=== PATIENT | female | born 1975 | race Two or more races ===

== ENCOUNTER 2016-11-30 18:55 | Inpatient (IN) | payer SELFPAY ==
[~2016-11-30] VITALS: Ht 157.5 cm; Wt 58.1 kg
[~2016-11-30 18:55] MED LIST: AMOX1TAB11 PO; INSU100C4 SQ; INSU100V13 SQ; METO10SO PO; OXYC1TAB7 PO; PANT40TA5 PO
[2016-11-30] MEDS ORDERED: KETOROLAC TROMETHAMINE 30 MG/ML SYRINGE. IV ONE (19:45)
[2016-11-30] MEDS ORDERED: IV NORMAL SALINE 1000ML BAG 1,000 ML IV SCH ×2 (19:45→21:00)
[2016-11-30] MEDS ORDERED: ONDANSETRON PF 4 MG/2 ML VIAL. IV ONE (19:45)
--- NOTE | 2016-11-30 19:53 | PHYS DOC ---
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 She then became weak today and had mechanical fall while falling onto her right buttock. She now has achy back pain in her thoracic and lumbar spine. She denies numbness, tingling, weakness, saddle anesthesia, bowel or bladder distress function, head injury, neck pain, chest pain, dyspnea, cough, diarrhea, dysuria. States she has been taking medications as prescribed. She states her foot is healing since debridement and she followed up with orthopedics clinic last week. She denies foot swelling or drainage. She denies other areas of infectious concern. Review of Systems Review of Systems Constitutional: Denies fever or chills [] Eyes: Denies change in visual acuity, redness, or eye pain [] HENT: Denies nasal congestion or sore throat [] Respiratory: Denies cough or shortness of breath [] Cardiovascular: No additional information not addressed in HPI [] GI: Denies bloody stools or diarrhea [] : Denies dysuria or hematuria [] Musculoskeletal: Denies joint pain [] Integument: Denies rash or skin lesions [] Neurologic: Denies headache, focal weakness or sensory changes [] Endocrine: Denies polyuria or polydipsia [] Current Medications Current Medications Current Medications Medications (Trade) Dose Ordered Sig/[facility] Start Time Stop Time Status Last Admin Dose Admin Acetaminophen (Tylenol) 650 mg PRN Q4HRS PRN 11/30/16 21:00 12/01/16 20:59 Dextrose/Sodium Chloride 1,000 ml @ 250 mls/hr Q4H 11/30/16 22:00 Fentanyl Citrate (Fentanyl 2ml Vial) 50 mcg PRN Q2HR PRN 11/30/16 21:00 12/01/16 20:59 Insulin Human Regular 150 unit/ Sodium Chloride 151.5 ml @ 0 mls/hr CONT PRN PRN 11/30/16 21:00 Ketorolac Tromethamine 10 mg 10 mg 1X ONCE 11/30/16 19:45 11/30/16 19:46 DC 11/30/16 20:08 10 MG Ondansetron HCl (Zofran) 4 mg PRN Q8HRS PRN 11/30/16 21:00 12/01/16 20:59 Potassium Chloride (KCl Premix 10meq) 100 ml @ 100 mls/hr PRN Q1HR PRN 11/30/16 21:00 Sodium Chloride 1,000 ml @ 250 mls/hr Q4H 11/30/16 22:00 Sodium Chloride (Iv Sodium Chloride 0.9% 1000ml Bag) 1,000 ml @ 1,000 mls/hr Q1H 11/30/16 19:45 11/30/16 20:44 DC 11/30/16 19:42 1,000 MLS/HR Allergies Allergies Allergies Coded Allergies Type Severity Reaction Last Updated Verified No Known Allergies Allergy Unknown 10/21/16 Yes Physical Exam Physical Exam Constitutional: Well developed, well nourished, no acute distress, non-toxic appearance. [] HENT: Normocephalic, atraumatic, bilateral external ears normal, oropharynx moist, nose normal. [] Eyes: PERRLA, EOMI. [] Neck: Normal range of motion, supple. [] Cardiovascular: Heart rate regular rhythm [] Lungs & Thorax: Bilateral breath sounds clear to auscultation [] Abdomen: Bowel sounds normal, soft, mild epigastric tenderness, no guarding or rebound, no pulsatile masses. [] Skin: Warm, dry, no erythema, no rash. [] Back: No tenderness, no CVA tenderness. [] Extremities: ROM intact, no edema. Right lower extremity with clean/packed incision from mid foot debridement [] Neurologic: Alert and oriented X 3, normal motor function, normal sensory function, no focal deficits noted. [] Psychologic: Affect normal, judgement normal, mood normal. [] Current Patient Data Vital Signs Vital Signs Date Time Temp Pulse Resp B/P Pulse Ox O2 Delivery O2 Flow Rate FiO2 11/30/16 19:06 98.0 127 20 144/80 99 Room Air 98.0 Lab Values Laboratory Tests Test 11/30/16 20:00 11/30/16 20:05 White Blood Count 15.7x10^3/uL (4.0-11.0) H Red Blood Count 3.45x10^6/uL (3.50-5.40) L Hemoglobin 9.8g/dL (12.0-15.5) L Hematocrit 31.3% (36.0-47.0) L Mean Corpuscular Volume 91fL (79-100) Mean Corpuscular Hemoglobin 29pg (25-35) Mean Corpuscular Hemoglobin Concent 31g/dL (31-37) Red Cell Distribution Width 15.3% (11.5-14.5) H Platelet Count 493x10^3/uL (140-400) H Neutrophils (%) (Auto) 87% (31-73) H Lymphocytes (%) (Auto) 6% (24-48) L Monocytes (%) (Auto) 6% (0-9) Eosinophils (%) (Auto) 0% (0-3) Basophils (%) (Auto) 0% (0-3) Neutrophils # (Auto) 13.7x10^3uL (1.8-7.7) H Lymphocytes # (Auto) 1.0x10^3/uL (1.0-4.8) Monocytes # (Auto) 0.9x10^3/uL (0.0-1.1) Eosinophils # (Auto) 0.0x10^3/uL (0.0-0.7) Basophils # (Auto) 0.1x10^3/uL (0.0-0.2) Segmented Neutrophils % 72% (35-66) H Band Neutrophils % 8% (0-9) Lymphocytes % 12% (24-48) L Monocytes % 4% (0-10) Basophils % 2% (0-3) Metamyelocytes % 2% (0-0) H Toxic Granulation Slight Platelet Estimate Increased (ADEQUATE) Polychromasia Slight Sodium Level 124mmol/L (136-145) L Potassium Level 5.6mmol/L (3.5-5.1) H Chloride Level 84mmol/L (98-107) L Carbon Dioxide Level 17mmol/L (21-32) L Anion Gap 23 (6-14) H Blood Urea Nitrogen 15mg/dL (7-20) Creatinine 1.9mg/dL (0.6-1.0) H Estimated GFR (Cockcroft-Gault) 29.3 Glucose Level 828mg/dL (70-99) *H Calcium Level 9.0mg/dL (8.5-10.1) Urine Collection Type Void Urine Color Straw Urine Clarity Clear Urine pH 6.0 Urine Specific [place] 1.020 Urine Protein 100mg/dL (NEG-TRACE) Urine Glucose (UA) >=1000mg/dL (NEG) Urine Ketones (Stick) >=80mg/dL (NEG) Urine Blood Trace (NEG) Urine Nitrite Negative (NEG) Urine Bilirubin Negative (NEG) Urine Urobilinogen Dipstick 0.2mg/dL (0.2 mg/dL) Urine Leukocyte Esterase Negative (NEG) Urine RBC 1-2/HPF (0-2) Urine WBC Occ/HPF (0-4) Urine Squamous Epithelial Cells Many/LPF Urine Bacteria Few/HPF (0-FEW) Urine Test Negative (NEG) Laboratory Tests 11/30/16 20:00 Laboratory Tests 11/30/16 20:00 EKG EKG EKG as interpreted by me as sinus tachycardia, rate 117, nose changes, normal intervals, no ectopy Radiology/Procedures Radiology/Procedures CT thoracic and lumbar spine without contrast IMPRESSION 1. No acute traumatic injury identified in the thoracic or lumbar spine. 2. Irregular, nonspecific focus of consolidation involving the left upper lobe. Recommend correlation with respiratory symptoms. Followup CT imaging of chest could be performed in 3 months. 3. Markedly distended urinary bladder. Electronically signed by: Ramses Evans MD (Nov 30, 2016 20:43:36) Course & Med Decision Making Course & Med Decision Making Pertinent Labs and Imaging studies reviewed. (See chart for details) She has diabetic ketoacidosis with pseudohyponatremia. She is started on IV fluids. Potassium is 5.6. DKA protocol ordered including insulin drip. Will admit to Dr. Painter, who accepts admission. Dragon Disclaimer Dragon Disclaimer This electronic medical record was generated, in whole or in part, using a voice recognition dictation system. Departure Departure Impression: Primary Impression: Diabetic ketoacidosis Additional Impression: Back pain Disposition: ADMITTED INPATIENT Condition: STABLE Referrals: NO PCP (PCP) Problem Qualifiers Primary Impression: Diabetic ketoacidosis Diabetes mellitus type: type 2 Diabetes mellitus complication detail: without coma Qualified Code: E13.10 - Other specified diabetes mellitus with ketoacidosis without coma Additional Impression: Back pain Back pain location: low back pain Chronicity: acute Back pain laterality: midline Sciatica presence: without sciatica Qualified Code: M54.5 - Low back pain Jennifer ROMERO MD Nov 30, 2016 19:53
[2016-11-30 20:08] LABS: BASO # 0.1 x10^3/uL (0.0-0.2); BASO % 0 % (0-3); EOS % 0 % (0-3); HEMATOCRIT 31.3 % (36.0-47.0); HEMOGLOBIN 9.8 g/dL (12.0-15.5); LYMPH % 6 % (24-48); MEAN CORPUSCULAR HEMOGLOBIN 29 pg (25-35); MEAN CORPUSCULAR HGB CONC 31 g/dL (31-37); MEAN CORPUSCULAR VOLUME 91 fL (79-100); MONO % 6 % (0-9); NEUT % 87 % (31-73); PLATELET COUNT 493 x10^3/uL (140-400); RED BLOOD COUNT 3.45 x10^6/uL (3.50-5.40); RED CELL DISTRIBUTION WIDTH 15.3 % (11.5-14.5); WHITE BLOOD COUNT 15.7 x10^3/uL (4.0-11.0)
[2016-11-30 20:12] LABS: NEG OBC UR NEG; POS OBC UR POS
[2016-11-30 20:14] LABS: BILIRUBIN,URINE NEGATIVE (NEG); GLUCOSE,URINE >=1000 mg/dL (NEG); NITRITE,URINE NEGATIVE (NEG); PROTEIN,URINE 100 mg/dL (NEG-TRACE); UROBILINOGEN,URINE 0.2 mg/dL (0.2 mg/dL)
[2016-11-30 20:21] LABS: BACTERIA,URINE FEW /HPF (0-FEW); SQUAMOUS EPITHELIAL CELL,UR MANY /LPF; WBC,URINE OCC /HPF (0-4)
[2016-11-30 20:26] LABS: CREATININE 1.9 mg/dL (0.6-1.0); GFR 29.3; POTASSIUM 5.6 mmol/L (3.5-5.1)
[2016-11-30 20:42] LABS: % BASOS 2 % (0-3)
[2016-11-30 20:44] LABS: PLT ESTIMATE INCREASED (ADEQUATE); POLYCHROMASIA SLIGHT; TOXIC GRANULATION SLIGHT
--- NOTE | 2016-11-30 20:44 | RAD ---
PROCEDURE CT thoracic spine without intravenous contrast. CT lumbar spine without intravenous contrast. HISTORY Fall, severe back pain. TECHNIQUE Noncontrast CT of the thoracic and lumbar spine was performed. Axial, sagittal, and coronal reconstructions were obtained. Exposure: One or more of the following individualized dose reduction techniques were utilized for this examination: 1. Automated exposure control. 2. Adjustment of the mA and/or kV according to patient size. 3. Use of iterative reconstruction technique. COMPARISON None. FINDINGS There are 12 rib-bearing thoracic type vertebral bodies. No acute fracture or acute malalignment identified. No paravertebral soft tissue swelling is seen. There is an irregular focus of consolidation involving the posterior left upper lobe measuring 2.5 centimeters in maximum dimension. Five lumbar-type vertebral bodies present. No acute fracture or acute malalignment identified. No paravertebral soft tissue swelling is seen. Markedly distended urinary bladder is noted. IMPRESSION 1. No acute traumatic injury identified in the thoracic or lumbar spine. 2. Irregular, nonspecific focus of consolidation involving the left upper lobe. Recommend correlation with respiratory symptoms. Followup CT imaging of chest could be performed in 3 months. 3. Markedly distended urinary bladder. Electronically signed by: Ramses Evans MD (Nov 30, 2016 20:43:36)
[2016-11-30] MEDS ORDERED: ACETAMINOPHEN 325 MG TABLET. PO PRN (21:00)
[2016-11-30] MEDS ORDERED: INSULIN REGULAR VIAL 150 UNIT in 0.9 % SODIUM CHLORIDE 150ML 150 ML IV PRN (21:00)
[2016-11-30] MEDS ORDERED: FENTANYL PF 100 MCG/2 ML VIAL. IV PRN (21:00)
[2016-11-30] MEDS ORDERED: POTASSIUM CHLORIDE 10MEQ 100 ML IV PRN ×2 (21:00)
[2016-11-30] MEDS: IV NORMAL SALINE 1000ML BAG 1,000 ML IV SCH (21:53)
[2016-11-30] MEDS ORDERED: IV DEXTROSE 5 %-0.45 % NACL 1,000 ML IV SCH (22:00)
--- NOTE | 2016-11-30 22:03 | ACF ---
Admission Forms Criteria GENERAL ADMISSION CRITERIA (Place 'X' for any and all applicable criteria): Admission is indicated for ANY ONE of the following: [ ]I. Hemodynamic instability as indicated by ANY ONE of the following(1)(2) (3)(4)(5): [ ]a) Vital sign abnormality not readily corrected by appropriate treatment within 12 to 24 hours indicated by ANY ONE of the following: [ ]i) Hypotension [ ]ii) Symptomatic Tachycardia unresponsive to treatment (eg , analgesia, fluids, sedation as indicated) [ ]iii) Orthostatic vital sign changes unresponsive to treatment (eg, fluids) [ ]b) Vital sign abnormality that is severe indicated by ANY ONE of the following: [ ]i) Inadequate perfusion indicated by ANY ONE of the following: [ ]1) Lactic acidosis (greater than 2 mmol/L) [ ]2) New abnormal capillary refill (greater than 3 seconds) [ ]3) Other metabolic acidosis (arterial pH less than 7.35) not otherwise explained [ ]4) Reduced urine output [ ]5) Altered mental status [ ]6) Myocardial Ischemia [ ]v) Mean arterial pressure[A] less than 60 mm Hg [ ]vi) Mean arterial pressure[A] less than 70 mm Hg after 30 minutes of appropriate treatment (eg, fluid resuscitation) [ ]vii) IV inotropic or vasopressor medication required to maintain adequate blood pressure or perfusion [ ]viii) Sustained heart rate greater than 120 beats per minute in adult or child 6 years or older[B]] [ ]II. Hypertension requiring inpatient treatment as indicated by ANY ONE of the following(6)(7)(8): [ ]a) SBP greater than 220 mm Hg or DBP greater than 120 mm Hg despite treatment [ ]b) SBP greater than 140 mm Hg or DBP greater than 100 mm Hg with evidence of acute end organ damage as indicated by ANY ONE of the following: [ ]i) Encephalopathy [ ]ii) Acute renal failure as indicated by new onset of ANY ONE of the following(9)(10)(11)(12)(13): [ ]1) A 3-fold rise in serum creatinine from baseline [ ]2) Serum creatinine greater than 4 mg/dL ( 354 micromoles/L) with acute rise greater than 0.5 mg/dL (44.2 micromoles/L) [ ]3) Reduction of more than 75% in estimated glomerular filtration rate from baseline [ ]4) Estimated glomerular filtration rate less than 35 mL/min/1.73m2 (0.59 mL/sec/1.73m2) in child up to 18 years of age [ ]5) Cessation of urine output indicated by ALL of the following: [ ]A. Adequate volume status [ ]B. Inadequate urine output as indicated by ANY ONE of the following: [ ]a. Urine output less than 0.3 mL/kg/hr for 24 hours [ ]b. Anuria (urine output less than 0.1 mL/kg/hr) for 12 hours [ ]iii) Aortic dissection [ ]iv) Myocardial ischemia [ ]v) Left ventricular heart failure [ ]vi) Retinal hemorrhage [ ]vii) Other significant finding [ ]c) Hypertension in child requiring inpatient treatment as indicated by ALL of the following(14)(15)(16): [ ]i) Outpatient treatment not effective, not available, or not appropriate [ ]ii) SBP or DBP greater than 95th percentile for age [ ]iii) Evidence of acute end organ damage as indicated by ANY ONE of the following: [ ]1) Altered mental status [ ]2) Acute renal failure as indicated by new onset of ANY ONE of the following(9)(10)(11)(12)(13): [ ]A. A 3-fold rise in serum creatinine from baseline [ ]B. Serum creatinine greater than 4 mg/dL (354 micromoles/L) with acute rise greater than 0.5 mg/dL (44.2 micromoles/L) [ ]C. Reduction of more than 75% in estimated glomerular filtration rate from baseline [ ]D. Estimated glomerular filtration rate less than 35 mL/min/1.73m2 (0.59 mL/sec/1.73m2)in child up to 18 years of age [ ]E. Cessation of urine output indicated by ALL of the following: [ ]a. Adequate volume status [ ]b. Inadequate urine output as indicated by ANY ONE of the following: [ ]1) Urine output less than 0.3 mL/kg/hr for 24 hours [ ]2) Anuria (urine output less than 0.1 mL/kg/hr) for 12 hours [ ]3) Severe headache [ ]4) Visual disturbance [ ]5) Retinal hemorrhage [ ]6) Other significant finding [ ]III. Acute cardiac or peripheral ischemia as indicated by ANY ONE of the following: [ ]a) Acute coronary syndrome(17)(18) [ ]b) Acute peripheral ischemia (eg, pulseless, cool, mottled, or cyanotic extremity)(19) [ ]IV. Cardiac arrhythmias or findings of immediate concern indicated by ANY ONE of the following(20)(21): [ ]a) Heart rhythms that are inherently dangerous or unstable indicated by ANY ONE of the following(22)(23)(24): [ ]i) Resuscitated ventricular fibrillation or cardiac arrest [ ]ii) Ventricular escape rhythm [ ]iii) Sustained ventricular tachycardia (30 seconds or more of ventricular rhythm at greater than 100 beats per minute) [ ]iv) Nonsustained ventricular tachycardia and ANY ONE of the following: [ ]1) Suspected cardiac ischemia as cause or consequence of ventricular tachycardia [ ]2) In setting of acute myocarditis [ ]b) Unstable cardiac conduction defects indicated by ANY ONE of the following(24)(25)(26): [ ]i) Type II second-degree atrioventricular block [ ]ii) Third-degree atrioventricular block [ ]iii) New-onset left bundle branch block with suspected myocardial ischemia [ ]c) Any heart rhythm and ANY ONE of the following(22)(23)(27)(28)( 29): [ ] i) Continuous long-term ECG monitoring needed (eg, initiation of drug requiring monitoring for more than 24 hours) [ ] ii) Patient has automatic implanted cardioverter defibrillator that is repeatedly firing, malfunctioning, or in need of immediate adjustment of settings beyond the scope of ambulatory or observation care. [ ]d) Heart rhythms of concern due to ANY ONE of the following: [ ]i) Hypotension [ ]ii) Respiratory distress [ ]iii) Association with other significant symptoms (eg, bradycardia with syncope or ongoing dizziness, supraventricular tachycardia with chest pain) (27)(28) (30) [ ] V. Severe heart failure as indicated by ANY ONE of the following ( 31)(32): [ ]a) Respiratory distress [ ]b) Hypotension [ ]c) Anasarca (refractory to outpatient therapy) [ ]d) Cardiac arrhythmias of immediate concern [ ]e) Myocardial ischemia [ ]. Respiratory abnormalities, including ANY ONE of the following(33)(34) (35)(36): [ ]a) Respiratory rate greater than 30 breaths per minute unresponsive to treatment [A] [ ]b) New saturation of arterial oxygen less than 90% [ ]c) New partial pressure of carbon dioxide greater than 44 mm Hg ( 5.9 kPa) [ ]d) Supplemental oxygen or respiratory treatments needed that are new or not performable at other levels of care [ ]e) New-onset cyanosis [ ]f) Inability to protect airway [ ]g) Chronic lung disease with severe deterioration (not responsive to emergency and observation care treatment as appropriate) as indicated by ANY ONE of the following(34)(36 ): [ ]i) SaO2 5% below baseline in patient with chronic hypoxemia [ ]ii) New requirement for supplemental oxygen to keep SaO2 at baseline or acceptable level [ ]iii) Required supplemental oxygen performable only in acute inpatient setting [ ]iv) Severe airflow or ventilation abnormalities [ ]v) Previously mobile patient unable to walk between rooms [ ]vi Inability to eat or sleep due to dyspnea [ ]vii) Rapid rate of exacerbation onset [ ]viii) Altered mental status ]VII. Severe airflow or ventilation abnormalities (not responsive to emergency and observation care treatment as appropriate) as indicated by ANY ONE of the following(33)(34)(35)(37): [ ]a) PCO2 greater than 42 mm Hg (5.6 kPa) and pH less than 7.35 (new ) [ ]b) Documented PCO2 increased more than 5 mm Hg (0.7 kPa) from disease baseline [ ]c) Airflow measurements [B] less than 60% of previous best or predicted (eg, peak expiratory flow rate less than 300 L/minute) despite intensive emergent treatment [C] [ ]d) Required respiratory treatments that are performable only in acute inpatient setting [ ]VIII. Impending or actual respiratory arrest ( Also use Respiratory Failure GRG for severe respiratory disease and long-term mechanical ventilation patients) [ ]IX. Neurologic abnormalities, including ANY ONE of the following: [ ]a) New findings that suggest ANY ONE of the following: [ ]i) [employer] infection(38) [ ]ii) Cerebral bleeding, ischemia, or vasospasm(39)(40) [ ]iii) Increased intracranial pressure, hydrocephalus, or cerebral edema(41)(42)(43) [ ]iv) Spinal cord injury(44) [ ]b) Uncontrolled seizures(45) [ ]c) New-onset coma (eg, Namita coma scale score less than 9) or unexplained abnormal mental status (eg, Naimta coma scale score less than 14) [D](41)(46)(47) [ ]X. New-onset severe neurologic findings requiring inpatient care; examples include(42)(48)(49): [ ]a) Papilledema [ ]b) Cerebral edema [ ]c) Mass effect on CT scan [ ]XI. Suspected acute intra-abdominal process with peritoneal signs, abdominal mass, or similar findings (50)(51)(52) [X ]XII. Severe physiologic disorder remaining after emergency or observation level care (as appropriate) as indicated by ANY ONE of the following (53): [ ]a) Significant dehydration [X ]b) Diabetic ketoacidosis [ ]c) Hyperglycemic hyperosmolar state (eg, osmolality greater than 320 mOsm/kg (mmol/kg) [ ]d) Hypoglycemia [ ]e) Other (new) acid-base disorder with pH less than 7.35 or greater than 7.5(54) [ ]f) Thyroid storm (55) [ ]g) Myxedema coma (55) [ ]XIII. Abdominal abnormalities with ANY ONE of the following(56)(57): [ ]a) Absent bowel sounds with complete ileus [ ]b) Signs of intestinal obstruction or peritonitis [E] [ ]c) Nausea and vomiting that cannot be controlled with outpatient or observation care [ ]XIV. Acute renal failure as indicated by new onset of ANY ONE of the following(9)(10)(11)(12)(13): [ ]a) A 3-fold rise in serum creatinine from baseline [ ]b) Serum creatinine greater than 4 mg/dL (354 micromoles/L) with acute rise greater than 0.5 mg/dL (44.2 micromoles/L) [ ]c) Reduction of more than 75% in estimated glomerular filtration rate from baseline [ ]d) Estimated glomerular filtration rate less than 35 mL/min/ 1.73m2 (0.59 mL/sec/1.73m2) in child up to 18 years of age [ ]e) Cessation of urine output indicated by ALL of the following: [ ]i) Adequate volume status [ ]ii) Inadequate urine output as indicated by ANY ONE of the following: [ ]1) Urine output less than 0.3 mL/kg/hr for 24 hours [ ]2) Anuria (urine output less than 0.1 mL/kg/hr) for 12 hours [ ]XV. Significant uremic complications as indicated by ANY ONE of the following(58)(59)(60): [ ]a) Outpatient therapy is ineffective or not feasible for ANY ONE of the following: [ ]i) Severe heart failure [ ]ii) Severehypertension [ ]iii) Pleural effusion [ ]iv) Pericarditis or pericardial effusion [ ]b) Cardiac arrhythmias of immediate concern [ ]c) Intractable nausea or vomiting [ ]d) Recurrent seizures [ ]e) Encephalopathy [ ]f) Bleeding abnormalities (eg, platelet dysfunction) with active (eg, gastrointestinal) bleeding [ ]g) Dialysis indicated before long-term access or ambulatory arrangements can be made [ ]h) Significant metabolic or electrolyte abnormalities (eg, severe acidosis or hyperkalemia) [ ]XVI. High fever or other high-risk infection situation as indicated by ANY ONE of the following(61)(62)(63)(64): [ ]a) Outpatient and observation care antimicrobial treatment unavailable, not effective, or not appropriate [ ]b) Documented bacteremia [ ]c) Temperature greater than 40.5 degrees C (104.9 degrees F) ( oral) [ ]d) Temperature greater than 39.5 degrees C (103.1 degrees F) ( oral) or less than 36 degrees C (96.8 degrees F) (rectal) that does not respond to e treatment and observation care [ ] XVII. Temperature less than 95 degrees F (35 degrees C)(rectal)(65) [ ] XVIII. Severe nutritional abnormalities as indicated by ALL of the following (66)(67): [ ]a) Inability to tolerate or establish sufficient oral or other enteral nutrition in outpatient setting [ ]b) Parenteral nutrition regimen need that must be implemented on inpatient basis [ ] XIX. Severe electrolyte abnormalities indicated by ALL of the following(68) (69)(70): [ ]a) Electrolytes and associated findings are not as expected for patient baseline or acceptable treatment effects. [ ]b) Severe abnormalities indicated by ANY ONE of the following: [ ]i) Sodium less than 130 mEq/L (mmol/L) (new) [ ]ii)Sodium less than 135 mEq/L (mmol/L) with ANY ONE of the following: [ ]1) Uncorrectable (to near normal or chronic baseline) after trial of outpatient and emergency treatment [ ]2) Altered mental status [ ]3) Seizures [ ]4) Severe medical etiology requiring inpatient management (eg, heart failure, hypovolemia) [ ]iii) Sodium greater than 155 mEq/L (mmol/L) [ ]iv) Sodium greater than 150 mEq/L (mmol/L) with ANY ONE of the following: [ ]1) Uncorrectable (to near normal or chronic baseline) with outpatient and emergency treatment [ ]2) Altered mental status [ ]3) Seizures [ ]4) Severe medical etiology (eg, hypovolemia, diabetes insipidus) [ ]v) Potassium less than 2.5 mEq/L (mmol/L) despite outpatient and emergency treatment [ ]vi) Potassium less than 3 mEq/L (mmol/L) with ANY ONE of the following: [ ]1) Weakness [ ]2) Cardiac abnormality (eg, arrhythmia, conduction disturbance) [ ]3) Cardiac ischemia [ ]4) Ileus [ ]5) Ongoing medical cause requiring inpatient management (eg, acute renal wasting or SIADH) [ ]6) Other severe symptoms [ ]vii) Potassium greater than 6.5 mEq/L (mmol/L) [ ]viii) Potassium greater than 5 mEq/L (mmol/L) with ANY ONE of the following: [ ]1) Uncorrectable (to near normal or chronic baseline) with outpatient and emergency treatment [ ]2) Severe ECG findings [F] [ ]3) Acute worsening of renal failure (creatinine greater than 2.5 mg/dL (221 micromoles/L) or significant elevation for age and size) [ ]4) Severe weakness [ ]5) Severe medical etiology (eg, hemolysis, infection, drug overdose) [ ]ix) Calcium less than 7 mg/dL (1.75 mmol/L) despite outpatient and emergency treatment (72) [ ]x) Calcium less than 8 mg/dL (2 mmol/L) with significant symptoms or findings; examples include(72): [ ]1) Altered mental status [ ]2) Muscle spasms [ ]3) Seizures [ ]4) Breathing difficulty [ ]5) Cardiac abnormality (eg, arrhythmia or conduction disturbance) [ ]xi) Calcium greater than 14 mg/dL (3.5 mmol/L)(72) [ ]xii) Calcium greater than 12 mg/dL (3 mmol/L) with ANY ONE of the following(72): [ ]1) Uncorrectable (to near normal or chronic baseline) with outpatient and emergency treatment [ ]2) Significant dehydration or hypovolemia as indicated by ALL of the following(70)(73)(74): [ ]A. Not resolved with initial treatments [ ]B. Clinically significant dehydration as indicated by ANY ONE of the following: [ ]a. Vomiting refractory to outpatient treatment (ie, precluding oral rehydration) [ ]b. Inability to drink [ ]c. Hypernatremia or other electrolyte abnormality unable to be corrected with outpatient and emergency treatment [ ]d. Failure to remain hydrated with outpatient therapy [ ]e. Reduced urine output [ ]f. Hypotension [ ]g. Serious cause for dehydration requiring acute hospitalization (eg, bowel obstruction, increased intracranial pressure, infectious cause) [ ]h. Child with ANY ONE of the following(75): [ ]1) Severe abdominal tenderness [ ]2) Adequate care not available at home [ ]3) Severe dehydration ( greater than 9% loss of body weight) [ ]4) Significant symptoms or findings; examples include: [ ]A. Altered mental status [ ]B. Cardiac abnormality (eg, arrhythmia, conduction disturbance) [ ]C. Malignant etiology requiring inpatient treatment [ ]xiii) Phosphorus less than 1 mg/dL (0.32 mmol/L) [ ]xiv) Phosphorus less than 1.5 mg/dL (0.48 mmol/L) with ANY ONE of the following: [ ]1) Patient unresponsive to outpatient and emergency treatment [ ]2) Significant symptoms or findings; examples include: [ ]A. Weakness [ ]B. Altered mental status [ ]C. Breathing difficulty [ ]D. Seizures [ ]E. Rhabdomyolysis [ ]xv) Phosphorus greater than 10 mg/dL (3.2 mmol/L) [ ]xvi) Phosphorus greater than 4.5 mg/dL (1.45 mmol/L) (new) with ANY ONE of the following: [ ]1) Severe medical etiology (eg, crush injury, acute renal failure) [ ]2) Associated hypocalcemia with significant findings; examples include: [ ]A. Neurologic symptoms [ ]B. Altered mental status [ ]C. Muscle spasms [ ]D. Seizures [ ]E. Breathing difficulty [ ]F. Cardiac abnormality (eg, arrhythmia, conduction disturbance) [ ]xvii) Magnesium less than 1 mg/dL (0.41 mmol/L) [ ]xviii) Magnesium less than 1.5 mg/dL (0.62 mmol/L) with ANY ONE of the following: [ ]1) Patient unresponsive to outpatient and emergency treatment [ ]2) Associated hypocalcemia with significant findings; examples include: [ ]A. Altered mental status [ ]B. Muscle spasms [ ]C. Seizures [ ]D. Breathing difficulty [ ]E. Cardiac abnormality (eg, arrhythmia , conduction disturbance) [ ]3) Associated hypokalemia (potassium less than 3 mEq/L (mmol/L)) with risk of arrhythmia [ ]xix) Magnesium greater than 4 mEq/L (2 mmol/L) [ ]xx) Magnesium greater than 2.5 mEq/L (1.25 mmol/L) with significant symptoms or findings; examples include: [ ]1) Weakness [ ]2) Altered mental status [ ]3) Cardiac abnormality (eg, arrhythmia, conduction disturbance) [ ]4) Breathing difficulty [ ]5) Severe medical etiology (eg, renal failure, hypovolemia) [ ]xxi) Uric acid greater than 20 mg/dL (1190 micromoles/L)(76) [ ]xxii) Uric acid greater than 8 mg/dL (476 micromoles/L) with significant symptoms or findings of tumor lysis syndrome; examples include(76): [ ]1) Creatinine greater than 1.5 times upper limit of normal [ ]2) Cardiac abnormality (eg, arrhythmia, conduction disturbance) [ ]3) Seizure [ ]XX. Acute blood loss causing significant abnormality as indicated by ANY ONE of the following(77)(78): [ ]a) Hemoglobin less than 10 g/dL (100 g/L) (not baseline) [ ]b) Hematocrit less than 30% (0.30) (not baseline) [ ]c) Repeat hematocrit decreased more than 2% (0.02) [ ]d) Uncontrolled bleeding [ ]XXI. Severe anemia indicated by ANY ONE of the following(78)(79): [ ]a) Altered mental status [ ]b) Chest pain [ ]c) Exertional dyspnea [ ]d) Syncope [ ]e) Other findings suggesting inadequate perfusion [ ]f) Treatment with transfusion or volume replacement is ineffective at resolving ANY ONE of the following [G]: [ ]i) Tachycardia for age [ ]ii) Orthostatic vital sign changes as indicated by ANY ONE of the following(80): [ ]1) Fall in SBP of 20 mm Hg or more 1 to 3 minutes after patient sits or stands from recumbent position [ ]2) Fall in DBP of 10 mm Hg or more 1 to 3 minutes after patient sits or stands from recumbent position [ ]XXII. High-risk low platelet count as indicated by ANY ONE of the following( 81)(82): [ ]a) Severe or life-threatening bleeding (eg, intracranial, major gastrointestinal, or extensive mucosal bleeding), with any reduced platelet count [ ]b) Platelet count less than 20,000/mm3 (20 x109/L) with any active bleeding [ ]c) Platelet count less than 10,000/mm3 (10 x109/L) with minor purpura or petechiae [ ]d) Platelet count less than 5000/mm3 (5 x109/L) [ ]e) Low platelet count with hemolytic anemia [ ]XXIII. Disseminated intravascular coagulation(77)(83) [ ]XXIV. Severe adverse drug or systemic toxin reaction requiring inpatient treatment; examples include(84)(85): [ ]a) Serotonin syndrome(86) [ ]b) Neuroleptic malignant syndrome(86) [ ]c) Cholinergic syndrome with severe symptoms (eg, bronchorrhea, weakness, mental status changes, seizures) [ ]d) Sympathetic syndrome with severe symptoms (eg, seizures, mental status changes, cardiac dysrhythmias) [ ]e) Anticholinergic syndrome [ ]XXV. Severe pain requiring acute inpatient management as indicated by ALL of the following (87)(88)(89): [ ]a) Continuous or frequent (eg, every 2 to 4 hours) parenteral analgesics required [H] [ ]b) Rapid improvement expected from treatment or acute intervention (eg, surgery, anesthesia procedure) [ ]XXVI.Severe behavioral health issues judged unmanageable at a lower level of care (eg, residential) in a patient who is ANY ONE of the following(91) [ ]a) Acutely suicidal [ ]b) A danger to self (eg, self-mutilating or suicidal behavior) [ ]c) A danger to others (eg, assaultive or homicidal behavior) [ ]d) Incapacitated because of grave disability (eg, inability to provide for self at lower level of care) (92) [ ]XXVII. Inpatient monitoring needed; examples include(1)(3)(87)(93)(94)(95)(96 ): [ ]a) Vital signs, neurologic signs, or vascular checks more frequently than every 4 hours [ ]b) Cardiac or respiratory monitoring beyond the scope (eg, over 24 hours) of observation care [ ]c) Pulmonary artery catheter monitoring [ ]d) Suspected compartment syndrome(97) (98) [ ]e) Cerebral bleeding, hydrocephalus, or vasospasm monitoring [ ]f) Increased intracranial pressure or cerebral edema monitoring [ ]g) monitoring [ ]XXVIII. Treatment requiring inpatient care; examples include: [ ]a) IV fluid to replace significant ongoing losses (greater than 3 L/m2 per day)(53) [ ]b) High concentration oxygen (greater than 40%)(33)(99)(100) [ ]c) Frequent respiratory therapy (more frequently than every 4 hours) to maintain airflow rates greater than 60% of baseline(33)(99)(100) [ ]d) Epidural analgesia(87) [ ]e) IV anticoagulation, vasoactive, or antiarrhythmic medication(19 )(23) [ ]f) Acute thrombolytics (generally require 24 hours of observation )(101)(102) [ ]XXIX. Emergency procedures needed; examples include: [ ]a) Emergency inpatient surgery [ ]b) Temporary pacemaker placement(103) [ ]c) Chest tube placement with active evacuation (eg, suction, drainage)(104) [ ]d) Emergent cardioversion(105) [ ]e) Emergent cardiac or vascular procedures (eg, cardiac catheterization, angioplasty) (17)(18) [ ]f) Emergent dialysis access placement and institution(10)(106) [ ]g) Emergent pericardiocentesis(107) [ ]h) Emergent plasmapheresis or leukapheresis(83) [ ]i) Emergent tracheostomy The original [employer] content created by [employer] has been revised. The portions of the content which have been revised are identified through the use of italic text or in bold, and [email or web address] has neither reviewed nor approved the modified material. All other unmodified content is copyright [employer]. Please see references footnoted in the original [employer] edition 2016 Admission Criteria Met?: Yes MIO DUMONT Nov 30, 2016 22:03
[2016-11-30 22:45] VITALS: BP 104/68
[2016-11-30 23:00] VITALS: BP 108/75
[2016-11-30 23:15] VITALS: BP 106/70
[2016-11-30 23:30] VITALS: BP 101/66
[2016-12-01] VITALS (20 sets, daily range): BP systolic 89–144; BP diastolic 52–81
[2016-12-01 01:14] LABS: CALCIUM 8.6 mg/dL (8.5-10.1); CREATININE 1.7 mg/dL (0.6-1.0); GFR 33.3; MAGNESIUM 2.2 mg/dL (1.8-2.4); PHOSPHORUS 2.2 mg/dL (2.6-4.7)
[2016-12-01] MEDS: ONDANSETRON PF 4 MG/2 ML VIAL. IV PRN ×2 (01:18→07:54)
[2016-12-01 01:21] LABS: POTASSIUM 2.8 mmol/L (3.5-5.1)
[2016-12-01] MEDS: IV NORMAL SALINE 1000ML BAG 1,000 ML IV SCH ×3 (01:23→17:22)
[2016-12-01] MEDS: IV DEXTROSE 5% - 0.9 % NACL 1,000 ML IV SCH ×2 (01:40→05:45)
[2016-12-01] MEDS: POTASSIUM CHLORIDE 10MEQ 100 ML IV PRN ×6 (02:09→10:21)
[2016-12-01 05:39] LABS: CALCIUM 7.7 mg/dL (8.5-10.1); CREATININE 1.3 mg/dL (0.6-1.0); GFR 45.4; POTASSIUM 3.9 mmol/L (3.5-5.1)
[2016-12-01] MEDS: IV DEXTROSE 5 %-0.45 % NACL 1,000 ML IV SCH ×3 (06:22→14:15)
--- NOTE | 2016-12-01 06:39 | EKG ---
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
[2016-12-01] MEDS ORDERED: DEXTROSE 50% 25 GM / 50ML DISP.SYRIN. IV ONE ×2 (07:48→08:00)
[2016-12-01 09:39] LABS: CALCIUM 7.5 mg/dL (8.5-10.1); CREATININE 1.3 mg/dL (0.6-1.0); GFR 45.4; POTASSIUM 3.4 mmol/L (3.5-5.1)
[2016-12-01] MEDS ORDERED: DEXTROSE 50% 25 GM / 50ML DISP.SYRIN. IV PRN (11:30)
[2016-12-01] MEDS: POTASSIUM CHLORIDE 10MEQ 100 ML IV SCH ×4 (11:48→17:20)
[2016-12-01] MEDS: INSULIN ASPART 300 UNITS/3 ML INSULN.PEN SQ SCH ×2 (12:00→14:46)
[2016-12-01 12:26] LABS: CALCIUM 8.1 mg/dL (8.5-10.1); CREATININE 1.2 mg/dL (0.6-1.0); GFR 49.8; POTASSIUM 3.6 mmol/L (3.5-5.1)
[2016-12-01] MEDS ORDERED: SEVOFLURANE 61 TO 120 MINUTES. IH ONE (12:40)
[2016-12-01] MEDS ORDERED: DEXAMETHASONE SOD PHOS 20 MG/5 ML VIAL. ONE (12:41)
[2016-12-01] MEDS ORDERED: PROPOFOL 20 ML IV ONE ×2 (12:41→14:06)
[2016-12-01] MEDS ORDERED: FENTANYL PF 100 MCG/2 ML VIAL. ONE (12:41)
[2016-12-01] MEDS ORDERED: ONDANSETRON PF 4 MG/2 ML VIAL. ONE (12:41)
[2016-12-01] MEDS ORDERED: LIDOCAINE 2% 100 MG/5 ML DISP.SYRIN. ONE (12:41)
[2016-12-01] MEDS ORDERED: FENTANYL PF 100 MCG/2 ML VIAL. IV PRN ×2 (13:00)
[2016-12-01] MEDS ORDERED: IV RINGERS,LACTATED 1000ML 1,000 ML IV SCH (13:00)
[2016-12-01] MEDS ORDERED: BUTORPHANOL 2 MG VIAL. IV PRN (13:00)
[2016-12-01] MEDS ORDERED: HYDROMORPHONE 2 MG/ML VIAL. IV PRN (13:00)
[2016-12-01] MEDS ORDERED: LIDOCAINE 1% 1 ML SYRINGE. ID PRN (13:00)
[2016-12-01] MEDS ORDERED: PROMETHAZINE 25 MG in IV NORMAL SALINE 50ML 50 ML IV PRN (13:00)
[2016-12-01] MEDS ORDERED: ONDANSETRON PF 4 MG/2 ML VIAL. IV PRN (13:00)
[2016-12-01] MEDS ORDERED: SUCCINYLCHOLINE 200 MG/10 ML VIAL. ONE (13:05)
[2016-12-01] MEDS ORDERED: PHENYLEPHRINE in 0.9% NACL PF 1 MG/10 ML DISP.SYRIN. IV ONE (13:35)
[2016-12-01] MEDS ORDERED: METOCLOPRAMIDE HCL 10 MG/2 ML VIAL. ONE (13:40)
--- NOTE | 2016-12-01 13:49 | PDOC2 ---
GI CONSULT Reason For Consult: Coffee-ground emesis HPI: HPI: 41 y/o female known to GI/Dr. Hardin from admission in 10/2016. N/v at that time was suspected to be related to DM, gastroparesis and was improved w / Reglan and PPI. History from chart and RN. Came to the ER yesterday w/ n/v, abd pain, and weakness after a fall. Now admitted to ICU in DKA w/ left foot necrotizing fasciitis w/ surgery planned shortly. GI consult for coffee-ground emesis which the patient says started today; denies bloody or dark emesis at home. Has not continued Reglan or PPI. Abdomen is sore from retching. Denies hematochezia or melena. Labs: WBC 15.7, Hgb 9.8 (stayed in 8-9s in 10/2016), glucose 828 on admission ( last check 147), potassium 5.6 to 2.8 to 3.4, BUN 15 to 13, Cr 1.9 to 1.7. PMH: PMH: IDDM, left foot surgeries, right shoulder surgery, right toe amputation, left eye surgery FH: Family History: DM Social History: ALCOHOL: none Drugs: None ROS: Difficult to obtain. GEN: Denies fevers, chills, sweats CV: Denies chest pain RESP: Denies shortness of air, cough GI: Per HPI MSK: weakness SKIN: left foot wound VItals: Vitals: Vital Signs Date Time Temp Pulse Resp B/P Pulse Ox O2 Delivery O2 Flow Rate FiO2 12/01/16 12:00 98.7 106 18 111/62 98 Room Air 98.7 Labs: Labs: Laboratory Tests Test 11/30/16 20:00 11/30/16 20:05 11/30/16 22:56 12/01/16 00:02 White Blood Count 15.7x10^3/uL (4.0-11.0) Red Blood Count 3.45x10^6/uL (3.50-5.40) Hemoglobin 9.8g/dL (12.0-15.5) Hematocrit 31.3% (36.0-47.0) Mean Corpuscular Volume 91fL (79-100) Mean Corpuscular Hemoglobin 29pg (25-35) Mean Corpuscular Hemoglobin Concent 31g/dL (31-37) Red Cell Distribution Width 15.3% (11.5-14.5) Platelet Count 493x10^3/uL (140-400) Neutrophils (%) (Auto) 87% (31-73) Lymphocytes (%) (Auto) 6% (24-48) Monocytes (%) (Auto) 6% (0-9) Eosinophils (%) (Auto) 0% (0-3) Basophils (%) (Auto) 0% (0-3) Neutrophils # (Auto) 13.7x10^3uL (1.8-7.7) Lymphocytes # (Auto) 1.0x10^3/uL (1.0-4.8) Monocytes # (Auto) 0.9x10^3/uL (0.0-1.1) Eosinophils # (Auto) 0.0x10^3/uL (0.0-0.7) Basophils # (Auto) 0.1x10^3/uL (0.0-0.2) Segmented Neutrophils % 72% (35-66) Band Neutrophils % 8% (0-9) Lymphocytes % 12% (24-48) Monocytes % 4% (0-10) Basophils % 2% (0-3) Metamyelocytes % 2% (0-0) Toxic Granulation Slight Platelet Estimate Increased (ADEQUATE) Polychromasia Slight Sodium Level 124mmol/L (136-145) Potassium Level 5.6mmol/L (3.5-5.1) Chloride Level 84mmol/L (98-107) Carbon Dioxide Level 17mmol/L (21-32) Anion Gap 23 (6-14) Blood Urea Nitrogen 15mg/dL (7-20) Creatinine 1.9mg/dL (0.6-1.0) Estimated GFR (Cockcroft-Gault) 29.3 Glucose Level 828mg/dL (70-99) Calcium Level 9.0mg/dL (8.5-10.1) Urine Collection Type Void Urine Color Straw Urine Clarity Clear Urine pH 6.0 Urine Specific Christoval 1.020 Urine Protein 100mg/dL (NEG-TRACE) Urine Glucose (UA) >=1000mg/dL (NEG) Urine Ketones (Stick) >=80mg/dL (NEG) Urine Blood Trace (NEG) Urine Nitrite Negative (NEG) Urine Bilirubin Negative (NEG) Urine Urobilinogen Dipstick 0.2mg/dL (0.2 mg/dL) Urine Leukocyte Esterase Negative (NEG) Urine RBC 1-2/HPF (0-2) Urine WBC Occ/HPF (0-4) Urine Squamous Epithelial Cells Many/LPF Urine Bacteria Few/HPF (0-FEW) Urine Test Negative (NEG) Glucose (Fingerstick) 428mg/dL (70-99) 340mg/dL (70-99) Test 12/01/16 00:15 12/01/16 01:06 12/01/16 02:13 12/01/16 03:18 Sodium Level 139mmol/L (136-145) Potassium Level 2.8mmol/L (3.5-5.1) Chloride Level 103mmol/L (98-107) Carbon Dioxide Level 21mmol/L (21-32) Anion Gap 15 (6-14) Blood Urea Nitrogen 13mg/dL (7-20) Creatinine 1.7mg/dL (0.6-1.0) Estimated GFR (Cockcroft-Gault) 33.3 Glucose Level 337mg/dL (70-99) Calcium Level 8.6mg/dL (8.5-10.1) Phosphorus Level 2.2mg/dL (2.6-4.7) Magnesium Level 2.2mg/dL (1.8-2.4) Glucose (Fingerstick) 219mg/dL (70-99) 179mg/dL (70-99) 210mg/dL (70-99) Test 12/01/16 04:24 12/01/16 04:33 12/01/16 05:28 12/01/16 06:43 Glucose (Fingerstick) 208mg/dL (70-99) 171mg/dL (70-99) 135mg/dL (70-99) Sodium Level 140mmol/L (136-145) Potassium Level 3.9mmol/L (3.5-5.1) Chloride Level 107mmol/L (98-107) Carbon Dioxide Level 23mmol/L (21-32) Anion Gap 10 (6-14) Blood Urea Nitrogen 11mg/dL (7-20) Creatinine 1.3mg/dL (0.6-1.0) Estimated GFR (Cockcroft-Gault) 45.4 Glucose Level 222mg/dL (70-99) Calcium Level 7.7mg/dL (8.5-10.1) Test 12/01/16 07:46 12/01/16 08:10 12/01/16 09:05 12/01/16 09:14 Glucose (Fingerstick) 56mg/dL (70-99) 227mg/dL (70-99) 172mg/dL (70-99) Sodium Level 143mmol/L (136-145) Potassium Level 3.4mmol/L (3.5-5.1) Chloride Level 110mmol/L (98-107) Carbon Dioxide Level 23mmol/L (21-32) Anion Gap 10 (6-14) Blood Urea Nitrogen 8mg/dL (7-20) Creatinine 1.3mg/dL (0.6-1.0) Estimated GFR (Cockcroft-Gault) 45.4 Glucose Level 193mg/dL (70-99) Calcium Level 7.5mg/dL (8.5-10.1) Test 12/01/16 10:18 12/01/16 11:21 12/01/16 11:50 12/01/16 11:51 Glucose (Fingerstick) 113mg/dL (70-99) 52mg/dL (70-99) 101mg/dL (70-99) Sodium Level 141mmol/L (136-145) Potassium Level 3.6mmol/L (3.5-5.1) Chloride Level 109mmol/L (98-107) Carbon Dioxide Level 22mmol/L (21-32) Anion Gap 10 (6-14) Blood Urea Nitrogen 7mg/dL (7-20) Creatinine 1.2mg/dL (0.6-1.0) Estimated GFR (Cockcroft-Gault) 49.8 Glucose Level 115mg/dL (70-99) Calcium Level 8.1mg/dL (8.5-10.1) Test 12/01/16 13:10 Glucose (Fingerstick) 147mg/dL (70-99) Allergies: Coded Allergies: No Known Allergies (Verified Allergy, Unknown, 10/21/16) Medications: Current Medications Medications (Trade) Dose Ordered Sig/Gabriela Route PRN Reason Start Time Stop Time Status Last Admin Dose Admin Sodium Chloride (Iv Sodium Chloride 0.9% 1000ml Bag) 1,000 ml @ 1,000 mls/hr Q1H IV 11/30/16 19:45 11/30/16 20:44 DC 11/30/16 19:42 Ondansetron HCl (Zofran) 4 mg 1X ONCE IV 11/30/16 19:45 11/30/16 19:46 DC 11/30/16 20:08 Ketorolac Tromethamine 10 mg 10 mg 1X ONCE IV 11/30/16 19:45 11/30/16 19:46 DC 11/30/16 20:08 Sodium Chloride 1,000 ml @ 1,000 mls/hr Q1H IV 11/30/16 21:00 11/30/16 21:01 DC 11/30/16 21:11 Sodium Chloride 1,000 ml @ 250 mls/hr Q4H IV 11/30/16 22:00 12/01/16 07:42 DC 12/01/16 01:23 Dextrose/Sodium Chloride 1,000 ml @ 250 mls/hr Q4H IV 11/30/16 22:00 12/01/16 01:37 DC 11/30/16 21:15 Insulin Human Regular 150 unit/ Sodium Chloride 151.5 ml @ 0 mls/hr CONT PRN PRN IV PER PROTOCOL 11/30/16 21:00 11/30/16 21:36 Potassium Chloride (KCl Premix 10meq) 100 ml @ 100 mls/hr PRN Q1HR PRN IV SEE COMMENTS 11/30/16 21:00 12/01/16 10:21 Ondansetron HCl (Zofran) 4 mg PRN Q8HRS PRN IV NAUSEA/VOMITING 11/30/16 21:00 12/01/16 20:59 12/01/16 07:54 Fentanyl Citrate 50 mcg 50 mcg PRN Q2HR PRN IV SEVERE PAIN 11/30/16 21:00 12/01/16 20:59 12/01/16 00:19 Dextrose/Sodium Chloride 1,000 ml @ 250 mls/hr Q4H IV 12/01/16 01:45 12/01/16 06:18 DC 12/01/16 01:40 Dextrose/Sodium Chloride (Iv D5% - 1/2 NS) 1,000 ml @ 250 mls/hr Q4H IV 12/01/16 06:15 12/01/16 06:22 Dextrose 25 gm 25 gm 1X ONCE IV 12/01/16 08:00 12/01/16 08:01 DC 12/01/16 07:56 Potassium Chloride (KCl Premix 10meq) 100 ml @ 100 mls/hr Q1H IV 12/01/16 11:30 12/01/16 15:29 12/01/16 11:48 Ondansetron HCl (Zofran) 4 mg PRN Q6HRS PRN IV Nausea 12/01/16 13:00 12/02/16 12:59 12/01/16 13:16 Imaging: Imaging: T and L spine CT IMPRESSION 1. No acute traumatic injury identified in the thoracic or lumbar spine. 2. Irregular, nonspecific focus of consolidation involving the left upper lobe. Recommend correlation with respiratory symptoms. Followup CT imaging of chest could be performed in 3 months. 3. Markedly distended urinary bladder. PE: GEN: ill, actively retching HEENT: Atraumatic LUNGS: CTAB anteriorly HEART: tachycardic ABD: tender SKIN: left foot wound NEURO/PSYCH: A & O 3 OTHER: emesis basin w/ coffee-ground material A/P: A/P: DKA Left foot necrotizing fasciitis, leukocytosis Coffee-ground emesis, n/v, abd pain -n/v w/ abd pain for a few days at home prior to coming to ER, coffee-ground emesis began today -prior admission was improved w/ Reglan (first IV QIDACHS and then susp QIDACHS ) and PPI (first BID IV and then PO) -Hgb 9.8 (ranges from 8-9 it seems) -- Going to surgery. Start PPI now. NG okay if needed. Probably will need to restart Reglan. Other per Dr. Hardin. ANTONETTE WALKER Dec 01, 2016 13:49
[2016-12-01] MEDS ORDERED: PIP/TAZO PER PHARMACY MC PRN (15:00)
[2016-12-01] MEDS: VANCOMYCIN PER PHARMACY MC PRN (15:02)
[2016-12-01] MEDS ORDERED: NORMAL SALINE IV ONE (15:30)
[2016-12-01] MEDS ORDERED: VANCOMYCIN IV ONE (15:30)
[2016-12-01] MEDS: PANTOPRAZOLE IV PUSH 40 MG VIAL. IVP SCH (16:13)
[2016-12-01 16:46] LABS: CALCIUM 7.7 mg/dL (8.5-10.1); CREATININE 1.1 mg/dL (0.6-1.0); POTASSIUM 3.8 mmol/L (3.5-5.1)
--- NOTE | 2016-12-01 16:47 | PDOC ---
BRIEF OPERATIVE NOTE Date: Dec 01, 2016 Pre-Op Diagnosis left foot infection Post-Op Diagnosis same Procedure Performed I/D left foot with wound vac Surgeon Myron Anesthesia Type: General Blood Loss 75cc Specimens Obtained cultures intraop Findings extensive purulence dorsal foot distally Complications none DANA MANSFIELD MD Dec 01, 2016 16:47
[2016-12-01] MEDS: PIPERACILLIN/TAZOBACTAM 3.375 GM in IV NORMAL SALINE 50ML 50 ML IV SCH (17:21)
[2016-12-01] MEDS: METOCLOPRAMIDE HCL 10 MG/2 ML VIAL. IV SCH (17:24)
[2016-12-01] MEDS ORDERED: INSULIN ASPART 300 UNITS/3 ML INSULN.PEN SQ SCH (18:45)
[2016-12-01] MEDS: MORPHINE SULFATE 2 MG/ML DISP.SYRIN. IV PRN (19:44)
[2016-12-01 20:25] LABS: CALCIUM 7.7 mg/dL (8.5-10.1); CREATININE 1.3 mg/dL (0.6-1.0); GFR 45.4; POTASSIUM 3.6 mmol/L (3.5-5.1)
--- NOTE | 2016-12-01 22:53 | HP ---
ADMIT DATE: 12/01/2016 CHIEF COMPLAINT: Abdominal pain, nausea, vomiting, weakness, ____. HISTORY OF PRESENT ILLNESS: The patient is a pleasant 41-year-old female well known to our service. She seems to be noncompliant with her meds and periodically gets admitted with DKA. Once again, she presents with the above chief complaints. While in the ER, she is noted to have anion gap metabolic acidosis and glucose greater than 800. I have discussed the case with the ER physician. She has been admitted to the ICU on a DKA protocol with insulin drip and fluids. PAST MEDICAL HISTORY: Diabetes, noncompliance, , hypertension, right toe amputation, GERD, and chronic pain. ALLERGIES: None. FAMILY HISTORY: Hypertension. SOCIAL HISTORY: She does not drink, smoke or take drugs. MEDICATIONS: Reviewed, please refer to the MRAD. REVIEW OF SYSTEMS: GENERAL: No history of weight change, weakness or fevers. SKIN: No bruising, hair changes or rashes. EYES: No blurred, double or loss of vision. NOSE AND THROAT: No history of nosebleeds, hoarseness or sore throat. HEART: No history of palpitations, chest pain or shortness of breath on exertion. LUNGS: Denies cough, hemoptysis, wheezing or shortness of breath. GASTROINTESTINAL: The patient complains of abdominal pain. GENITOURINARY: No history of frequency, urgency, hesitancy or nocturia. NEUROLOGIC: Denies history of numbness, tingling, tremor or weakness. PSYCHIATRIC: No history of panic, anxiety or depression. ENDOCRINE: No history of heat or cold intolerance, polyuria or polydipsia. EXTREMITIES: Denies muscle weakness, joint pain, pain on walking or stiffness. PHYSICAL EXAMINATION: VITAL SIGNS: Temperature afebrile, pulse 110, respirations 18, blood pressure 92/56. GENERAL: She is awake, alert, very weak, appears very dry, her mouth is dry. HEART: Distant S1, S2. LUNGS: Clear. ABDOMEN: Soft, decreased bowel sounds, tender. EXTREMITIES: Trace edema. SKIN: No rashes. She has poor skin turgor. ENDOCRINE: No thyromegaly. LYMPHATICS: No cervical nodes. HEMATOPOIETIC: No bruising. LABORATORY DATA: White count 15, hemoglobin 9.8, platelets 493. Glucose was 828, we got it down into the mid 300s now. Anion gap was 23, it is trending down now to 15. ASSESSMENT AND PLAN: Anion gap metabolic acidosis secondary to diabetic ketoacidosis. The patient has been admitted on insulin drip and fluids. We will follow the anion gap closely, follow DKA protocol, ICU monitoring, try to resume her home medications. We hope to advance with diet when she can tolerate. Right now, she is nauseated. P.ralaina Yu. Empiric IV antibiotics. PROGNOSIS: Guarded. MORE EGAN DO DR: VAMSI/irais JOB#: [id number] / [id number]
[2016-12-02] VITALS: BP 104/59
[2016-12-02] MEDS: PIPERACILLIN/TAZOBACTAM 3.375 GM in IV NORMAL SALINE 50ML 50 ML IV SCH ×4 (00:52→18:01)
[2016-12-02] MEDS: METOCLOPRAMIDE HCL 10 MG/2 ML VIAL. IV SCH ×4 (00:52→18:01)
[2016-12-02] MEDS: IV NORMAL SALINE 1000ML BAG 1,000 ML IV SCH ×8 (00:52→23:39)
--- NOTE | 2016-12-02 02:08 | CONS ---
DATE OF CONSULTATION: 12/01/2016 ORTHOPEDIC CONSULTATION REQUESTING CONSULTATION: Dr. Painter. REASON FOR CONSULTATION: Left foot followup. HISTORY OF PRESENT ILLNESS: The patient is a 41-year-old female who is known to me from previous procedures on her left foot for necrotizing fascitis. She was taken to surgery emergently on her presentation at her previous hospital visit and in a subsequent followup and has been undergoing wound care at home basically with some wet-to-dry dressing changes and foot was coming along much better, but she was admitted after about a 2-day history of nausea and vomiting, abdominal pain and weakness. She had a fall ____ the day of admission and has some lumbar back pain, and was not really aware of any issues with her foot and denies any fever or chills. PAST MEDICAL HISTORY: Significant for type 2 diabetes. PAST SURGICAL HISTORY: Significant for the above noted irrigation and debridement on left foot and ongoing wound care, previous right second toe amputation, surgery on her right arm and left thigh as well as . SOCIAL HISTORY: She denies any smoking, alcohol or drug use. She is previously independently ambulatory, but has been keeping weight apparently off of the right foot. MEDICATIONS: List is reviewed. ALLERGIES: She has no known drug allergies. REVIEW OF SYSTEMS: Denies any fever, chills, visual changes, focal weakness, numbness, tingling, chest pain or shortness of breath. No head injury, visual changes, neck pain, change in bowel or bladder habits and no other skin problems. PHYSICAL EXAMINATION: GENERAL: The patient is afebrile with temperature 98, pulse 127, respirations 20, blood pressure 144/80 of 99% saturation on room air. She seems quite lethargic to me; however, but does answer questions. EXTREMITIES: Examination of the left foot reveals significant devitalized tissue noted towards the lateral aspect of the base of the toes and some purulence was able to be expressed that appears to be collected on the dorsal side of the foot ____. She also has some involvement of the third toe where there is a small area of darkening skin on the dorsal aspect of that toe. She also has an area between the second and third webspace where there was some drainage and her toes were previously strapped quite tightly together by a Coban dressing holding her dressings on. There is some foul smelling nature to the foot. She has a very small area on the proximal dorsal aspect of the foot with a small scabbed area of skin, but really the forefoot is what is involved. Overall, she has aside from the healed second toe amputation on the contralateral foot, intact skin and has some neuropathy in a stocking distribution bilaterally, but has good hip, knee, and ankle motion, stability and alignment bilaterally. LABORATORY DATA: Shows a white count of 15.7. IMPRESSION: 1. Left foot infection with significant devitalized tissue. 2. Diabetic ketoacidosis. 3. Back pain, status post fall. TREATMENT PLAN: I went over with her the fact that I think her foot is really in worsening condition and need some significant debridement. It is unclear whether the distal aspect of the foot can really be salvaged or not at this time, but we certainly have to get the infected tissue out of there. I think part of her medical issue is really stemming from the foot infection, which is more severe than she thought. I went over the fact that in addition to the debridement of the foot that she may need to undergo further procedures potentially even amputation if this area does not respond and heal up to get good coverage as they could threaten the rest of her extremity or even her life. Her questions were answered at this time. She agrees to proceed with operative evaluation and treatment, which will occur today as she has been n.p.o. due to her nausea etc., prior to admission. DANA MANSFIELD MD DR: NIMCO/irais JOB#: [id number] / [id number]
[2016-12-02 03:38] VITALS: BP 106/64
[2016-12-02] MEDS: PANTOPRAZOLE IV PUSH 40 MG VIAL. IVP SCH ×2 (07:50→16:36)
[2016-12-02] MEDS: INSULIN ASPART 300 UNITS/3 ML INSULN.PEN SQ SCH ×3 (07:53→18:12)
[2016-12-02 08:00] VITALS: BP 118/73
[2016-12-02 08:21] LABS: BASO % 0 % (0-3); EOS % 0 % (0-3); HEMOGLOBIN 7.9 g/dL (12.0-15.5); LYMPH # 1.7 x10^3/uL (1.0-4.8); LYMPH % 12 % (24-48); MEAN CORPUSCULAR HEMOGLOBIN 28 pg (25-35); MEAN CORPUSCULAR HGB CONC 32 g/dL (31-37); MEAN CORPUSCULAR VOLUME 89 fL (79-100); MONO % 5 % (0-9); NEUT % 83 % (31-73); PLATELET COUNT 364 x10^3/uL (140-400); RED BLOOD COUNT 2.81 x10^6/uL (3.50-5.40); RED CELL DISTRIBUTION WIDTH 15.8 % (11.5-14.5); WHITE BLOOD COUNT 14.3 x10^3/uL (4.0-11.0)
[2016-12-02 08:34] LABS: ALBUMIN 0.9 g/dL (3.4-5.0); ALBUMIN/GLOBULIN RATIO 0.2 (1.0-1.7); ALK PHOS 92 U/L (46-116); ANION GAP 14 (6-14); AST (SGOT) 9 U/L (15-37); BLOOD UREA NITROGEN 6 mg/dL (7-20); BUN/CREATININE RATIO 5 (6-20); CALCIUM 7.6 mg/dL (8.5-10.1); CARBON DIOXIDE 18 mmol/L (21-32); CHLORIDE 105 mmol/L (98-107); CREATININE 1.1 mg/dL (0.6-1.0); GLUCOSE 393 mg/dL (70-99); POTASSIUM 3.5 mmol/L (3.5-5.1); SODIUM 137 mmol/L (136-145); TOTAL BILIRUBIN 0.3 mg/dL (0.2-1.0); TOTAL PROTEIN 6.1 g/dL (6.4-8.2)
[2016-12-02 08:35] LABS: ALT (SGPT) < 6 U/L (14-59)
[2016-12-02] MEDS ORDERED: INSULIN ASPART 100 UNIT/ML 10ML VIAL. SQ ONE (09:00)
[2016-12-02] MEDS ORDERED: INSULIN ASPART 300 UNITS/3 ML INSULN.PEN SQ ONE ×2 (09:00)
--- NOTE | 2016-12-02 10:19 | PDOC ---
Subjective: Subjective: Denies N/V. Normal BM yesterday. Tolerating liquids Objective: Vital Signs: Vital Signs Date Time Temp Pulse Resp B/P Pulse Ox O2 Delivery O2 Flow Rate FiO2 12/02/16 09:00 Room Air 12/02/16 08:00 98.5 92 22 118/73 100 98.5 Labs: Laboratory Tests Test 12/01/16 10:18 12/01/16 11:21 12/01/16 11:50 12/01/16 11:51 Glucose (Fingerstick) 113mg/dL (70-99) 52mg/dL (70-99) 101mg/dL (70-99) Sodium Level 141mmol/L (136-145) Potassium Level 3.6mmol/L (3.5-5.1) Chloride Level 109mmol/L (98-107) Carbon Dioxide Level 22mmol/L (21-32) Anion Gap 10 (6-14) Blood Urea Nitrogen 7mg/dL (7-20) Creatinine 1.2mg/dL (0.6-1.0) Estimated GFR (Cockcroft-Gault) 49.8 Glucose Level 115mg/dL (70-99) Calcium Level 8.1mg/dL (8.5-10.1) Test 12/01/16 13:10 12/01/16 14:43 12/01/16 16:15 12/01/16 18:29 Glucose (Fingerstick) 147mg/dL (70-99) 183mg/dL (70-99) 289mg/dL (70-99) Sodium Level 139mmol/L (136-145) Potassium Level 3.8mmol/L (3.5-5.1) Chloride Level 108mmol/L (98-107) Carbon Dioxide Level 19mmol/L (21-32) Anion Gap 12 (6-14) Blood Urea Nitrogen 6mg/dL (7-20) Creatinine 1.1mg/dL (0.6-1.0) Estimated GFR (Cockcroft-Gault) 55.0 Glucose Level 295mg/dL (70-99) Calcium Level 7.7mg/dL (8.5-10.1) Test 12/01/16 20:00 12/01/16 22:31 12/02/16 07:35 12/02/16 07:47 Sodium Level 139mmol/L (136-145) 137mmol/L (136-145) Potassium Level 3.6mmol/L (3.5-5.1) 3.5mmol/L (3.5-5.1) Chloride Level 109mmol/L (98-107) 105mmol/L (98-107) Carbon Dioxide Level 19mmol/L (21-32) 18mmol/L (21-32) Anion Gap 11 (6-14) 14 (6-14) Blood Urea Nitrogen 5mg/dL (7-20) 6mg/dL (7-20) Creatinine 1.3mg/dL (0.6-1.0) 1.1mg/dL (0.6-1.0) Estimated GFR (Cockcroft-Gault) 45.4 55.0 Glucose Level 319mg/dL (70-99) 393mg/dL (70-99) Calcium Level 7.7mg/dL (8.5-10.1) 7.6mg/dL (8.5-10.1) Glucose (Fingerstick) 302mg/dL (70-99) 374mg/dL (70-99) White Blood Count 14.3x10^3/uL (4.0-11.0) Red Blood Count 2.81x10^6/uL (3.50-5.40) Hemoglobin 7.9g/dL (12.0-15.5) Hematocrit 25.0% (36.0-47.0) Mean Corpuscular Volume 89fL (79-100) Mean Corpuscular Hemoglobin 28pg (25-35) Mean Corpuscular Hemoglobin Concent 32g/dL (31-37) Red Cell Distribution Width 15.8% (11.5-14.5) Platelet Count 364x10^3/uL (140-400) Neutrophils (%) (Auto) 83% (31-73) Lymphocytes (%) (Auto) 12% (24-48) Monocytes (%) (Auto) 5% (0-9) Eosinophils (%) (Auto) 0% (0-3) Basophils (%) (Auto) 0% (0-3) Neutrophils # (Auto) 11.8x10^3uL (1.8-7.7) Lymphocytes # (Auto) 1.7x10^3/uL (1.0-4.8) Monocytes # (Auto) 0.7x10^3/uL (0.0-1.1) Eosinophils # (Auto) 0.0x10^3/uL (0.0-0.7) Basophils # (Auto) 0.0x10^3/uL (0.0-0.2) BUN/Creatinine Ratio 5 (6-20) Total Bilirubin 0.3mg/dL (0.2-1.0) Aspartate Amino Transf (AST/SGOT) 9U/L (15-37) Alanine Aminotransferase (ALT/SGPT) < 6U/L (14-59) Alkaline Phosphatase 92U/L (46-116) Total Protein 6.1g/dL (6.4-8.2) Albumin 0.9g/dL (3.4-5.0) Albumin/Globulin Ratio 0.2 (1.0-1.7) Physical Exam: Physical Exam: PE: GEN: NAD HEENT: Atraumatic LUNGS: CTAB anteriorly HEART: tachycardic ABD: tender SKIN: left foot wound NEURO/PSYCH: A & O 3 Assessment & Plan: Assessment : A/P: DKA Left foot necrotizing fasciitis, leukocytosis Coffee-ground emesis, n/v, abd pain. Resolved today -n/v w/ abd pain for a few days at home prior to coming to ER, coffee-ground emesis began today -prior admission was improved w/ Reglan (first IV QIDACHS and then susp QIDACHS ) and PPI (first BID IV and then PO) -Hgb 7.9 (ranges from 8-9 it seems) Plan: 1) Continue PPI and Reglan 2) Monitor Hgb- no signs of GI now. Transfuse per primary recs 3) Okay to advance diet slowly from GI standpoint Dr Hardin returns Sunday to resume care Problems: JESENIA ARIAS MD Dec 02, 2016 10:19
--- NOTE | 2016-12-02 10:23 | PDOC2 ---
FABIOLA EATON INDUSTRIAL ORGANIZATIONAL PSYCHOLOGIST 12/02/16 1023: CONSULT Date of Consult Date of Consult DATE: 12/02/16 TIME: 09:51 Reason for Consult Reason for Consult: Necrotizing foot wound Referring Physician Referring Physician: Dr. Sanches Source Source: Chart review, Patient History of Present Illness Reason for Visit: This is 41 year old woman with a 16 year history of diabetes, who presents with abdominal pain associated with n/v as well as generalized weakness s/p fall. Work-up revealed DKA, KATHLEEN and left foot infection. She was evaluated by Dr. Sanches who noted devitalized tissue and purulent drainage of left foot. She was taken to the OR on the and underwent I and D with wound vac placement. Intra-op cultures are pending. Blood cultures are negative so far. She is currently on vanc and Zosyn The patient had a previous history of necrotizing fasciitis of left foot back in October 2016 s/p I and D. At that time intra-op cultures grew Prevotella-pansensitive, E. coli, group B Strep and Peptostreptococcus. She was initially treated with vanc, Zosyn and clindamycin before weaning to Augmentin. The patient reports noticing some redness of left foot, but further details are unclear as she is unable to remember. She now off insulin gtt. Denies pain. Past Medical History Past Medical History Necrotizing fasciitis of left foot w/ Prevotella, E. coli, Peptostreptococcus and group B strep, October 2016. Diabetes. Peripheral neuropathy. Hypertension. Past Surgical History Past Surgical History Right toe amputation Right shoulder surgery section Family History Family History Hypertension Diabetes Family History: Diabetes Social History Social History Nonsmoker Current Problem List Problem List Problems Medical Problems: (1) Back pain Status: Acute (2) Diabetic ketoacidosis Status: Acute Current Medications Current Medications Vancomycin Zosyn Dexamethasone one dose, 12/01 Other meds are available and have been reviewed. Allergies Allergies: Coded Allergies: No Known Allergies (Verified Allergy, Unknown, 10/21/16) Physical Exam Physical Exam GENERAL: NAD HENT: Oral cavity pink and dry LUNGS: Clear to auscultation HEART: Normal S and S2 ABDOMEN: Nondistended, BS present, soft nontender. EXTREMITIES: No gross edema or cyanosis. Left foot wound vac in place. SKIN: without rash NEUROLOGICAL: Arouses easily to name. Follows commands. Vitals VITALS Vital Signs Date Time Temp Pulse Resp B/P Pulse Ox O2 Delivery O2 Flow Rate FiO2 12/02/16 09:00 Room Air 12/02/16 08:00 98.5 92 22 118/73 100 98.5 Labs Labs Reviewed. WBC 14.3 Hgb 7.9 Cr 1.1 Glucose 393 Albumin 0.9 BLOOD CULTURE Preliminary NO GROWTH AFTER 1 DAY Images Images Lumbar & thoracic spine CT: No acute traumatic findings Assessment/Plan Assessment/Plan Left diabetic foot infection -s/p I and D. 12/01. Intra-op cultures pending Leukocytosis KATHLEEN, improved Peripheral neuropathy Anemia Continue vanc and Zosyn Await intra-op cultures Monitor response Thank you ITZEL HASSAN MD 12/02/16 2338: CONSULT Allergies Allergies: Coded Allergies: No Known Allergies (Verified Allergy, Unknown, 10/21/16) Assessment/Plan Assessment/Plan Patient seen and examined. Chart reviewed. Case discussed with WEATHER[employer]ATION CREW LEADER. Agree with plan above in addition to the following Toe G. stain shows yeast/GPR/GPC Add Micafungicin FABIOLA EATON APRN Dec 02, 2016 10:23 ITZEL HASSAN MD Dec 02, 2016 23:38
[2016-12-02] MEDS: MORPHINE SULFATE 2 MG/ML DISP.SYRIN. IV PRN ×2 (10:30→19:15)
[2016-12-02] MEDS ORDERED: POTASSIUM CHLORIDE 20 MEQ TABLET.ER. PO ONE (11:15)
[2016-12-02 12:00] VITALS: BP 129/70
--- NOTE | 2016-12-02 13:09 | PDOC ---
PROGRESS NOTES Chief Complaint Chief Complaint - Necrotizing fasciitis of L foot - DKA - Back pain - DM - Gastroparesis - Coffee ground emesis - Hx right toe amputation - HTN History of Present Illness History of Present Illness Ms Galo, a 41 year old female, was seen in ICU on exam this morning. Discussed I/D by Dr Sanches yesterday and contribution of necrotizing fasciitis to her DKA, as well as recommendations from GI. She denies vomiting today, also stating that her nausea is better controlled. She does complain of back pain persisting today. Vitals Vitals Vital Signs Date Time Temp Pulse Resp B/P Pulse Ox O2 Delivery O2 Flow Rate FiO2 12/02/16 09:00 Room Air 12/02/16 08:00 98.5 92 22 118/73 100 98.5 Physical Exam General: Alert, Oriented X3, Cooperative, No acute distress Heart: Normal S1, Normal S2, Other (Mild tachycardia) Lungs: Clear Abdomen: Normal bowel sounds, Soft Extremities: No cyanosis, No edema, Other (Necrotizing fasciitis of L foot, wound vac in place; R toe amputation) Skin: Other (See extremities above) Labs LABS Laboratory Tests Test 12/01/16 13:10 12/01/16 14:43 12/01/16 16:15 12/01/16 18:29 Glucose (Fingerstick) 147mg/dL (70-99) 183mg/dL (70-99) 289mg/dL (70-99) Sodium Level 139mmol/L (136-145) Potassium Level 3.8mmol/L (3.5-5.1) Chloride Level 108mmol/L (98-107) Carbon Dioxide Level 19mmol/L (21-32) Anion Gap 12 (6-14) Blood Urea Nitrogen 6mg/dL (7-20) Creatinine 1.1mg/dL (0.6-1.0) Estimated GFR (Cockcroft-Gault) 55.0 Glucose Level 295mg/dL (70-99) Calcium Level 7.7mg/dL (8.5-10.1) Test 12/01/16 20:00 12/01/16 22:31 12/02/16 07:35 12/02/16 07:47 Sodium Level 139mmol/L (136-145) 137mmol/L (136-145) Potassium Level 3.6mmol/L (3.5-5.1) 3.5mmol/L (3.5-5.1) Chloride Level 109mmol/L (98-107) 105mmol/L (98-107) Carbon Dioxide Level 19mmol/L (21-32) 18mmol/L (21-32) Anion Gap 11 (6-14) 14 (6-14) Blood Urea Nitrogen 5mg/dL (7-20) 6mg/dL (7-20) Creatinine 1.3mg/dL (0.6-1.0) 1.1mg/dL (0.6-1.0) Estimated GFR (Cockcroft-Gault) 45.4 55.0 Glucose Level 319mg/dL (70-99) 393mg/dL (70-99) Calcium Level 7.7mg/dL (8.5-10.1) 7.6mg/dL (8.5-10.1) Glucose (Fingerstick) 302mg/dL (70-99) 374mg/dL (70-99) White Blood Count 14.3x10^3/uL (4.0-11.0) Red Blood Count 2.81x10^6/uL (3.50-5.40) Hemoglobin 7.9g/dL (12.0-15.5) Hematocrit 25.0% (36.0-47.0) Mean Corpuscular Volume 89fL (79-100) Mean Corpuscular Hemoglobin 28pg (25-35) Mean Corpuscular Hemoglobin Concent 32g/dL (31-37) Red Cell Distribution Width 15.8% (11.5-14.5) Platelet Count 364x10^3/uL (140-400) Neutrophils (%) (Auto) 83% (31-73) Lymphocytes (%) (Auto) 12% (24-48) Monocytes (%) (Auto) 5% (0-9) Eosinophils (%) (Auto) 0% (0-3) Basophils (%) (Auto) 0% (0-3) Neutrophils # (Auto) 11.8x10^3uL (1.8-7.7) Lymphocytes # (Auto) 1.7x10^3/uL (1.0-4.8) Monocytes # (Auto) 0.7x10^3/uL (0.0-1.1) Eosinophils # (Auto) 0.0x10^3/uL (0.0-0.7) Basophils # (Auto) 0.0x10^3/uL (0.0-0.2) BUN/Creatinine Ratio 5 (6-20) Total Bilirubin 0.3mg/dL (0.2-1.0) Aspartate Amino Transf (AST/SGOT) 9U/L (15-37) Alanine Aminotransferase (ALT/SGPT) < 6U/L (14-59) Alkaline Phosphatase 92U/L (46-116) Total Protein 6.1g/dL (6.4-8.2) Albumin 0.9g/dL (3.4-5.0) Albumin/Globulin Ratio 0.2 (1.0-1.7) Test 12/02/16 12:17 Glucose (Fingerstick) 222mg/dL (70-99) Review of Systems Review of Systems Back pain continues Denies nausea/vomiting Assessment and Plan Assessmemt and Plan Assessment: - Necrotizing fasciitis of L foot s/p I/D 12/01/2016 - DKA - Back pain - Hypokalemia - DM - Gastroparesis - Coffee ground emesis - Hx right toe amputation - HTN Plan: - Patient remains hyperglycemic despite basal insulin. Gap improved today. - Ordered Novolog 20 U bolus - Ordered KCl 40 mEq to replenish K+ - Appreciate Dr. Sanches's I/D. Continue wound care and wound vac - Continue Vanc and Zosyn per ID. Follow up cultures - Reglan and PPI per GI recommendations - Advance diet as tolerated - Recheck labs in a.m. - PT/OT as tolerated - Appreciate subspecialty input Problems: Comment Review of Relevant I have reviewed the following items gem (where applicable) has been applied. Labs Laboratory Tests Test 11/30/16 20:00 11/30/16 20:05 11/30/16 22:56 12/01/16 00:02 White Blood Count 15.7x10^3/uL (4.0-11.0) Red Blood Count 3.45x10^6/uL (3.50-5.40) Hemoglobin 9.8g/dL (12.0-15.5) Hematocrit 31.3% (36.0-47.0) Mean Corpuscular Volume 91fL (79-100) Mean Corpuscular Hemoglobin 29pg (25-35) Mean Corpuscular Hemoglobin Concent 31g/dL (31-37) Red Cell Distribution Width 15.3% (11.5-14.5) Platelet Count 493x10^3/uL (140-400) Neutrophils (%) (Auto) 87% (31-73) Lymphocytes (%) (Auto) 6% (24-48) Monocytes (%) (Auto) 6% (0-9) Eosinophils (%) (Auto) 0% (0-3) Basophils (%) (Auto) 0% (0-3) Neutrophils # (Auto) 13.7x10^3uL (1.8-7.7) Lymphocytes # (Auto) 1.0x10^3/uL (1.0-4.8) Monocytes # (Auto) 0.9x10^3/uL (0.0-1.1) Eosinophils # (Auto) 0.0x10^3/uL (0.0-0.7) Basophils # (Auto) 0.1x10^3/uL (0.0-0.2) Segmented Neutrophils % 72% (35-66) Band Neutrophils % 8% (0-9) Lymphocytes % 12% (24-48) Monocytes % 4% (0-10) Basophils % 2% (0-3) Metamyelocytes % 2% (0-0) Toxic Granulation Slight Platelet Estimate Increased (ADEQUATE) Polychromasia Slight Sodium Level 124mmol/L (136-145) Potassium Level 5.6mmol/L (3.5-5.1) Chloride Level 84mmol/L (98-107) Carbon Dioxide Level 17mmol/L (21-32) Anion Gap 23 (6-14) Blood Urea Nitrogen 15mg/dL (7-20) Creatinine 1.9mg/dL (0.6-1.0) Estimated GFR (Cockcroft-Gault) 29.3 Glucose Level 828mg/dL (70-99) Calcium Level 9.0mg/dL (8.5-10.1) Urine Collection Type Void Urine Color Straw Urine Clarity Clear Urine pH 6.0 Urine Specific [place] 1.020 Urine Protein 100mg/dL (NEG-TRACE) Urine Glucose (UA) >=1000mg/dL (NEG) Urine Ketones (Stick) >=80mg/dL (NEG) Urine Blood Trace (NEG) Urine Nitrite Negative (NEG) Urine Bilirubin Negative (NEG) Urine Urobilinogen Dipstick 0.2mg/dL (0.2 mg/dL) Urine Leukocyte Esterase Negative (NEG) Urine RBC 1-2/HPF (0-2) Urine WBC Occ/HPF (0-4) Urine Squamous Epithelial Cells Many/LPF Urine Bacteria Few/HPF (0-FEW) Urine Test Negative (NEG) Glucose (Fingerstick) 428mg/dL (70-99) 340mg/dL (70-99) Test 12/01/16 00:15 12/01/16 01:06 12/01/16 01:30 12/01/16 02:13 Sodium Level 139mmol/L (136-145) Potassium Level 2.8mmol/L (3.5-5.1) Chloride Level 103mmol/L (98-107) Carbon Dioxide Level 21mmol/L (21-32) Anion Gap 15 (6-14) Blood Urea Nitrogen 13mg/dL (7-20) Creatinine 1.7mg/dL (0.6-1.0) Estimated GFR (Cockcroft-Gault) 33.3 Glucose Level 337mg/dL (70-99) Calcium Level 8.6mg/dL (8.5-10.1) Phosphorus Level 2.2mg/dL (2.6-4.7) Magnesium Level 2.2mg/dL (1.8-2.4) Glucose (Fingerstick) 219mg/dL (70-99) 179mg/dL (70-99) Nasal Screen MRSA (PCR) Negative (Negative) Test 12/01/16 03:18 12/01/16 04:24 12/01/16 04:33 12/01/16 05:28 Glucose (Fingerstick) 210mg/dL (70-99) 208mg/dL (70-99) 171mg/dL (70-99) Sodium Level 140mmol/L (136-145) Potassium Level 3.9mmol/L (3.5-5.1) Chloride Level 107mmol/L (98-107) Carbon Dioxide Level 23mmol/L (21-32) Anion Gap 10 (6-14) Blood Urea Nitrogen 11mg/dL (7-20) Creatinine 1.3mg/dL (0.6-1.0) Estimated GFR (Cockcroft-Gault) 45.4 Glucose Level 222mg/dL (70-99) Calcium Level 7.7mg/dL (8.5-10.1) Test 12/01/16 06:43 12/01/16 07:46 12/01/16 08:10 12/01/16 09:05 Glucose (Fingerstick) 135mg/dL (70-99) 56mg/dL (70-99) 227mg/dL (70-99) Sodium Level 143mmol/L (136-145) Potassium Level 3.4mmol/L (3.5-5.1) Chloride Level 110mmol/L (98-107) Carbon Dioxide Level 23mmol/L (21-32) Anion Gap 10 (6-14) Blood Urea Nitrogen 8mg/dL (7-20) Creatinine 1.3mg/dL (0.6-1.0) Estimated GFR (Cockcroft-Gault) 45.4 Glucose Level 193mg/dL (70-99) Calcium Level 7.5mg/dL (8.5-10.1) Test 12/01/16 09:14 12/01/16 10:18 12/01/16 11:21 12/01/16 11:50 Glucose (Fingerstick) 172mg/dL (70-99) 113mg/dL (70-99) 52mg/dL (70-99) Sodium Level 141mmol/L (136-145) Potassium Level 3.6mmol/L (3.5-5.1) Chloride Level 109mmol/L (98-107) Carbon Dioxide Level 22mmol/L (21-32) Anion Gap 10 (6-14) Blood Urea Nitrogen 7mg/dL (7-20) Creatinine 1.2mg/dL (0.6-1.0) Estimated GFR (Cockcroft-Gault) 49.8 Glucose Level 115mg/dL (70-99) Calcium Level 8.1mg/dL (8.5-10.1) Test 12/01/16 11:51 12/01/16 13:10 12/01/16 14:43 12/01/16 16:15 Glucose (Fingerstick) 101mg/dL (70-99) 147mg/dL (70-99) 183mg/dL (70-99) Sodium Level 139mmol/L (136-145) Potassium Level 3.8mmol/L (3.5-5.1) Chloride Level 108mmol/L (98-107) Carbon Dioxide Level 19mmol/L (21-32) Anion Gap 12 (6-14) Blood Urea Nitrogen 6mg/dL (7-20) Creatinine 1.1mg/dL (0.6-1.0) Estimated GFR (Cockcroft-Gault) 55.0 Glucose Level 295mg/dL (70-99) Calcium Level 7.7mg/dL (8.5-10.1) Test 12/01/16 18:29 12/01/16 20:00 12/01/16 22:31 12/02/16 07:35 Glucose (Fingerstick) 289mg/dL (70-99) 302mg/dL (70-99) Sodium Level 139mmol/L (136-145) 137mmol/L (136-145) Potassium Level 3.6mmol/L (3.5-5.1) 3.5mmol/L (3.5-5.1) Chloride Level 109mmol/L (98-107) 105mmol/L (98-107) Carbon Dioxide Level 19mmol/L (21-32) 18mmol/L (21-32) Anion Gap 11 (6-14) 14 (6-14) Blood Urea Nitrogen 5mg/dL (7-20) 6mg/dL (7-20) Creatinine 1.3mg/dL (0.6-1.0) 1.1mg/dL (0.6-1.0) Estimated GFR (Cockcroft-Gault) 45.4 55.0 Glucose Level 319mg/dL (70-99) 393mg/dL (70-99) Calcium Level 7.7mg/dL (8.5-10.1) 7.6mg/dL (8.5-10.1) White Blood Count 14.3x10^3/uL (4.0-11.0) Red Blood Count 2.81x10^6/uL (3.50-5.40) Hemoglobin 7.9g/dL (12.0-15.5) Hematocrit 25.0% (36.0-47.0) Mean Corpuscular Volume 89fL (79-100) Mean Corpuscular Hemoglobin 28pg (25-35) Mean Corpuscular Hemoglobin Concent 32g/dL (31-37) Red Cell Distribution Width 15.8% (11.5-14.5) Platelet Count 364x10^3/uL (140-400) Neutrophils (%) (Auto) 83% (31-73) Lymphocytes (%) (Auto) 12% (24-48) Monocytes (%) (Auto) 5% (0-9) Eosinophils (%) (Auto) 0% (0-3) Basophils (%) (Auto) 0% (0-3) Neutrophils # (Auto) 11.8x10^3uL (1.8-7.7) Lymphocytes # (Auto) 1.7x10^3/uL (1.0-4.8) Monocytes # (Auto) 0.7x10^3/uL (0.0-1.1) Eosinophils # (Auto) 0.0x10^3/uL (0.0-0.7) Basophils # (Auto) 0.0x10^3/uL (0.0-0.2) BUN/Creatinine Ratio 5 (6-20) Total Bilirubin 0.3mg/dL (0.2-1.0) Aspartate Amino Transf (AST/SGOT) 9U/L (15-37) Alanine Aminotransferase (ALT/SGPT) < 6U/L (14-59) Alkaline Phosphatase 92U/L (46-116) Total Protein 6.1g/dL (6.4-8.2) Albumin 0.9g/dL (3.4-5.0) Albumin/Globulin Ratio 0.2 (1.0-1.7) Test 12/02/16 07:47 12/02/16 12:17 Glucose (Fingerstick) 374mg/dL (70-99) 222mg/dL (70-99) Laboratory Tests Test 12/01/16 13:10 12/01/16 14:43 12/01/16 16:15 12/01/16 18:29 Glucose (Fingerstick) 147mg/dL (70-99) 183mg/dL (70-99) 289mg/dL (70-99) Sodium Level 139mmol/L (136-145) Potassium Level 3.8mmol/L (3.5-5.1) Chloride Level 108mmol/L (98-107) Carbon Dioxide Level 19mmol/L (21-32) Anion Gap 12 (6-14) Blood Urea Nitrogen 6mg/dL (7-20) Creatinine 1.1mg/dL (0.6-1.0) Estimated GFR (Cockcroft-Gault) 55.0 Glucose Level 295mg/dL (70-99) Calcium Level 7.7mg/dL (8.5-10.1) Test 12/01/16 20:00 12/01/16 22:31 12/02/16 07:35 12/02/16 07:47 Sodium Level 139mmol/L (136-145) 137mmol/L (136-145) Potassium Level 3.6mmol/L (3.5-5.1) 3.5mmol/L (3.5-5.1) Chloride Level 109mmol/L (98-107) 105mmol/L (98-107) Carbon Dioxide Level 19mmol/L (21-32) 18mmol/L (21-32) Anion Gap 11 (6-14) 14 (6-14) Blood Urea Nitrogen 5mg/dL (7-20) 6mg/dL (7-20) Creatinine 1.3mg/dL (0.6-1.0) 1.1mg/dL (0.6-1.0) Estimated GFR (Cockcroft-Gault) 45.4 55.0 Glucose Level 319mg/dL (70-99) 393mg/dL (70-99) Calcium Level 7.7mg/dL (8.5-10.1) 7.6mg/dL (8.5-10.1) Glucose (Fingerstick) 302mg/dL (70-99) 374mg/dL (70-99) White Blood Count 14.3x10^3/uL (4.0-11.0) Red Blood Count 2.81x10^6/uL (3.50-5.40) Hemoglobin 7.9g/dL (12.0-15.5) Hematocrit 25.0% (36.0-47.0) Mean Corpuscular Volume 89fL (79-100) Mean Corpuscular Hemoglobin 28pg (25-35) Mean Corpuscular Hemoglobin Concent 32g/dL (31-37) Red Cell Distribution Width 15.8% (11.5-14.5) Platelet Count 364x10^3/uL (140-400) Neutrophils (%) (Auto) 83% (31-73) Lymphocytes (%) (Auto) 12% (24-48) Monocytes (%) (Auto) 5% (0-9) Eosinophils (%) (Auto) 0% (0-3) Basophils (%) (Auto) 0% (0-3) Neutrophils # (Auto) 11.8x10^3uL (1.8-7.7) Lymphocytes # (Auto) 1.7x10^3/uL (1.0-4.8) Monocytes # (Auto) 0.7x10^3/uL (0.0-1.1) Eosinophils # (Auto) 0.0x10^3/uL (0.0-0.7) Basophils # (Auto) 0.0x10^3/uL (0.0-0.2) BUN/Creatinine Ratio 5 (6-20) Total Bilirubin 0.3mg/dL (0.2-1.0) Aspartate Amino Transf (AST/SGOT) 9U/L (15-37) Alanine Aminotransferase (ALT/SGPT) < 6U/L (14-59) Alkaline Phosphatase 92U/L (46-116) Total Protein 6.1g/dL (6.4-8.2) Albumin 0.9g/dL (3.4-5.0) Albumin/Globulin Ratio 0.2 (1.0-1.7) Test 12/02/16 12:17 Glucose (Fingerstick) 222mg/dL (70-99) Microbiology 12/01/16 Blood Culture - Preliminary, Resulted NO GROWTH AFTER 1 DAY 12/01/16 Gram Stain - Final, Complete Medications Current Medications Sodium Chloride (Iv Sodium Chloride 0.9% 1000ml Bag) 1,000 ml @ 1,000 mls/hr Q1H IV Last administered on 11/30/16t 19:42; Start 1/19/17 at 19:45; Stop at 20:44; Status DC Ondansetron HCl (Zofran) 4 mg 1X ONCE IV Last administered on 11/30/16 20:08 ; Start 11/30/16 at 19:45; Stop 11/30/16 at 19:46; Status DC Ketorolac Tromethamine 10 mg 10 mg 1X ONCE IV Last administered on 11/30/16 20:08; Start 11/30/16 at 19:45; Stop 11/30/16 at 19:46; Status DC Sodium Chloride 1,000 ml @ 1,000 mls/hr Q1H IV Last administered on 11/30/16 21:11; Start 11/30/16 at 21:00; Stop 11/30/16 at 21:01; Status DC Sodium Chloride 1,000 ml @ 250 mls/hr Q4H IV Last administered on 12/01/16 01 :23; Start 11/30/16 at 22:00; Stop 12/01/16 at 07:42; Status DC Dextrose/Sodium Chloride 1,000 ml @ 250 mls/hr Q4H IV Last administered on 21:15; Start 11/30/16 at 22:00; Stop 12/01/16 at 01:37; Status DC Insulin Human Regular 150 unit/ Sodium Chloride 151.5 ml @ 0 mls/hr CONT PRN PRN IV PER PROTOCOL Last administered on 11/30/16 21:36; Start 11/30/16 at 21: 00 Potassium Chloride 100 ml @ 100 mls/hr PRN Q1HR PRN IV SEE COMMENTS; Start at 21:00 Potassium Chloride 100 ml @ 100 mls/hr PRN Q1HR PRN IV SEE COMMENTS; Start at 21:00 Potassium Chloride (KCl Premix 10meq) 100 ml @ 100 mls/hr PRN Q1HR PRN IV SEE COMMENTS Last administered on 12/01/16 10:21; Start 11/30/16 at 21:00 Ondansetron HCl (Zofran) 4 mg PRN Q8HRS PRN IV NAUSEA/VOMITING Last administered on 12/01/16 07:54; Start 11/30/16 at 21:00; Stop 12/01/16 at 20:59 ; Status DC Fentanyl Citrate (Fentanyl 2ml Vial) 50 mcg PRN Q2HR PRN IV SEVERE PAIN Last administered on 12/01/16 00:19; Start 11/30/16 at 21:00; Stop 12/01/16 at 20:59 ; Status DC Acetaminophen 650 mg 650 mg PRN Q4HRS PRN PO FEVER; Start 11/30/16 at 21:00; Stop 12/01/16 at 20:59; Status DC Dextrose/Sodium Chloride 1,000 ml @ 250 mls/hr Q4H IV Last administered on 01:40; Start 12/01/16 at 01:45; Stop 12/01/16 at 06:18; Status DC Dextrose/Sodium Chloride (Iv D5% - 1/2 NS) 1,000 ml @ 250 mls/hr Q4H IV Last administered on 12/01/16 14:15; Start 12/01/16 at 06:15; Stop 12/01/16 at 17:17 ; Status DC Dextrose 25 gm STK-MED ONCE IV ; Start 12/01/16 at 07:48; Stop 12/01/16 at 07:49 ; Status DC Dextrose 25 gm 25 gm 1X ONCE IV Last administered on 12/01/16 07:56; Start at 08:00; Stop 12/01/16 at 08:01; Status DC Potassium Chloride (KCl Premix 10meq) 100 ml @ 100 mls/hr Q1H IV Last administered on 12/01/16 17:20; Start 12/01/16 at 11:30; Stop 12/01/16 at 15:29 ; Status DC Insulin Aspart (Novolog) 0-7 UNITS TIDWMEALS SQ Last administered on 12/02/16 07:53; Start 12/01/16 at 12:00 Dextrose 12.5 gm PRN Q15MIN PRN IV SEE COMMENTS; Start 12/01/16 at 11:30 Sevoflurane (Ultane) 60 ml STK-MED ONCE IH ; Start 12/01/16 at 12:40; Stop 12/01 at 12:41; Status DC Fentanyl Citrate 100 mcg 100 mcg STK-MED ONCE .ROUTE ; Start 12/01/16 at 12:41; Stop 12/01/16 at 12:42; Status DC Propofol (Diprivan) 20 ml @ As Directed STK-MED ONCE IV ; Start 12/01/16 at 12: 41; Stop 12/01/16 at 12:42; Status DC Ondansetron HCl (Zofran) 4 mg STK-MED ONCE .ROUTE ; Start 12/01/16 at 12:41; Stop 12/01/16 at 12:42; Status DC Dexamethasone Sodium Phosphate (Decadron) 20 mg STK-MED ONCE .ROUTE ; Start at 12:41; Stop 12/01/16 at 12:42; Status DC Lidocaine HCl 100 mg STK-MED ONCE .ROUTE ; Start 12/01/16 at 12:41; Stop at 12:42; Status DC Butorphanol Tartrate 1 mg 1 mg PRN Q6HRS PRN IV PAIN; Start 12/01/16 at 13:00 Promethazine HCl/ Sodium Chloride (Phenergan/Iv Sodium Chloride 0.9% 50ml) 51 ml @ 150.75 mls/ hr PRN Q6HRS PRN IV NAUSEA/VOMITING; Start 12/01/16 at 13:00 Ondansetron HCl (Zofran) 4 mg PRN Q6HRS PRN IV Nausea Last administered on 12/01t 13:16; Start 12/01/16 at 13:00; Stop 12/02/16 at 12:59; Status DC Fentanyl Citrate (Fentanyl 2ml Vial) 25 mcg PRN Q5MIN PRN IV MILD PAIN; Start 12/01/16 at 13:00; Stop 12/02/16 at 12:59; Status DC Fentanyl Citrate (Fentanyl 2ml Vial) 50 mcg PRN Q5MIN PRN IV MODERATE PAIN; Start 12/01/16 at 13:00; Stop 12/02/16 at 12:59; Status DC Morphine Sulfate 1 mg 1 mg PRN Q10MIN PRN IV SEVERE PAIN Last administered on t 10:30; Start 12/01/16 at 13:00; Stop 12/02/16 at 12:59; Status DC Lactated Ringer's (Iv Lactated Ringers) 1,000 ml @ 30 mls/hr Q24H IV ; Start at 13:00; Stop 12/02/16 at 00:59; Status DC Lidocaine HCl 2 ml 1X PRN PRN ID IV START; Start 12/01/16 at 13:00; Stop at 12:59; Status DC Hydromorphone HCl (Dilaudid) 0.5 mg PRN Q10MIN PRN IV SEV PAIN,Second choice; Start 12/01/16 at 13:00; Stop 12/02/16 at 12:59; Status DC Succinylcholine Chloride (Anectine) 200 mg STK-MED ONCE .ROUTE ; Start 12/01/16 at 13:05; Stop 12/01/16 at 13:06; Status DC Pantoprazole Sodium (Protonix Vial) 40 mg BIDAC IVP Last administered on 07:50; Start 12/01/16 at 14:00 Phenylephrine HCl 1 mg STK-MED ONCE IV ; Start 12/01/16 at 13:35; Stop 12/01/16 at 13:36; Status DC Metoclopramide HCl 10 mg 10 mg STK-MED ONCE .ROUTE ; Start 12/01/16 at 13:40; Stop 12/01/16 at 13:41; Status DC Propofol (Diprivan) 20 ml @ As Directed STK-MED ONCE IV ; Start 12/01/16 at 14: 06; Stop 12/01/16 at 14:07; Status DC Vancomycin HCl (Vanco Per Pharmacy) 1 each PRN DAILY PRN MC SEE COMMENTS Last administered on 12/01/16 15:02; Start 12/01/16 at 15:00 Piperacillin Sod/ Tazobactam Sod 1 each 1 each PRN DAILY PRN MC SEE COMMENTS; Start 12/01/16 at 15:00 Vancomycin HCl 250 mg/Sodium Chloride 100 ml @ 100 mls/hr 1X ONCE IV Last administered on 12/01/16 16:14; Start 12/01/16 at 15:30; Stop 12/01/16 at 16:29 ; Status DC Piperacillin Sod/ Tazobactam Sod 3.375 gm/Sodium Chloride 50 ml @ 100 mls/hr Q6HRS IV Last administered on 12/02/16 12:57; Start 12/01/16 at 17:00 Vancomycin HCl/ Sodium Chloride (Iv Sodium Chloride 0.9% 250ml) 250 ml @ 250 mls/hr Q24H IV ; Start 12/02/16 at 15:00 Vancomycin HCl 1 each 1X ONCE MC ; Start 12/03/16 at 14:30; Stop 12/03/16 at 14 :31 Metoclopramide HCl 10 mg 10 mg Q6HRS IV Last administered on 12/02/16 12:57; Start 12/01/16 at 17:00 Sodium Chloride (Iv Sodium Chloride 0.9% 1000ml Bag) 1,000 ml @ 250 mls/hr Q4H IV Last administered on 12/02/16 09:09; Start 12/01/16 at 17:15 Insulin Aspart (Novolog) 3 units 1X PRN SQ ; Start 12/01/16 at 18:45 Insulin Aspart (Novolog Vial) 20 unit 1X ONCE SQ ; Start 12/02/16 at 09:00; Stop 12/02/16 at 09:00; Status Cancel Insulin Aspart (Novolog) 20 units 1X ONCE SQ Last administered on 12/02/16 09 :07; Start 12/02/16 at 09:00; Stop 12/02/16 at 09:01; Status DC Insulin Aspart (Novolog) 20 units 1X ONCE SQ ; Start 12/02/16 at 09:00; Stop at 09:01; Status UNV Potassium Chloride (Klor-Con) 40 meq 1X ONCE PO Last administered on 11:39; Start 12/02/16 at 11:15; Stop 12/02/16 at 11:16; Status DC Active Scripts Active Pantoprazole Sodium 40 Mg Tablet.dr 40 Mg PO DAILYAC Oxycodone-Acetaminophen 5-325 (Oxycodone Hcl/Acetaminophen) 1 Each Tablet 1 Tab PO PRN Q4HRS PRN Metoclopramide Hcl 10 Mg/10 Ml Solution 5 Mg PO QIDACHS Amox Tr-K Clv 875-125 Mg Tab (Amoxicillin/Potassium Clav) 1 Each Tablet 1 Tab PO BID Reported Levemir (Insulin Detemir) 100 Unit/1 Ml Vial 35 Unit SQ HS Novolog (Insulin Aspart) 100 Unit/1 Ml Cartridge 10 Unit SQ TIDAC Vitals/I & O Vital Sign - Last 24 Hours 12/01/16 12/01/16 12/01/16 12/01/16 15:00 16:00 16:00 17:00 Temp 98.6 98.6 Pulse 118 110 118 B/P 111/70 121/81 127/73 O2 Delivery Room Air Room Air Room Air Room Air 12/01/16 12/01/16 12/01/16 12/01/16 18:00 19:00 19:44 20:00 Pulse 114 112 Resp 14 14 B/P 92/56 115/69 O2 Delivery Room Air Room Air Room Air Room Air 12/01/16 12/01/16 12/01/16 12/02/16 20:00 20:14 21:00 00:00 Temp 98.3 99.6 98.3 99.6 Pulse 108 106 106 Resp 20 18 24 21 B/P 136/81 102/58 104/59 Pulse Ox 99 100 99 O2 Delivery Room Air Room Air Room Air Room Air 12/02/16 12/02/16 12/02/16 12/02/16 00:00 03:38 08:00 09:00 Temp 98.5 98.5 98.5 98.5 Pulse 92 92 Resp 16 22 B/P 106/64 118/73 Pulse Ox 100 100 O2 Delivery Room Air Room Air Room Air Room Air Intake and Output 12/01/16 12/01/16 12/02/16 15:00 23:00 07:00 Intake Total 10 ml 1646 ml 2470 ml Output Total 175 ml 1650 ml 2200 ml Balance -165 ml -4 ml 270 ml MORE EGAN III DO Dec 02, 2016 13:09
--- NOTE | 2016-12-02 15:09 | PDOC ---
PROGRESS NOTES Subjective Subjective Problems overnight:a little better, less sick, no foot complaints Objective Vital Signs Vital Signs Date Time Temp Pulse Resp B/P Pulse Ox O2 Delivery O2 Flow Rate FiO2 12/02/16 09:00 Room Air 12/02/16 08:00 98.5 92 22 118/73 100 98.5 Physical Exam wound vac leaking, no proximal redness Labs Laboratory Tests Test 11/30/16 20:00 11/30/16 20:05 11/30/16 22:56 12/01/16 00:02 White Blood Count 15.7x10^3/uL (4.0-11.0) Red Blood Count 3.45x10^6/uL (3.50-5.40) Hemoglobin 9.8g/dL (12.0-15.5) Hematocrit 31.3% (36.0-47.0) Mean Corpuscular Volume 91fL (79-100) Mean Corpuscular Hemoglobin 29pg (25-35) Mean Corpuscular Hemoglobin Concent 31g/dL (31-37) Red Cell Distribution Width 15.3% (11.5-14.5) Platelet Count 493x10^3/uL (140-400) Neutrophils (%) (Auto) 87% (31-73) Lymphocytes (%) (Auto) 6% (24-48) Monocytes (%) (Auto) 6% (0-9) Eosinophils (%) (Auto) 0% (0-3) Basophils (%) (Auto) 0% (0-3) Neutrophils # (Auto) 13.7x10^3uL (1.8-7.7) Lymphocytes # (Auto) 1.0x10^3/uL (1.0-4.8) Monocytes # (Auto) 0.9x10^3/uL (0.0-1.1) Eosinophils # (Auto) 0.0x10^3/uL (0.0-0.7) Basophils # (Auto) 0.1x10^3/uL (0.0-0.2) Segmented Neutrophils % 72% (35-66) Band Neutrophils % 8% (0-9) Lymphocytes % 12% (24-48) Monocytes % 4% (0-10) Basophils % 2% (0-3) Metamyelocytes % 2% (0-0) Toxic Granulation Slight Platelet Estimate Increased (ADEQUATE) Polychromasia Slight Sodium Level 124mmol/L (136-145) Potassium Level 5.6mmol/L (3.5-5.1) Chloride Level 84mmol/L (98-107) Carbon Dioxide Level 17mmol/L (21-32) Anion Gap 23 (6-14) Blood Urea Nitrogen 15mg/dL (7-20) Creatinine 1.9mg/dL (0.6-1.0) Estimated GFR (Cockcroft-Gault) 29.3 Glucose Level 828mg/dL (70-99) Calcium Level 9.0mg/dL (8.5-10.1) Urine Collection Type Void Urine Color Straw Urine Clarity Clear Urine pH 6.0 Urine Specific [place] 1.020 Urine Protein 100mg/dL (NEG-TRACE) Urine Glucose (UA) >=1000mg/dL (NEG) Urine Ketones (Stick) >=80mg/dL (NEG) Urine Blood Trace (NEG) Urine Nitrite Negative (NEG) Urine Bilirubin Negative (NEG) Urine Urobilinogen Dipstick 0.2mg/dL (0.2 mg/dL) Urine Leukocyte Esterase Negative (NEG) Urine RBC 1-2/HPF (0-2) Urine WBC Occ/HPF (0-4) Urine Squamous Epithelial Cells Many/LPF Urine Bacteria Few/HPF (0-FEW) Urine Test Negative (NEG) Glucose (Fingerstick) 428mg/dL (70-99) 340mg/dL (70-99) Test 12/01/16 00:15 12/01/16 01:06 12/01/16 01:30 12/01/16 02:13 Sodium Level 139mmol/L (136-145) Potassium Level 2.8mmol/L (3.5-5.1) Chloride Level 103mmol/L (98-107) Carbon Dioxide Level 21mmol/L (21-32) Anion Gap 15 (6-14) Blood Urea Nitrogen 13mg/dL (7-20) Creatinine 1.7mg/dL (0.6-1.0) Estimated GFR (Cockcroft-Gault) 33.3 Glucose Level 337mg/dL (70-99) Calcium Level 8.6mg/dL (8.5-10.1) Phosphorus Level 2.2mg/dL (2.6-4.7) Magnesium Level 2.2mg/dL (1.8-2.4) Glucose (Fingerstick) 219mg/dL (70-99) 179mg/dL (70-99) Nasal Screen MRSA (PCR) Negative (Negative) Test 12/01/16 03:18 12/01/16 04:24 12/01/16 04:33 12/01/16 05:28 Glucose (Fingerstick) 210mg/dL (70-99) 208mg/dL (70-99) 171mg/dL (70-99) Sodium Level 140mmol/L (136-145) Potassium Level 3.9mmol/L (3.5-5.1) Chloride Level 107mmol/L (98-107) Carbon Dioxide Level 23mmol/L (21-32) Anion Gap 10 (6-14) Blood Urea Nitrogen 11mg/dL (7-20) Creatinine 1.3mg/dL (0.6-1.0) Estimated GFR (Cockcroft-Gault) 45.4 Glucose Level 222mg/dL (70-99) Calcium Level 7.7mg/dL (8.5-10.1) Test 12/01/16 06:43 12/01/16 07:46 12/01/16 08:10 12/01/16 09:05 Glucose (Fingerstick) 135mg/dL (70-99) 56mg/dL (70-99) 227mg/dL (70-99) Sodium Level 143mmol/L (136-145) Potassium Level 3.4mmol/L (3.5-5.1) Chloride Level 110mmol/L (98-107) Carbon Dioxide Level 23mmol/L (21-32) Anion Gap 10 (6-14) Blood Urea Nitrogen 8mg/dL (7-20) Creatinine 1.3mg/dL (0.6-1.0) Estimated GFR (Cockcroft-Gault) 45.4 Glucose Level 193mg/dL (70-99) Calcium Level 7.5mg/dL (8.5-10.1) Test 12/01/16 09:14 12/01/16 10:18 12/01/16 11:21 12/01/16 11:50 Glucose (Fingerstick) 172mg/dL (70-99) 113mg/dL (70-99) 52mg/dL (70-99) Sodium Level 141mmol/L (136-145) Potassium Level 3.6mmol/L (3.5-5.1) Chloride Level 109mmol/L (98-107) Carbon Dioxide Level 22mmol/L (21-32) Anion Gap 10 (6-14) Blood Urea Nitrogen 7mg/dL (7-20) Creatinine 1.2mg/dL (0.6-1.0) Estimated GFR (Cockcroft-Gault) 49.8 Glucose Level 115mg/dL (70-99) Calcium Level 8.1mg/dL (8.5-10.1) Test 12/01/16 11:51 12/01/16 13:10 12/01/16 14:43 12/01/16 16:15 Glucose (Fingerstick) 101mg/dL (70-99) 147mg/dL (70-99) 183mg/dL (70-99) Sodium Level 139mmol/L (136-145) Potassium Level 3.8mmol/L (3.5-5.1) Chloride Level 108mmol/L (98-107) Carbon Dioxide Level 19mmol/L (21-32) Anion Gap 12 (6-14) Blood Urea Nitrogen 6mg/dL (7-20) Creatinine 1.1mg/dL (0.6-1.0) Estimated GFR (Cockcroft-Gault) 55.0 Glucose Level 295mg/dL (70-99) Calcium Level 7.7mg/dL (8.5-10.1) Test 12/01/16 18:29 12/01/16 20:00 12/01/16 22:31 12/02/16 07:35 Glucose (Fingerstick) 289mg/dL (70-99) 302mg/dL (70-99) Sodium Level 139mmol/L (136-145) 137mmol/L (136-145) Potassium Level 3.6mmol/L (3.5-5.1) 3.5mmol/L (3.5-5.1) Chloride Level 109mmol/L (98-107) 105mmol/L (98-107) Carbon Dioxide Level 19mmol/L (21-32) 18mmol/L (21-32) Anion Gap 11 (6-14) 14 (6-14) Blood Urea Nitrogen 5mg/dL (7-20) 6mg/dL (7-20) Creatinine 1.3mg/dL (0.6-1.0) 1.1mg/dL (0.6-1.0) Estimated GFR (Cockcroft-Gault) 45.4 55.0 Glucose Level 319mg/dL (70-99) 393mg/dL (70-99) Calcium Level 7.7mg/dL (8.5-10.1) 7.6mg/dL (8.5-10.1) White Blood Count 14.3x10^3/uL (4.0-11.0) Red Blood Count 2.81x10^6/uL (3.50-5.40) Hemoglobin 7.9g/dL (12.0-15.5) Hematocrit 25.0% (36.0-47.0) Mean Corpuscular Volume 89fL (79-100) Mean Corpuscular Hemoglobin 28pg (25-35) Mean Corpuscular Hemoglobin Concent 32g/dL (31-37) Red Cell Distribution Width 15.8% (11.5-14.5) Platelet Count 364x10^3/uL (140-400) Neutrophils (%) (Auto) 83% (31-73) Lymphocytes (%) (Auto) 12% (24-48) Monocytes (%) (Auto) 5% (0-9) Eosinophils (%) (Auto) 0% (0-3) Basophils (%) (Auto) 0% (0-3) Neutrophils # (Auto) 11.8x10^3uL (1.8-7.7) Lymphocytes # (Auto) 1.7x10^3/uL (1.0-4.8) Monocytes # (Auto) 0.7x10^3/uL (0.0-1.1) Eosinophils # (Auto) 0.0x10^3/uL (0.0-0.7) Basophils # (Auto) 0.0x10^3/uL (0.0-0.2) BUN/Creatinine Ratio 5 (6-20) Total Bilirubin 0.3mg/dL (0.2-1.0) Aspartate Amino Transf (AST/SGOT) 9U/L (15-37) Alanine Aminotransferase (ALT/SGPT) < 6U/L (14-59) Alkaline Phosphatase 92U/L (46-116) Total Protein 6.1g/dL (6.4-8.2) Albumin 0.9g/dL (3.4-5.0) Albumin/Globulin Ratio 0.2 (1.0-1.7) Test 12/02/16 07:47 12/02/16 12:17 Glucose (Fingerstick) 374mg/dL (70-99) 222mg/dL (70-99) Laboratory Tests Test 12/01/16 16:15 12/01/16 18:29 12/01/16 20:00 12/01/16 22:31 Sodium Level 139mmol/L (136-145) 139mmol/L (136-145) Potassium Level 3.8mmol/L (3.5-5.1) 3.6mmol/L (3.5-5.1) Chloride Level 108mmol/L (98-107) 109mmol/L (98-107) Carbon Dioxide Level 19mmol/L (21-32) 19mmol/L (21-32) Anion Gap 12 (6-14) 11 (6-14) Blood Urea Nitrogen 6mg/dL (7-20) 5mg/dL (7-20) Creatinine 1.1mg/dL (0.6-1.0) 1.3mg/dL (0.6-1.0) Estimated GFR (Cockcroft-Gault) 55.0 45.4 Glucose Level 295mg/dL (70-99) 319mg/dL (70-99) Calcium Level 7.7mg/dL (8.5-10.1) 7.7mg/dL (8.5-10.1) Glucose (Fingerstick) 289mg/dL (70-99) 302mg/dL (70-99) Test 12/02/16 07:35 12/02/16 07:47 12/02/16 12:17 White Blood Count 14.3x10^3/uL (4.0-11.0) Red Blood Count 2.81x10^6/uL (3.50-5.40) Hemoglobin 7.9g/dL (12.0-15.5) Hematocrit 25.0% (36.0-47.0) Mean Corpuscular Volume 89fL (79-100) Mean Corpuscular Hemoglobin 28pg (25-35) Mean Corpuscular Hemoglobin Concent 32g/dL (31-37) Red Cell Distribution Width 15.8% (11.5-14.5) Platelet Count 364x10^3/uL (140-400) Neutrophils (%) (Auto) 83% (31-73) Lymphocytes (%) (Auto) 12% (24-48) Monocytes (%) (Auto) 5% (0-9) Eosinophils (%) (Auto) 0% (0-3) Basophils (%) (Auto) 0% (0-3) Neutrophils # (Auto) 11.8x10^3uL (1.8-7.7) Lymphocytes # (Auto) 1.7x10^3/uL (1.0-4.8) Monocytes # (Auto) 0.7x10^3/uL (0.0-1.1) Eosinophils # (Auto) 0.0x10^3/uL (0.0-0.7) Basophils # (Auto) 0.0x10^3/uL (0.0-0.2) Sodium Level 137mmol/L (136-145) Potassium Level 3.5mmol/L (3.5-5.1) Chloride Level 105mmol/L (98-107) Carbon Dioxide Level 18mmol/L (21-32) Anion Gap 14 (6-14) Blood Urea Nitrogen 6mg/dL (7-20) Creatinine 1.1mg/dL (0.6-1.0) Estimated GFR (Cockcroft-Gault) 55.0 BUN/Creatinine Ratio 5 (6-20) Glucose Level 393mg/dL (70-99) Calcium Level 7.6mg/dL (8.5-10.1) Total Bilirubin 0.3mg/dL (0.2-1.0) Aspartate Amino Transf (AST/SGOT) 9U/L (15-37) Alanine Aminotransferase (ALT/SGPT) < 6U/L (14-59) Alkaline Phosphatase 92U/L (46-116) Total Protein 6.1g/dL (6.4-8.2) Albumin 0.9g/dL (3.4-5.0) Albumin/Globulin Ratio 0.2 (1.0-1.7) Glucose (Fingerstick) 374mg/dL (70-99) 222mg/dL (70-99) Assessment Assessment POD# [1], S/P [most recent i/d foot] Problems: Plan Plan of Care if vac seal not maintained, revert to local wound care and packing Expect she may need amputation at transmetatarsal level due to severe infection and distal forefoot involvement and lack of coverage, discussed with her through daughter interpreting yesterday. Likely early next week if she agrees. Will follow wound in interim DANA MANSFIELD MD Dec 02, 2016 15:09
[2016-12-02 16:00] VITALS: BP 108/66
[2016-12-02] MEDS: VANCOMYCIN 1 GM in IV NORMAL SALINE 250ML 250 ML IV SCH (16:31)
[2016-12-02 20:07] VITALS: BP 127/94
[2016-12-02] MEDS ORDERED: ONDANSETRON PF 4 MG/2 ML VIAL. IV PRN (20:15)
[2016-12-03 00:01] VITALS: BP 123/84
[2016-12-03] MEDS: MICAFUNGIN 100 MG in IV DEXTROSE 5% 100 ML IV SCH ×2 (00:37→21:20)
[2016-12-03] MEDS: METOCLOPRAMIDE HCL 10 MG/2 ML VIAL. IV SCH ×4 (01:04→17:45)
[2016-12-03] MEDS: PIPERACILLIN/TAZOBACTAM 3.375 GM in IV NORMAL SALINE 50ML 50 ML IV SCH ×4 (01:04→17:46)
[2016-12-03] MEDS: MORPHINE SULFATE 2 MG/ML DISP.SYRIN. IV PRN ×3 (01:05→21:25)
[2016-12-03 05:32] LABS: ALBUMIN 0.9 g/dL (3.4-5.0); ALBUMIN/GLOBULIN RATIO 0.2 (1.0-1.7); CALCIUM 7.9 mg/dL (8.5-10.1); GFR 61.4; TOTAL BILIRUBIN 0.2 mg/dL (0.2-1.0); TOTAL PROTEIN 6.1 g/dL (6.4-8.2)
[2016-12-03 05:36] LABS: POTASSIUM 2.9 mmol/L (3.5-5.1)
[2016-12-03] MEDS: POTASSIUM CHLORIDE 10MEQ 100 ML IV PRN ×2 (06:50→10:35)
[2016-12-03 07:00] VITALS: BP 119/80
[2016-12-03] MEDS: INSULIN ASPART 300 UNITS/3 ML INSULN.PEN SQ SCH ×3 (08:00→17:39)
[2016-12-03] MEDS: PANTOPRAZOLE IV PUSH 40 MG VIAL. IVP SCH ×2 (08:18→17:45)
[2016-12-03] MEDS ORDERED: INSULIN ASPART 300 UNITS/3 ML INSULN.PEN SQ ONE ×2 (10:30→13:15)
[2016-12-03 11:00] VITALS: BP 114/68
[2016-12-03] MEDS ORDERED: POTASSIUM CHLORIDE 20 MEQ TABLET.ER. PO ONE (11:45)
--- NOTE | 2016-12-03 14:53 | PDOC ---
PROGRESS NOTES Chief Complaint Chief Complaint - Necrotizing fasciitis of L foot - DKA - Back pain - DM - Gastroparesis - Coffee ground emesis - Hx right toe amputation - HTN History of Present Illness History of Present Illness Ms Galo, a 41 year old female, was seen on the medical floor for exam this morning. She is resting with NAD today, Vitals Vitals Vital Signs Date Time Temp Pulse Resp B/P Pulse Ox O2 Delivery O2 Flow Rate FiO2 12/03/16 11:20 Room Air 12/03/16 11:00 97.3 112 20 114/68 100 97.3 Physical Exam General: Alert, Oriented X3, Cooperative, No acute distress Heart: Normal S1, Normal S2, Other (Mild tachycardia) Lungs: Clear Abdomen: Normal bowel sounds, Soft Extremities: No cyanosis, No edema, Other (Necrotizing fasciitis of L foot, wound vac in place; R toe amputation) Skin: Other (See extremities above) Labs LABS Laboratory Tests Test 12/02/16 16:51 12/02/16 20:56 12/03/16 04:20 12/03/16 07:48 Glucose (Fingerstick) 291mg/dL (70-99) 253mg/dL (70-99) 353mg/dL (70-99) Sodium Level 140mmol/L (136-145) Potassium Level 2.9mmol/L (3.5-5.1) Chloride Level 107mmol/L (98-107) Carbon Dioxide Level 22mmol/L (21-32) Anion Gap 11 (6-14) Blood Urea Nitrogen 4mg/dL (7-20) Creatinine 1.0mg/dL (0.6-1.0) Estimated GFR (Cockcroft-Gault) 61.4 BUN/Creatinine Ratio 4 (6-20) Glucose Level 368mg/dL (70-99) Calcium Level 7.9mg/dL (8.5-10.1) Total Bilirubin 0.2mg/dL (0.2-1.0) Aspartate Amino Transf (AST/SGOT) 7U/L (15-37) Alanine Aminotransferase (ALT/SGPT) 6U/L (14-59) Alkaline Phosphatase 93U/L (46-116) Total Protein 6.1g/dL (6.4-8.2) Albumin 0.9g/dL (3.4-5.0) Albumin/Globulin Ratio 0.2 (1.0-1.7) Test 12/03/16 08:22 12/03/16 11:59 Glucose (Fingerstick) 424mg/dL (70-99) 539mg/dL (70-99) Review of Systems Review of Systems no new co Assessment and Plan Assessmemt and Plan Problems Medical Problems: (1) Back pain Status: Acute (2) Diabetic ketoacidosis Status: Acute - Necrotizing fasciitis of L foot - DKA - Back pain - DM - Gastroparesis - Coffee ground emesis - Hx right toe amputation - HTN Plan Insulin SSinsulin PTOT Wound care IV antibx DVT proph Problems: Comment Review of Relevant I have reviewed the following items gem (where applicable) has been applied. Labs Laboratory Tests Test 12/01/16 16:15 12/01/16 18:29 12/01/16 20:00 12/01/16 22:31 Sodium Level 139mmol/L (136-145) 139mmol/L (136-145) Potassium Level 3.8mmol/L (3.5-5.1) 3.6mmol/L (3.5-5.1) Chloride Level 108mmol/L (98-107) 109mmol/L (98-107) Carbon Dioxide Level 19mmol/L (21-32) 19mmol/L (21-32) Anion Gap 12 (6-14) 11 (6-14) Blood Urea Nitrogen 6mg/dL (7-20) 5mg/dL (7-20) Creatinine 1.1mg/dL (0.6-1.0) 1.3mg/dL (0.6-1.0) Estimated GFR (Cockcroft-Gault) 55.0 45.4 Glucose Level 295mg/dL (70-99) 319mg/dL (70-99) Calcium Level 7.7mg/dL (8.5-10.1) 7.7mg/dL (8.5-10.1) Glucose (Fingerstick) 289mg/dL (70-99) 302mg/dL (70-99) Test 12/02/16 07:35 12/02/16 07:47 12/02/16 12:17 12/02/16 16:51 White Blood Count 14.3x10^3/uL (4.0-11.0) Red Blood Count 2.81x10^6/uL (3.50-5.40) Hemoglobin 7.9g/dL (12.0-15.5) Hematocrit 25.0% (36.0-47.0) Mean Corpuscular Volume 89fL (79-100) Mean Corpuscular Hemoglobin 28pg (25-35) Mean Corpuscular Hemoglobin Concent 32g/dL (31-37) Red Cell Distribution Width 15.8% (11.5-14.5) Platelet Count 364x10^3/uL (140-400) Neutrophils (%) (Auto) 83% (31-73) Lymphocytes (%) (Auto) 12% (24-48) Monocytes (%) (Auto) 5% (0-9) Eosinophils (%) (Auto) 0% (0-3) Basophils (%) (Auto) 0% (0-3) Neutrophils # (Auto) 11.8x10^3uL (1.8-7.7) Lymphocytes # (Auto) 1.7x10^3/uL (1.0-4.8) Monocytes # (Auto) 0.7x10^3/uL (0.0-1.1) Eosinophils # (Auto) 0.0x10^3/uL (0.0-0.7) Basophils # (Auto) 0.0x10^3/uL (0.0-0.2) Sodium Level 137mmol/L (136-145) Potassium Level 3.5mmol/L (3.5-5.1) Chloride Level 105mmol/L (98-107) Carbon Dioxide Level 18mmol/L (21-32) Anion Gap 14 (6-14) Blood Urea Nitrogen 6mg/dL (7-20) Creatinine 1.1mg/dL (0.6-1.0) Estimated GFR (Cockcroft-Gault) 55.0 BUN/Creatinine Ratio 5 (6-20) Glucose Level 393mg/dL (70-99) Calcium Level 7.6mg/dL (8.5-10.1) Total Bilirubin 0.3mg/dL (0.2-1.0) Aspartate Amino Transf (AST/SGOT) 9U/L (15-37) Alanine Aminotransferase (ALT/SGPT) < 6U/L (14-59) Alkaline Phosphatase 92U/L (46-116) Total Protein 6.1g/dL (6.4-8.2) Albumin 0.9g/dL (3.4-5.0) Albumin/Globulin Ratio 0.2 (1.0-1.7) Glucose (Fingerstick) 374mg/dL (70-99) 222mg/dL (70-99) 291mg/dL (70-99) Test 12/02/16 20:56 12/03/16 04:20 12/03/16 07:48 12/03/16 08:22 Glucose (Fingerstick) 253mg/dL (70-99) 353mg/dL (70-99) 424mg/dL (70-99) Sodium Level 140mmol/L (136-145) Potassium Level 2.9mmol/L (3.5-5.1) Chloride Level 107mmol/L (98-107) Carbon Dioxide Level 22mmol/L (21-32) Anion Gap 11 (6-14) Blood Urea Nitrogen 4mg/dL (7-20) Creatinine 1.0mg/dL (0.6-1.0) Estimated GFR (Cockcroft-Gault) 61.4 BUN/Creatinine Ratio 4 (6-20) Glucose Level 368mg/dL (70-99) Calcium Level 7.9mg/dL (8.5-10.1) Total Bilirubin 0.2mg/dL (0.2-1.0) Aspartate Amino Transf (AST/SGOT) 7U/L (15-37) Alanine Aminotransferase (ALT/SGPT) 6U/L (14-59) Alkaline Phosphatase 93U/L (46-116) Total Protein 6.1g/dL (6.4-8.2) Albumin 0.9g/dL (3.4-5.0) Albumin/Globulin Ratio 0.2 (1.0-1.7) Test 12/03/16 11:59 Glucose (Fingerstick) 539mg/dL (70-99) Laboratory Tests Test 12/02/16 16:51 12/02/16 20:56 12/03/16 04:20 12/03/16 07:48 Glucose (Fingerstick) 291mg/dL (70-99) 253mg/dL (70-99) 353mg/dL (70-99) Sodium Level 140mmol/L (136-145) Potassium Level 2.9mmol/L (3.5-5.1) Chloride Level 107mmol/L (98-107) Carbon Dioxide Level 22mmol/L (21-32) Anion Gap 11 (6-14) Blood Urea Nitrogen 4mg/dL (7-20) Creatinine 1.0mg/dL (0.6-1.0) Estimated GFR (Cockcroft-Gault) 61.4 BUN/Creatinine Ratio 4 (6-20) Glucose Level 368mg/dL (70-99) Calcium Level 7.9mg/dL (8.5-10.1) Total Bilirubin 0.2mg/dL (0.2-1.0) Aspartate Amino Transf (AST/SGOT) 7U/L (15-37) Alanine Aminotransferase (ALT/SGPT) 6U/L (14-59) Alkaline Phosphatase 93U/L (46-116) Total Protein 6.1g/dL (6.4-8.2) Albumin 0.9g/dL (3.4-5.0) Albumin/Globulin Ratio 0.2 (1.0-1.7) Test 12/03/16 08:22 12/03/16 11:59 Glucose (Fingerstick) 424mg/dL (70-99) 539mg/dL (70-99) Microbiology 12/01/16 Blood Culture - Preliminary, Resulted NO GROWTH AFTER 2 DAYS 12/01/16 Gram Stain - Final, Complete Medications Current Medications Sodium Chloride (Iv Sodium Chloride 0.9% 1000ml Bag) 1,000 ml @ 1,000 mls/hr Q1H IV Last administered on 11/30/16 19:42; Start 11/30/16 at 19:45; Stop at 20:44; Status DC Ondansetron HCl (Zofran) 4 mg 1X ONCE IV Last administered on 11/30/16 20:08 ; Start 11/30/16 at 19:45; Stop 11/30/16 at 19:46; Status DC Ketorolac Tromethamine 10 mg 10 mg 1X ONCE IV Last administered on 11/30/16 20:08; Start 11/30/16 at 19:45; Stop 11/30/16 at 19:46; Status DC Sodium Chloride 1,000 ml @ 1,000 mls/hr Q1H IV Last administered on 11/30/16 21:11; Start 11/30/16 at 21:00; Stop 11/30/16 at 21:01; Status DC Sodium Chloride 1,000 ml @ 250 mls/hr Q4H IV Last administered on 12/01/16 01 :23; Start 11/30/16 at 22:00; Stop 12/01/16 at 07:42; Status DC Dextrose/Sodium Chloride 1,000 ml @ 250 mls/hr Q4H IV Last administered on 21:15; Start 11/30/16 at 22:00; Stop 12/01/16 at 01:37; Status DC Insulin Human Regular 150 unit/ Sodium Chloride 151.5 ml @ 0 mls/hr CONT PRN PRN IV PER PROTOCOL Last administered on 11/30/16 21:36; Start 11/30/16 at 21: 00 Potassium Chloride 100 ml @ 100 mls/hr PRN Q1HR PRN IV SEE COMMENTS; Start at 21:00 Potassium Chloride 100 ml @ 100 mls/hr PRN Q1HR PRN IV SEE COMMENTS; Start at 21:00 Potassium Chloride (KCl Premix 10meq) 100 ml @ 100 mls/hr PRN Q1HR PRN IV SEE COMMENTS Last administered on 12/03/16 10:35; Start 11/30/16 at 21:00 Ondansetron HCl (Zofran) 4 mg PRN Q8HRS PRN IV NAUSEA/VOMITING Last administered on 12/01/16 07:54; Start 11/30/16 at 21:00; Stop 12/01/16 at 20:59 ; Status DC Fentanyl Citrate (Fentanyl 2ml Vial) 50 mcg PRN Q2HR PRN IV SEVERE PAIN Last administered on 12/01/16 00:19; Start 11/30/16 at 21:00; Stop 12/01/16 at 20:59 ; Status DC Acetaminophen 650 mg 650 mg PRN Q4HRS PRN PO FEVER; Start 11/30/16 at 21:00; Stop 12/01/16 at 20:59; Status DC Dextrose/Sodium Chloride 1,000 ml @ 250 mls/hr Q4H IV Last administered on 01:40; Start 12/01/16 at 01:45; Stop 12/01/16 at 06:18; Status DC Dextrose/Sodium Chloride (Iv D5% - 1/2 NS) 1,000 ml @ 250 mls/hr Q4H IV Last administered on 12/01/16 14:15; Start 12/01/16 at 06:15; Stop 12/01/16 at 17:17 ; Status DC Dextrose 25 gm STK-MED ONCE IV ; Start 12/01/16 at 07:48; Stop 12/01/16 at 07:49 ; Status DC Dextrose 25 gm 25 gm 1X ONCE IV Last administered on 12/01/16 07:56; Start at 08:00; Stop 12/01/16 at 08:01; Status DC Potassium Chloride (KCl Premix 10meq) 100 ml @ 100 mls/hr Q1H IV Last administered on 12/01/16 17:20; Start 12/01/16 at 11:30; Stop 12/01/16 at 15:29 ; Status DC Insulin Aspart (Novolog) 0-7 UNITS TIDWMEALS SQ Last administered on 12/02/16 18:12; Start 12/01/16 at 12:00 Dextrose 12.5 gm PRN Q15MIN PRN IV SEE COMMENTS; Start 12/01/16 at 11:30 Sevoflurane (Ultane) 60 ml STK-MED ONCE IH ; Start 12/01/16 at 12:40; Stop 12/01 at 12:41; Status DC Fentanyl Citrate 100 mcg 100 mcg STK-MED ONCE .ROUTE ; Start 12/01/16 at 12:41; Stop 12/01/16 at 12:42; Status DC Propofol (Diprivan) 20 ml @ As Directed STK-MED ONCE IV ; Start 12/01/16 at 12: 41; Stop 12/01/16 at 12:42; Status DC Ondansetron HCl (Zofran) 4 mg STK-MED ONCE .ROUTE ; Start 12/01/16 at 12:41; Stop 12/01/16 at 12:42; Status DC Dexamethasone Sodium Phosphate (Decadron) 20 mg STK-MED ONCE .ROUTE ; Start at 12:41; Stop 12/01/16 at 12:42; Status DC Lidocaine HCl 100 mg STK-MED ONCE .ROUTE ; Start 12/01/16 at 12:41; Stop at 12:42; Status DC Butorphanol Tartrate 1 mg 1 mg PRN Q6HRS PRN IV PAIN; Start 12/01/16 at 13:00 Promethazine HCl/ Sodium Chloride (Phenergan/Iv Sodium Chloride 0.9% 50ml) 51 ml @ 150.75 mls/ hr PRN Q6HRS PRN IV NAUSEA/VOMITING Last administered on 12/02 20:10; Start 12/01/16 at 13:00 Ondansetron HCl (Zofran) 4 mg PRN Q6HRS PRN IV Nausea Last administered on 12/01 13:16; Start 12/01/16 at 13:00; Stop 12/02/16 at 12:59; Status DC Fentanyl Citrate (Fentanyl 2ml Vial) 25 mcg PRN Q5MIN PRN IV MILD PAIN; Start 12/01/16 at 13:00; Stop 12/02/16 at 12:59; Status DC Fentanyl Citrate (Fentanyl 2ml Vial) 50 mcg PRN Q5MIN PRN IV MODERATE PAIN; Start 12/01/16 at 13:00; Stop 12/02/16 at 12:59; Status DC Morphine Sulfate 1 mg 1 mg PRN Q10MIN PRN IV SEVERE PAIN Last administered on 10:30; Start 12/01/16 at 13:00; Stop 12/02/16 at 12:59; Status DC Lactated Ringer's (Iv Lactated Ringers) 1,000 ml @ 30 mls/hr Q24H IV ; Start at 13:00; Stop 12/02/16 at 00:59; Status DC Lidocaine HCl 2 ml 1X PRN PRN ID IV START; Start 12/01/16 at 13:00; Stop at 12:59; Status DC Hydromorphone HCl (Dilaudid) 0.5 mg PRN Q10MIN PRN IV SEV PAIN,Second choice; Start 12/01/16 at 13:00; Stop 12/02/16 at 12:59; Status DC Succinylcholine Chloride (Anectine) 200 mg STK-MED ONCE .ROUTE ; Start 12/01/16 at 13:05; Stop 12/01/16 at 13:06; Status DC Pantoprazole Sodium (Protonix Vial) 40 mg BIDAC IVP Last administered on 08:18; Start 12/01/16 at 14:00 Phenylephrine HCl 1 mg STK-MED ONCE IV ; Start 12/01/16 at 13:35; Stop 12/01/16 at 13:36; Status DC Metoclopramide HCl 10 mg 10 mg STK-MED ONCE .ROUTE ; Start 12/01/16 at 13:40; Stop 12/01/16 at 13:41; Status DC Propofol (Diprivan) 20 ml @ As Directed STK-MED ONCE IV ; Start 12/01/16 at 14: 06; Stop 12/01/16 at 14:07; Status DC Vancomycin HCl (Vanco Per Pharmacy) 1 each PRN DAILY PRN MC SEE COMMENTS Last administered on 12/01/16 15:02; Start 12/01/16 at 15:00 Piperacillin Sod/ Tazobactam Sod 1 each 1 each PRN DAILY PRN MC SEE COMMENTS; Start 12/01/16 at 15:00 Vancomycin HCl 250 mg/Sodium Chloride 100 ml @ 100 mls/hr 1X ONCE IV Last administered on 12/01/16 16:14; Start 12/01/16 at 15:30; Stop 12/01/16 at 16:29 ; Status DC Piperacillin Sod/ Tazobactam Sod 3.375 gm/Sodium Chloride 50 ml @ 100 mls/hr Q6HRS IV Last administered on 12/03/16 12:00; Start 12/01/16 at 17:00 Vancomycin HCl/ Sodium Chloride (Iv Sodium Chloride 0.9% 250ml) 250 ml @ 250 mls/hr Q24H IV Last administered on 12/02/16 16:31; Start 12/02/16 at 15:00 Vancomycin HCl 1 each 1X ONCE MC ; Start 12/03/16 at 14:30; Stop 12/03/16 at 14 :31; Status DC Metoclopramide HCl 10 mg 10 mg Q6HRS IV Last administered on 12/03/16 12:01; Start 12/01/16 at 17:00 Sodium Chloride (Iv Sodium Chloride 0.9% 1000ml Bag) 1,000 ml @ 75 mls/hr [id number] IV Last administered on 12/02/16 16:31; Start 12/01/16 at 17:15; Stop 12/03/16 at 05:03; Status DC Insulin Aspart (Novolog) 3 units 1X PRN SQ ; Start 12/01/16 at 18:45 Insulin Aspart (Novolog Vial) 20 unit 1X ONCE SQ ; Start 12/02/16 at 09:00; Stop 12/02/16 at 09:00; Status Cancel Insulin Aspart (Novolog) 20 units 1X ONCE SQ Last administered on 12/02/16 09 :07; Start 12/02/16 at 09:00; Stop 12/02/16 at 09:01; Status DC Insulin Aspart (Novolog) 20 units 1X ONCE SQ ; Start 12/02/16 at 09:00; Stop at 09:01; Status UNV Potassium Chloride (Klor-Con) 40 meq 1X ONCE PO Last administered on 11:39; Start 12/02/16 at 11:15; Stop 12/02/16 at 11:16; Status DC Morphine Sulfate 2 mg PRN Q2HR PRN IV PAIN SEVERE Last administered on 10:47; Start 12/02/16 at 19:00 Ondansetron HCl 4 mg 4 mg PRN Q8HRS PRN IV NAUSEA/VOMITING 1ST CHOICE; Start at 20:15 Micafungin Sodium/ Dextrose (Mycamine) 100 ml @ 100 mls/hr QHS IV Last administered on 12/03/16 00:37; Start 12/02/16 at 23:45 Insulin Aspart (Novolog) 30 units 1X ONCE SQ Last administered on 12/03/16 10 :37; Start 12/03/16 at 10:30; Stop 12/03/16 at 10:31; Status DC Potassium Chloride (Klor-Con) 40 meq 1X ONCE PO Last administered on 12:01; Start 12/03/16 at 11:45; Stop 12/03/16 at 11:46; Status DC Insulin Aspart (Novolog) 30 units 1X ONCE SQ Last administered on 12/03/16 13 :35; Start 12/03/16 at 13:15; Stop 12/03/16 at 13:16; Status DC Active Scripts Active Pantoprazole Sodium 40 Mg Tablet.dr 40 Mg PO DAILYAC Oxycodone-Acetaminophen 5-325 (Oxycodone Hcl/Acetaminophen) 1 Each Tablet 1 Tab PO PRN Q4HRS PRN Metoclopramide Hcl 10 Mg/10 Ml Solution 5 Mg PO QIDACHS Amox Tr-K Clv 875-125 Mg Tab (Amoxicillin/Potassium Clav) 1 Each Tablet 1 Tab PO BID Reported Levemir (Insulin Detemir) 100 Unit/1 Ml Vial 35 Unit SQ HS Novolog (Insulin Aspart) 100 Unit/1 Ml Cartridge 10 Unit SQ TIDAC Vitals/I & O Vital Sign - Last 24 Hours 12/02/16 12/02/16 12/02/16 12/02/16 16:00 19:15 19:45 20:07 Temp 98.8 97.9 98.8 97.9 Pulse 91 119 Resp 18 20 20 18 B/P 108/66 127/94 Pulse Ox 99 99 99 O2 Delivery Room Air Room Air Room Air 12/03/16 12/03/16 12/03/16 12/03/16 00:01 04:00 07:00 10:47 Temp 97.9 98.1 97.9 98.1 Pulse 110 95 Resp 18 16 B/P 123/84 119/80 Pulse Ox 99 98 O2 Delivery Room Air Room Air Room Air 12/03/16 12/03/16 11:00 11:20 Temp 97.3 97.3 Pulse 112 Resp 20 B/P 114/68 Pulse Ox 100 O2 Delivery Room Air Room Air Intake and Output 12/02/16 12/02/16 12/03/16 15:00 23:00 07:00 Intake Total 300 ml Output Total 1100 ml 250 ml Balance -1100 ml 300 ml -250 ml MORE EGAN III DO Dec 03, 2016 14:53
[2016-12-03 15:00] VITALS: BP 92/53
[2016-12-03] MEDS: VANCOMYCIN 1 GM in IV NORMAL SALINE 250ML 250 ML IV SCH ×2 (15:00→17:34)
[2016-12-03] MEDS: VANCOMYCIN PER PHARMACY MC PRN (16:51)
[2016-12-03 19:00] VITALS: BP 108/58
[2016-12-03 23:40] VITALS: BP 99/56
[2016-12-04 03:01] VITALS: BP 99/59
[2016-12-04] MEDS: VANCOMYCIN 1 GM in IV NORMAL SALINE 250ML 250 ML IV SCH ×2 (04:43→18:18)
[2016-12-04] MEDS: PIPERACILLIN/TAZOBACTAM 3.375 GM in IV NORMAL SALINE 50ML 50 ML IV SCH ×5 (05:34→18:18)
[2016-12-04] MEDS: MORPHINE SULFATE 2 MG/ML DISP.SYRIN. IV PRN ×2 (05:35→11:15)
[2016-12-04] MEDS: METOCLOPRAMIDE HCL 10 MG/2 ML VIAL. IV SCH ×3 (05:40→12:00)
[2016-12-04 07:00] VITALS: BP 108/68
[2016-12-04] MEDS: PANTOPRAZOLE IV PUSH 40 MG VIAL. IVP SCH (08:16)
[2016-12-04] MEDS: INSULIN ASPART 300 UNITS/3 ML INSULN.PEN SQ SCH ×5 (08:22→21:13)
--- NOTE | 2016-12-04 09:20 | PDOC ---
Infectious Disease Note Subjective Subjective Doing ok. No pain ROS ROS GEN: Denies fevers, chills, sweats HEENT: Denies blurred vision, sore throat CV: Denies chest pain RESP: Denies shortness of air, cough GI: Denies n/v/d NEURO: Denies confusion, dizziness MSK: Denies weakness, joint pain/swelling Vital Sign Vital Signs Vital Signs Date Time Temp Pulse Resp B/P Pulse Ox O2 Delivery O2 Flow Rate FiO2 12/04/16 07:00 97.4 85 14 108/68 98 Room Air 97.4 Physical Exam PHYSICAL EXAM GENERAL: NAD, Alert HEENT: PERRL, OC/OP -clear NECK: Supple, no JVD, no LN LUNGS: Clear HEART: S1S2, no gallop, no murmur ABD: Soft, NT, no organomegaly, no rebound EXT: No edema, no cyanosis. Foot dressed with serosangious drainage ASSEMBLER TUBING: Alert, oriented x 3, no focal neurologic deficit SKIN: No rash IV: ok Labs Lab Laboratory Tests Test 12/03/16 11:59 12/03/16 14:45 12/03/16 17:02 12/03/16 20:35 Glucose (Fingerstick) 539mg/dL (70-99) 177mg/dL (70-99) 287mg/dL (70-99) Vancomycin Level Trough 8.3mcg/mL (10.0-20.0) Vancomycin Last Dose Date 12/02/16 Vancomycin Last Dose Time 1500 Test 12/04/16 07:36 Glucose (Fingerstick) 351mg/dL (70-99) Micro AEROBIC RES 1 Preliminary Staphylococcus aureus Heavy growth AEROBIC RES 2 Preliminary Comment Beta hemolytic Streptococcus, group B Objective Assessment Left diabetic foot infection. Group B strep/Staph -s/p I and D. 12/01. Intra-op cultures pending DM- still elevated sugars Leukocytosis KATHLEEN, improved Peripheral neuropathy Anemia Plan Plan of Care Cont Vanc/Zosyn/Micafungin F/u labs and cults (gram stain with yeast and GPR) F/u surgery - d/w Dr. Sanches. Likely needs TMA RODOLFO BAHENA MD Dec 04, 2016 09:20
[2016-12-04] MEDS ORDERED: DEXTROSE 50% 25 GM / 50ML DISP.SYRIN. IV PRN (09:45)
[2016-12-04] MEDS: METOCLOPRAMIDE HCL 10 MG/10 ML SOLUTION. PO SCH ×3 (11:30→20:51)
[2016-12-04 12:57] VITALS: BP 108/68
--- NOTE | 2016-12-04 13:21 | PDOC ---
PROGRESS NOTES Chief Complaint Chief Complaint dka. s/p Dm2 uncontrolled Left diabetic foot infection. Group B strep/Staph -s/p I and D. 12/01. Intra-op cultures pending KATHLEEN, improved Peripheral neuropathy Anemia - Gastroparesis - Coffee ground emesis - HTN History of Present Illness History of Present Illness BS are HIGH Pt does not know last [id number] On IV broad spectrum and IV antifungal for the foot infection NOt eating much yet CLains home regimen is 10 TID and 35 qhs PLAN: Inc to novolog 15 TID Resume levemir qhs Add SSI high dose Dw RN Check hgba1c Vitals Vitals Vital Signs Date Time Temp Pulse Resp B/P Pulse Ox O2 Delivery O2 Flow Rate FiO2 12/04/16 12:57 97.4 85 108/68 98 Room Air 97.4 12/04/16 07:00 14 Physical Exam General: Alert, Oriented X3, Cooperative, No acute distress Heart: Normal S1, Normal S2, Other (Mild tachycardia) Lungs: Clear Abdomen: Normal bowel sounds, Soft Extremities: No cyanosis, No edema, Other (Necrotizing fasciitis of L foot, wound vac in place; R toe amputation) Skin: Other (See extremities above) Labs LABS Laboratory Tests Test 12/03/16 14:45 12/03/16 17:02 12/03/16 20:35 12/04/16 07:36 Vancomycin Level Trough 8.3mcg/mL (10.0-20.0) Vancomycin Last Dose Date 12/02/16 Vancomycin Last Dose Time 1500 Glucose (Fingerstick) 177mg/dL (70-99) 287mg/dL (70-99) 351mg/dL (70-99) Test 12/04/16 10:24 Glucose (Fingerstick) 382mg/dL (70-99) Review of Systems Review of Systems denies cp, soa, headache, lightheadedness, abd pain All else 14 pt reviewed, neg Assessment and Plan Assessmemt and Plan Problems Medical Problems: (1) Back pain Status: Acute (2) Diabetic ketoacidosis Status: Acute Problems: Comment Review of Relevant I have reviewed the following items gem (where applicable) has been applied. Labs Laboratory Tests Test 12/02/16 16:51 12/02/16 20:56 12/03/16 04:20 12/03/16 07:48 Glucose (Fingerstick) 291mg/dL (70-99) 253mg/dL (70-99) 353mg/dL (70-99) Sodium Level 140mmol/L (136-145) Potassium Level 2.9mmol/L (3.5-5.1) Chloride Level 107mmol/L (98-107) Carbon Dioxide Level 22mmol/L (21-32) Anion Gap 11 (6-14) Blood Urea Nitrogen 4mg/dL (7-20) Creatinine 1.0mg/dL (0.6-1.0) Estimated GFR (Cockcroft-Gault) 61.4 BUN/Creatinine Ratio 4 (6-20) Glucose Level 368mg/dL (70-99) Calcium Level 7.9mg/dL (8.5-10.1) Total Bilirubin 0.2mg/dL (0.2-1.0) Aspartate Amino Transf (AST/SGOT) 7U/L (15-37) Alanine Aminotransferase (ALT/SGPT) 6U/L (14-59) Alkaline Phosphatase 93U/L (46-116) Total Protein 6.1g/dL (6.4-8.2) Albumin 0.9g/dL (3.4-5.0) Albumin/Globulin Ratio 0.2 (1.0-1.7) Test 12/03/16 08:22 12/03/16 11:59 12/03/16 14:45 12/03/16 17:02 Glucose (Fingerstick) 424mg/dL (70-99) 539mg/dL (70-99) 177mg/dL (70-99) Vancomycin Level Trough 8.3mcg/mL (10.0-20.0) Vancomycin Last Dose Date 12/02/16 Vancomycin Last Dose Time 1500 Test 12/03/16 20:35 12/04/16 07:36 12/04/16 10:24 Glucose (Fingerstick) 287mg/dL (70-99) 351mg/dL (70-99) 382mg/dL (70-99) Laboratory Tests Test 12/03/16 14:45 12/03/16 17:02 12/03/16 20:35 12/04/16 07:36 Vancomycin Level Trough 8.3mcg/mL (10.0-20.0) Vancomycin Last Dose Date 12/02/16 Vancomycin Last Dose Time 1500 Glucose (Fingerstick) 177mg/dL (70-99) 287mg/dL (70-99) 351mg/dL (70-99) Test 12/04/16 10:24 Glucose (Fingerstick) 382mg/dL (70-99) Microbiology 12/01/16 Blood Culture - Preliminary, Resulted NO GROWTH AFTER 3 DAYS 12/01/16 Gram Stain - Final, Complete Medications Current Medications Sodium Chloride (Iv Sodium Chloride 0.9% 1000ml Bag) 1,000 ml @ 1,000 mls/hr Q1H IV Last administered on 11/30/16 19:42; Start 11/30/16 at 19:45; Stop at 20:44; Status DC Ondansetron HCl (Zofran) 4 mg 1X ONCE IV Last administered on 11/30/16 20:08 ; Start 11/30/16 at 19:45; Stop 11/30/16 at 19:46; Status DC Ketorolac Tromethamine 10 mg 10 mg 1X ONCE IV Last administered on 11/30/16 20:08; Start 11/30/16 at 19:45; Stop 11/30/16 at 19:46; Status DC Sodium Chloride 1,000 ml @ 1,000 mls/hr Q1H IV Last administered on 11/30/16 21:11; Start 11/30/16 at 21:00; Stop 11/30/16 at 21:01; Status DC Sodium Chloride 1,000 ml @ 250 mls/hr Q4H IV Last administered on 12/01/16 01 :23; Start 11/30/16 at 22:00; Stop 12/01/16 at 07:42; Status DC Dextrose/Sodium Chloride 1,000 ml @ 250 mls/hr Q4H IV Last administered on 21:15; Start 11/30/16 at 22:00; Stop 12/01/16 at 01:37; Status DC Insulin Human Regular 150 unit/ Sodium Chloride 151.5 ml @ 0 mls/hr CONT PRN PRN IV PER PROTOCOL Last administered on 11/30/16 21:36; Start 11/30/16 at 21: 00; Stop 12/04/16 at 09:45; Status DC Potassium Chloride 100 ml @ 100 mls/hr PRN Q1HR PRN IV SEE COMMENTS; Start at 21:00; Stop 12/04/16 at 09:45; Status DC Potassium Chloride 100 ml @ 100 mls/hr PRN Q1HR PRN IV SEE COMMENTS; Start at 21:00; Stop 12/04/16 at 09:45; Status DC Potassium Chloride (KCl Premix 10meq) 100 ml @ 100 mls/hr PRN Q1HR PRN IV SEE COMMENTS Last administered on 12/03/16 10:35; Start 11/30/16 at 21:00; Stop at 09:45; Status DC Ondansetron HCl (Zofran) 4 mg PRN Q8HRS PRN IV NAUSEA/VOMITING Last administered on 12/01/16 07:54; Start 11/30/16 at 21:00; Stop 12/01/16 at 20:59 ; Status DC Fentanyl Citrate (Fentanyl 2ml Vial) 50 mcg PRN Q2HR PRN IV SEVERE PAIN Last administered on 12/01/16 00:19; Start 11/30/16 at 21:00; Stop 12/01/16 at 20:59 ; Status DC Acetaminophen 650 mg 650 mg PRN Q4HRS PRN PO FEVER; Start 11/30/16 at 21:00; Stop 12/01/16 at 20:59; Status DC Dextrose/Sodium Chloride 1,000 ml @ 250 mls/hr Q4H IV Last administered on 01:40; Start 12/01/16 at 01:45; Stop 12/01/16 at 06:18; Status DC Dextrose/Sodium Chloride (Iv D5% - 1/2 NS) 1,000 ml @ 250 mls/hr Q4H IV Last administered on 12/01/16 14:15; Start 12/01/16 at 06:15; Stop 12/01/16 at 17:17 ; Status DC Dextrose 25 gm STK-MED ONCE IV ; Start 12/01/16 at 07:48; Stop 12/01/16 at 07:49 ; Status DC Dextrose 25 gm 25 gm 1X ONCE IV Last administered on 12/01/16 07:56; Start at 08:00; Stop 12/01/16 at 08:01; Status DC Potassium Chloride (KCl Premix 10meq) 100 ml @ 100 mls/hr Q1H IV Last administered on 12/01/16 17:20; Start 12/01/16 at 11:30; Stop 12/01/16 at 15:29 ; Status DC Insulin Aspart (Novolog) 0-7 UNITS TIDWMEALS SQ Last administered on 12/04/16 08:22; Start 12/01/16 at 12:00; Stop 12/04/16 at 09:45; Status DC Dextrose 12.5 gm PRN Q15MIN PRN IV SEE COMMENTS; Start 12/01/16 at 11:30; Stop 12/04/16 at 09:56; Status DC Sevoflurane (Ultane) 60 ml STK-MED ONCE IH ; Start 12/01/16 at 12:40; Stop 12/01 at 12:41; Status DC Fentanyl Citrate 100 mcg 100 mcg STK-MED ONCE .ROUTE ; Start 12/01/16 at 12:41; Stop 12/01/16 at 12:42; Status DC Propofol (Diprivan) 20 ml @ As Directed STK-MED ONCE IV ; Start 12/01/16 at 12: 41; Stop 12/01/16 at 12:42; Status DC Ondansetron HCl (Zofran) 4 mg STK-MED ONCE .ROUTE ; Start 12/01/16 at 12:41; Stop 12/01/16 at 12:42; Status DC Dexamethasone Sodium Phosphate (Decadron) 20 mg STK-MED ONCE .ROUTE ; Start at 12:41; Stop 12/01/16 at 12:42; Status DC Lidocaine HCl 100 mg STK-MED ONCE .ROUTE ; Start 12/01/16 at 12:41; Stop at 12:42; Status DC Butorphanol Tartrate 1 mg 1 mg PRN Q6HRS PRN IV PAIN; Start 12/01/16 at 13:00 Promethazine HCl/ Sodium Chloride (Phenergan/Iv Sodium Chloride 0.9% 50ml) 51 ml @ 150.75 mls/ hr PRN Q6HRS PRN IV NAUSEA/VOMITING Last administered on 12/02 20:10; Start 12/01/16 at 13:00 Ondansetron HCl (Zofran) 4 mg PRN Q6HRS PRN IV Nausea Last administered on 12/01 13:16; Start 12/01/16 at 13:00; Stop 12/02/16 at 12:59; Status DC Fentanyl Citrate (Fentanyl 2ml Vial) 25 mcg PRN Q5MIN PRN IV MILD PAIN; Start 12/01/16 at 13:00; Stop 12/02/16 at 12:59; Status DC Fentanyl Citrate (Fentanyl 2ml Vial) 50 mcg PRN Q5MIN PRN IV MODERATE PAIN; Start 12/01/16 at 13:00; Stop 12/02/16 at 12:59; Status DC Morphine Sulfate 1 mg 1 mg PRN Q10MIN PRN IV SEVERE PAIN Last administered on 10:30; Start 12/01/16 at 13:00; Stop 12/02/16 at 12:59; Status DC Lactated Ringer's (Iv Lactated Ringers) 1,000 ml @ 30 mls/hr Q24H IV ; Start at 13:00; Stop 12/02/16 at 00:59; Status DC Lidocaine HCl 2 ml 1X PRN PRN ID IV START; Start 12/01/16 at 13:00; Stop at 12:59; Status DC Hydromorphone HCl (Dilaudid) 0.5 mg PRN Q10MIN PRN IV SEV PAIN,Second choice; Start 12/01/16 at 13:00; Stop 12/02/16 at 12:59; Status DC Succinylcholine Chloride (Anectine) 200 mg STK-MED ONCE .ROUTE ; Start 12/01/16 at 13:05; Stop 12/01/16 at 13:06; Status DC Pantoprazole Sodium (Protonix Vial) 40 mg BIDAC IVP Last administered on 08:16; Start 12/01/16 at 14:00; Stop 12/04/16 at 09:45; Status DC Phenylephrine HCl 1 mg STK-MED ONCE IV ; Start 12/01/16 at 13:35; Stop 12/01/16 at 13:36; Status DC Metoclopramide HCl 10 mg 10 mg STK-MED ONCE .ROUTE ; Start 12/01/16 at 13:40; Stop 12/01/16 at 13:41; Status DC Propofol (Diprivan) 20 ml @ As Directed STK-MED ONCE IV ; Start 12/01/16 at 14: 06; Stop 12/01/16 at 14:07; Status DC Vancomycin HCl (Vanco Per Pharmacy) 1 each PRN DAILY PRN MC SEE COMMENTS Last administered on 12/03/16 16:51; Start 12/01/16 at 15:00 Piperacillin Sod/ Tazobactam Sod 1 each 1 each PRN DAILY PRN MC SEE COMMENTS; Start 12/01/16 at 15:00 Vancomycin HCl 250 mg/Sodium Chloride 100 ml @ 100 mls/hr 1X ONCE IV Last administered on 12/01/16 16:14; Start 12/01/16 at 15:30; Stop 12/01/16 at 16:29 ; Status DC Piperacillin Sod/ Tazobactam Sod 3.375 gm/Sodium Chloride 50 ml @ 100 mls/hr Q6HRS IV Last administered on 12/04/16 11:15; Start 12/01/16 at 17:00 Vancomycin HCl/ Sodium Chloride (Iv Sodium Chloride 0.9% 250ml) 250 ml @ 250 mls/hr Q24H IV Last administered on 12/02/16 16:31; Start 12/02/16 at 15:00; Stop 12/03/16 at 16:39; Status DC Vancomycin HCl 1 each 1X ONCE MC ; Start 12/03/16 at 14:30; Stop 12/03/16 at 14 :31; Status DC Metoclopramide HCl 10 mg 10 mg Q6HRS IV Last administered on 12/04/16 05:40; Start 12/01/16 at 17:00 Sodium Chloride (Iv Sodium Chloride 0.9% 1000ml Bag) 1,000 ml @ 75 mls/hr [id number] IV Last administered on 12/02/16 16:31; Start 12/01/16 at 17:15; Stop 12/03/16 at 05:03; Status DC Insulin Aspart (Novolog) 3 units 1X PRN SQ ; Start 12/01/16 at 18:45; Status Cancel Insulin Aspart (Novolog Vial) 20 unit 1X ONCE SQ ; Start 12/02/16 at 09:00; Stop 12/02/16 at 09:00; Status Cancel Insulin Aspart (Novolog) 20 units 1X ONCE SQ Last administered on 12/02/16 09 :07; Start 12/02/16 at 09:00; Stop 12/02/16 at 09:01; Status DC Insulin Aspart (Novolog) 20 units 1X ONCE SQ ; Start 12/02/16 at 09:00; Stop at 09:01; Status UNV Potassium Chloride (Klor-Con) 40 meq 1X ONCE PO Last administered on 11:39; Start 12/02/16 at 11:15; Stop 12/02/16 at 11:16; Status DC Morphine Sulfate 2 mg PRN Q2HR PRN IV PAIN SEVERE Last administered on 11:15; Start 12/02/16 at 19:00 Ondansetron HCl 4 mg 4 mg PRN Q8HRS PRN IV NAUSEA/VOMITING 1ST CHOICE; Start at 20:15; Stop 12/04/16 at 09:45; Status DC Micafungin Sodium/ Dextrose (Mycamine) 100 ml @ 100 mls/hr QHS IV Last administered on 12/03/16 21:20; Start 12/02/16 at 23:45 Insulin Aspart (Novolog) 30 units 1X ONCE SQ Last administered on 12/03/16 10 :37; Start 12/03/16 at 10:30; Stop 12/03/16 at 10:31; Status DC Potassium Chloride (Klor-Con) 40 meq 1X ONCE PO Last administered on 12:01; Start 12/03/16 at 11:45; Stop 12/03/16 at 11:46; Status DC Insulin Aspart 30 units 30 units 1X ONCE SQ Last administered on 12/03/16 13: 35; Start 12/03/16 at 13:15; Stop 12/03/16 at 13:16; Status DC Vancomycin HCl/ Sodium Chloride (Iv Sodium Chloride 0.9% 250ml) 250 ml @ 250 mls/hr Q12H IV Last administered on 12/04/16 04:43; Start 12/03/16 at 17:00 Metoclopramide HCl (Reglan) 5 mg QIDACHS PO ; Start 12/04/16 at 11:30 Oxycodone/ Acetaminophen (Percocet 5/325) 1 tab PRN Q4HRS PRN PO MODERATE PAIN ; Start 12/04/16 at 09:45 Pantoprazole Sodium (Protonix) 40 mg DAILYAC PO ; Start 12/05/16 at 07:30 Insulin Aspart (Novolog) 10 units TIDACHC SQ Last administered on 12/04/16 11: 34; Start 12/04/16 at 16:30; Stop 12/04/16 at 16:30; Status DC Insulin Detemir (Levemir) 35 units QHS SQ ; Start 12/04/16 at 21:00 Insulin Aspart (Novolog) 0-9 UNITS TIDWMEALS SQ Last administered on 12/04/16 11:34; Start 12/04/16 at 12:00 Dextrose 12.5 gm PRN Q15MIN PRN IV SEE COMMENTS; Start 12/04/16 at 09:45 Ondansetron HCl (Zofran) 4 mg PRN Q6HRS PRN IV NAUSEA/VOMITING 1ST CHOICE; Start 12/04/16 at 20:15 Pantoprazole Sodium (Protonix) 40 mg DAILYAC PO ; Start 12/05/16 at 07:30 Insulin Aspart (Novolog) 15 units TIDACHC SQ ; Start 12/04/16 at 16:30 Active Scripts Active Pantoprazole Sodium 40 Mg Tablet.dr 40 Mg PO DAILYAC Oxycodone-Acetaminophen 5-325 (Oxycodone Hcl/Acetaminophen) 1 Each Tablet 1 Tab PO PRN Q4HRS PRN Metoclopramide Hcl 10 Mg/10 Ml Solution 5 Mg PO QIDACHS Amox Tr-K Clv 875-125 Mg Tab (Amoxicillin/Potassium Clav) 1 Each Tablet 1 Tab PO BID Reported Levemir (Insulin Detemir) 100 Unit/1 Ml Vial 35 Unit SQ HS Novolog (Insulin Aspart) 100 Unit/1 Ml Cartridge 10 Unit SQ TIDAC Vitals/I & O Vital Sign - Last 24 Hours 12/03/16 12/03/16 12/03/16 12/04/16 15:00 19:00 23:40 03:01 Temp 98.1 98.4 98.1 97.9 98.1 98.4 98.1 97.9 Pulse 93 108 97 86 Resp 20 18 20 20 B/P 92/53 108/58 99/56 99/59 Pulse Ox 97 98 98 98 O2 Delivery Room Air Room Air Room Air Room Air 1/23/17 1/23/17 1/23/17 1/23/17 07:00 08:00 09:50 11:15 Temp 97.4 97.4 Pulse 85 Resp 14 B/P 108/68 Pulse Ox 98 98 O2 Delivery Room Air Room Air Room Air Room Air 12/04/16 12/04/16 11:50 12:57 Temp 97.4 97.4 Pulse 85 B/P 108/68 Pulse Ox 98 98 O2 Delivery Room Air Room Air Intake and Output 12/03/16 12/03/16 12/04/16 15:00 23:00 07:00 Output Total 3 ml 1 ml Balance -3 ml -1 ml AZEB ANDERSON MD Dec 04, 2016 13:21
--- NOTE | 2016-12-04 14:12 | PDOC ---
G I PROGRESS NOTE Subjective Asleep, not awakened. Objective No reports of any major nausea and vomiting. Physical Exam No PE. Review of Relevant I have reviewed the following items gem (where applicable) has been applied. Labs Laboratory Tests Test 12/02/16 16:51 12/02/16 20:56 12/03/16 04:20 12/03/16 07:48 Glucose (Fingerstick) 291mg/dL (70-99) 253mg/dL (70-99) 353mg/dL (70-99) Sodium Level 140mmol/L (136-145) Potassium Level 2.9mmol/L (3.5-5.1) Chloride Level 107mmol/L (98-107) Carbon Dioxide Level 22mmol/L (21-32) Anion Gap 11 (6-14) Blood Urea Nitrogen 4mg/dL (7-20) Creatinine 1.0mg/dL (0.6-1.0) Estimated GFR (Cockcroft-Gault) 61.4 BUN/Creatinine Ratio 4 (6-20) Glucose Level 368mg/dL (70-99) Calcium Level 7.9mg/dL (8.5-10.1) Total Bilirubin 0.2mg/dL (0.2-1.0) Aspartate Amino Transf (AST/SGOT) 7U/L (15-37) Alanine Aminotransferase (ALT/SGPT) 6U/L (14-59) Alkaline Phosphatase 93U/L (46-116) Total Protein 6.1g/dL (6.4-8.2) Albumin 0.9g/dL (3.4-5.0) Albumin/Globulin Ratio 0.2 (1.0-1.7) Test 12/03/16 08:22 12/03/16 11:59 12/03/16 14:45 12/03/16 17:02 Glucose (Fingerstick) 424mg/dL (70-99) 539mg/dL (70-99) 177mg/dL (70-99) Vancomycin Level Trough 8.3mcg/mL (10.0-20.0) Vancomycin Last Dose Date 12/02/16 Vancomycin Last Dose Time 1500 Test 12/03/16 20:35 12/04/16 07:36 12/04/16 10:24 Glucose (Fingerstick) 287mg/dL (70-99) 351mg/dL (70-99) 382mg/dL (70-99) Laboratory Tests Test 12/03/16 14:45 12/03/16 17:02 12/03/16 20:35 12/04/16 07:36 Vancomycin Level Trough 8.3mcg/mL (10.0-20.0) Vancomycin Last Dose Date 12/02/16 Vancomycin Last Dose Time 1500 Glucose (Fingerstick) 177mg/dL (70-99) 287mg/dL (70-99) 351mg/dL (70-99) Test 12/04/16 10:24 Glucose (Fingerstick) 382mg/dL (70-99) Microbiology 12/01/16 Blood Culture - Preliminary, Resulted NO GROWTH AFTER 3 DAYS 12/01/16 Gram Stain - Final, Complete Hemoglobin low, but stable. Medications Current Medications Sodium Chloride (Iv Sodium Chloride 0.9% 1000ml Bag) 1,000 ml @ 1,000 mls/hr Q1H IV Last administered on 11/30/16 19:42; Start 11/30/16 at 19:45; Stop at 20:44; Status DC Ondansetron HCl (Zofran) 4 mg 1X ONCE IV Last administered on 11/30/16 20:08 ; Start 11/30/16 at 19:45; Stop 11/30/16 at 19:46; Status DC Ketorolac Tromethamine 10 mg 10 mg 1X ONCE IV Last administered on 11/30/16 20:08; Start 11/30/16 at 19:45; Stop 11/30/16 at 19:46; Status DC Sodium Chloride 1,000 ml @ 1,000 mls/hr Q1H IV Last administered on 11/30/16 21:11; Start 11/30/16 at 21:00; Stop 11/30/16 at 21:01; Status DC Sodium Chloride 1,000 ml @ 250 mls/hr Q4H IV Last administered on 12/01/16 01 :23; Start 11/30/16 at 22:00; Stop 12/01/16 at 07:42; Status DC Dextrose/Sodium Chloride 1,000 ml @ 250 mls/hr Q4H IV Last administered on 21:15; Start 11/30/16 at 22:00; Stop 12/01/16 at 01:37; Status DC Insulin Human Regular 150 unit/ Sodium Chloride 151.5 ml @ 0 mls/hr CONT PRN PRN IV PER PROTOCOL Last administered on 11/30/16 21:36; Start 11/30/16 at 21: 00; Stop 12/04/16 at 09:45; Status DC Potassium Chloride 100 ml @ 100 mls/hr PRN Q1HR PRN IV SEE COMMENTS; Start at 21:00; Stop 12/04/16 at 09:45; Status DC Potassium Chloride 100 ml @ 100 mls/hr PRN Q1HR PRN IV SEE COMMENTS; Start at 21:00; Stop 12/04/16 at 09:45; Status DC Potassium Chloride (KCl Premix 10meq) 100 ml @ 100 mls/hr PRN Q1HR PRN IV SEE COMMENTS Last administered on 12/03/16 10:35; Start 11/30/16 at 21:00; Stop at 09:45; Status DC Ondansetron HCl (Zofran) 4 mg PRN Q8HRS PRN IV NAUSEA/VOMITING Last administered on 12/01/16 07:54; Start 11/30/16 at 21:00; Stop 12/01/16 at 20:59 ; Status DC Fentanyl Citrate (Fentanyl 2ml Vial) 50 mcg PRN Q2HR PRN IV SEVERE PAIN Last administered on 12/01/16 00:19; Start 11/30/16 at 21:00; Stop 12/01/16 at 20:59 ; Status DC Acetaminophen 650 mg 650 mg PRN Q4HRS PRN PO FEVER; Start 11/30/16 at 21:00; Stop 12/01/16 at 20:59; Status DC Dextrose/Sodium Chloride 1,000 ml @ 250 mls/hr Q4H IV Last administered on 01:40; Start 12/01/16 at 01:45; Stop 12/01/16 at 06:18; Status DC Dextrose/Sodium Chloride (Iv D5% - 1/2 NS) 1,000 ml @ 250 mls/hr Q4H IV Last administered on 12/01/16 14:15; Start 12/01/16 at 06:15; Stop 12/01/16 at 17:17 ; Status DC Dextrose 25 gm STK-MED ONCE IV ; Start 12/01/16 at 07:48; Stop 12/01/16 at 07:49 ; Status DC Dextrose 25 gm 25 gm 1X ONCE IV Last administered on 12/01/16 07:56; Start at 08:00; Stop 12/01/16 at 08:01; Status DC Potassium Chloride (KCl Premix 10meq) 100 ml @ 100 mls/hr Q1H IV Last administered on 12/01/16 17:20; Start 12/01/16 at 11:30; Stop 12/01/16 at 15:29 ; Status DC Insulin Aspart (Novolog) 0-7 UNITS TIDWMEALS SQ Last administered on 12/04/16 08:22; Start 12/01/16 at 12:00; Stop 12/04/16 at 09:45; Status DC Dextrose 12.5 gm PRN Q15MIN PRN IV SEE COMMENTS; Start 12/01/16 at 11:30; Stop 12/04/16 at 09:56; Status DC Sevoflurane (Ultane) 60 ml STK-MED ONCE IH ; Start 12/01/16 at 12:40; Stop 12/01 at 12:41; Status DC Fentanyl Citrate 100 mcg 100 mcg STK-MED ONCE .ROUTE ; Start 12/01/16 at 12:41; Stop 12/01/16 at 12:42; Status DC Propofol (Diprivan) 20 ml @ As Directed STK-MED ONCE IV ; Start 12/01/16 at 12: 41; Stop 12/01/16 at 12:42; Status DC Ondansetron HCl (Zofran) 4 mg STK-MED ONCE .ROUTE ; Start 12/01/16 at 12:41; Stop 12/01/16 at 12:42; Status DC Dexamethasone Sodium Phosphate (Decadron) 20 mg STK-MED ONCE .ROUTE ; Start at 12:41; Stop 12/01/16 at 12:42; Status DC Lidocaine HCl 100 mg STK-MED ONCE .ROUTE ; Start 12/01/16 at 12:41; Stop at 12:42; Status DC Butorphanol Tartrate 1 mg 1 mg PRN Q6HRS PRN IV PAIN; Start 12/01/16 at 13:00 Promethazine HCl/ Sodium Chloride (Phenergan/Iv Sodium Chloride 0.9% 50ml) 51 ml @ 150.75 mls/ hr PRN Q6HRS PRN IV NAUSEA/VOMITING Last administered on 12/02 20:10; Start 12/01/16 at 13:00 Ondansetron HCl (Zofran) 4 mg PRN Q6HRS PRN IV Nausea Last administered on 12/01 13:16; Start 12/01/16 at 13:00; Stop 12/02/16 at 12:59; Status DC Fentanyl Citrate (Fentanyl 2ml Vial) 25 mcg PRN Q5MIN PRN IV MILD PAIN; Start 12/01/16 at 13:00; Stop 12/02/16 at 12:59; Status DC Fentanyl Citrate (Fentanyl 2ml Vial) 50 mcg PRN Q5MIN PRN IV MODERATE PAIN; Start 12/01/16 at 13:00; Stop 12/02/16 at 12:59; Status DC Morphine Sulfate 1 mg 1 mg PRN Q10MIN PRN IV SEVERE PAIN Last administered on 10:30; Start 12/01/16 at 13:00; Stop 12/02/16 at 12:59; Status DC Lactated Ringer's (Iv Lactated Ringers) 1,000 ml @ 30 mls/hr Q24H IV ; Start at 13:00; Stop 12/02/16 at 00:59; Status DC Lidocaine HCl 2 ml 1X PRN PRN ID IV START; Start 12/01/16 at 13:00; Stop at 12:59; Status DC Hydromorphone HCl (Dilaudid) 0.5 mg PRN Q10MIN PRN IV SEV PAIN,Second choice; Start 12/01/16 at 13:00; Stop 12/02/16 at 12:59; Status DC Succinylcholine Chloride (Anectine) 200 mg STK-MED ONCE .ROUTE ; Start 12/01/16 at 13:05; Stop 12/01/16 at 13:06; Status DC Pantoprazole Sodium (Protonix Vial) 40 mg BIDAC IVP Last administered on 08:16; Start 12/01/16 at 14:00; Stop 12/04/16 at 09:45; Status DC Phenylephrine HCl 1 mg STK-MED ONCE IV ; Start 12/01/16 at 13:35; Stop 12/01/16 at 13:36; Status DC Metoclopramide HCl 10 mg 10 mg STK-MED ONCE .ROUTE ; Start 12/01/16 at 13:40; Stop 12/01/16 at 13:41; Status DC Propofol (Diprivan) 20 ml @ As Directed STK-MED ONCE IV ; Start 12/01/16 at 14: 06; Stop 12/01/16 at 14:07; Status DC Vancomycin HCl (Vanco Per Pharmacy) 1 each PRN DAILY PRN MC SEE COMMENTS Last administered on 12/03/16 16:51; Start 12/01/16 at 15:00 Piperacillin Sod/ Tazobactam Sod 1 each 1 each PRN DAILY PRN MC SEE COMMENTS; Start 12/01/16 at 15:00 Vancomycin HCl 250 mg/Sodium Chloride 100 ml @ 100 mls/hr 1X ONCE IV Last administered on 12/01/16 16:14; Start 12/01/16 at 15:30; Stop 12/01/16 at 16:29 ; Status DC Piperacillin Sod/ Tazobactam Sod 3.375 gm/Sodium Chloride 50 ml @ 100 mls/hr Q6HRS IV Last administered on 12/04/16 11:15; Start 12/01/16 at 17:00 Vancomycin HCl/ Sodium Chloride (Iv Sodium Chloride 0.9% 250ml) 250 ml @ 250 mls/hr Q24H IV Last administered on 12/02/16 16:31; Start 12/02/16 at 15:00; Stop 12/03/16 at 16:39; Status DC Vancomycin HCl 1 each 1X ONCE MC ; Start 12/03/16 at 14:30; Stop 12/03/16 at 14 :31; Status DC Metoclopramide HCl 10 mg 10 mg Q6HRS IV Last administered on 12/04/16 05:40; Start 12/01/16 at 17:00 Sodium Chloride (Iv Sodium Chloride 0.9% 1000ml Bag) 1,000 ml @ 75 mls/hr [id number] IV Last administered on 12/02/16 16:31; Start 12/01/16 at 17:15; Stop 12/03/16 at 05:03; Status DC Insulin Aspart (Novolog) 3 units 1X PRN SQ ; Start 12/01/16 at 18:45; Status Cancel Insulin Aspart (Novolog Vial) 20 unit 1X ONCE SQ ; Start 12/02/16 at 09:00; Stop 12/02/16 at 09:00; Status Cancel Insulin Aspart (Novolog) 20 units 1X ONCE SQ Last administered on 12/02/16 09 :07; Start 12/02/16 at 09:00; Stop 12/02/16 at 09:01; Status DC Insulin Aspart (Novolog) 20 units 1X ONCE SQ ; Start 12/02/16 at 09:00; Stop at 09:01; Status UNV Potassium Chloride (Klor-Con) 40 meq 1X ONCE PO Last administered on 11:39; Start 12/02/16 at 11:15; Stop 12/02/16 at 11:16; Status DC Morphine Sulfate 2 mg PRN Q2HR PRN IV PAIN SEVERE Last administered on 11:15; Start 12/02/16 at 19:00 Ondansetron HCl 4 mg 4 mg PRN Q8HRS PRN IV NAUSEA/VOMITING 1ST CHOICE; Start at 20:15; Stop 12/04/16 at 09:45; Status DC Micafungin Sodium/ Dextrose (Mycamine) 100 ml @ 100 mls/hr QHS IV Last administered on 12/03/16 21:20; Start 12/02/16 at 23:45 Insulin Aspart (Novolog) 30 units 1X ONCE SQ Last administered on 12/03/16 10 :37; Start 12/03/16 at 10:30; Stop 12/03/16 at 10:31; Status DC Potassium Chloride (Klor-Con) 40 meq 1X ONCE PO Last administered on 12:01; Start 12/03/16 at 11:45; Stop 12/03/16 at 11:46; Status DC Insulin Aspart 30 units 30 units 1X ONCE SQ Last administered on 12/03/16 13: 35; Start 12/03/16 at 13:15; Stop 12/03/16 at 13:16; Status DC Vancomycin HCl/ Sodium Chloride (Iv Sodium Chloride 0.9% 250ml) 250 ml @ 250 mls/hr Q12H IV Last administered on 12/04/16 04:43; Start 12/03/16 at 17:00 Metoclopramide HCl (Reglan) 5 mg QIDACHS PO ; Start 12/04/16 at 11:30 Oxycodone/ Acetaminophen (Percocet 5/325) 1 tab PRN Q4HRS PRN PO MODERATE PAIN ; Start 12/04/16 at 09:45 Pantoprazole Sodium (Protonix) 40 mg DAILYAC PO ; Start 12/05/16 at 07:30 Insulin Aspart (Novolog) 10 units TIDACHC SQ Last administered on 12/04/16 11: 34; Start 12/04/16 at 16:30; Stop 12/04/16 at 16:30; Status DC Insulin Detemir (Levemir) 35 units QHS SQ ; Start 12/04/16 at 21:00 Insulin Aspart (Novolog) 0-9 UNITS TIDWMEALS SQ Last administered on 12/04/16 11:34; Start 12/04/16 at 12:00 Dextrose 12.5 gm PRN Q15MIN PRN IV SEE COMMENTS; Start 12/04/16 at 09:45 Ondansetron HCl (Zofran) 4 mg PRN Q6HRS PRN IV NAUSEA/VOMITING 1ST CHOICE; Start 12/04/16 at 20:15 Pantoprazole Sodium (Protonix) 40 mg DAILYAC PO ; Start 12/05/16 at 07:30 Insulin Aspart (Novolog) 15 units TIDACHC SQ ; Start 12/04/16 at 16:30 Active Scripts Active Pantoprazole Sodium 40 Mg Tablet.dr 40 Mg PO DAILYAC Oxycodone-Acetaminophen 5-325 (Oxycodone Hcl/Acetaminophen) 1 Each Tablet 1 Tab PO PRN Q4HRS PRN Metoclopramide Hcl 10 Mg/10 Ml Solution 5 Mg PO QIDACHS Amox Tr-K Clv 875-125 Mg Tab (Amoxicillin/Potassium Clav) 1 Each Tablet 1 Tab PO BID Reported Levemir (Insulin Detemir) 100 Unit/1 Ml Vial 35 Unit SQ HS Novolog (Insulin Aspart) 100 Unit/1 Ml Cartridge 10 Unit SQ TIDAC Vitals/I & O Vital Sign - Last 24 Hours 1/22/17 12/03/16 12/03/16 12/04/16 15:00 19:00 23:40 03:01 Temp 98.1 98.4 98.1 97.9 98.1 98.4 98.1 97.9 Pulse 93 108 97 86 Resp 20 18 20 20 B/P 92/53 108/58 99/56 99/59 Pulse Ox 97 98 98 98 O2 Delivery Room Air Room Air Room Air Room Air 12/04/16 12/04/16 12/04/16 12/04/16 07:00 08:00 09:50 11:15 Temp 97.4 97.4 Pulse 85 Resp 14 B/P 108/68 Pulse Ox 98 98 O2 Delivery Room Air Room Air Room Air Room Air 12/04/16 12/04/16 11:50 12:57 Temp 97.4 97.4 Pulse 85 B/P 108/68 Pulse Ox 98 98 O2 Delivery Room Air Room Air Intake and Output 12/03/16 12/03/16 12/04/16 15:00 23:00 07:00 Output Total 3 ml 1 ml Balance -3 ml -1 ml Problem List Problems Medical Problems: (1) Back pain Status: Acute (2) Diabetic ketoacidosis Status: Acute Assessment DKA, resolved with still some glucose control issues. Clinically minor hematemesis, resolved. Probably has gastroparesis, at least transiently. Plan of Care: Continue current Tx, Mgmt ORIANA DOS SANTOS MD Dec 04, 2016 14:12
[2016-12-04 16:00] VITALS: BP 130/81
[2016-12-04] MEDS: VANCOMYCIN PER PHARMACY MC PRN (16:10)
[2016-12-04] MEDS ORDERED: INSULIN ASPART 300 UNITS/3 ML INSULN.PEN SQ SCH (16:30)
[2016-12-04 20:00] VITALS: BP 109/70
[2016-12-04] MEDS: MICAFUNGIN 100 MG in IV DEXTROSE 5% 100 ML IV SCH (20:51)
[2016-12-04] MEDS ORDERED: INSULIN ASPART 300 UNITS/3 ML INSULN.PEN SQ ONE ×2 (21:00→23:00)
[2016-12-04] MEDS: INSULIN DETEMIR 300 UNITS/3 ML INSULN.PEN. SQ SCH (21:12)
[2016-12-04 22:05] VITALS: BP 110/62
[2016-12-05] MEDS: PIPERACILLIN/TAZOBACTAM 3.375 GM in IV NORMAL SALINE 50ML 50 ML IV SCH ×5 (00:20→23:39)
[2016-12-05] MEDS: OXYCODONE/APAP 5/325 TABLET. PO PRN ×5 (00:41→23:41)
[2016-12-05 02:52] VITALS: BP 102/56
[2016-12-05] MEDS: VANCOMYCIN 1 GM in IV NORMAL SALINE 250ML 250 ML IV SCH (05:36)
[2016-12-05 07:00] VITALS: BP 107/59
[2016-12-05] MEDS ORDERED: PANTOPRAZOLE 40 MG TABLET. PO SCH (07:30)
[2016-12-05] MEDS: PANTOPRAZOLE 40 MG TABLET. PO SCH (08:27)
[2016-12-05] MEDS: METOCLOPRAMIDE HCL 10 MG/10 ML SOLUTION. PO SCH ×4 (08:28→21:21)
[2016-12-05] MEDS: INSULIN ASPART 300 UNITS/3 ML INSULN.PEN SQ SCH ×8 (08:36→21:31)
[2016-12-05] MEDS: MORPHINE SULFATE 2 MG/ML DISP.SYRIN. IV PRN (09:47)
--- NOTE | 2016-12-05 10:22 | PDOC ---
Infectious Disease Note Subjective Subjective Doing ok. No pain ROS ROS GEN: Denies fevers, chills, sweats HEENT: Denies blurred vision, sore throat CV: Denies chest pain RESP: Denies shortness of air, cough GI: Denies n/v/d NEURO: Denies confusion, dizziness MSK: Denies weakness, joint pain/swelling Vital Sign Vital Signs Vital Signs Date Time Temp Pulse Resp B/P Pulse Ox O2 Delivery O2 Flow Rate FiO2 12/05/16 09:47 99 Room Air 12/05/16 07:00 97.5 112 14 107/59 97.5 Physical Exam PHYSICAL EXAM GENERAL: NAD, Alert HEENT: PERRL, OC/OP -clear NECK: Supple, no JVD, no LN LUNGS: Clear HEART: S1S2, no gallop, no murmur ABD: Soft, NT, no organomegaly, no rebound EXT: No edema, no cyanosis. Foot dressed with no gross drainage currently [employer]OR: Alert, oriented x 3, no focal neurologic deficit SKIN: No rash IV: ok Labs Lab Laboratory Tests Test 12/04/16 10:24 12/04/16 16:21 12/04/16 20:32 12/04/16 22:05 Glucose (Fingerstick) 382mg/dL (70-99) 433mg/dL (70-99) 442mg/dL (70-99) 403mg/dL (70-99) Test 12/05/16 00:23 12/05/16 02:56 12/05/16 08:30 Glucose (Fingerstick) 206mg/dL (70-99) 115mg/dL (70-99) 177mg/dL (70-99) Micro AEROBIC RES 1 Preliminary Staphylococcus aureus Heavy growth AEROBIC RES 2 Preliminary Comment Beta hemolytic Streptococcus, group B Objective Assessment Left diabetic foot infection. Group B strep/Staph MSSA -s/p I and D. 12/01. Intra-op cultures pending DM- still elevated sugars Leukocytosis KATHLEEN, improved Peripheral neuropathy Anemia Plan Plan of Care Discont Vanc Cont Zosyn/Micafungin F/u labs and cults (gram stain with yeast and GPR) F/u more surgery - d/w Dr. Sanches. Likely needs TMA RODOLFO BAHENA MD Dec 05, 2016 10:22
[2016-12-05 10:44] LABS: BASO # 0.1 x10^3/uL (0.0-0.2); BASO % 1 % (0-3); EOS % 1 % (0-3); HEMOGLOBIN 8.6 g/dL (12.0-15.5); LYMPH # 1.8 x10^3/uL (1.0-4.8); LYMPH % 14 % (24-48); MEAN CORPUSCULAR HEMOGLOBIN 28 pg (25-35); MEAN CORPUSCULAR HGB CONC 33 g/dL (31-37); MEAN CORPUSCULAR VOLUME 85 fL (79-100); MONO % 6 % (0-9); NEUT % 80 % (31-73); PLATELET COUNT 457 x10^3/uL (140-400); RED BLOOD COUNT 3.08 x10^6/uL (3.50-5.40); RED CELL DISTRIBUTION WIDTH 15.3 % (11.5-14.5); WHITE BLOOD COUNT 13.4 x10^3/uL (4.0-11.0)
[2016-12-05 11:00] VITALS: BP 124/70
[2016-12-05 11:02] LABS: PROTHROMBIN TIME PATIENT 12.6 SEC (11.7-14.0)
--- NOTE | 2016-12-05 11:07 | PDOC ---
PROGRESS NOTES Chief Complaint Chief Complaint dka. s/p Dm2 uncontrolled Left diabetic foot infection. Group B strep/Staph -s/p I and D. 12/01. Intra-op cultures pending KATHLEEN, improved Peripheral neuropathy Anemia - Gastroparesis - Coffee ground emesis, resolved - HTN ANEMIA of blood loss on top of chronic, stable History of Present Illness History of Present Illness BS better since getting her home levemir last night [place] ground emesis has resolved Hgb 8 plus DID DISCUSS WITH PT PLANS OF ORTHO OF AMPUTATING THE LEFT TOES, SHE IS AGREEABLE SHE GOT TEARY EYED BUT IS AGREEABLE TO PROCEED DISCUSSED WITH GI RE COFFEE GROUND, NO FURTHER PLANS, IT HAS RESOLVED AND HGB STABLE - (ordered labs today) Vitals Vitals Vital Signs Date Time Temp Pulse Resp B/P Pulse Ox O2 Delivery O2 Flow Rate FiO2 12/05/16 10:20 99 Room Air 12/05/16 07:00 97.5 112 14 107/59 97.5 Physical Exam General: Alert, Oriented X3, Cooperative, No acute distress Heart: Normal S1, Normal S2, Other (Mild tachycardia) Lungs: Clear Abdomen: Normal bowel sounds, Soft Extremities: No cyanosis, No edema, Other (Necrotizing fasciitis of L foot, wound vac in place; R toe amputation) Skin: Other (See extremities above) Labs LABS Laboratory Tests Test 12/04/16 16:21 12/04/16 20:32 12/04/16 22:05 12/05/16 00:23 Glucose (Fingerstick) 433mg/dL (70-99) 442mg/dL (70-99) 403mg/dL (70-99) 206mg/dL (70-99) Test 12/05/16 02:56 12/05/16 08:30 12/05/16 10:15 Glucose (Fingerstick) 115mg/dL (70-99) 177mg/dL (70-99) White Blood Count 13.4x10^3/uL (4.0-11.0) Red Blood Count 3.08x10^6/uL (3.50-5.40) Hemoglobin 8.6g/dL (12.0-15.5) Hematocrit 26.0% (36.0-47.0) Mean Corpuscular Volume 85fL (79-100) Mean Corpuscular Hemoglobin 28pg (25-35) Mean Corpuscular Hemoglobin Concent 33g/dL (31-37) Red Cell Distribution Width 15.3% (11.5-14.5) Platelet Count 457x10^3/uL (140-400) Neutrophils (%) (Auto) 80% (31-73) Lymphocytes (%) (Auto) 14% (24-48) Monocytes (%) (Auto) 6% (0-9) Eosinophils (%) (Auto) 1% (0-3) Basophils (%) (Auto) 1% (0-3) Neutrophils # (Auto) 10.6x10^3uL (1.8-7.7) Lymphocytes # (Auto) 1.8x10^3/uL (1.0-4.8) Monocytes # (Auto) 0.7x10^3/uL (0.0-1.1) Eosinophils # (Auto) 0.1x10^3/uL (0.0-0.7) Basophils # (Auto) 0.1x10^3/uL (0.0-0.2) Review of Systems Review of Systems Foot pain, no increase Rest of all 14 pt system negative Assessment and Plan Assessmemt and Plan cpm plans on amputation this admission dw GI, ortho and pt Problems Medical Problems: (1) Back pain Status: Acute (2) Diabetic ketoacidosis Status: Acute Problems: Comment Review of Relevant I have reviewed the following items gem (where applicable) has been applied. Labs Laboratory Tests Test 12/03/16 11:59 12/03/16 14:45 12/03/16 17:02 12/03/16 20:35 Glucose (Fingerstick) 539mg/dL (70-99) 177mg/dL (70-99) 287mg/dL (70-99) Vancomycin Level Trough 8.3mcg/mL (10.0-20.0) Vancomycin Last Dose Date 12/02/16 Vancomycin Last Dose Time 1500 Test 12/04/16 07:36 12/04/16 10:24 12/04/16 16:21 12/04/16 20:32 Glucose (Fingerstick) 351mg/dL (70-99) 382mg/dL (70-99) 433mg/dL (70-99) 442mg/dL (70-99) Test 12/04/16 22:05 1/24/17 00:23 12/05/16 02:56 12/05/16 08:30 Glucose (Fingerstick) 403mg/dL (70-99) 206mg/dL (70-99) 115mg/dL (70-99) 177mg/dL (70-99) Test 12/05/16 10:15 White Blood Count 13.4x10^3/uL (4.0-11.0) Red Blood Count 3.08x10^6/uL (3.50-5.40) Hemoglobin 8.6g/dL (12.0-15.5) Hematocrit 26.0% (36.0-47.0) Mean Corpuscular Volume 85fL (79-100) Mean Corpuscular Hemoglobin 28pg (25-35) Mean Corpuscular Hemoglobin Concent 33g/dL (31-37) Red Cell Distribution Width 15.3% (11.5-14.5) Platelet Count 457x10^3/uL (140-400) Neutrophils (%) (Auto) 80% (31-73) Lymphocytes (%) (Auto) 14% (24-48) Monocytes (%) (Auto) 6% (0-9) Eosinophils (%) (Auto) 1% (0-3) Basophils (%) (Auto) 1% (0-3) Neutrophils # (Auto) 10.6x10^3uL (1.8-7.7) Lymphocytes # (Auto) 1.8x10^3/uL (1.0-4.8) Monocytes # (Auto) 0.7x10^3/uL (0.0-1.1) Eosinophils # (Auto) 0.1x10^3/uL (0.0-0.7) Basophils # (Auto) 0.1x10^3/uL (0.0-0.2) Laboratory Tests Test 12/04/16 16:21 12/04/16 20:32 12/04/16 22:05 12/05/16 00:23 Glucose (Fingerstick) 433mg/dL (70-99) 442mg/dL (70-99) 403mg/dL (70-99) 206mg/dL (70-99) Test 12/05/16 02:56 12/05/16 08:30 12/05/16 10:15 Glucose (Fingerstick) 115mg/dL (70-99) 177mg/dL (70-99) White Blood Count 13.4x10^3/uL (4.0-11.0) Red Blood Count 3.08x10^6/uL (3.50-5.40) Hemoglobin 8.6g/dL (12.0-15.5) Hematocrit 26.0% (36.0-47.0) Mean Corpuscular Volume 85fL (79-100) Mean Corpuscular Hemoglobin 28pg (25-35) Mean Corpuscular Hemoglobin Concent 33g/dL (31-37) Red Cell Distribution Width 15.3% (11.5-14.5) Platelet Count 457x10^3/uL (140-400) Neutrophils (%) (Auto) 80% (31-73) Lymphocytes (%) (Auto) 14% (24-48) Monocytes (%) (Auto) 6% (0-9) Eosinophils (%) (Auto) 1% (0-3) Basophils (%) (Auto) 1% (0-3) Neutrophils # (Auto) 10.6x10^3uL (1.8-7.7) Lymphocytes # (Auto) 1.8x10^3/uL (1.0-4.8) Monocytes # (Auto) 0.7x10^3/uL (0.0-1.1) Eosinophils # (Auto) 0.1x10^3/uL (0.0-0.7) Basophils # (Auto) 0.1x10^3/uL (0.0-0.2) Microbiology 12/01/16 Blood Culture - Preliminary, Resulted NO GROWTH AFTER 4 DAYS 12/01/16 Gram Stain - Final, Complete Medications Current Medications Sodium Chloride (Iv Sodium Chloride 0.9% 1000ml Bag) 1,000 ml @ 1,000 mls/hr Q1H IV Last administered on 11/30/16 19:42; Start 11/30/16 at 19:45; Stop at 20:44; Status DC Ondansetron HCl (Zofran) 4 mg 1X ONCE IV Last administered on 11/30/16 20:08 ; Start 11/30/16 at 19:45; Stop 11/30/16 at 19:46; Status DC Ketorolac Tromethamine 10 mg 10 mg 1X ONCE IV Last administered on 11/30/16 20:08; Start 11/30/16 at 19:45; Stop 11/30/16 at 19:46; Status DC Sodium Chloride 1,000 ml @ 1,000 mls/hr Q1H IV Last administered on 11/30/16 21:11; Start 11/30/16 at 21:00; Stop 11/30/16 at 21:01; Status DC Sodium Chloride 1,000 ml @ 250 mls/hr Q4H IV Last administered on 12/01/16 01 :23; Start 11/30/16 at 22:00; Stop 12/01/16 at 07:42; Status DC Dextrose/Sodium Chloride 1,000 ml @ 250 mls/hr Q4H IV Last administered on 21:15; Start 11/30/16 at 22:00; Stop 12/01/16 at 01:37; Status DC Insulin Human Regular 150 unit/ Sodium Chloride 151.5 ml @ 0 mls/hr CONT PRN PRN IV PER PROTOCOL Last administered on 11/30/16 21:36; Start 11/30/16 at 21: 00; Stop 12/04/16 at 09:45; Status DC Potassium Chloride 100 ml @ 100 mls/hr PRN Q1HR PRN IV SEE COMMENTS; Start at 21:00; Stop 12/04/16 at 09:45; Status DC Potassium Chloride 100 ml @ 100 mls/hr PRN Q1HR PRN IV SEE COMMENTS; Start at 21:00; Stop 12/04/16 at 09:45; Status DC Potassium Chloride (KCl Premix 10meq) 100 ml @ 100 mls/hr PRN Q1HR PRN IV SEE COMMENTS Last administered on 12/03/16 10:35; Start 11/30/16 at 21:00; Stop at 09:45; Status DC Ondansetron HCl (Zofran) 4 mg PRN Q8HRS PRN IV NAUSEA/VOMITING Last administered on 12/01/16 07:54; Start 11/30/16 at 21:00; Stop 12/01/16 at 20:59 ; Status DC Fentanyl Citrate (Fentanyl 2ml Vial) 50 mcg PRN Q2HR PRN IV SEVERE PAIN Last administered on 12/01/16 00:19; Start 11/30/16 at 21:00; Stop 12/01/16 at 20:59 ; Status DC Acetaminophen 650 mg 650 mg PRN Q4HRS PRN PO FEVER; Start 11/30/16 at 21:00; Stop 12/01/16 at 20:59; Status DC Dextrose/Sodium Chloride 1,000 ml @ 250 mls/hr Q4H IV Last administered on 01:40; Start 12/01/16 at 01:45; Stop 12/01/16 at 06:18; Status DC Dextrose/Sodium Chloride (Iv D5% - 1/2 NS) 1,000 ml @ 250 mls/hr Q4H IV Last administered on 12/01/16 14:15; Start 12/01/16 at 06:15; Stop 12/01/16 at 17:17 ; Status DC Dextrose 25 gm STK-MED ONCE IV ; Start 12/01/16 at 07:48; Stop 12/01/16 at 07:49 ; Status DC Dextrose 25 gm 25 gm 1X ONCE IV Last administered on 12/01/16 07:56; Start at 08:00; Stop 12/01/16 at 08:01; Status DC Potassium Chloride (KCl Premix 10meq) 100 ml @ 100 mls/hr Q1H IV Last administered on 12/01/16 17:20; Start 12/01/16 at 11:30; Stop 12/01/16 at 15:29 ; Status DC Insulin Aspart (Novolog) 0-7 UNITS TIDWMEALS SQ Last administered on 12/04/16 08:22; Start 12/01/16 at 12:00; Stop 12/04/16 at 09:45; Status DC Dextrose 12.5 gm PRN Q15MIN PRN IV SEE COMMENTS; Start 12/01/16 at 11:30; Stop 12/04/16 at 09:56; Status DC Sevoflurane (Ultane) 60 ml STK-MED ONCE IH ; Start 12/01/16 at 12:40; Stop 12/01 at 12:41; Status DC Fentanyl Citrate 100 mcg 100 mcg STK-MED ONCE .ROUTE ; Start 12/01/16 at 12:41; Stop 12/01/16 at 12:42; Status DC Propofol (Diprivan) 20 ml @ As Directed STK-MED ONCE IV ; Start 12/01/16 at 12: 41; Stop 12/01/16 at 12:42; Status DC Ondansetron HCl (Zofran) 4 mg STK-MED ONCE .ROUTE ; Start 12/01/16 at 12:41; Stop 12/01/16 at 12:42; Status DC Dexamethasone Sodium Phosphate (Decadron) 20 mg STK-MED ONCE .ROUTE ; Start at 12:41; Stop 12/01/16 at 12:42; Status DC Lidocaine HCl 100 mg STK-MED ONCE .ROUTE ; Start 12/01/16 at 12:41; Stop at 12:42; Status DC Butorphanol Tartrate 1 mg 1 mg PRN Q6HRS PRN IV PAIN; Start 12/01/16 at 13:00 Promethazine HCl/ Sodium Chloride (Phenergan/Iv Sodium Chloride 0.9% 50ml) 51 ml @ 150.75 mls/ hr PRN Q6HRS PRN IV NAUSEA/VOMITING Last administered on 12/02 20:10; Start 12/01/16 at 13:00 Ondansetron HCl (Zofran) 4 mg PRN Q6HRS PRN IV Nausea Last administered on 12/01 13:16; Start 12/01/16 at 13:00; Stop 12/02/16 at 12:59; Status DC Fentanyl Citrate (Fentanyl 2ml Vial) 25 mcg PRN Q5MIN PRN IV MILD PAIN; Start 12/01/16 at 13:00; Stop 12/02/16 at 12:59; Status DC Fentanyl Citrate (Fentanyl 2ml Vial) 50 mcg PRN Q5MIN PRN IV MODERATE PAIN; Start 12/01/16 at 13:00; Stop 12/02/16 at 12:59; Status DC Morphine Sulfate 1 mg 1 mg PRN Q10MIN PRN IV SEVERE PAIN Last administered on t 10:30; Start 12/01/16 at 13:00; Stop 12/02/16 at 12:59; Status DC Lactated Ringer's (Iv Lactated Ringers) 1,000 ml @ 30 mls/hr Q24H IV ; Start at 13:00; Stop 12/02/16 at 00:59; Status DC Lidocaine HCl 2 ml 1X PRN PRN ID IV START; Start 12/01/16 at 13:00; Stop at 12:59; Status DC Hydromorphone HCl (Dilaudid) 0.5 mg PRN Q10MIN PRN IV SEV PAIN,Second choice; Start 12/01/16 at 13:00; Stop 12/02/16 at 12:59; Status DC Succinylcholine Chloride (Anectine) 200 mg STK-MED ONCE .ROUTE ; Start 12/01/16 at 13:05; Stop 12/01/16 at 13:06; Status DC Pantoprazole Sodium (Protonix Vial) 40 mg BIDAC IVP Last administered on 08:16; Start 12/01/16 at 14:00; Stop 12/04/16 at 09:45; Status DC Phenylephrine HCl 1 mg STK-MED ONCE IV ; Start 12/01/16 at 13:35; Stop 12/01/16 at 13:36; Status DC Metoclopramide HCl 10 mg 10 mg STK-MED ONCE .ROUTE ; Start 12/01/16 at 13:40; Stop 12/01/16 at 13:41; Status DC Propofol (Diprivan) 20 ml @ As Directed STK-MED ONCE IV ; Start 12/01/16 at 14: 06; Stop 12/01/16 at 14:07; Status DC Vancomycin HCl (Vanco Per Pharmacy) 1 each PRN DAILY PRN MC SEE COMMENTS Last administered on 12/04/16 16:10; Start 12/01/16 at 15:00; Stop 12/05/16 at 10:22 ; Status DC Piperacillin Sod/ Tazobactam Sod 1 each 1 each PRN DAILY PRN MC SEE COMMENTS; Start 12/01/16 at 15:00 Vancomycin HCl 250 mg/Sodium Chloride 100 ml @ 100 mls/hr 1X ONCE IV Last administered on 12/01/16 16:14; Start 12/01/16 at 15:30; Stop 12/01/16 at 16:29 ; Status DC Piperacillin Sod/ Tazobactam Sod 3.375 gm/Sodium Chloride 50 ml @ 100 mls/hr Q6HRS IV Last administered on 12/05/16 06:27; Start 12/01/16 at 17:00 Vancomycin HCl/ Sodium Chloride (Iv Sodium Chloride 0.9% 250ml) 250 ml @ 250 mls/hr Q24H IV Last administered on 12/02/16 16:31; Start 12/02/16 at 15:00; Stop 12/03/16 at 16:39; Status DC Vancomycin HCl 1 each 1X ONCE MC ; Start 12/03/16 at 14:30; Stop 12/03/16 at 14 :31; Status DC Metoclopramide HCl 10 mg 10 mg Q6HRS IV Last administered on 12/04/16 05:40; Start 12/01/16 at 17:00; Stop 12/04/16 at 16:04; Status DC Sodium Chloride (Iv Sodium Chloride 0.9% 1000ml Bag) 1,000 ml @ 75 mls/hr [id number] IV Last administered on 12/02/16 16:31; Start 12/01/16 at 17:15; Stop 12/03/16 at 05:03; Status DC Insulin Aspart (Novolog) 3 units 1X PRN SQ ; Start 12/01/16 at 18:45; Status Cancel Insulin Aspart (Novolog Vial) 20 unit 1X ONCE SQ ; Start 12/02/16 at 09:00; Stop 12/02/16 at 09:00; Status Cancel Insulin Aspart (Novolog) 20 units 1X ONCE SQ Last administered on 12/02/16 09 :07; Start 12/02/16 at 09:00; Stop 12/02/16 at 09:01; Status DC Insulin Aspart (Novolog) 20 units 1X ONCE SQ ; Start 12/02/16 at 09:00; Stop at 09:01; Status UNV Potassium Chloride (Klor-Con) 40 meq 1X ONCE PO Last administered on 11:39; Start 12/02/16 at 11:15; Stop 12/02/16 at 11:16; Status DC Morphine Sulfate 2 mg PRN Q2HR PRN IV PAIN SEVERE Last administered on 09:47; Start 12/02/16 at 19:00 Ondansetron HCl 4 mg 4 mg PRN Q8HRS PRN IV NAUSEA/VOMITING 1ST CHOICE; Start at 20:15; Stop 12/04/16 at 09:45; Status DC Micafungin Sodium/ Dextrose (Mycamine) 100 ml @ 100 mls/hr QHS IV Last administered on 12/04/16 20:51; Start 12/02/16 at 23:45 Insulin Aspart (Novolog) 30 units 1X ONCE SQ Last administered on 12/03/16 10 :37; Start 12/03/16 at 10:30; Stop 12/03/16 at 10:31; Status DC Potassium Chloride (Klor-Con) 40 meq 1X ONCE PO Last administered on 12:01; Start 12/03/16 at 11:45; Stop 12/03/16 at 11:46; Status DC Insulin Aspart 30 units 30 units 1X ONCE SQ Last administered on 12/03/16 13: 35; Start 12/03/16 at 13:15; Stop 12/03/16 at 13:16; Status DC Vancomycin HCl/ Sodium Chloride (Iv Sodium Chloride 0.9% 250ml) 250 ml @ 250 mls/hr Q12H IV Last administered on 12/05/16 05:36; Start 12/03/16 at 17:00; Stop 12/05/16 at 10:22; Status DC Metoclopramide HCl (Reglan) 5 mg QIDACHS PO Last administered on 12/05/16 08: 28; Start 12/04/16 at 11:30 Oxycodone/ Acetaminophen (Percocet 5/325) 1 tab PRN Q4HRS PRN PO MODERATE PAIN ; Start 12/04/16 at 09:45 Pantoprazole Sodium (Protonix) 40 mg DAILYAC PO Last administered on 12/05/16 08:27; Start 12/05/16 at 07:30 Insulin Aspart (Novolog) 10 units TIDACHC SQ Last administered on 12/04/16 11: 34; Start 12/04/16 at 16:30; Stop 12/04/16 at 16:30; Status DC Insulin Detemir (Levemir) 35 units QHS SQ Last administered on 12/04/16 21:12 ; Start 12/04/16 at 21:00 Insulin Aspart (Novolog) 0-9 UNITS TIDWMEALS SQ Last administered on 12/05/16 08:37; Start 12/04/16 at 12:00 Dextrose 12.5 gm PRN Q15MIN PRN IV SEE COMMENTS; Start 12/04/16 at 09:45 Ondansetron HCl (Zofran) 4 mg PRN Q6HRS PRN IV NAUSEA/VOMITING 1ST CHOICE; Start 12/04/16 at 20:15 Pantoprazole Sodium (Protonix) 40 mg DAILYAC PO ; Start 12/05/16 at 07:30; Status Cancel Insulin Aspart (Novolog) 15 units TIDACHC SQ Last administered on 12/05/16 08: 36; Start 12/04/16 at 16:30 Insulin Aspart (Novolog) 15 units 1X ONCE SQ Last administered on 12/04/16 21 :14; Start 12/04/16 at 21:00; Stop 12/04/16 at 21:01; Status DC Insulin Aspart (Novolog) 25 units 1X ONCE SQ Last administered on 12/04/16 22 :46; Start 12/04/16 at 23:00; Stop 12/04/16 at 23:01; Status DC Active Scripts Active Pantoprazole Sodium 40 Mg Tablet.dr 40 Mg PO DAILYAC Oxycodone-Acetaminophen 5-325 (Oxycodone Hcl/Acetaminophen) 1 Each Tablet 1 Tab PO PRN Q4HRS PRN Metoclopramide Hcl 10 Mg/10 Ml Solution 5 Mg PO QIDACHS Amox Tr-K Clv 875-125 Mg Tab (Amoxicillin/Potassium Clav) 1 Each Tablet 1 Tab PO BID Reported Levemir (Insulin Detemir) 100 Unit/1 Ml Vial 35 Unit SQ HS Novolog (Insulin Aspart) 100 Unit/1 Ml Cartridge 10 Unit SQ TIDAC Vitals/I & O Vital Sign - Last 24 Hours 12/04/16 12/04/16 12/04/16 12/04/16 11:15 12:57 16:00 20:00 Temp 97.4 98.3 98.1 97.4 98.3 98.1 Pulse 85 94 97 Resp 20 18 B/P 108/68 130/81 109/70 Pulse Ox 98 98 98 100 O2 Delivery Room Air Room Air Room Air Room Air 12/04/16 12/04/16 12/05/16 12/05/16 20:00 22:05 02:52 07:00 Temp 98.2 97.5 97.5 98.2 97.5 97.5 Pulse 100 92 112 Resp 20 20 14 B/P 110/62 102/56 107/59 Pulse Ox 98 98 99 O2 Delivery Room Air Room Air Room Air Room Air 12/05/16 12/05/16 09:47 10:20 Pulse Ox 99 99 O2 Delivery Room Air Room Air Intake and Output 12/04/16 12/04/16 12/05/16 15:00 23:00 07:00 Intake Total 360 ml 1182 ml 272 ml Output Total 1 ml 200 ml Balance 359 ml 982 ml 272 ml AZEB ANDERSON MD Dec 05, 2016 11:07
--- NOTE | 2016-12-05 12:12 | PDOC ---
Subjective: Subjective: Some nausea after taking a pill. Objective: Vital Signs: Vital Signs Date Time Temp Pulse Resp B/P Pulse Ox O2 Delivery O2 Flow Rate FiO2 12/05/16 10:20 99 Room Air 12/05/16 07:00 97.5 112 14 107/59 97.5 Labs: Laboratory Tests Test 12/04/16 16:21 12/04/16 20:32 12/04/16 22:05 12/05/16 00:23 Glucose (Fingerstick) 433mg/dL 442mg/dL 403mg/dL 206mg/dL Test 12/05/16 02:56 12/05/16 08:30 12/05/16 10:15 Glucose (Fingerstick) 115mg/dL 177mg/dL White Blood Count 13.4x10^3/uL Red Blood Count 3.08x10^6/uL Hemoglobin 8.6g/dL Hematocrit 26.0% Mean Corpuscular Volume 85fL Mean Corpuscular Hemoglobin 28pg Mean Corpuscular Hemoglobin Concent 33g/dL Red Cell Distribution Width 15.3% Platelet Count 457x10^3/uL Neutrophils (%) (Auto) 80% Lymphocytes (%) (Auto) 14% Monocytes (%) (Auto) 6% Eosinophils (%) (Auto) 1% Basophils (%) (Auto) 1% Neutrophils # (Auto) 10.6x10^3uL Lymphocytes # (Auto) 1.8x10^3/uL Monocytes # (Auto) 0.7x10^3/uL Eosinophils # (Auto) 0.1x10^3/uL Basophils # (Auto) 0.1x10^3/uL Prothrombin Time 12.6SEC Prothromb Time International Ratio 1.0 PE: GEN: NAD LUNGS: CTAB HEART: RRR ABD: S/ND/NT NEURO/PSYCH: A & O 3 A/P: DKA N/v, abd pain - better -continue Reglan (?susp), PPI Left foot infection -followed by ID, amputation considered Anemia - improving -- Okay for surgery per GI. Continue PPI and Reglan. ANTONETTE WALKER Dec 05, 2016 12:12
[2016-12-05 18:33] VITALS: BP 123/63
[2016-12-05 19:00] VITALS: BP 109/70
[2016-12-05] MEDS: INSULIN DETEMIR 300 UNITS/3 ML INSULN.PEN. SQ SCH (21:00)
[2016-12-05] MEDS: MICAFUNGIN 100 MG in IV DEXTROSE 5% 100 ML IV SCH (21:21)
[2016-12-05 23:00] VITALS: BP 94/58
[2016-12-06] VITALS (7 sets, daily range): BP systolic 81–109; BP diastolic 47–73
[2016-12-06] MEDS: OXYCODONE/APAP 5/325 TABLET. PO PRN ×4 (03:20→22:10)
[2016-12-06] MEDS: PIPERACILLIN/TAZOBACTAM 3.375 GM in IV NORMAL SALINE 50ML 50 ML IV SCH ×3 (06:00→17:32)
[2016-12-06] MEDS: METOCLOPRAMIDE HCL 10 MG/10 ML SOLUTION. PO SCH ×4 (07:30→22:10)
[2016-12-06] MEDS: INSULIN ASPART 300 UNITS/3 ML INSULN.PEN SQ SCH ×7 (07:30→22:22)
[2016-12-06] MEDS: PANTOPRAZOLE 40 MG TABLET. PO SCH (08:09)
[2016-12-06] MEDS: ONDANSETRON PF 4 MG/2 ML VIAL. IV PRN (08:09)
--- NOTE | 2016-12-06 10:06 | PDOC ---
PROGRESS NOTES Chief Complaint Chief Complaint dka. s/p Dm2 uncontrolled Left diabetic foot infection. Group B strep/Staph -s/p I and D. 12/01. Intra-op cultures pending KATHLEEN, improved Peripheral neuropathy Anemia - Gastroparesis - Coffee ground emesis, resolved - HTN ANEMIA of blood loss on top of chronic, stable History of Present Illness History of Present Illness Hungry Wants to eat BS 50s this AM Was 500 plus last night - got her regimen of 35 qhs - hence NOW HYPOGLYCEMIC Agreeable to sx by ortho PLAN: Dextrose amp now Informed ortho pt is agreeable for sx If pt does not go for sx today and needs to be nPO tonight, NEED TO HOLD or DEC her 35 qhs tonight Dw RN NO MORE coffee ground - hgb stable Dw GI Vitals Vitals Vital Signs Date Time Temp Pulse Resp B/P Pulse Ox O2 Delivery O2 Flow Rate FiO2 12/06/16 07:30 Room Air 12/06/16 07:00 97.5 79 20 107/69 99 97.5 Physical Exam General: Alert, Oriented X3, Cooperative, No acute distress Heart: Normal S1, Normal S2, Other (Mild tachycardia) Lungs: Clear Abdomen: Normal bowel sounds, Soft Extremities: No cyanosis, No edema, Other (Necrotizing fasciitis of L foot, wound vac in place; R toe amputation) Skin: Other (See extremities above) Labs LABS Laboratory Tests Test 12/05/16 10:15 12/05/16 11:52 12/05/16 12:59 12/05/16 16:55 White Blood Count 13.4x10^3/uL (4.0-11.0) Red Blood Count 3.08x10^6/uL (3.50-5.40) Hemoglobin 8.6g/dL (12.0-15.5) Hematocrit 26.0% (36.0-47.0) Mean Corpuscular Volume 85fL (79-100) Mean Corpuscular Hemoglobin 28pg (25-35) Mean Corpuscular Hemoglobin Concent 33g/dL (31-37) Red Cell Distribution Width 15.3% (11.5-14.5) Platelet Count 457x10^3/uL (140-400) Neutrophils (%) (Auto) 80% (31-73) Lymphocytes (%) (Auto) 14% (24-48) Monocytes (%) (Auto) 6% (0-9) Eosinophils (%) (Auto) 1% (0-3) Basophils (%) (Auto) 1% (0-3) Neutrophils # (Auto) 10.6x10^3uL (1.8-7.7) Lymphocytes # (Auto) 1.8x10^3/uL (1.0-4.8) Monocytes # (Auto) 0.7x10^3/uL (0.0-1.1) Eosinophils # (Auto) 0.1x10^3/uL (0.0-0.7) Basophils # (Auto) 0.1x10^3/uL (0.0-0.2) Prothrombin Time 12.6SEC (11.7-14.0) Prothromb Time International Ratio 1.0 (0.8-1.1) Glucose (Fingerstick) 42mg/dL (70-99) 225mg/dL (70-99) 332mg/dL (70-99) Test 12/05/16 21:00 12/06/16 02:46 12/06/16 07:52 12/06/16 09:29 Glucose (Fingerstick) 529mg/dL (70-99) 250mg/dL (70-99) 113mg/dL (70-99) 58mg/dL (70-99) Test 12/06/16 10:00 Glucose (Fingerstick) 135mg/dL (70-99) Review of Systems Review of Systems reviewed, all 14 pt, pertinent positives in HPI, all else is neg Assessment and Plan Assessmemt and Plan Problems Medical Problems: (1) Back pain Status: Acute (2) Diabetic ketoacidosis Status: Acute Problems: Comment Review of Relevant I have reviewed the following items gem (where applicable) has been applied. Labs Laboratory Tests Test 12/04/16 10:24 12/04/16 16:21 12/04/16 20:32 12/04/16 22:05 Glucose (Fingerstick) 382mg/dL (70-99) 433mg/dL (70-99) 442mg/dL (70-99) 403mg/dL (70-99) Test 12/05/16 00:23 12/05/16 02:56 12/05/16 08:30 12/05/16 10:15 Glucose (Fingerstick) 206mg/dL (70-99) 115mg/dL (70-99) 177mg/dL (70-99) White Blood Count 13.4x10^3/uL (4.0-11.0) Red Blood Count 3.08x10^6/uL (3.50-5.40) Hemoglobin 8.6g/dL (12.0-15.5) Hematocrit 26.0% (36.0-47.0) Mean Corpuscular Volume 85fL (79-100) Mean Corpuscular Hemoglobin 28pg (25-35) Mean Corpuscular Hemoglobin Concent 33g/dL (31-37) Red Cell Distribution Width 15.3% (11.5-14.5) Platelet Count 457x10^3/uL (140-400) Neutrophils (%) (Auto) 80% (31-73) Lymphocytes (%) (Auto) 14% (24-48) Monocytes (%) (Auto) 6% (0-9) Eosinophils (%) (Auto) 1% (0-3) Basophils (%) (Auto) 1% (0-3) Neutrophils # (Auto) 10.6x10^3uL (1.8-7.7) Lymphocytes # (Auto) 1.8x10^3/uL (1.0-4.8) Monocytes # (Auto) 0.7x10^3/uL (0.0-1.1) Eosinophils # (Auto) 0.1x10^3/uL (0.0-0.7) Basophils # (Auto) 0.1x10^3/uL (0.0-0.2) Prothrombin Time 12.6SEC (11.7-14.0) Prothromb Time International Ratio 1.0 (0.8-1.1) Test 12/05/16 11:52 12/05/16 12:59 12/05/16 16:55 12/05/16 21:00 Glucose (Fingerstick) 42mg/dL (70-99) 225mg/dL (70-99) 332mg/dL (70-99) 529mg/dL (70-99) Test 12/06/16 02:46 12/06/16 07:52 12/06/16 09:29 12/06/16 10:00 Glucose (Fingerstick) 250mg/dL (70-99) 113mg/dL (70-99) 58mg/dL (70-99) 135mg/dL (70-99) Laboratory Tests Test 12/05/16 10:15 12/05/16 11:52 12/05/16 12:59 12/05/16 16:55 White Blood Count 13.4x10^3/uL (4.0-11.0) Red Blood Count 3.08x10^6/uL (3.50-5.40) Hemoglobin 8.6g/dL (12.0-15.5) Hematocrit 26.0% (36.0-47.0) Mean Corpuscular Volume 85fL (79-100) Mean Corpuscular Hemoglobin 28pg (25-35) Mean Corpuscular Hemoglobin Concent 33g/dL (31-37) Red Cell Distribution Width 15.3% (11.5-14.5) Platelet Count 457x10^3/uL (140-400) Neutrophils (%) (Auto) 80% (31-73) Lymphocytes (%) (Auto) 14% (24-48) Monocytes (%) (Auto) 6% (0-9) Eosinophils (%) (Auto) 1% (0-3) Basophils (%) (Auto) 1% (0-3) Neutrophils # (Auto) 10.6x10^3uL (1.8-7.7) Lymphocytes # (Auto) 1.8x10^3/uL (1.0-4.8) Monocytes # (Auto) 0.7x10^3/uL (0.0-1.1) Eosinophils # (Auto) 0.1x10^3/uL (0.0-0.7) Basophils # (Auto) 0.1x10^3/uL (0.0-0.2) Prothrombin Time 12.6SEC (11.7-14.0) Prothromb Time International Ratio 1.0 (0.8-1.1) Glucose (Fingerstick) 42mg/dL (70-99) 225mg/dL (70-99) 332mg/dL (70-99) Test 12/05/16 21:00 12/06/16 02:46 12/06/16 07:52 12/06/16 09:29 Glucose (Fingerstick) 529mg/dL (70-99) 250mg/dL (70-99) 113mg/dL (70-99) 58mg/dL (70-99) Test 12/06/16 10:00 Glucose (Fingerstick) 135mg/dL (70-99) Microbiology 12/01/16 Blood Culture - Final, Complete NO GROWTH AFTER 5 DAYS 12/01/16 Gram Stain - Final, Complete Medications Current Medications Sodium Chloride (Iv Sodium Chloride 0.9% 1000ml Bag) 1,000 ml @ 1,000 mls/hr Q1H IV Last administered on 11/30/16 19:42; Start 11/30/16 at 19:45; Stop at 20:44; Status DC Ondansetron HCl (Zofran) 4 mg 1X ONCE IV Last administered on 11/30/16 20:08 ; Start 11/30/16 at 19:45; Stop 11/30/16 at 19:46; Status DC Ketorolac Tromethamine 10 mg 10 mg 1X ONCE IV Last administered on 11/30/16 20:08; Start 11/30/16 at 19:45; Stop 11/30/16 at 19:46; Status DC Sodium Chloride 1,000 ml @ 1,000 mls/hr Q1H IV Last administered on 11/30/16 21:11; Start 11/30/16 at 21:00; Stop 11/30/16 at 21:01; Status DC Sodium Chloride 1,000 ml @ 250 mls/hr Q4H IV Last administered on 12/01/16 01 :23; Start 11/30/16 at 22:00; Stop 12/01/16 at 07:42; Status DC Dextrose/Sodium Chloride 1,000 ml @ 250 mls/hr Q4H IV Last administered on 21:15; Start 11/30/16 at 22:00; Stop 12/01/16 at 01:37; Status DC Insulin Human Regular 150 unit/ Sodium Chloride 151.5 ml @ 0 mls/hr CONT PRN PRN IV PER PROTOCOL Last administered on 11/30/16 21:36; Start 11/30/16 at 21: 00; Stop 12/04/16 at 09:45; Status DC Potassium Chloride 100 ml @ 100 mls/hr PRN Q1HR PRN IV SEE COMMENTS; Start at 21:00; Stop 12/04/16 at 09:45; Status DC Potassium Chloride 100 ml @ 100 mls/hr PRN Q1HR PRN IV SEE COMMENTS; Start at 21:00; Stop 12/04/16 at 09:45; Status DC Potassium Chloride (KCl Premix 10meq) 100 ml @ 100 mls/hr PRN Q1HR PRN IV SEE COMMENTS Last administered on 12/03/16 10:35; Start 11/30/16 at 21:00; Stop at 09:45; Status DC Ondansetron HCl (Zofran) 4 mg PRN Q8HRS PRN IV NAUSEA/VOMITING Last administered on 12/01/16 07:54; Start 11/30/16 at 21:00; Stop 12/01/16 at 20:59 ; Status DC Fentanyl Citrate (Fentanyl 2ml Vial) 50 mcg PRN Q2HR PRN IV SEVERE PAIN Last administered on 12/01/16 00:19; Start 11/30/16 at 21:00; Stop 12/01/16 at 20:59 ; Status DC Acetaminophen 650 mg 650 mg PRN Q4HRS PRN PO FEVER; Start 11/30/16 at 21:00; Stop 12/01/16 at 20:59; Status DC Dextrose/Sodium Chloride 1,000 ml @ 250 mls/hr Q4H IV Last administered on 01:40; Start 12/01/16 at 01:45; Stop 12/01/16 at 06:18; Status DC Dextrose/Sodium Chloride (Iv D5% - 1/2 NS) 1,000 ml @ 250 mls/hr Q4H IV Last administered on 12/01/16 14:15; Start 12/01/16 at 06:15; Stop 12/01/16 at 17:17 ; Status DC Dextrose 25 gm STK-MED ONCE IV ; Start 12/01/16 at 07:48; Stop 12/01/16 at 07:49 ; Status DC Dextrose 25 gm 25 gm 1X ONCE IV Last administered on 12/01/16 07:56; Start at 08:00; Stop 12/01/16 at 08:01; Status DC Potassium Chloride (KCl Premix 10meq) 100 ml @ 100 mls/hr Q1H IV Last administered on 12/01/16 17:20; Start 12/01/16 at 11:30; Stop 12/01/16 at 15:29 ; Status DC Insulin Aspart (Novolog) 0-7 UNITS TIDWMEALS SQ Last administered on 12/04/16 08:22; Start 12/01/16 at 12:00; Stop 12/04/16 at 09:45; Status DC Dextrose 12.5 gm PRN Q15MIN PRN IV SEE COMMENTS; Start 12/01/16 at 11:30; Stop 12/04/16 at 09:56; Status DC Sevoflurane (Ultane) 60 ml STK-MED ONCE IH ; Start 12/01/16 at 12:40; Stop 12/01 at 12:41; Status DC Fentanyl Citrate 100 mcg 100 mcg STK-MED ONCE .ROUTE ; Start 12/01/16 at 12:41; Stop 12/01/16 at 12:42; Status DC Propofol (Diprivan) 20 ml @ As Directed STK-MED ONCE IV ; Start 12/01/16 at 12: 41; Stop 12/01/16 at 12:42; Status DC Ondansetron HCl (Zofran) 4 mg STK-MED ONCE .ROUTE ; Start 12/01/16 at 12:41; Stop 12/01/16 at 12:42; Status DC Dexamethasone Sodium Phosphate (Decadron) 20 mg STK-MED ONCE .ROUTE ; Start at 12:41; Stop 12/01/16 at 12:42; Status DC Lidocaine HCl 100 mg STK-MED ONCE .ROUTE ; Start 12/01/16 at 12:41; Stop at 12:42; Status DC Butorphanol Tartrate 1 mg 1 mg PRN Q6HRS PRN IV PAIN; Start 12/01/16 at 13:00 Promethazine HCl/ Sodium Chloride (Phenergan/Iv Sodium Chloride 0.9% 50ml) 51 ml @ 150.75 mls/ hr PRN Q6HRS PRN IV NAUSEA/VOMITING Last administered on 12/02 20:10; Start 12/01/16 at 13:00 Ondansetron HCl (Zofran) 4 mg PRN Q6HRS PRN IV Nausea Last administered on 12/01 13:16; Start 12/01/16 at 13:00; Stop 12/02/16 at 12:59; Status DC Fentanyl Citrate (Fentanyl 2ml Vial) 25 mcg PRN Q5MIN PRN IV MILD PAIN; Start 12/01/16 at 13:00; Stop 12/02/16 at 12:59; Status DC Fentanyl Citrate (Fentanyl 2ml Vial) 50 mcg PRN Q5MIN PRN IV MODERATE PAIN; Start 12/01/16 at 13:00; Stop 12/02/16 at 12:59; Status DC Morphine Sulfate 1 mg 1 mg PRN Q10MIN PRN IV SEVERE PAIN Last administered on 10:30; Start 12/01/16 at 13:00; Stop 12/02/16 at 12:59; Status DC Lactated Ringer's (Iv Lactated Ringers) 1,000 ml @ 30 mls/hr Q24H IV ; Start at 13:00; Stop 12/02/16 at 00:59; Status DC Lidocaine HCl 2 ml 1X PRN PRN ID IV START; Start 12/01/16 at 13:00; Stop at 12:59; Status DC Hydromorphone HCl (Dilaudid) 0.5 mg PRN Q10MIN PRN IV SEV PAIN,Second choice; Start 12/01/16 at 13:00; Stop 12/02/16 at 12:59; Status DC Succinylcholine Chloride (Anectine) 200 mg STK-MED ONCE .ROUTE ; Start 12/01/16 at 13:05; Stop 12/01/16 at 13:06; Status DC Pantoprazole Sodium (Protonix Vial) 40 mg BIDAC IVP Last administered on 08:16; Start 12/01/16 at 14:00; Stop 12/04/16 at 09:45; Status DC Phenylephrine HCl 1 mg STK-MED ONCE IV ; Start 12/01/16 at 13:35; Stop 12/01/16 at 13:36; Status DC Metoclopramide HCl 10 mg 10 mg STK-MED ONCE .ROUTE ; Start 12/01/16 at 13:40; Stop 12/01/16 at 13:41; Status DC Propofol (Diprivan) 20 ml @ As Directed STK-MED ONCE IV ; Start 12/01/16 at 14: 06; Stop 12/01/16 at 14:07; Status DC Vancomycin HCl (Vanco Per Pharmacy) 1 each PRN DAILY PRN MC SEE COMMENTS Last administered on 12/04/16 16:10; Start 12/01/16 at 15:00; Stop 12/05/16 at 10:22 ; Status DC Piperacillin Sod/ Tazobactam Sod 1 each 1 each PRN DAILY PRN MC SEE COMMENTS; Start 12/01/16 at 15:00 Vancomycin HCl 250 mg/Sodium Chloride 100 ml @ 100 mls/hr 1X ONCE IV Last administered on 12/01/16 16:14; Start 12/01/16 at 15:30; Stop 12/01/16 at 16:29 ; Status DC Piperacillin Sod/ Tazobactam Sod 3.375 gm/Sodium Chloride 50 ml @ 100 mls/hr Q6HRS IV Last administered on 12/06/16 06:00; Start 12/01/16 at 17:00 Vancomycin HCl/ Sodium Chloride (Iv Sodium Chloride 0.9% 250ml) 250 ml @ 250 mls/hr Q24H IV Last administered on 12/02/16 16:31; Start 12/02/16 at 15:00; Stop 12/03/16 at 16:39; Status DC Vancomycin HCl 1 each 1X ONCE MC ; Start 12/03/16 at 14:30; Stop 12/03/16 at 14 :31; Status DC Metoclopramide HCl 10 mg 10 mg Q6HRS IV Last administered on 12/04/16 05:40; Start 12/01/16 at 17:00; Stop 12/04/16 at 16:04; Status DC Sodium Chloride (Iv Sodium Chloride 0.9% 1000ml Bag) 1,000 ml @ 75 mls/hr [id number] IV Last administered on 12/02/16 16:31; Start 12/01/16 at 17:15; Stop 12/03/16 at 05:03; Status DC Insulin Aspart (Novolog) 3 units 1X PRN SQ ; Start 12/01/16 at 18:45; Status Cancel Insulin Aspart (Novolog Vial) 20 unit 1X ONCE SQ ; Start 12/02/16 at 09:00; Stop 12/02/16 at 09:00; Status Cancel Insulin Aspart (Novolog) 20 units 1X ONCE SQ Last administered on 12/02/16 09 :07; Start 12/02/16 at 09:00; Stop 12/02/16 at 09:01; Status DC Insulin Aspart (Novolog) 20 units 1X ONCE SQ ; Start 12/02/16 at 09:00; Stop at 09:01; Status UNV Potassium Chloride (Klor-Con) 40 meq 1X ONCE PO Last administered on 11:39; Start 12/02/16 at 11:15; Stop 12/02/16 at 11:16; Status DC Morphine Sulfate 2 mg PRN Q2HR PRN IV PAIN SEVERE Last administered on 09:47; Start 12/02/16 at 19:00 Ondansetron HCl 4 mg 4 mg PRN Q8HRS PRN IV NAUSEA/VOMITING 1ST CHOICE; Start at 20:15; Stop 12/04/16 at 09:45; Status DC Micafungin Sodium/ Dextrose (Mycamine) 100 ml @ 100 mls/hr QHS IV Last administered on 12/05/16 21:21; Start 12/02/16 at 23:45 Insulin Aspart (Novolog) 30 units 1X ONCE SQ Last administered on 12/03/16 10 :37; Start 12/03/16 at 10:30; Stop 12/03/16 at 10:31; Status DC Potassium Chloride (Klor-Con) 40 meq 1X ONCE PO Last administered on 12:01; Start 12/03/16 at 11:45; Stop 12/03/16 at 11:46; Status DC Insulin Aspart 30 units 30 units 1X ONCE SQ Last administered on 12/03/16 13: 35; Start 12/03/16 at 13:15; Stop 12/03/16 at 13:16; Status DC Vancomycin HCl/ Sodium Chloride (Iv Sodium Chloride 0.9% 250ml) 250 ml @ 250 mls/hr Q12H IV Last administered on 12/05/16 05:36; Start 12/03/16 at 17:00; Stop 12/05/16 at 10:22; Status DC Metoclopramide HCl (Reglan) 5 mg QIDACHS PO Last administered on 12/05/16 21: 21; Start 12/04/16 at 11:30 Oxycodone/ Acetaminophen (Percocet 5/325) 1 tab PRN Q4HRS PRN PO MODERATE PAIN Last administered on 12/06/16 03:33; Start 12/04/16 at 09:45 Pantoprazole Sodium (Protonix) 40 mg DAILYAC PO Last administered on 12/06/16 08:09; Start 12/05/16 at 07:30 Insulin Aspart (Novolog) 10 units TIDACHC SQ Last administered on 12/04/16 11: 34; Start 12/04/16 at 16:30; Stop 12/04/16 at 16:30; Status DC Insulin Detemir (Levemir) 35 units QHS SQ Last administered on 12/05/16 21:00 ; Start 12/04/16 at 21:00 Insulin Aspart (Novolog) 0-9 UNITS TIDWMEALS SQ Last administered on 12/05/16 17:43; Start 12/04/16 at 12:00 Dextrose 12.5 gm PRN Q15MIN PRN IV SEE COMMENTS Last administered on 12/06/16 09:34; Start 12/04/16 at 09:45 Ondansetron HCl (Zofran) 4 mg PRN Q6HRS PRN IV NAUSEA/VOMITING 1ST CHOICE Last administered on 12/06/16 08:09; Start 12/04/16 at 20:15 Pantoprazole Sodium (Protonix) 40 mg DAILYAC PO ; Start 12/05/16 at 07:30; Status Cancel Insulin Aspart (Novolog) 15 units TIDACHC SQ Last administered on 12/05/16 21: 31; Start 12/04/16 at 16:30 Insulin Aspart (Novolog) 15 units 1X ONCE SQ Last administered on 12/04/16 21 :14; Start 12/04/16 at 21:00; Stop 12/04/16 at 21:01; Status DC Insulin Aspart (Novolog) 25 units 1X ONCE SQ Last administered on 12/04/16 22 :46; Start 12/04/16 at 23:00; Stop 12/04/16 at 23:01; Status DC Active Scripts Active Pantoprazole Sodium 40 Mg Tablet.dr 40 Mg PO DAILYAC Oxycodone-Acetaminophen 5-325 (Oxycodone Hcl/Acetaminophen) 1 Each Tablet 1 Tab PO PRN Q4HRS PRN Metoclopramide Hcl 10 Mg/10 Ml Solution 5 Mg PO QIDACHS Amox Tr-K Clv 875-125 Mg Tab (Amoxicillin/Potassium Clav) 1 Each Tablet 1 Tab PO BID Reported Levemir (Insulin Detemir) 100 Unit/1 Ml Vial 35 Unit SQ HS Novolog (Insulin Aspart) 100 Unit/1 Ml Cartridge 10 Unit SQ TIDAC Vitals/I & O Vital Sign - Last 24 Hours 12/05/16 12/05/16 12/05/16 12/05/16 10:20 11:00 12:27 18:33 Temp 97.8 97.6 97.8 97.6 Pulse 97 77 Resp 14 14 B/P 124/70 123/63 Pulse Ox 99 98 99 O2 Delivery Room Air Room Air Room Air Room Air 12/05/16 12/05/16 12/05/16 12/05/16 19:00 19:46 20:00 23:00 Temp 98.0 97.8 98.0 97.8 Pulse 88 91 Resp 18 16 18 B/P 109/70 94/58 Pulse Ox 96 99 97 O2 Delivery Room Air Room Air Room Air Room Air 12/05/16 12/06/16 12/06/16 12/06/16 23:41 03:00 03:33 04:33 Temp 97.5 97.5 Pulse 77 Resp 16 18 16 16 B/P 103/70 Pulse Ox 97 99 97 97 O2 Delivery Room Air Room Air Room Air Room Air 12/06/16 12/06/16 07:00 07:30 Temp 97.5 97.5 Pulse 79 Resp 20 B/P 107/69 Pulse Ox 99 O2 Delivery Room Air Room Air Intake and Output 12/05/16 12/05/16 12/06/16 15:00 23:00 07:00 Intake Total 1420 ml Balance 1420 ml AZEB ANDERSON MD Dec 06, 2016 10:06
--- NOTE | 2016-12-06 10:20 | PDOC ---
Subjective: Subjective: Says having surgery today. Denies n/v, says BM last night, no abd pain. Objective: Objective: D/w RN - unsure if surgery today but has been NPO w/ n/v earlier this morning. Refused Reglan because she wanted to be NPO for possible surgery. Vital Signs: Vital Signs Date Time Temp Pulse Resp B/P Pulse Ox O2 Delivery O2 Flow Rate FiO2 12/06/16 07:30 Room Air 12/06/16 07:00 97.5 79 20 107/69 99 97.5 Labs: Laboratory Tests Test 12/05/16 11:52 12/05/16 12:59 12/05/16 16:55 12/05/16 21:00 Glucose (Fingerstick) 42mg/dL 225mg/dL 332mg/dL 529mg/dL Test 12/06/16 02:46 12/06/16 07:52 12/06/16 09:29 12/06/16 10:00 Glucose (Fingerstick) 250mg/dL 113mg/dL 58mg/dL 135mg/dL PE: GEN: NAD, laying in bed LUNGS: CTAB anteriorly HEART: RRR ABD: NABS, S/ND/NT NEURO/PSYCH: A & O 3 A/P: DKA w/ n/v -on Reglan susp and PPI (Refused Reglan this morning) -had n/v this morning Left foot infection -followed by ID, ?surgery today -- Continue Reglan susp and PPI. D/w JOSE. ANTONETTE WALKER Dec 06, 2016 10:20
--- NOTE | 2016-12-06 11:26 | PDOC ---
Infectious Disease Note Subjective Subjective Doing ok. No pain ROS ROS GEN: Denies fevers, chills, sweats HEENT: Denies blurred vision, sore throat CV: Denies chest pain RESP: Denies shortness of air, cough GI: Denies n/v/d NEURO: Denies confusion, dizziness MSK: Denies weakness, joint pain/swelling Vital Sign Vital Signs Vital Signs Date Time Temp Pulse Resp B/P Pulse Ox O2 Delivery O2 Flow Rate FiO2 12/06/16 07:30 Room Air 12/06/16 07:00 97.5 79 20 107/69 99 97.5 Physical Exam PHYSICAL EXAM GENERAL: NAD, Alert HEENT: PERRL, OC/OP- clear NECK: Supple, no JVD, no LN LUNGS: Clear HEART: S1S2, no gallop, no murmur ABD: Soft, NT, no organomegaly, no rebound EXT: No edema, no cyanosis. Foot dressed. bandage with old drainage H[employer]ER: Alert, oriented x 3, no focal neurologic deficit SKIN: No rash IV: ok Labs Lab Laboratory Tests Test 12/05/16 11:52 12/05/16 12:59 12/05/16 16:55 12/05/16 21:00 Glucose (Fingerstick) 42mg/dL (70-99) 225mg/dL (70-99) 332mg/dL (70-99) 529mg/dL (70-99) Test 12/06/16 02:46 12/06/16 07:52 12/06/16 09:29 12/06/16 10:00 Glucose (Fingerstick) 250mg/dL (70-99) 113mg/dL (70-99) 58mg/dL (70-99) 135mg/dL (70-99) Micro AEROBIC RES 1 Preliminary Staphylococcus aureus Heavy growth AEROBIC RES 2 Preliminary Comment Beta hemolytic Streptococcus, group B Objective Assessment Left diabetic foot infection. Group B strep/Staph MSSA -s/p I and D. 12/01. Intra-op cultures pending DM- still elevated sugars Leukocytosis KATHLEEN, improved Peripheral neuropathy Anemia Plan Plan of Care Cont Zosyn/Micafungin BMP in am F/u cults (gram stain with yeast and GPR) ? Surgery today RODOLFO BAHENA MD Dec 06, 2016 11:26
[2016-12-06] MEDS: MORPHINE SULFATE 2 MG/ML DISP.SYRIN. IV PRN (11:48)
--- NOTE | 2016-12-06 12:16 | PDOC ---
TCOM NOTE This is transcutaneous oximetry assessment performed on 12/06/16 at the request of Dr. Sanches This is a 41-year-old patient with left foot necrotizing fasciitis requiring multiple surgical intervention and ongoing antibiotic therapy in the setting of a labile diabetic patient recently admitted for DKA. At this time the patient demonstrates no respiratory distress, lower extremity edema or unstable vital signs. Recent cultures have demonstrated group B strep and staph at the wound site. She is currently receiving ongoing antibiotic therapy of Zosyn. Past medical history pertinent for diabetes and significant diabetic ulcerations requiring previous amputation Social history negative for alcohol, tobacco or drug use. Medications and allergies as noted and reviewed in the chart. Transcutaneous oximetry electrodes are placed across the mid foot at a TMA location and are numbered, medial to lateral, 1 through 3. Lead [address] at a supra-malleolar ankle location. Lead 5 and 6 are medial and lateral at a BKA location. Room air readings obtained at 1 jessie in leads 1 through 6 are as follows: 69 mmHg , 56 mmHg, 55 mmHg, 60 mmHg, 83 mmHg and 61 mmHg. In general readings in excess of 20 mm or mercury imply successful healing of grafts and flaps. In our patient, at the TMA level all readings are in excess of 50 mm or mercury. This is very encouraging for healing a transmetatarsal amputation. DEION BECK DO Dec 06, 2016 12:16
[2016-12-06] MEDS ORDERED: INSULIN ASPART 300 UNITS/3 ML INSULN.PEN SQ ONE (21:45)
[2016-12-06] MEDS: MICAFUNGIN 100 MG in IV DEXTROSE 5% 100 ML IV SCH (22:11)
[2016-12-06] MEDS: INSULIN DETEMIR 300 UNITS/3 ML INSULN.PEN. SQ SCH (22:24)
[2016-12-07] VITALS (7 sets, daily range): BP systolic 91–119; BP diastolic 55–83
[2016-12-07 06:06] LABS: CREATININE 1.5 mg/dL (0.6-1.0); GFR 38.5
[2016-12-07] MEDS: PANTOPRAZOLE 40 MG TABLET. PO SCH (06:06)
[2016-12-07] MEDS: PIPERACILLIN/TAZOBACTAM 3.375 GM in IV NORMAL SALINE 50ML 50 ML IV SCH ×6 (06:07→23:55)
[2016-12-07 06:12] LABS: POTASSIUM 2.3 mmol/L (3.5-5.1)
[2016-12-07] MEDS ORDERED: POTASSIUM CHLORIDE 20 MEQ/15 ML ORAL LIQUID. PO ONE (06:30)
[2016-12-07] MEDS: INSULIN ASPART 300 UNITS/3 ML INSULN.PEN SQ SCH ×7 (07:30→21:00)
[2016-12-07] MEDS: METOCLOPRAMIDE HCL 10 MG/10 ML SOLUTION. PO SCH ×4 (07:42→20:56)
--- NOTE | 2016-12-07 10:08 | PDOC ---
Subjective: Subjective: No n/v, abd pain. Eating well she says. Objective: Objective: Per RN - gagging w/ large pills yesterday, no issues w/ n/v today. Not sure about surgery. Vital Signs: Vital Signs Date Time Temp Pulse Resp B/P Pulse Ox O2 Delivery O2 Flow Rate FiO2 12/07/16 07:40 Room Air 12/07/16 07:00 97.7 95 18 107/65 98 97.7 Labs: Laboratory Tests Test 12/06/16 12:05 12/06/16 16:38 12/06/16 21:30 12/07/16 01:10 Glucose (Fingerstick) 90mg/dL (70-99) 185mg/dL (70-99) 351mg/dL (70-99) 170mg/dL (70-99) Test 12/07/16 07:28 12/07/16 09:05 Glucose (Fingerstick) 54mg/dL (70-99) 117mg/dL (70-99) PE: GEN: NAD, walking around room LUNGS: CTAB HEART: RRR ABD: NABS, S/ND/NT NEURO/PSYCH: A & O 3 A/P: DKA w/ n/v - improved -on Reglan susp and PPI Left foot infection -followed by ID -- Continue same per GI. ANTONETTE WALKER Dec 07, 2016 10:08
--- NOTE | 2016-12-07 10:38 | PDOC ---
Infectious Disease Note Subjective Subjective Doing ok. No pain ROS ROS GEN: Denies fevers, chills, sweats HEENT: Denies blurred vision, sore throat CV: Denies chest pain RESP: Denies shortness of air, cough GI: Denies n/v/d NEURO: Denies confusion, dizziness MSK: Denies weakness, joint pain/swelling Vital Sign Vital Signs Vital Signs Date Time Temp Pulse Resp B/P Pulse Ox O2 Delivery O2 Flow Rate FiO2 12/07/16 07:40 Room Air 12/07/16 07:00 97.7 95 18 107/65 98 97.7 Physical Exam PHYSICAL EXAM GENERAL: NAD, Alert HEENT: PERRL, OC/OP NECK: Supple, no JVD, no LN LUNGS: Clear HEART: S1S2, no gallop, no murmur ABD: Soft, NT, no organomegaly, no rebound EXT: No edema, no cyanosis REGISTERED RESPIRATORY TECHNICIAN: Alert, oriented x 3, no focal neurologic deficit. Foot dressed SKIN: No rash IV: ok Labs Lab Laboratory Tests Test 12/06/16 12:05 12/06/16 16:38 12/06/16 21:30 12/07/16 01:10 Glucose (Fingerstick) 90mg/dL (70-99) 185mg/dL (70-99) 351mg/dL (70-99) 170mg/dL (70-99) Test 12/07/16 04:45 12/07/16 07:28 12/07/16 09:05 Sodium Level 141mmol/L (136-145) Potassium Level 2.3mmol/L (3.5-5.1) Chloride Level 105mmol/L (98-107) Carbon Dioxide Level 27mmol/L (21-32) Anion Gap 9 (6-14) Blood Urea Nitrogen 6mg/dL (7-20) Creatinine 1.5mg/dL (0.6-1.0) Estimated GFR (Cockcroft-Gault) 38.5 Glucose Level 67mg/dL (70-99) Calcium Level 8.0mg/dL (8.5-10.1) Glucose (Fingerstick) 54mg/dL (70-99) 117mg/dL (70-99) Micro AEROBIC RES 1 Preliminary Staphylococcus aureus Heavy growth AEROBIC RES 2 Preliminary Comment Beta hemolytic Streptococcus, group B Objective Assessment KATHLEEN Left diabetic foot infection. Group B strep/Staph MSSA -s/p I and D. 12/01. Intra-op cultures pending DM- still elevated sugars Leukocytosis KATHLEEN, improved Peripheral neuropathy Anemia Plan Plan of Care Cont Zosyn D/c Micafungin BMP in am IVF today F/u cults (gram stain with yeast and GPR) Await Surgery Reviewed wound care notes RODOLFO BAHENA MD Dec 07, 2016 10:38
[2016-12-07] MEDS ORDERED: IV NORMAL SALINE 1000ML BAG 1,000 ML IV ONE (10:45)
--- NOTE | 2016-12-07 13:56 | PDOC ---
PROGRESS NOTES Chief Complaint Chief Complaint dka. s/p Dm2 uncontrolled Left diabetic foot infection. Group B strep/Staph -s/p I and D. 12/01. Intra-op cultures pending KATHLEEN, improved Peripheral neuropathy Anemia - Gastroparesis - Coffee ground emesis, resolved - HTN History of Present Illness History of Present Illness feeels better, eating OK wants to try to avoid surg if possible surg mentioned in other notes, Ortho discussed yesterday cont SSI Vitals Vitals Vital Signs Date Time Temp Pulse Resp B/P Pulse Ox O2 Delivery O2 Flow Rate FiO2 12/07/16 11:00 98.1 88 18 94/57 99 Room Air 98.1 Physical Exam General: Alert, Oriented X3, Cooperative, No acute distress Heart: Normal S1, Normal S2, Other (Mild tachycardia) Lungs: Clear Abdomen: Normal bowel sounds, Soft Extremities: No cyanosis, No edema, Other (Necrotizing fasciitis of L foot, wound vac in place; R toe amputation) Skin: Other (See extremities above) Labs LABS Laboratory Tests Test 12/06/16 16:38 12/06/16 21:30 12/07/16 01:10 12/07/16 04:45 Glucose (Fingerstick) 185mg/dL (70-99) 351mg/dL (70-99) 170mg/dL (70-99) Sodium Level 141mmol/L (136-145) Potassium Level 2.3mmol/L (3.5-5.1) Chloride Level 105mmol/L (98-107) Carbon Dioxide Level 27mmol/L (21-32) Anion Gap 9 (6-14) Blood Urea Nitrogen 6mg/dL (7-20) Creatinine 1.5mg/dL (0.6-1.0) Estimated GFR (Cockcroft-Gault) 38.5 Glucose Level 67mg/dL (70-99) Calcium Level 8.0mg/dL (8.5-10.1) Test 12/07/16 07:28 12/07/16 09:05 12/07/16 11:00 12/07/16 11:33 Glucose (Fingerstick) 54mg/dL (70-99) 117mg/dL (70-99) 115mg/dL (70-99) Potassium Level 3.2mmol/L (3.5-5.1) Assessment and Plan Assessmemt and Plan Problems Medical Problems: (1) Back pain Status: Acute (2) Diabetic ketoacidosis Status: Acute Problems: Comment Review of Relevant I have reviewed the following items gem (where applicable) has been applied. Labs Laboratory Tests Test 12/05/16 16:55 12/05/16 21:00 12/06/16 02:46 12/06/16 07:52 Glucose (Fingerstick) 332mg/dL (70-99) 529mg/dL (70-99) 250mg/dL (70-99) 113mg/dL (70-99) Test 12/06/16 09:29 12/06/16 10:00 12/06/16 12:05 12/06/16 16:38 Glucose (Fingerstick) 58mg/dL (70-99) 135mg/dL (70-99) 90mg/dL (70-99) 185mg/dL (70-99) Test 12/06/16 21:30 12/07/16 01:10 12/07/16 04:45 12/07/16 07:28 Glucose (Fingerstick) 351mg/dL (70-99) 170mg/dL (70-99) 54mg/dL (70-99) Sodium Level 141mmol/L (136-145) Potassium Level 2.3mmol/L (3.5-5.1) Chloride Level 105mmol/L (98-107) Carbon Dioxide Level 27mmol/L (21-32) Anion Gap 9 (6-14) Blood Urea Nitrogen 6mg/dL (7-20) Creatinine 1.5mg/dL (0.6-1.0) Estimated GFR (Cockcroft-Gault) 38.5 Glucose Level 67mg/dL (70-99) Calcium Level 8.0mg/dL (8.5-10.1) Test 12/07/16 09:05 12/07/16 11:00 12/07/16 11:33 Glucose (Fingerstick) 117mg/dL (70-99) 115mg/dL (70-99) Potassium Level 3.2mmol/L (3.5-5.1) Laboratory Tests Test 12/06/16 16:38 12/06/16 21:30 12/07/16 01:10 12/07/16 04:45 Glucose (Fingerstick) 185mg/dL (70-99) 351mg/dL (70-99) 170mg/dL (70-99) Sodium Level 141mmol/L (136-145) Potassium Level 2.3mmol/L (3.5-5.1) Chloride Level 105mmol/L (98-107) Carbon Dioxide Level 27mmol/L (21-32) Anion Gap 9 (6-14) Blood Urea Nitrogen 6mg/dL (7-20) Creatinine 1.5mg/dL (0.6-1.0) Estimated GFR (Cockcroft-Gault) 38.5 Glucose Level 67mg/dL (70-99) Calcium Level 8.0mg/dL (8.5-10.1) Test 12/07/16 07:28 12/07/16 09:05 12/07/16 11:00 12/07/16 11:33 Glucose (Fingerstick) 54mg/dL (70-99) 117mg/dL (70-99) 115mg/dL (70-99) Potassium Level 3.2mmol/L (3.5-5.1) Microbiology 12/01/16 Blood Culture - Final, Complete NO GROWTH AFTER 5 DAYS 12/01/16 Gram Stain - Final, Complete Medications Current Medications Sodium Chloride (Iv Sodium Chloride 0.9% 1000ml Bag) 1,000 ml @ 1,000 mls/hr Q1H IV Last administered on 11/30/16 19:42; Start 11/30/16 at 19:45; Stop at 20:44; Status DC Ondansetron HCl (Zofran) 4 mg 1X ONCE IV Last administered on 11/30/16 20:08 ; Start 11/30/16 at 19:45; Stop 11/30/16 at 19:46; Status DC Ketorolac Tromethamine 10 mg 10 mg 1X ONCE IV Last administered on 11/30/16 20:08; Start 11/30/16 at 19:45; Stop 11/30/16 at 19:46; Status DC Sodium Chloride 1,000 ml @ 1,000 mls/hr Q1H IV Last administered on 11/30/16 21:11; Start 11/30/16 at 21:00; Stop 11/30/16 at 21:01; Status DC Sodium Chloride 1,000 ml @ 250 mls/hr Q4H IV Last administered on 12/01/16 01 :23; Start 11/30/16 at 22:00; Stop 12/01/16 at 07:42; Status DC Dextrose/Sodium Chloride 1,000 ml @ 250 mls/hr Q4H IV Last administered on 21:15; Start 11/30/16 at 22:00; Stop 12/01/16 at 01:37; Status DC Insulin Human Regular 150 unit/ Sodium Chloride 151.5 ml @ 0 mls/hr CONT PRN PRN IV PER PROTOCOL Last administered on 11/30/16 21:36; Start 11/30/16 at 21: 00; Stop 12/04/16 at 09:45; Status DC Potassium Chloride 100 ml @ 100 mls/hr PRN Q1HR PRN IV SEE COMMENTS; Start at 21:00; Stop 12/04/16 at 09:45; Status DC Potassium Chloride 100 ml @ 100 mls/hr PRN Q1HR PRN IV SEE COMMENTS; Start at 21:00; Stop 12/04/16 at 09:45; Status DC Potassium Chloride (KCl Premix 10meq) 100 ml @ 100 mls/hr PRN Q1HR PRN IV SEE COMMENTS Last administered on 12/03/16 10:35; Start 11/30/16 at 21:00; Stop at 09:45; Status DC Ondansetron HCl (Zofran) 4 mg PRN Q8HRS PRN IV NAUSEA/VOMITING Last administered on 12/01/16 07:54; Start 11/30/16 at 21:00; Stop 12/01/16 at 20:59 ; Status DC Fentanyl Citrate (Fentanyl 2ml Vial) 50 mcg PRN Q2HR PRN IV SEVERE PAIN Last administered on 12/01/16 00:19; Start 11/30/16 at 21:00; Stop 12/01/16 at 20:59 ; Status DC Acetaminophen 650 mg 650 mg PRN Q4HRS PRN PO FEVER; Start 11/30/16 at 21:00; Stop 12/01/16 at 20:59; Status DC Dextrose/Sodium Chloride 1,000 ml @ 250 mls/hr Q4H IV Last administered on 01:40; Start 12/01/16 at 01:45; Stop 12/01/16 at 06:18; Status DC Dextrose/Sodium Chloride (Iv D5% - 1/2 NS) 1,000 ml @ 250 mls/hr Q4H IV Last administered on 12/01/16 14:15; Start 12/01/16 at 06:15; Stop 12/01/16 at 17:17 ; Status DC Dextrose 25 gm STK-MED ONCE IV ; Start 12/01/16 at 07:48; Stop 12/01/16 at 07:49 ; Status DC Dextrose 25 gm 25 gm 1X ONCE IV Last administered on 12/01/16 07:56; Start at 08:00; Stop 12/01/16 at 08:01; Status DC Potassium Chloride (KCl Premix 10meq) 100 ml @ 100 mls/hr Q1H IV Last administered on 12/01/16 17:20; Start 12/01/16 at 11:30; Stop 12/01/16 at 15:29 ; Status DC Insulin Aspart (Novolog) 0-7 UNITS TIDWMEALS SQ Last administered on 12/04/16 08:22; Start 12/01/16 at 12:00; Stop 12/04/16 at 09:45; Status DC Dextrose 12.5 gm PRN Q15MIN PRN IV SEE COMMENTS; Start 12/01/16 at 11:30; Stop 12/04/16 at 09:56; Status DC Sevoflurane (Ultane) 60 ml STK-MED ONCE IH ; Start 12/01/16 at 12:40; Stop 12/01 at 12:41; Status DC Fentanyl Citrate 100 mcg 100 mcg STK-MED ONCE .ROUTE ; Start 12/01/16 at 12:41; Stop 12/01/16 at 12:42; Status DC Propofol (Diprivan) 20 ml @ As Directed STK-MED ONCE IV ; Start 12/01/16 at 12: 41; Stop 12/01/16 at 12:42; Status DC Ondansetron HCl (Zofran) 4 mg STK-MED ONCE .ROUTE ; Start 12/01/16 at 12:41; Stop 12/01/16 at 12:42; Status DC Dexamethasone Sodium Phosphate (Decadron) 20 mg STK-MED ONCE .ROUTE ; Start at 12:41; Stop 12/01/16 at 12:42; Status DC Lidocaine HCl 100 mg STK-MED ONCE .ROUTE ; Start 12/01/16 at 12:41; Stop at 12:42; Status DC Butorphanol Tartrate 1 mg 1 mg PRN Q6HRS PRN IV PAIN; Start 12/01/16 at 13:00 Promethazine HCl/ Sodium Chloride (Phenergan/Iv Sodium Chloride 0.9% 50ml) 51 ml @ 150.75 mls/ hr PRN Q6HRS PRN IV NAUSEA/VOMITING Last administered on 12/02 20:10; Start 12/01/16 at 13:00 Ondansetron HCl (Zofran) 4 mg PRN Q6HRS PRN IV Nausea Last administered on 12/01 13:16; Start 12/01/16 at 13:00; Stop 12/02/16 at 12:59; Status DC Fentanyl Citrate (Fentanyl 2ml Vial) 25 mcg PRN Q5MIN PRN IV MILD PAIN; Start 12/01/16 at 13:00; Stop 12/02/16 at 12:59; Status DC Fentanyl Citrate (Fentanyl 2ml Vial) 50 mcg PRN Q5MIN PRN IV MODERATE PAIN; Start 12/01/16 at 13:00; Stop 12/02/16 at 12:59; Status DC Morphine Sulfate 1 mg 1 mg PRN Q10MIN PRN IV SEVERE PAIN Last administered on 10:30; Start 12/01/16 at 13:00; Stop 12/02/16 at 12:59; Status DC Lactated Ringer's (Iv Lactated Ringers) 1,000 ml @ 30 mls/hr Q24H IV ; Start at 13:00; Stop 12/02/16 at 00:59; Status DC Lidocaine HCl 2 ml 1X PRN PRN ID IV START; Start 12/01/16 at 13:00; Stop at 12:59; Status DC Hydromorphone HCl (Dilaudid) 0.5 mg PRN Q10MIN PRN IV SEV PAIN,Second choice; Start 12/01/16 at 13:00; Stop 12/02/16 at 12:59; Status DC Succinylcholine Chloride (Anectine) 200 mg STK-MED ONCE .ROUTE ; Start 12/01/16 at 13:05; Stop 12/01/16 at 13:06; Status DC Pantoprazole Sodium (Protonix Vial) 40 mg BIDAC IVP Last administered on 08:16; Start 12/01/16 at 14:00; Stop 12/04/16 at 09:45; Status DC Phenylephrine HCl 1 mg STK-MED ONCE IV ; Start 12/01/16 at 13:35; Stop 12/01/16 at 13:36; Status DC Metoclopramide HCl 10 mg 10 mg STK-MED ONCE .ROUTE ; Start 12/01/16 at 13:40; Stop 12/01/16 at 13:41; Status DC Propofol (Diprivan) 20 ml @ As Directed STK-MED ONCE IV ; Start 12/01/16 at 14: 06; Stop 12/01/16 at 14:07; Status DC Vancomycin HCl (Vanco Per Pharmacy) 1 each PRN DAILY PRN MC SEE COMMENTS Last administered on 12/04/16 16:10; Start 12/01/16 at 15:00; Stop 12/05/16 at 10:22 ; Status DC Piperacillin Sod/ Tazobactam Sod 1 each 1 each PRN DAILY PRN MC SEE COMMENTS; Start 12/01/16 at 15:00; Stop 12/06/16 at 14:25; Status DC Vancomycin HCl 250 mg/Sodium Chloride 100 ml @ 100 mls/hr 1X ONCE IV Last administered on 12/01/16 16:14; Start 12/01/16 at 15:30; Stop 12/01/16 at 16:29 ; Status DC Piperacillin Sod/ Tazobactam Sod 3.375 gm/Sodium Chloride 50 ml @ 100 mls/hr Q6HRS IV Last administered on 12/07/16 12:11; Start 12/01/16 at 17:00 Vancomycin HCl/ Sodium Chloride (Iv Sodium Chloride 0.9% 250ml) 250 ml @ 250 mls/hr Q24H IV Last administered on 12/02/16 16:31; Start 12/02/16 at 15:00; Stop 12/03/16 at 16:39; Status DC Vancomycin HCl 1 each 1X ONCE MC ; Start 12/03/16 at 14:30; Stop 12/03/16 at 14 :31; Status DC Metoclopramide HCl 10 mg 10 mg Q6HRS IV Last administered on 12/04/16 05:40; Start 12/01/16 at 17:00; Stop 12/04/16 at 16:04; Status DC Sodium Chloride (Iv Sodium Chloride 0.9% 1000ml Bag) 1,000 ml @ 75 mls/hr [id number] IV Last administered on 12/02/16 16:31; Start 12/01/16 at 17:15; Stop 12/03/16 at 05:03; Status DC Insulin Aspart (Novolog) 3 units 1X PRN SQ ; Start 12/01/16 at 18:45; Status Cancel Insulin Aspart (Novolog Vial) 20 unit 1X ONCE SQ ; Start 12/02/16 at 09:00; Stop 12/02/16 at 09:00; Status Cancel Insulin Aspart (Novolog) 20 units 1X ONCE SQ Last administered on 12/02/16 09 :07; Start 12/02/16 at 09:00; Stop 12/02/16 at 09:01; Status DC Insulin Aspart (Novolog) 20 units 1X ONCE SQ ; Start 12/02/16 at 09:00; Stop at 09:01; Status UNV Potassium Chloride (Klor-Con) 40 meq 1X ONCE PO Last administered on 11:39; Start 12/02/16 at 11:15; Stop 12/02/16 at 11:16; Status DC Morphine Sulfate 2 mg PRN Q2HR PRN IV PAIN SEVERE Last administered on 11:48; Start 12/02/16 at 19:00 Ondansetron HCl 4 mg 4 mg PRN Q8HRS PRN IV NAUSEA/VOMITING 1ST CHOICE; Start at 20:15; Stop 12/04/16 at 09:45; Status DC Micafungin Sodium/ Dextrose (Mycamine) 100 ml @ 100 mls/hr QHS IV Last administered on 12/06/16 22:11; Start 12/02/16 at 23:45; Stop 12/07/16 at 10:37 ; Status DC Insulin Aspart (Novolog) 30 units 1X ONCE SQ Last administered on 12/03/16 10 :37; Start 12/03/16 at 10:30; Stop 12/03/16 at 10:31; Status DC Potassium Chloride (Klor-Con) 40 meq 1X ONCE PO Last administered on 12:01; Start 12/03/16 at 11:45; Stop 12/03/16 at 11:46; Status DC Insulin Aspart 30 units 30 units 1X ONCE SQ Last administered on 12/03/16 13: 35; Start 12/03/16 at 13:15; Stop 12/03/16 at 13:16; Status DC Vancomycin HCl/ Sodium Chloride (Iv Sodium Chloride 0.9% 250ml) 250 ml @ 250 mls/hr Q12H IV Last administered on 12/05/16 05:36; Start 12/03/16 at 17:00; Stop 12/05/16 at 10:22; Status DC Metoclopramide HCl (Reglan) 5 mg QIDACHS PO Last administered on 12/07/16 11: 13; Start 12/04/16 at 11:30 Oxycodone/ Acetaminophen (Percocet 5/325) 1 tab PRN Q4HRS PRN PO MODERATE PAIN Last administered on 12/06/16 22:10; Start 12/04/16 at 09:45 Pantoprazole Sodium (Protonix) 40 mg DAILYAC PO Last administered on 12/07/16 06:06; Start 12/05/16 at 07:30 Insulin Aspart (Novolog) 10 units TIDACHC SQ Last administered on 12/04/16 11: 34; Start 12/04/16 at 16:30; Stop 12/04/16 at 16:30; Status DC Insulin Detemir (Levemir) 35 units QHS SQ Last administered on 12/06/16 22:24 ; Start 12/04/16 at 21:00 Insulin Aspart (Novolog) 0-9 UNITS TIDWMEALS SQ Last administered on 12/06/16 17:39; Start 12/04/16 at 12:00 Dextrose 12.5 gm PRN Q15MIN PRN IV SEE COMMENTS Last administered on 12/06/16 09:34; Start 12/04/16 at 09:45 Ondansetron HCl (Zofran) 4 mg PRN Q6HRS PRN IV NAUSEA/VOMITING 1ST CHOICE Last administered on 12/06/16 08:09; Start 12/04/16 at 20:15 Pantoprazole Sodium (Protonix) 40 mg DAILYAC PO ; Start 12/05/16 at 07:30; Status Cancel Insulin Aspart (Novolog) 15 units TIDACHC SQ Last administered on 12/06/16 22: 22; Start 12/04/16 at 16:30 Insulin Aspart (Novolog) 15 units 1X ONCE SQ Last administered on 12/04/16 21 :14; Start 12/04/16 at 21:00; Stop 12/04/16 at 21:01; Status DC Insulin Aspart (Novolog) 25 units 1X ONCE SQ Last administered on 12/04/16 22 :46; Start 12/04/16 at 23:00; Stop 12/04/16 at 23:01; Status DC Insulin Aspart (Novolog) 18 units 1X ONCE SQ Last administered on 12/06/16 22 :23; Start 12/06/16 at 21:45; Stop 12/06/16 at 21:46; Status DC Potassium Chloride 80 meq 80 meq 1X ONCE PO Last administered on 12/07/16 06: 27; Start 12/07/16 at 06:30; Stop 12/07/16 at 06:31; Status DC Sodium Chloride (Iv Sodium Chloride 0.9% 1000ml Bag) 1,000 ml @ 125 mls/hr 1X ONCE IV Last administered on 12/07/16 11:10; Start 12/07/16 at 10:45; Stop at 18:44 Active Scripts Active Pantoprazole Sodium 40 Mg Tablet.dr 40 Mg PO DAILYAC Oxycodone-Acetaminophen 5-325 (Oxycodone Hcl/Acetaminophen) 1 Each Tablet 1 Tab PO PRN Q4HRS PRN Metoclopramide Hcl 10 Mg/10 Ml Solution 5 Mg PO QIDACHS Amox Tr-K Clv 875-125 Mg Tab (Amoxicillin/Potassium Clav) 1 Each Tablet 1 Tab PO BID Reported Levemir (Insulin Detemir) 100 Unit/1 Ml Vial 35 Unit SQ HS Novolog (Insulin Aspart) 100 Unit/1 Ml Cartridge 10 Unit SQ TIDAC Vitals/I & O Vital Sign - Last 24 Hours 12/06/16 12/06/16 12/06/16 12/06/16 15:15 19:00 20:00 22:10 Temp 97.8 99.7 97.8 99.7 Pulse 107 97 Resp B/P 81/50 109/73 Pulse Ox 99 93 O2 Delivery Room Air Room Air Room Air Room Air 12/06/16 12/06/16 12/06/16 12/07/16 23:05 23:10 23:40 03:05 Temp 98.8 97.7 98.8 97.7 Pulse 96 83 Resp 18 B/P 82/47 100/52 91/56 Pulse Ox 99 99 98 O2 Delivery Room Air Room Air Room Air Room Air 12/07/16 12/07/16 12/07/16 12/07/16 04:00 07:00 07:40 11:00 Temp 97.7 98.1 97.7 98.1 Pulse 82 95 88 Resp B/P 95/55 107/65 94/57 Pulse Ox 98 99 O2 Delivery Room Air Room Air Room Air Intake and Output 12/06/16 12/06/16 12/07/16 15:00 23:00 07:00 Intake Total 360 ml 771 ml Balance 360 ml 771 ml MARILU CONTEH MD Dec 07, 2016 13:55
[2016-12-07] MEDS: OXYCODONE/APAP 5/325 TABLET. PO PRN (20:56)
[2016-12-07] MEDS: INSULIN DETEMIR 300 UNITS/3 ML INSULN.PEN. SQ SCH ×2 (21:00→22:20)
[2016-12-07] MEDS: MORPHINE SULFATE 2 MG/ML DISP.SYRIN. IV PRN (23:57)
[2016-12-07] MEDS: ONDANSETRON PF 4 MG/2 ML VIAL. IV PRN (23:57)
[2016-12-08] VITALS (13 sets, daily range): BP systolic 91–148; BP diastolic 58–89
[2016-12-08] MEDS: INSULIN ASPART 300 UNITS/3 ML INSULN.PEN SQ SCH ×8 (00:01→21:17)
[2016-12-08] MEDS: PIPERACILLIN/TAZOBACTAM 3.375 GM in IV NORMAL SALINE 50ML 50 ML IV SCH ×4 (05:46→23:05)
[2016-12-08 05:55] LABS: CREATININE 1.4 mg/dL (0.6-1.0); GFR 41.6
[2016-12-08 06:00] LABS: POTASSIUM 2.6 mmol/L (3.5-5.1)
[2016-12-08] MEDS: POTASSIUM CHLORIDE 10MEQ 100 ML IV SCH ×8 (06:37→20:16)
[2016-12-08] MEDS: MORPHINE SULFATE 2 MG/ML DISP.SYRIN. IV PRN ×2 (06:38→23:05)
[2016-12-08] MEDS ORDERED: MORPHINE SULFATE 2 MG/ML DISP.SYRIN. IV PRN (07:00)
[2016-12-08] MEDS ORDERED: LIDOCAINE 1% 1 ML SYRINGE. ID PRN (07:00)
[2016-12-08] MEDS ORDERED: ONDANSETRON PF 4 MG/2 ML VIAL. IV PRN (07:00)
[2016-12-08] MEDS ORDERED: PROCHLORPERAZINE 10 MG/2 ML VIAL. IV PRN (07:00)
[2016-12-08] MEDS ORDERED: FENTANYL PF 100 MCG/2 ML VIAL. IV PRN ×2 (07:00)
[2016-12-08] MEDS ORDERED: HYDROMORPHONE 2 MG/ML VIAL. IV PRN (07:00)
[2016-12-08] MEDS ORDERED: IV RINGERS,LACTATED 1000ML 1,000 ML IV SCH (07:00)
[2016-12-08] MEDS: PANTOPRAZOLE 40 MG TABLET. PO SCH (07:30)
[2016-12-08] MEDS: METOCLOPRAMIDE HCL 10 MG/10 ML SOLUTION. PO SCH ×4 (07:30→20:21)
--- NOTE | 2016-12-08 08:12 | PDOC ---
Infectious Disease Note Subjective Subjective Doing ok. No pain Had mild nausea last pm and vomited once after water One loose stool ROS ROS GEN: Denies fevers, chills, sweats HEENT: Denies blurred vision, sore throat CV: Denies chest pain RESP: Denies shortness of air, cough GI: Denies n/v/d NEURO: Denies confusion, dizziness MSK: Denies weakness, joint pain/swelling Vital Sign Vital Signs Vital Signs Date Time Temp Pulse Resp B/P Pulse Ox O2 Delivery O2 Flow Rate FiO2 12/08/16 07:10 Room Air 12/08/16 06:38 18 12/08/16 03:21 97.5 89 91/58 99 97.5 Physical Exam PHYSICAL EXAM GENERAL: NAD, Alert HEENT: PERRL, OC/OP - clear NECK: Supple, no JVD, no LN LUNGS: Clear HEART: S1S2, no gallop, no murmur ABD: Soft, NT, no organomegaly, no rebound EXT: No edema, no cyanosis. Foot dressed to be changed today if no surgery MED AIDE: Alert, oriented x 3, no focal neurologic deficit SKIN: No rash IV: ok Labs Lab Laboratory Tests Test 12/07/16 09:05 12/07/16 11:00 12/07/16 11:33 12/07/16 16:34 Glucose (Fingerstick) 117mg/dL (70-99) 115mg/dL (70-99) 329mg/dL (70-99) Potassium Level 3.2mmol/L (3.5-5.1) Test 12/07/16 21:30 12/07/16 23:53 12/08/16 01:14 12/08/16 04:00 Glucose (Fingerstick) 99mg/dL (70-99) 321mg/dL (70-99) 284mg/dL (70-99) Sodium Level 141mmol/L (136-145) Potassium Level 2.6mmol/L (3.5-5.1) Chloride Level 106mmol/L (98-107) Carbon Dioxide Level 27mmol/L (21-32) Anion Gap 8 (6-14) Blood Urea Nitrogen 6mg/dL (7-20) Creatinine 1.4mg/dL (0.6-1.0) Estimated GFR (Cockcroft-Gault) 41.6 Glucose Level 145mg/dL (70-99) Calcium Level 8.0mg/dL (8.5-10.1) Micro AEROBIC RES 1 Preliminary Staphylococcus aureus Heavy growth AEROBIC RES 2 Preliminary Comment Beta hemolytic Streptococcus, group B Objective Assessment KATHLEEN - better Left diabetic foot infection. Group B strep/Staph MSSA -s/p I and D. 12/01. Intra-op cultures pending DM- still elevated sugars Leukocytosis Peripheral neuropathy Anemia Plan Plan of Care Cont Zosyn Add Probiotics Surgery hopefully today F/u cults (gram stain with yeast and GPR) Reviewed wound care notes RODOLFO BAHENA MD Dec 08, 2016 08:12
[2016-12-08] MEDS: LACTOBACILLUS ACIDOPH & BULGAR 1 TABLET. PO SCH ×3 (09:00→16:36)
--- NOTE | 2016-12-08 09:05 | PDOC ---
PROGRESS NOTES Chief Complaint Chief Complaint dka. s/p Dm2 uncontrolled hgba1c 16 DM gastroparesis highly likely Left diabetic foot infection. Group B strep/Staph -s/p I and D. 12/01. Intra-op cultures pending KATHLEEN, improved Peripheral neuropathy Anemia - Gastroparesis - Coffee ground emesis, resolved - HTN History of Present Illness History of Present Illness K critically low today BS tends to run low in the early AM NO pain Asks about sx PLAN: Getting kCl 80 IV now Recheck CBC, bmp and mag baron AM K has been running low past 3 days, - pt on high odes insulin STart 40 PO BID supplements SOme vomtiing too last night - likely gastroparesis - hgba1c was 16 - can work this up, perhaps GET after the toe issues Vitals Vitals Vital Signs Date Time Temp Pulse Resp B/P Pulse Ox O2 Delivery O2 Flow Rate FiO2 12/08/16 07:10 Room Air 12/08/16 07:00 97.5 88 20 134/82 99 97.5 Physical Exam General: Alert, Oriented X3, Cooperative, No acute distress Heart: Normal S1, Normal S2, Other (Mild tachycardia) Lungs: Clear Abdomen: Normal bowel sounds, Soft Extremities: No cyanosis, No edema, Other (Necrotizing fasciitis of L foot, wound vac in place; R toe amputation) Skin: Other (See extremities above) Labs LABS Laboratory Tests Test 12/07/16 09:05 12/07/16 11:00 12/07/16 11:33 12/07/16 16:34 Glucose (Fingerstick) 117mg/dL (70-99) 115mg/dL (70-99) 329mg/dL (70-99) Potassium Level 3.2mmol/L (3.5-5.1) Test 12/07/16 21:30 12/07/16 23:53 12/08/16 01:14 12/08/16 04:00 Glucose (Fingerstick) 99mg/dL (70-99) 321mg/dL (70-99) 284mg/dL (70-99) Sodium Level 141mmol/L (136-145) Potassium Level 2.6mmol/L (3.5-5.1) Chloride Level 106mmol/L (98-107) Carbon Dioxide Level 27mmol/L (21-32) Anion Gap 8 (6-14) Blood Urea Nitrogen 6mg/dL (7-20) Creatinine 1.4mg/dL (0.6-1.0) Estimated GFR (Cockcroft-Gault) 41.6 Glucose Level 145mg/dL (70-99) Calcium Level 8.0mg/dL (8.5-10.1) Test 12/08/16 07:53 Glucose (Fingerstick) 110mg/dL (70-99) Assessment and Plan Assessmemt and Plan Problems Medical Problems: (1) Back pain Status: Acute (2) Diabetic ketoacidosis Status: Acute Problems: Comment Review of Relevant I have reviewed the following items gem (where applicable) has been applied. Labs Laboratory Tests Test 12/06/16 09:29 12/06/16 10:00 12/06/16 12:05 12/06/16 16:38 Glucose (Fingerstick) 58mg/dL (70-99) 135mg/dL (70-99) 90mg/dL (70-99) 185mg/dL (70-99) Test 12/06/16 21:30 12/07/16 01:10 12/07/16 04:45 12/07/16 07:28 Glucose (Fingerstick) 351mg/dL (70-99) 170mg/dL (70-99) 54mg/dL (70-99) Sodium Level 141mmol/L (136-145) Potassium Level 2.3mmol/L (3.5-5.1) Chloride Level 105mmol/L (98-107) Carbon Dioxide Level 27mmol/L (21-32) Anion Gap 9 (6-14) Blood Urea Nitrogen 6mg/dL (7-20) Creatinine 1.5mg/dL (0.6-1.0) Estimated GFR (Cockcroft-Gault) 38.5 Glucose Level 67mg/dL (70-99) Calcium Level 8.0mg/dL (8.5-10.1) Test 12/07/16 09:05 12/07/16 11:00 12/07/16 11:33 12/07/16 16:34 Glucose (Fingerstick) 117mg/dL (70-99) 115mg/dL (70-99) 329mg/dL (70-99) Potassium Level 3.2mmol/L (3.5-5.1) Test 12/07/16 21:30 12/07/16 23:53 12/08/16 01:14 12/08/16 04:00 Glucose (Fingerstick) 99mg/dL (70-99) 321mg/dL (70-99) 284mg/dL (70-99) Sodium Level 141mmol/L (136-145) Potassium Level 2.6mmol/L (3.5-5.1) Chloride Level 106mmol/L (98-107) Carbon Dioxide Level 27mmol/L (21-32) Anion Gap 8 (6-14) Blood Urea Nitrogen 6mg/dL (7-20) Creatinine 1.4mg/dL (0.6-1.0) Estimated GFR (Cockcroft-Gault) 41.6 Glucose Level 145mg/dL (70-99) Calcium Level 8.0mg/dL (8.5-10.1) Test 12/08/16 07:53 Glucose (Fingerstick) 110mg/dL (70-99) Laboratory Tests Test 12/07/16 09:05 12/07/16 11:00 12/07/16 11:33 12/07/16 16:34 Glucose (Fingerstick) 117mg/dL (70-99) 115mg/dL (70-99) 329mg/dL (70-99) Potassium Level 3.2mmol/L (3.5-5.1) Test 12/07/16 21:30 12/07/16 23:53 12/08/16 01:14 12/08/16 04:00 Glucose (Fingerstick) 99mg/dL (70-99) 321mg/dL (70-99) 284mg/dL (70-99) Sodium Level 141mmol/L (136-145) Potassium Level 2.6mmol/L (3.5-5.1) Chloride Level 106mmol/L (98-107) Carbon Dioxide Level 27mmol/L (21-32) Anion Gap 8 (6-14) Blood Urea Nitrogen 6mg/dL (7-20) Creatinine 1.4mg/dL (0.6-1.0) Estimated GFR (Cockcroft-Gault) 41.6 Glucose Level 145mg/dL (70-99) Calcium Level 8.0mg/dL (8.5-10.1) Test 12/08/16 07:53 Glucose (Fingerstick) 110mg/dL (70-99) Microbiology 12/01/16 Blood Culture - Final, Complete NO GROWTH AFTER 5 DAYS 12/01/16 Gram Stain - Final, Complete Medications Current Medications Sodium Chloride (Iv Sodium Chloride 0.9% 1000ml Bag) 1,000 ml @ 1,000 mls/hr Q1H IV Last administered on 11/30/16 19:42; Start 11/30/16 at 19:45; Stop at 20:44; Status DC Ondansetron HCl (Zofran) 4 mg 1X ONCE IV Last administered on 11/30/16 20:08 ; Start 11/30/16 at 19:45; Stop 11/30/16 at 19:46; Status DC Ketorolac Tromethamine 10 mg 10 mg 1X ONCE IV Last administered on 11/30/16 20:08; Start 11/30/16 at 19:45; Stop 11/30/16 at 19:46; Status DC Sodium Chloride 1,000 ml @ 1,000 mls/hr Q1H IV Last administered on 11/30/16 21:11; Start 11/30/16 at 21:00; Stop 11/30/16 at 21:01; Status DC Sodium Chloride 1,000 ml @ 250 mls/hr Q4H IV Last administered on 12/01/16 01 :23; Start 11/30/16 at 22:00; Stop 12/01/16 at 07:42; Status DC Dextrose/Sodium Chloride 1,000 ml @ 250 mls/hr Q4H IV Last administered on 21:15; Start 11/30/16 at 22:00; Stop 12/01/16 at 01:37; Status DC Insulin Human Regular 150 unit/ Sodium Chloride 151.5 ml @ 0 mls/hr CONT PRN PRN IV PER PROTOCOL Last administered on 11/30/16 21:36; Start 11/30/16 at 21: 00; Stop 12/04/16 at 09:45; Status DC Potassium Chloride 100 ml @ 100 mls/hr PRN Q1HR PRN IV SEE COMMENTS; Start at 21:00; Stop 12/04/16 at 09:45; Status DC Potassium Chloride 100 ml @ 100 mls/hr PRN Q1HR PRN IV SEE COMMENTS; Start at 21:00; Stop 12/04/16 at 09:45; Status DC Potassium Chloride (KCl Premix 10meq) 100 ml @ 100 mls/hr PRN Q1HR PRN IV SEE COMMENTS Last administered on 12/03/16 10:35; Start 11/30/16 at 21:00; Stop at 09:45; Status DC Ondansetron HCl (Zofran) 4 mg PRN Q8HRS PRN IV NAUSEA/VOMITING Last administered on 12/01/16 07:54; Start 11/30/16 at 21:00; Stop 12/01/16 at 20:59 ; Status DC Fentanyl Citrate (Fentanyl 2ml Vial) 50 mcg PRN Q2HR PRN IV SEVERE PAIN Last administered on 12/01/16 00:19; Start 11/30/16 at 21:00; Stop 12/01/16 at 20:59 ; Status DC Acetaminophen 650 mg 650 mg PRN Q4HRS PRN PO FEVER; Start 11/30/16 at 21:00; Stop 12/01/16 at 20:59; Status DC Dextrose/Sodium Chloride 1,000 ml @ 250 mls/hr Q4H IV Last administered on 01:40; Start 12/01/16 at 01:45; Stop 12/01/16 at 06:18; Status DC Dextrose/Sodium Chloride (Iv D5% - 1/2 NS) 1,000 ml @ 250 mls/hr Q4H IV Last administered on 12/01/16 14:15; Start 12/01/16 at 06:15; Stop 12/01/16 at 17:17 ; Status DC Dextrose 25 gm STK-MED ONCE IV ; Start 12/01/16 at 07:48; Stop 12/01/16 at 07:49 ; Status DC Dextrose 25 gm 25 gm 1X ONCE IV Last administered on 12/01/16 07:56; Start at 08:00; Stop 12/01/16 at 08:01; Status DC Potassium Chloride (KCl Premix 10meq) 100 ml @ 100 mls/hr Q1H IV Last administered on 12/01/16 17:20; Start 12/01/16 at 11:30; Stop 12/01/16 at 15:29 ; Status DC Insulin Aspart (Novolog) 0-7 UNITS TIDWMEALS SQ Last administered on 12/04/16 08:22; Start 12/01/16 at 12:00; Stop 12/04/16 at 09:45; Status DC Dextrose 12.5 gm PRN Q15MIN PRN IV SEE COMMENTS; Start 12/01/16 at 11:30; Stop 12/04/16 at 09:56; Status DC Sevoflurane (Ultane) 60 ml STK-MED ONCE IH ; Start 12/01/16 at 12:40; Stop 12/01 at 12:41; Status DC Fentanyl Citrate 100 mcg 100 mcg STK-MED ONCE .ROUTE ; Start 12/01/16 at 12:41; Stop 12/01/16 at 12:42; Status DC Propofol (Diprivan) 20 ml @ As Directed STK-MED ONCE IV ; Start 12/01/16 at 12: 41; Stop 12/01/16 at 12:42; Status DC Ondansetron HCl (Zofran) 4 mg STK-MED ONCE .ROUTE ; Start 12/01/16 at 12:41; Stop 12/01/16 at 12:42; Status DC Dexamethasone Sodium Phosphate (Decadron) 20 mg STK-MED ONCE .ROUTE ; Start at 12:41; Stop 12/01/16 at 12:42; Status DC Lidocaine HCl 100 mg STK-MED ONCE .ROUTE ; Start 12/01/16 at 12:41; Stop at 12:42; Status DC Butorphanol Tartrate 1 mg 1 mg PRN Q6HRS PRN IV PAIN; Start 12/01/16 at 13:00 Promethazine HCl/ Sodium Chloride (Phenergan/Iv Sodium Chloride 0.9% 50ml) 51 ml @ 150.75 mls/ hr PRN Q6HRS PRN IV NAUSEA/VOMITING Last administered on 12/02 20:10; Start 12/01/16 at 13:00 Ondansetron HCl (Zofran) 4 mg PRN Q6HRS PRN IV Nausea Last administered on 12/01 13:16; Start 12/01/16 at 13:00; Stop 12/02/16 at 12:59; Status DC Fentanyl Citrate (Fentanyl 2ml Vial) 25 mcg PRN Q5MIN PRN IV MILD PAIN; Start 12/01/16 at 13:00; Stop 12/02/16 at 12:59; Status DC Fentanyl Citrate (Fentanyl 2ml Vial) 50 mcg PRN Q5MIN PRN IV MODERATE PAIN; Start 12/01/16 at 13:00; Stop 12/02/16 at 12:59; Status DC Morphine Sulfate 1 mg 1 mg PRN Q10MIN PRN IV SEVERE PAIN Last administered on t 10:30; Start 12/01/16 at 13:00; Stop 12/02/16 at 12:59; Status DC Lactated Ringer's (Iv Lactated Ringers) 1,000 ml @ 30 mls/hr Q24H IV ; Start at 13:00; Stop 12/02/16 at 00:59; Status DC Lidocaine HCl 2 ml 1X PRN PRN ID IV START; Start 12/01/16 at 13:00; Stop at 12:59; Status DC Hydromorphone HCl (Dilaudid) 0.5 mg PRN Q10MIN PRN IV SEV PAIN,Second choice; Start 12/01/16 at 13:00; Stop 12/02/16 at 12:59; Status DC Succinylcholine Chloride (Anectine) 200 mg STK-MED ONCE .ROUTE ; Start 12/01/16 at 13:05; Stop 12/01/16 at 13:06; Status DC Pantoprazole Sodium (Protonix Vial) 40 mg BIDAC IVP Last administered on t 08:16; Start 12/01/16 at 14:00; Stop 12/04/16 at 09:45; Status DC Phenylephrine HCl 1 mg STK-MED ONCE IV ; Start 12/01/16 at 13:35; Stop 12/01/16 at 13:36; Status DC Metoclopramide HCl 10 mg 10 mg STK-MED ONCE .ROUTE ; Start 12/01/16 at 13:40; Stop 12/01/16 at 13:41; Status DC Propofol (Diprivan) 20 ml @ As Directed STK-MED ONCE IV ; Start 12/01/16 at 14: 06; Stop 12/01/16 at 14:07; Status DC Vancomycin HCl (Vanco Per Pharmacy) 1 each PRN DAILY PRN MC SEE COMMENTS Last administered on 12/04/16 16:10; Start 12/01/16 at 15:00; Stop 12/05/16 at 10:22 ; Status DC Piperacillin Sod/ Tazobactam Sod 1 each 1 each PRN DAILY PRN MC SEE COMMENTS; Start 12/01/16 at 15:00; Stop 12/06/16 at 14:25; Status DC Vancomycin HCl 250 mg/Sodium Chloride 100 ml @ 100 mls/hr 1X ONCE IV Last administered on 12/01/16 16:14; Start 12/01/16 at 15:30; Stop 12/01/16 at 16:29 ; Status DC Piperacillin Sod/ Tazobactam Sod 3.375 gm/Sodium Chloride 50 ml @ 100 mls/hr Q6HRS IV Last administered on 12/08/16 05:46; Start 12/01/16 at 17:00 Vancomycin HCl/ Sodium Chloride (Iv Sodium Chloride 0.9% 250ml) 250 ml @ 250 mls/hr Q24H IV Last administered on 12/02/16 16:31; Start 12/02/16 at 15:00; Stop 12/03/16 at 16:39; Status DC Vancomycin HCl 1 each 1X ONCE MC ; Start 12/03/16 at 14:30; Stop 12/03/16 at 14 :31; Status DC Metoclopramide HCl 10 mg 10 mg Q6HRS IV Last administered on 12/04/16 05:40; Start 12/01/16 at 17:00; Stop 12/04/16 at 16:04; Status DC Sodium Chloride (Iv Sodium Chloride 0.9% 1000ml Bag) 1,000 ml @ 75 mls/hr [id number] IV Last administered on 12/02/16 16:31; Start 12/01/16 at 17:15; Stop 12/03/16 at 05:03; Status DC Insulin Aspart (Novolog) 3 units 1X PRN SQ ; Start 12/01/16 at 18:45; Status Cancel Insulin Aspart (Novolog Vial) 20 unit 1X ONCE SQ ; Start 12/02/16 at 09:00; Stop 12/02/16 at 09:00; Status Cancel Insulin Aspart (Novolog) 20 units 1X ONCE SQ Last administered on 12/02/16 09 :07; Start 12/02/16 at 09:00; Stop 12/02/16 at 09:01; Status DC Insulin Aspart (Novolog) 20 units 1X ONCE SQ ; Start 12/02/16 at 09:00; Stop at 09:01; Status UNV Potassium Chloride (Klor-Con) 40 meq 1X ONCE PO Last administered on 11:39; Start 12/02/16 at 11:15; Stop 12/02/16 at 11:16; Status DC Morphine Sulfate 2 mg PRN Q2HR PRN IV PAIN SEVERE Last administered on 06:38; Start 12/02/16 at 19:00 Ondansetron HCl 4 mg 4 mg PRN Q8HRS PRN IV NAUSEA/VOMITING 1ST CHOICE; Start at 20:15; Stop 12/04/16 at 09:45; Status DC Micafungin Sodium/ Dextrose (Mycamine) 100 ml @ 100 mls/hr QHS IV Last administered on 12/06/16 22:11; Start 12/02/16 at 23:45; Stop 12/07/16 at 10:37 ; Status DC Insulin Aspart (Novolog) 30 units 1X ONCE SQ Last administered on 12/03/16 10 :37; Start 12/03/16 at 10:30; Stop 12/03/16 at 10:31; Status DC Potassium Chloride (Klor-Con) 40 meq 1X ONCE PO Last administered on 12:01; Start 12/03/16 at 11:45; Stop 12/03/16 at 11:46; Status DC Insulin Aspart 30 units 30 units 1X ONCE SQ Last administered on 12/03/16 13: 35; Start 12/03/16 at 13:15; Stop 12/03/16 at 13:16; Status DC Vancomycin HCl/ Sodium Chloride (Iv Sodium Chloride 0.9% 250ml) 250 ml @ 250 mls/hr Q12H IV Last administered on 12/05/16 05:36; Start 12/03/16 at 17:00; Stop 12/05/16 at 10:22; Status DC Metoclopramide HCl (Reglan) 5 mg QIDACHS PO Last administered on 12/07/16 20: 56; Start 12/04/16 at 11:30 Oxycodone/ Acetaminophen (Percocet 5/325) 1 tab PRN Q4HRS PRN PO MODERATE PAIN Last administered on 12/07/16 20:56; Start 12/04/16 at 09:45 Pantoprazole Sodium (Protonix) 40 mg DAILYAC PO Last administered on 12/07/16 06:06; Start 12/05/16 at 07:30 Insulin Aspart (Novolog) 10 units TIDACHC SQ Last administered on 12/04/16 11: 34; Start 12/04/16 at 16:30; Stop 12/04/16 at 16:30; Status DC Insulin Detemir (Levemir) 35 units QHS SQ Last administered on 12/06/16 22:24 ; Start 12/04/16 at 21:00; Stop 12/07/16 at 22:08; Status DC Insulin Aspart (Novolog) 0-9 UNITS TIDWMEALS SQ Last administered on 12/07/16 17:29; Start 12/04/16 at 12:00 Dextrose 12.5 gm PRN Q15MIN PRN IV SEE COMMENTS Last administered on 12/06/16 09:34; Start 12/04/16 at 09:45 Ondansetron HCl (Zofran) 4 mg PRN Q6HRS PRN IV NAUSEA/VOMITING 1ST CHOICE Last administered on 12/07/16 23:57; Start 12/04/16 at 20:15 Pantoprazole Sodium (Protonix) 40 mg DAILYAC PO ; Start 12/05/16 at 07:30; Status Cancel Insulin Aspart (Novolog) 15 units TIDACHC SQ Last administered on 12/08/16 00: 01; Start 12/04/16 at 16:30 Insulin Aspart (Novolog) 15 units 1X ONCE SQ Last administered on 12/04/16 21 :14; Start 12/04/16 at 21:00; Stop 12/04/16 at 21:01; Status DC Insulin Aspart (Novolog) 25 units 1X ONCE SQ Last administered on 12/04/16 22 :46; Start 12/04/16 at 23:00; Stop 12/04/16 at 23:01; Status DC Insulin Aspart (Novolog) 18 units 1X ONCE SQ Last administered on 12/06/16 22 :23; Start 12/06/16 at 21:45; Stop 12/06/16 at 21:46; Status DC Potassium Chloride 80 meq 80 meq 1X ONCE PO Last administered on 12/07/16 06: 27; Start 12/07/16 at 06:30; Stop 12/07/16 at 06:31; Status DC Sodium Chloride (Iv Sodium Chloride 0.9% 1000ml Bag) 1,000 ml @ 125 mls/hr 1X ONCE IV Last administered on 12/07/16 11:10; Start 12/07/16 at 10:45; Stop at 18:44; Status DC Ondansetron HCl (Zofran) 4 mg PRN Q6HRS PRN IV Nausea; Start 12/08/16 at 07:00 ; Stop 12/09/16 at 06:59 Fentanyl Citrate (Fentanyl 2ml Vial) 25 mcg PRN Q5MIN PRN IV MILD PAIN; Start 12/08/16 at 07:00; Stop 12/09/16 at 06:59 Fentanyl Citrate (Fentanyl 2ml Vial) 50 mcg PRN Q5MIN PRN IV MODERATE PAIN; Start 12/08/16 at 07:00; Stop 12/09/16 at 06:59 Morphine Sulfate 1 mg 1 mg PRN Q10MIN PRN IV SEVERE PAIN; Start 12/08/16 at 07: 00; Stop 12/09/16 at 06:59 Lactated Ringer's (Iv Lactated Ringers) 1,000 ml @ 30 mls/hr Q24H IV ; Start at 07:00; Stop 12/08/16 at 18:59 Lidocaine HCl 2 ml 1X PRN PRN ID IV START; Start 12/08/16 at 07:00; Stop at 06:59 Hydromorphone HCl (Dilaudid) 0.5 mg PRN Q10MIN PRN IV SEVERE PAIN, Second choice; Start 12/08/16 at 07:00; Stop 12/09/16 at 06:59 Prochlorperazine Edisylate (Compazine) 5 mg PACU PRN PRN IV NAUSEA; Start 12/08 at 07:00; Stop 12/09/16 at 06:59 Insulin Detemir (Levemir) 15 units QHS SQ ; Start 12/08/16 at 21:00; Stop at 21:00; Status DC Insulin Detemir 15 units 15 units QHS SQ Last administered on 12/07/16 22:20; Start 12/07/16 at 22:15 Potassium Chloride (KCl Premix 10meq) 100 ml @ 100 mls/hr Q1H IV Last administered on 12/08/16 07:53; Start 12/08/16 at 06:30; Stop 12/08/16 at 14:29 Lactobacillus Acidophilus (Bacid, Vicky-Bid) 1 tab TIDWMEALS PO ; Start 12/08/16 at 09:00 Active Scripts Active Pantoprazole Sodium 40 Mg Tablet.dr 40 Mg PO DAILYAC Oxycodone-Acetaminophen 5-325 (Oxycodone Hcl/Acetaminophen) 1 Each Tablet 1 Tab PO PRN Q4HRS PRN Metoclopramide Hcl 10 Mg/10 Ml Solution 5 Mg PO QIDACHS Amox Tr-K Clv 875-125 Mg Tab (Amoxicillin/Potassium Clav) 1 Each Tablet 1 Tab PO BID Reported Levemir (Insulin Detemir) 100 Unit/1 Ml Vial 35 Unit SQ HS Novolog (Insulin Aspart) 100 Unit/1 Ml Cartridge 10 Unit SQ TIDAC Vitals/I & O Vital Sign - Last 24 Hours 12/07/16 12/07/16 12/07/16 12/07/16 11:00 15:00 19:00 20:27 Temp 98.1 97.7 98.4 98.1 97.7 98.4 Pulse 88 96 102 Resp 18 18 20 B/P 94/57 119/83 102/65 Pulse Ox 99 97 99 O2 Delivery Room Air Room Air Room Air Room Air 12/07/16 12/07/16 12/07/16 12/08/16 20:56 23:18 23:21 00:51 Temp 98.1 98.1 Pulse 94 Resp 20 18 18 B/P 112/72 Pulse Ox 94 O2 Delivery Room Air Room Air Room Air 12/08/16 12/08/16 12/08/16 12/08/16 03:21 06:38 07:00 07:10 Temp 97.5 97.5 97.5 97.5 Pulse 89 88 Resp 18 18 20 B/P 91/58 134/82 Pulse Ox 99 99 O2 Delivery Room Air Room Air Room Air Intake and Output 12/07/16 12/07/16 12/08/16 15:00 23:00 07:00 Intake Total 0 ml Balance 0 ml AZEB ANDERSON MD Dec 08, 2016 09:05
[2016-12-08] MEDS: POTASSIUM CHLORIDE 20 MEQ TABLET.ER. PO SCH ×2 (09:20→17:00)
[2016-12-08] MEDS ORDERED: PROPOFOL 20 ML IV ONE (11:40)
[2016-12-08] MEDS ORDERED: LIDOCAINE 2% 100 MG/5 ML DISP.SYRIN. ONE (11:40)
[2016-12-08] MEDS ORDERED: FENTANYL PF 100 MCG/2 ML VIAL. ONE (11:40)
[2016-12-08] MEDS ORDERED: SEVOFLURANE 61 TO 120 MINUTES. IH ONE (12:20)
[2016-12-08] MEDS ORDERED: DEXAMETHASONE SOD PHOS 20 MG/5 ML VIAL. ONE (12:20)
[2016-12-08] MEDS ORDERED: PHENYLEPHRINE in 0.9% NACL PF 1 MG/10 ML DISP.SYRIN. IV ONE ×2 (12:21→13:33)
--- NOTE | 2016-12-08 12:33 | PDOC ---
Subjective: Subjective: Out for surgery. Objective: Vital Signs: Vital Signs Date Time Temp Pulse Resp B/P Pulse Ox O2 Delivery O2 Flow Rate FiO2 12/08/16 11:00 97.6 85 20 103/66 98 Room Air 97.6 Labs: Laboratory Tests Test 12/07/16 16:34 12/07/16 21:30 12/07/16 23:53 12/08/16 01:14 Glucose (Fingerstick) 329mg/dL (70-99) 99mg/dL (70-99) 321mg/dL (70-99) 284mg/dL (70-99) Test 12/08/16 07:53 12/08/16 10:03 Glucose (Fingerstick) 110mg/dL (70-99) 115mg/dL (70-99) PE: no exam A/P: DKA w/ n/v - improved -on Reglan susp and PPI Left foot infection -- Will follow after surgery. ANTONETTE WALKER Dec 08, 2016 12:33
[2016-12-08] MEDS ORDERED: ONDANSETRON PF 4 MG/2 ML VIAL. ONE (12:44)
--- NOTE | 2016-12-08 13:49 | PDOC ---
BRIEF OPERATIVE NOTE Date: Dec 08, 2016 Pre-Op Diagnosis left foot infection Post-Op Diagnosis same with necrotic tissue Procedure Performed left transmetatarsal amputation Surgeon Myron Anesthesia Type: General Blood Loss 75cc Specimens Obtained toes to pathology Findings above Complications none Additional Remarks wound vac postop DANA MANSFIELD MD Dec 08, 2016 13:49
[2016-12-08] MEDS ORDERED: INSULIN DETEMIR 300 UNITS/3 ML INSULN.PEN. SQ SCH (21:00)
--- NOTE | 2016-12-08 21:15 | OP ---
DATE OF SURGERY: 12/08/2016 PREOPERATIVE DIAGNOSIS: Infection of left foot with history of necrotizing fasciitis status post multiple irrigation and debridements. POSTOPERATIVE DIAGNOSIS: Infection of left foot with history of necrotizing fasciitis status post multiple irrigation and debridements. PROCEDURE: Left transmetatarsal amputation. SURGEON: Neri Sanches M.D. ANESTHESIA: General. ESTIMATED BLOOD LOSS: About 75 mL. COMPLICATIONS: None. OPERATIVE INDICATIONS: The patient is a relatively young fairly ___individual who has severe diabetes who presented initially with necrotizing fasciitis infection of her foot, underwent multiple irrigation, debridement procedures and was undergoing outpatient wound care at home and thought to be initially progressing; however, she came back in very sick with severe infection in her foot despite attempts at dressing changes and was in diabetic ketoacidosis, had multiple medical issues, sepsis type picture. She had undergone a subsequent irrigation, debridement and placement of a wound VAC, but had significant dorsal involvement in contrast to her previous mainly plantar incision and developed ongoing necrosis of her third toe and multiple skin areas of necrosis as well due to spread of the infection in her forefoot. As a result, I had talked with her through an salesperson pian[employer] organs about the risks, benefits, postoperative course of proceeding with a transmetatarsal amputation and removing the necrotic tissue and forefoot and voiced specifically my concern that despite attempts at wound care that she came in very, very sick and this infection potentially could progress to cause much more severe medical problems and even loss of more of her foot or her leg or even life if it were to progress significantly more. I talked to her about maintaining as much tissue as possible to allow her balance consistent with soft tissue coverage, which is going to be somewhat of a challenge given the extent of her infection. All her questions were answered through her brother acting as an salesperson pian[employer] and organs and she wishes to proceed with surgical evaluation and treatment of the transmetatarsal amputation. OPERATIVE TECHNIQUE: The patient was identified, procedure verified, patient placed in the supine position on the operating table. After adequate amounts of general endotracheal anesthesia were administered, left lower extremity was prepped and draped in standard sterile fashion. Tourniquet was placed, initially was not inflated, but after timeout was performed, the patient and procedure identified and verified. The procedure was started and incision was made at the base of her toes initially and she did have good bleeding tissue noted. The tourniquet was then inflated to 250 mmHg on her left thigh and initially a fishmouth incision was made over the lateral aspect of the foot encompassing the necrotic tissue distally. There was significant necrotic tissue over the lateral aspect of the fifth metatarsal bone, third toe again was necrotic. There was significant purulent discharge from the forefoot and that tissue was removed entirely with the phalanges of the toes. There was some proximally tracking necrotic tissue as well, particularly in the area of the flexor hallucis longus and related tendon sheaths that area was now cleaned up and any necrosed tissue with tendons were removed. No proximal tracking of purulence was noted; however coverage would not allow preservation of the metatarsal heads, therefore, dissection was carried back raising large skin and subcutaneous flaps dorsally and plantarly and the saw was used to divide the metatarsals approximately at their mid point and this location chosen to eliminate the necrotic tissue in between the metatarsals and plantarly. The bony edges ____. Bleeding points were controlled by electrocautery and given the potential tracking up the flexor hallucis longus and related tendon sheaths and evaluating the tissue where there was a significant plantar opening previously decided to provisionally close the area over a wound VAC with foam up into the flexor hallucis longus sheath area. Thorough irrigation was first carried out. However, to flush out any contaminants in the area, the tourniquet was let down to ensure bleeding points were controlled by electrocautery and tissue flaps were trimmed to allow again provisional closure, although there was some excess tissue along the medial aspect of the foot, I allowed to preserve that as although the transcutaneous oxygen measurement appeared to be adequate to heal the transmetatarsal amputation site, some of the skin was mildly at risk due to the previous infection and therefore want to preserve as much skin as possible in case the distal aspect of flaps did not survive to avoid more significant tissue coverage challenges. Therefore, the area was slightly closed with a [id number] trauma suture with nylon starting from the lateral aspect of the foot and again the area of granulation tissue medial plantar was quite next to the area where I put the foam up the flexor hallucis longus sheath and attached a wound VAC in this area as well as also the loosely closed distal wound. Excellent suction was obtained. The specimen was sent for pathological evaluation. Cultures were not obtained at this point as she was on antibiotics for an extended period of time previously. She was extubated and sent to recovery room in stable condition having tolerated the procedure well. NERI SANCHES MD DR: NIMCO/irais JOB#: [id number] / [id number]
[2016-12-08] MEDS: INSULIN DETEMIR 300 UNITS/3 ML INSULN.PEN. SQ SCH (21:16)
[2016-12-08] MEDS: OXYCODONE/APAP 5/325 TABLET. PO PRN (23:03)
[2016-12-09] VITALS (8 sets, daily range): BP systolic 79–110; BP diastolic 45–71
[2016-12-09 05:36] LABS: BASO # 0.1 x10^3/uL (0.0-0.2); BASO % 0 % (0-3); EOS % 1 % (0-3); HEMOGLOBIN 7.5 g/dL (12.0-15.5); LYMPH # 3.1 x10^3/uL (1.0-4.8); LYMPH % 21 % (24-48); MEAN CORPUSCULAR HEMOGLOBIN 29 pg (25-35); MEAN CORPUSCULAR HGB CONC 33 g/dL (31-37); MEAN CORPUSCULAR VOLUME 88 fL (79-100); MONO % 7 % (0-9); NEUT % 71 % (31-73); PLATELET COUNT 436 x10^3/uL (140-400); RED BLOOD COUNT 2.63 x10^6/uL (3.50-5.40); RED CELL DISTRIBUTION WIDTH 15.5 % (11.5-14.5); WHITE BLOOD COUNT 14.9 x10^3/uL (4.0-11.0)
[2016-12-09] MEDS: PIPERACILLIN/TAZOBACTAM 3.375 GM in IV NORMAL SALINE 50ML 50 ML IV SCH ×4 (05:41→23:07)
[2016-12-09] MEDS: MORPHINE SULFATE 2 MG/ML DISP.SYRIN. IV PRN ×3 (05:41→16:25)
[2016-12-09 05:57] LABS: CALCIUM 7.8 mg/dL (8.5-10.1); CREATININE 1.3 mg/dL (0.6-1.0); GFR 45.4; POTASSIUM 3.5 mmol/L (3.5-5.1)
[2016-12-09 07:38] LABS: % BASOS 1 % (0-3)
[2016-12-09 07:39] LABS: PLT ESTIMATE ADEQUATE (ADEQUATE)
[2016-12-09] MEDS: METOCLOPRAMIDE HCL 10 MG/10 ML SOLUTION. PO SCH ×4 (07:52→21:47)
[2016-12-09] MEDS: LACTOBACILLUS ACIDOPH & BULGAR 1 TABLET. PO SCH ×3 (07:53→16:20)
[2016-12-09] MEDS: PANTOPRAZOLE 40 MG TABLET. PO SCH (07:53)
[2016-12-09] MEDS ORDERED: POTASSIUM CHLORIDE 20 MEQ/15 ML ORAL LIQUID. PEG SCH (08:00)
[2016-12-09] MEDS: INSULIN ASPART 300 UNITS/3 ML INSULN.PEN SQ SCH ×7 (08:00→21:54)
--- NOTE | 2016-12-09 15:04 | PDOC ---
PROGRESS NOTES Chief Complaint Chief Complaint dka. improved Hgba1c 16.7 DM gastroparesis symptoms Left diabetic foot infection. Group B strep/Staph -s/p I and D. 12/01. 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 Peripheral neuropathy Anemia - Gastroparesis - Coffee ground emesis, remote now - HTN History of Present Illness History of Present Illness K critically low today BS tends to run low in the early AM NO pain Asks about sx PLAN: Getting kCl 80 IV now Recheck CBC, bmp and mag baron AM K has been running low past 3 days, - pt on high odes insulin STart 40 PO BID supplements SOme vomtiing too last night - likely gastroparesis - hgba1c was 16 - can work this up, perhaps GET after the toe issues Vitals Vitals Vital Signs Date Time Temp Pulse Resp B/P Pulse Ox O2 Delivery O2 Flow Rate FiO2 12/09/16 12:18 Room Air 12/09/16 11:00 97.8 90 20 93/57 99 97.8 12/09/16 05:41 10.0 Physical Exam General: Alert, Oriented X3, Cooperative, No acute distress Heart: Normal S1, Normal S2, Other (Mild tachycardia) Lungs: Clear Abdomen: Normal bowel sounds, Soft Extremities: No cyanosis, No edema, Other (Necrotizing fasciitis of L foot, wound vac in place; R toe amputation) Skin: Other (See extremities above) Labs LABS Laboratory Tests Test 12/08/16 16:53 12/08/16 20:44 12/09/16 04:39 12/09/16 07:50 Glucose (Fingerstick) 286mg/dL (70-99) 280mg/dL (70-99) 262mg/dL (70-99) White Blood Count 14.9x10^3/uL (4.0-11.0) Red Blood Count 2.63x10^6/uL (3.50-5.40) Hemoglobin 7.5g/dL (12.0-15.5) Hematocrit 23.0% (36.0-47.0) Mean Corpuscular Volume 88fL (79-100) Mean Corpuscular Hemoglobin 29pg (25-35) Mean Corpuscular Hemoglobin Concent 33g/dL (31-37) Red Cell Distribution Width 15.5% (11.5-14.5) Platelet Count 436x10^3/uL (140-400) Neutrophils (%) (Auto) 71% (31-73) Lymphocytes (%) (Auto) 21% (24-48) Monocytes (%) (Auto) 7% (0-9) Eosinophils (%) (Auto) 1% (0-3) Basophils (%) (Auto) 0% (0-3) Neutrophils # (Auto) 10.6x10^3uL (1.8-7.7) Lymphocytes # (Auto) 3.1x10^3/uL (1.0-4.8) Monocytes # (Auto) 1.1x10^3/uL (0.0-1.1) Eosinophils # (Auto) 0.1x10^3/uL (0.0-0.7) Basophils # (Auto) 0.1x10^3/uL (0.0-0.2) Segmented Neutrophils % 59% (35-66) Band Neutrophils % 1% (0-9) Lymphocytes % 33% (24-48) Atypical Lymphocytes % (Manual) 3% (0-0) Monocytes % 3% (0-10) Basophils % 1% (0-3) Platelet Estimate Adequate (ADEQUATE) Sodium Level 140mmol/L (136-145) Potassium Level 3.5mmol/L (3.5-5.1) Chloride Level 105mmol/L (98-107) Carbon Dioxide Level 26mmol/L (21-32) Anion Gap 9 (6-14) Blood Urea Nitrogen 7mg/dL (7-20) Creatinine 1.3mg/dL (0.6-1.0) Estimated GFR (Cockcroft-Gault) 45.4 Glucose Level 247mg/dL (70-99) Calcium Level 7.8mg/dL (8.5-10.1) Magnesium Level 1.8mg/dL (1.8-2.4) Test 12/09/16 11:45 Glucose (Fingerstick) 68mg/dL (70-99) Assessment and Plan Assessmemt and Plan decrease Lantus to 12, FSBS 68 this AM, cont other, Problems Medical Problems: (1) Back pain Status: Acute (2) Diabetic ketoacidosis Status: Acute Problems: Comment Review of Relevant I have reviewed the following items gem (where applicable) has been applied. Labs Laboratory Tests Test 1/26/17 16:34 12/07/16 21:30 12/07/16 23:53 12/08/16 01:14 Glucose (Fingerstick) 329mg/dL (70-99) 99mg/dL (70-99) 321mg/dL (70-99) 284mg/dL (70-99) Test 12/08/16 04:00 12/08/16 07:53 12/08/16 10:03 12/08/16 13:58 Sodium Level 141mmol/L (136-145) Potassium Level 2.6mmol/L (3.5-5.1) Chloride Level 106mmol/L (98-107) Carbon Dioxide Level 27mmol/L (21-32) Anion Gap 8 (6-14) Blood Urea Nitrogen 6mg/dL (7-20) Creatinine 1.4mg/dL (0.6-1.0) Estimated GFR (Cockcroft-Gault) 41.6 Glucose Level 145mg/dL (70-99) Calcium Level 8.0mg/dL (8.5-10.1) Glucose (Fingerstick) 110mg/dL (70-99) 115mg/dL (70-99) 117mg/dL (70-99) Test 12/08/16 16:53 12/08/16 20:44 12/09/16 04:39 12/09/16 07:50 Glucose (Fingerstick) 286mg/dL (70-99) 280mg/dL (70-99) 262mg/dL (70-99) White Blood Count 14.9x10^3/uL (4.0-11.0) Red Blood Count 2.63x10^6/uL (3.50-5.40) Hemoglobin 7.5g/dL (12.0-15.5) Hematocrit 23.0% (36.0-47.0) Mean Corpuscular Volume 88fL (79-100) Mean Corpuscular Hemoglobin 29pg (25-35) Mean Corpuscular Hemoglobin Concent 33g/dL (31-37) Red Cell Distribution Width 15.5% (11.5-14.5) Platelet Count 436x10^3/uL (140-400) Neutrophils (%) (Auto) 71% (31-73) Lymphocytes (%) (Auto) 21% (24-48) Monocytes (%) (Auto) 7% (0-9) Eosinophils (%) (Auto) 1% (0-3) Basophils (%) (Auto) 0% (0-3) Neutrophils # (Auto) 10.6x10^3uL (1.8-7.7) Lymphocytes # (Auto) 3.1x10^3/uL (1.0-4.8) Monocytes # (Auto) 1.1x10^3/uL (0.0-1.1) Eosinophils # (Auto) 0.1x10^3/uL (0.0-0.7) Basophils # (Auto) 0.1x10^3/uL (0.0-0.2) Segmented Neutrophils % 59% (35-66) Band Neutrophils % 1% (0-9) Lymphocytes % 33% (24-48) Atypical Lymphocytes % (Manual) 3% (0-0) Monocytes % 3% (0-10) Basophils % 1% (0-3) Platelet Estimate Adequate (ADEQUATE) Sodium Level 140mmol/L (136-145) Potassium Level 3.5mmol/L (3.5-5.1) Chloride Level 105mmol/L (98-107) Carbon Dioxide Level 26mmol/L (21-32) Anion Gap 9 (6-14) Blood Urea Nitrogen 7mg/dL (7-20) Creatinine 1.3mg/dL (0.6-1.0) Estimated GFR (Cockcroft-Gault) 45.4 Glucose Level 247mg/dL (70-99) Calcium Level 7.8mg/dL (8.5-10.1) Magnesium Level 1.8mg/dL (1.8-2.4) Test 12/09/16 11:45 Glucose (Fingerstick) 68mg/dL (70-99) Laboratory Tests Test 12/08/16 16:53 12/08/16 20:44 12/09/16 04:39 12/09/16 07:50 Glucose (Fingerstick) 286mg/dL (70-99) 280mg/dL (70-99) 262mg/dL (70-99) White Blood Count 14.9x10^3/uL (4.0-11.0) Red Blood Count 2.63x10^6/uL (3.50-5.40) Hemoglobin 7.5g/dL (12.0-15.5) Hematocrit 23.0% (36.0-47.0) Mean Corpuscular Volume 88fL (79-100) Mean Corpuscular Hemoglobin 29pg (25-35) Mean Corpuscular Hemoglobin Concent 33g/dL (31-37) Red Cell Distribution Width 15.5% (11.5-14.5) Platelet Count 436x10^3/uL (140-400) Neutrophils (%) (Auto) 71% (31-73) Lymphocytes (%) (Auto) 21% (24-48) Monocytes (%) (Auto) 7% (0-9) Eosinophils (%) (Auto) 1% (0-3) Basophils (%) (Auto) 0% (0-3) Neutrophils # (Auto) 10.6x10^3uL (1.8-7.7) Lymphocytes # (Auto) 3.1x10^3/uL (1.0-4.8) Monocytes # (Auto) 1.1x10^3/uL (0.0-1.1) Eosinophils # (Auto) 0.1x10^3/uL (0.0-0.7) Basophils # (Auto) 0.1x10^3/uL (0.0-0.2) Segmented Neutrophils % 59% (35-66) Band Neutrophils % 1% (0-9) Lymphocytes % 33% (24-48) Atypical Lymphocytes % (Manual) 3% (0-0) Monocytes % 3% (0-10) Basophils % 1% (0-3) Platelet Estimate Adequate (ADEQUATE) Sodium Level 140mmol/L (136-145) Potassium Level 3.5mmol/L (3.5-5.1) Chloride Level 105mmol/L (98-107) Carbon Dioxide Level 26mmol/L (21-32) Anion Gap 9 (6-14) Blood Urea Nitrogen 7mg/dL (7-20) Creatinine 1.3mg/dL (0.6-1.0) Estimated GFR (Cockcroft-Gault) 45.4 Glucose Level 247mg/dL (70-99) Calcium Level 7.8mg/dL (8.5-10.1) Magnesium Level 1.8mg/dL (1.8-2.4) Test 12/09/16 11:45 Glucose (Fingerstick) 68mg/dL (70-99) Microbiology 12/01/16 Blood Culture - Final, Complete NO GROWTH AFTER 5 DAYS 12/01/16 Gram Stain - Final, Complete Medications Current Medications Sodium Chloride (Iv Sodium Chloride 0.9% 1000ml Bag) 1,000 ml @ 1,000 mls/hr Q1H IV Last administered on 11/30/16 19:42; Start 11/30/16 at 19:45; Stop at 20:44; Status DC Ondansetron HCl (Zofran) 4 mg 1X ONCE IV Last administered on 11/30/16 20:08 ; Start 11/30/16 at 19:45; Stop 11/30/16 at 19:46; Status DC Ketorolac Tromethamine 10 mg 10 mg 1X ONCE IV Last administered on 11/30/16 20:08; Start 11/30/16 at 19:45; Stop 11/30/16 at 19:46; Status DC Sodium Chloride 1,000 ml @ 1,000 mls/hr Q1H IV Last administered on 11/30/16 21:11; Start 11/30/16 at 21:00; Stop 11/30/16 at 21:01; Status DC Sodium Chloride 1,000 ml @ 250 mls/hr Q4H IV Last administered on 12/01/16 01 :23; Start 11/30/16 at 22:00; Stop 12/01/16 at 07:42; Status DC Dextrose/Sodium Chloride 1,000 ml @ 250 mls/hr Q4H IV Last administered on 21:15; Start 11/30/16 at 22:00; Stop 12/01/16 at 01:37; Status DC Insulin Human Regular 150 unit/ Sodium Chloride 151.5 ml @ 0 mls/hr CONT PRN PRN IV PER PROTOCOL Last administered on 11/30/16 21:36; Start 11/30/16 at 21: 00; Stop 12/04/16 at 09:45; Status DC Potassium Chloride 100 ml @ 100 mls/hr PRN Q1HR PRN IV SEE COMMENTS; Start at 21:00; Stop 12/04/16 at 09:45; Status DC Potassium Chloride 100 ml @ 100 mls/hr PRN Q1HR PRN IV SEE COMMENTS; Start at 21:00; Stop 12/04/16 at 09:45; Status DC Potassium Chloride (KCl Premix 10meq) 100 ml @ 100 mls/hr PRN Q1HR PRN IV SEE COMMENTS Last administered on 12/03/16 10:35; Start 11/30/16 at 21:00; Stop at 09:45; Status DC Ondansetron HCl (Zofran) 4 mg PRN Q8HRS PRN IV NAUSEA/VOMITING Last administered on 12/01/16 07:54; Start 11/30/16 at 21:00; Stop 12/01/16 at 20:59 ; Status DC Fentanyl Citrate (Fentanyl 2ml Vial) 50 mcg PRN Q2HR PRN IV SEVERE PAIN Last administered on 12/01/16 00:19; Start 11/30/16 at 21:00; Stop 12/01/16 at 20:59 ; Status DC Acetaminophen 650 mg 650 mg PRN Q4HRS PRN PO FEVER; Start 11/30/16 at 21:00; Stop 12/01/16 at 20:59; Status DC Dextrose/Sodium Chloride 1,000 ml @ 250 mls/hr Q4H IV Last administered on 01:40; Start 12/01/16 at 01:45; Stop 12/01/16 at 06:18; Status DC Dextrose/Sodium Chloride (Iv D5% - 1/2 NS) 1,000 ml @ 250 mls/hr Q4H IV Last administered on 12/01/16 14:15; Start 12/01/16 at 06:15; Stop 12/01/16 at 17:17 ; Status DC Dextrose 25 gm STK-MED ONCE IV ; Start 12/01/16 at 07:48; Stop 12/01/16 at 07:49 ; Status DC Dextrose 25 gm 25 gm 1X ONCE IV Last administered on 12/01/16 07:56; Start at 08:00; Stop 12/01/16 at 08:01; Status DC Potassium Chloride (KCl Premix 10meq) 100 ml @ 100 mls/hr Q1H IV Last administered on 12/01/16 17:20; Start 12/01/16 at 11:30; Stop 12/01/16 at 15:29 ; Status DC Insulin Aspart (Novolog) 0-7 UNITS TIDWMEALS SQ Last administered on 12/04/16 08:22; Start 12/01/16 at 12:00; Stop 12/04/16 at 09:45; Status DC Dextrose 12.5 gm PRN Q15MIN PRN IV SEE COMMENTS; Start 12/01/16 at 11:30; Stop 12/04/16 at 09:56; Status DC Sevoflurane (Ultane) 60 ml STK-MED ONCE IH ; Start 12/01/16 at 12:40; Stop 12/01 at 12:41; Status DC Fentanyl Citrate 100 mcg 100 mcg STK-MED ONCE .ROUTE ; Start 12/01/16 at 12:41; Stop 12/01/16 at 12:42; Status DC Propofol (Diprivan) 20 ml @ As Directed STK-MED ONCE IV ; Start 12/01/16 at 12: 41; Stop 12/01/16 at 12:42; Status DC Ondansetron HCl (Zofran) 4 mg STK-MED ONCE .ROUTE ; Start 12/01/16 at 12:41; Stop 12/01/16 at 12:42; Status DC Dexamethasone Sodium Phosphate (Decadron) 20 mg STK-MED ONCE .ROUTE ; Start at 12:41; Stop 12/01/16 at 12:42; Status DC Lidocaine HCl 100 mg STK-MED ONCE .ROUTE ; Start 12/01/16 at 12:41; Stop at 12:42; Status DC Butorphanol Tartrate 1 mg 1 mg PRN Q6HRS PRN IV PAIN; Start 12/01/16 at 13:00 Promethazine HCl/ Sodium Chloride (Phenergan/Iv Sodium Chloride 0.9% 50ml) 51 ml @ 150.75 mls/ hr PRN Q6HRS PRN IV NAUSEA/VOMITING Last administered on 12/02 20:10; Start 12/01/16 at 13:00 Ondansetron HCl (Zofran) 4 mg PRN Q6HRS PRN IV Nausea Last administered on 12/01 13:16; Start 12/01/16 at 13:00; Stop 12/02/16 at 12:59; Status DC Fentanyl Citrate (Fentanyl 2ml Vial) 25 mcg PRN Q5MIN PRN IV MILD PAIN; Start 12/01/16 at 13:00; Stop 12/02/16 at 12:59; Status DC Fentanyl Citrate (Fentanyl 2ml Vial) 50 mcg PRN Q5MIN PRN IV MODERATE PAIN; Start 12/01/16 at 13:00; Stop 12/02/16 at 12:59; Status DC Morphine Sulfate 1 mg 1 mg PRN Q10MIN PRN IV SEVERE PAIN Last administered on t 10:30; Start 12/01/16 at 13:00; Stop 12/02/16 at 12:59; Status DC Lactated Ringer's (Iv Lactated Ringers) 1,000 ml @ 30 mls/hr Q24H IV ; Start at 13:00; Stop 12/02/16 at 00:59; Status DC Lidocaine HCl 2 ml 1X PRN PRN ID IV START; Start 12/01/16 at 13:00; Stop at 12:59; Status DC Hydromorphone HCl (Dilaudid) 0.5 mg PRN Q10MIN PRN IV SEV PAIN,Second choice; Start 12/01/16 at 13:00; Stop 12/02/16 at 12:59; Status DC Succinylcholine Chloride (Anectine) 200 mg STK-MED ONCE .ROUTE ; Start 12/01/16 at 13:05; Stop 12/01/16 at 13:06; Status DC Pantoprazole Sodium (Protonix Vial) 40 mg BIDAC IVP Last administered on t 08:16; Start 12/01/16 at 14:00; Stop 12/04/16 at 09:45; Status DC Phenylephrine HCl 1 mg STK-MED ONCE IV ; Start 12/01/16 at 13:35; Stop 12/01/16 at 13:36; Status DC Metoclopramide HCl 10 mg 10 mg STK-MED ONCE .ROUTE ; Start 12/01/16 at 13:40; Stop 12/01/16 at 13:41; Status DC Propofol (Diprivan) 20 ml @ As Directed STK-MED ONCE IV ; Start 12/01/16 at 14: 06; Stop 12/01/16 at 14:07; Status DC Vancomycin HCl (Vanco Per Pharmacy) 1 each PRN DAILY PRN MC SEE COMMENTS Last administered on 12/04/16 16:10; Start 12/01/16 at 15:00; Stop 12/05/16 at 10:22 ; Status DC Piperacillin Sod/ Tazobactam Sod 1 each 1 each PRN DAILY PRN MC SEE COMMENTS; Start 12/01/16 at 15:00; Stop 12/06/16 at 14:25; Status DC Vancomycin HCl 250 mg/Sodium Chloride 100 ml @ 100 mls/hr 1X ONCE IV Last administered on 12/01/16 16:14; Start 12/01/16 at 15:30; Stop 12/01/16 at 16:29 ; Status DC Piperacillin Sod/ Tazobactam Sod 3.375 gm/Sodium Chloride 50 ml @ 100 mls/hr Q6HRS IV Last administered on 12/09/16 12:18; Start 12/01/16 at 17:00 Vancomycin HCl/ Sodium Chloride (Iv Sodium Chloride 0.9% 250ml) 250 ml @ 250 mls/hr Q24H IV Last administered on 12/02/16 16:31; Start 12/02/16 at 15:00; Stop 12/03/16 at 16:39; Status DC Vancomycin HCl 1 each 1X ONCE MC ; Start 12/03/16 at 14:30; Stop 12/03/16 at 14 :31; Status DC Metoclopramide HCl 10 mg 10 mg Q6HRS IV Last administered on 12/04/16 05:40; Start 12/01/16 at 17:00; Stop 12/04/16 at 16:04; Status DC Sodium Chloride (Iv Sodium Chloride 0.9% 1000ml Bag) 1,000 ml @ 75 mls/hr [id number] IV Last administered on 12/02/16 16:31; Start 12/01/16 at 17:15; Stop 12/03/16 at 05:03; Status DC Insulin Aspart (Novolog) 3 units 1X PRN SQ ; Start 12/01/16 at 18:45; Status Cancel Insulin Aspart (Novolog Vial) 20 unit 1X ONCE SQ ; Start 12/02/16 at 09:00; Stop 12/02/16 at 09:00; Status Cancel Insulin Aspart (Novolog) 20 units 1X ONCE SQ Last administered on 12/02/16 09 :07; Start 12/02/16 at 09:00; Stop 12/02/16 at 09:01; Status DC Insulin Aspart (Novolog) 20 units 1X ONCE SQ ; Start 12/02/16 at 09:00; Stop at 09:01; Status UNV Potassium Chloride (Klor-Con) 40 meq 1X ONCE PO Last administered on 11:39; Start 12/02/16 at 11:15; Stop 12/02/16 at 11:16; Status DC Morphine Sulfate 2 mg PRN Q2HR PRN IV PAIN SEVERE Last administered on 11:34; Start 12/02/16 at 19:00 Ondansetron HCl 4 mg 4 mg PRN Q8HRS PRN IV NAUSEA/VOMITING 1ST CHOICE; Start at 20:15; Stop 12/04/16 at 09:45; Status DC Micafungin Sodium/ Dextrose (Mycamine) 100 ml @ 100 mls/hr QHS IV Last administered on 12/06/16 22:11; Start 12/02/16 at 23:45; Stop 12/07/16 at 10:37 ; Status DC Insulin Aspart (Novolog) 30 units 1X ONCE SQ Last administered on 12/03/16 10 :37; Start 12/03/16 at 10:30; Stop 12/03/16 at 10:31; Status DC Potassium Chloride (Klor-Con) 40 meq 1X ONCE PO Last administered on 12:01; Start 12/03/16 at 11:45; Stop 12/03/16 at 11:46; Status DC Insulin Aspart 30 units 30 units 1X ONCE SQ Last administered on 12/03/16 13: 35; Start 12/03/16 at 13:15; Stop 12/03/16 at 13:16; Status DC Vancomycin HCl/ Sodium Chloride (Iv Sodium Chloride 0.9% 250ml) 250 ml @ 250 mls/hr Q12H IV Last administered on 12/05/16 05:36; Start 12/03/16 at 17:00; Stop 12/05/16 at 10:22; Status DC Metoclopramide HCl (Reglan) 5 mg QIDACHS PO Last administered on 12/09/16 11: 31; Start 12/04/16 at 11:30 Oxycodone/ Acetaminophen (Percocet 5/325) 1 tab PRN Q4HRS PRN PO MODERATE PAIN Last administered on 12/08/16 23:03; Start 12/04/16 at 09:45 Pantoprazole Sodium (Protonix) 40 mg DAILYAC PO Last administered on 12/09/16 07:53; Start 12/05/16 at 07:30 Insulin Aspart (Novolog) 10 units TIDACHC SQ Last administered on 12/04/16 11: 34; Start 12/04/16 at 16:30; Stop 12/04/16 at 16:30; Status DC Insulin Detemir (Levemir) 35 units QHS SQ Last administered on 12/06/16 22:24 ; Start 12/04/16 at 21:00; Stop 12/07/16 at 22:08; Status DC Insulin Aspart (Novolog) 0-9 UNITS TIDWMEALS SQ Last administered on 12/09/16 08:01; Start 12/04/16 at 12:00 Dextrose 12.5 gm PRN Q15MIN PRN IV SEE COMMENTS Last administered on 12/06/16 09:34; Start 12/04/16 at 09:45 Ondansetron HCl (Zofran) 4 mg PRN Q6HRS PRN IV NAUSEA/VOMITING 1ST CHOICE Last administered on 12/07/16 23:57; Start 12/04/16 at 20:15 Pantoprazole Sodium (Protonix) 40 mg DAILYAC PO ; Start 12/05/16 at 07:30; Status Cancel Insulin Aspart (Novolog) 15 units TIDACHC SQ Last administered on 12/09/16 08: 00; Start 12/04/16 at 16:30 Insulin Aspart (Novolog) 15 units 1X ONCE SQ Last administered on 12/04/16 21 :14; Start 12/04/16 at 21:00; Stop 12/04/16 at 21:01; Status DC Insulin Aspart (Novolog) 25 units 1X ONCE SQ Last administered on 12/04/16 22 :46; Start 12/04/16 at 23:00; Stop 12/04/16 at 23:01; Status DC Insulin Aspart (Novolog) 18 units 1X ONCE SQ Last administered on 12/06/16 22 :23; Start 12/06/16 at 21:45; Stop 12/06/16 at 21:46; Status DC Potassium Chloride 80 meq 80 meq 1X ONCE PO Last administered on 12/07/16 06: 27; Start 12/07/16 at 06:30; Stop 12/07/16 at 06:31; Status DC Sodium Chloride (Iv Sodium Chloride 0.9% 1000ml Bag) 1,000 ml @ 125 mls/hr 1X ONCE IV Last administered on 12/07/16 11:10; Start 12/07/16 at 10:45; Stop at 18:44; Status DC Ondansetron HCl (Zofran) 4 mg PRN Q6HRS PRN IV Nausea; Start 12/08/16 at 07:00 ; Stop 12/09/16 at 06:59; Status DC Fentanyl Citrate (Fentanyl 2ml Vial) 25 mcg PRN Q5MIN PRN IV MILD PAIN; Start 12/08/16 at 07:00; Stop 12/09/16 at 06:59; Status DC Fentanyl Citrate (Fentanyl 2ml Vial) 50 mcg PRN Q5MIN PRN IV MODERATE PAIN; Start 12/08/16 at 07:00; Stop 12/09/16 at 06:59; Status DC Morphine Sulfate 1 mg 1 mg PRN Q10MIN PRN IV SEVERE PAIN; Start 12/08/16 at 07: 00; Stop 12/09/16 at 06:59; Status DC Lactated Ringer's (Iv Lactated Ringers) 1,000 ml @ 30 mls/hr Q24H IV Last administered on 12/08/16 14:00; Start 12/08/16 at 07:00; Stop 12/08/16 at 18:59 ; Status DC Lidocaine HCl 2 ml 1X PRN PRN ID IV START; Start 12/08/16 at 07:00; Stop at 06:59; Status DC Hydromorphone HCl (Dilaudid) 0.5 mg PRN Q10MIN PRN IV SEVERE PAIN, Second choice; Start 12/08/16 at 07:00; Stop 12/09/16 at 06:59; Status DC Prochlorperazine Edisylate (Compazine) 5 mg PACU PRN PRN IV NAUSEA; Start 12/08 at 07:00; Stop 12/09/16 at 06:59; Status DC Insulin Detemir (Levemir) 15 units QHS SQ ; Start 12/08/16 at 21:00; Stop at 21:00; Status DC Insulin Detemir 15 units 15 units QHS SQ Last administered on 12/08/16 21:16; Start 12/07/16 at 22:15 Potassium Chloride (KCl Premix 10meq) 100 ml @ 100 mls/hr Q1H IV Last administered on 12/08/16 20:16; Start 12/08/16 at 06:30; Stop 12/08/16 at 14:29 ; Status DC Lactobacillus Acidophilus (Bacid, Vicky-Bid) 1 tab TIDWMEALS PO Last administered on 12/09/16 12:18; Start 12/08/16 at 09:00 Potassium Chloride 40 meq 40 meq BIDWMEALS PO ; Start 12/08/16 at 10:00; Stop at 19:12; Status DC Propofol (Diprivan) 20 ml @ As Directed STK-MED ONCE IV ; Start 12/08/16 at 11: 40; Stop 12/08/16 at 11:41; Status DC Lidocaine HCl 100 mg STK-MED ONCE .ROUTE ; Start 12/08/16 at 11:40; Stop at 11:41; Status DC Fentanyl Citrate (Fentanyl 2ml Vial) 100 mcg STK-MED ONCE .ROUTE ; Start at 11:40; Stop 12/08/16 at 11:41; Status DC Dexamethasone Sodium Phosphate (Decadron) 20 mg STK-MED ONCE .ROUTE ; Start at 12:20; Stop 12/08/16 at 12:21; Status DC Sevoflurane (Ultane) 60 ml STK-MED ONCE IH ; Start 12/08/16 at 12:20; Stop 12/08 at 12:21; Status DC Phenylephrine HCl 1 mg STK-MED ONCE IV ; Start 12/08/16 at 12:21; Stop 12/08/16 at 12:22; Status DC Ondansetron HCl (Zofran) 4 mg STK-MED ONCE .ROUTE ; Start 12/08/16 at 12:44; Stop 12/08/16 at 12:45; Status DC Phenylephrine HCl 1 mg STK-MED ONCE IV ; Start 12/08/16 at 13:33; Stop 12/08/16 at 13:34; Status DC Potassium Chloride (KCl Oral Soln) 40 meq BIDWMEALS PEG Last administered on t 07:52; Start 12/09/16 at 08:00 Active Scripts Active Pantoprazole Sodium 40 Mg Tablet.dr 40 Mg PO DAILYAC Oxycodone-Acetaminophen 5-325 (Oxycodone Hcl/Acetaminophen) 1 Each Tablet 1 Tab PO PRN Q4HRS PRN Metoclopramide Hcl 10 Mg/10 Ml Solution 5 Mg PO QIDACHS Amox Tr-K Clv 875-125 Mg Tab (Amoxicillin/Potassium Clav) 1 Each Tablet 1 Tab PO BID Reported Levemir (Insulin Detemir) 100 Unit/1 Ml Vial 35 Unit SQ HS Novolog (Insulin Aspart) 100 Unit/1 Ml Cartridge 10 Unit SQ TIDAC Vitals/I & O Vital Sign - Last 24 Hours 12/08/16 12/08/16 12/08/16 12/08/16 15:10 15:20 15:30 15:40 Temp 97.9 97.9 98.1 98.1 97.9 97.9 98.1 98.1 Pulse 94 94 99 102 Resp 20 20 20 20 B/P 113/70 106/70 131/89 121/80 Pulse Ox 99 99 98 97 O2 Delivery Room Air Room Air Room Air Room Air 12/08/16 12/08/16 12/08/16 12/08/16 16:00 16:30 19:00 20:00 Temp 98.1 97.9 97.9 98.1 97.9 97.9 Pulse 94 94 107 Resp 20 20 18 B/P 125/77 119/78 119/80 Pulse Ox 99 99 95 O2 Delivery Room Air Room Air Room Air Mask O2 Flow Rate 10.0 12/08/16 12/08/16 12/08/16 12/09/16 23:03 23:05 23:53 03:00 Temp 97.9 97.9 97.9 97.9 Pulse 96 86 Resp 18 18 B/P 109/68 106/66 Pulse Ox 98 100 O2 Delivery Room Air Room Air Room Air Room Air 12/09/16 12/09/16 12/09/16 12/09/16 05:41 07:00 07:40 11:00 Temp 97.8 97.8 97.8 97.8 Pulse 88 90 Resp 16 20 B/P 110/71 93/57 Pulse Ox 100 95 99 O2 Delivery Room Air Room Air Room Air O2 Flow Rate 10.0 12/09/16 12/09/16 11:34 12:18 O2 Delivery Room Air Room Air Intake and Output 12/08/16 12/08/16 12/09/16 15:00 23:00 07:00 Intake Total 1400 ml 600 ml Output Total 0 ml Balance 1400 ml 0 ml 600 ml MARILU CONTEH MD Dec 09, 2016 15:04
[2016-12-09] MEDS ORDERED: MAGNESIUM SULFATE 2GM 50 ML IV ONE (15:30)
--- NOTE | 2016-12-09 15:45 | PDOC ---
Infectious Disease Note Subjective Subjective Doing ok. No pain ROS ROS GEN: Denies fevers, chills, sweats CV: Denies chest pain RESP: Denies shortness of air, cough GI: Denies n/v/d Vital Sign Vital Signs Vital Signs Date Time Temp Pulse Resp B/P Pulse Ox O2 Delivery O2 Flow Rate FiO2 12/09/16 12:18 Room Air 12/09/16 11:00 97.8 90 20 93/57 99 97.8 12/09/16 05:41 10.0 Physical Exam PHYSICAL EXAM GENERAL: Lying down, NAD HEENT: Oral cavity clear LUNGS: Clear HEART: S1S2, no gallop, no murmur ABD: Soft, NT EXT: No edema, no cyanosis. Left foot wound vac in place [employer]: Alert, oriented x 3, no focal neurologic deficit SKIN: No rash IV: ok Labs Lab Laboratory Tests Test 12/08/16 16:53 12/08/16 20:44 12/09/16 04:39 12/09/16 07:50 Glucose (Fingerstick) 286mg/dL (70-99) 280mg/dL (70-99) 262mg/dL (70-99) White Blood Count 14.9x10^3/uL (4.0-11.0) Red Blood Count 2.63x10^6/uL (3.50-5.40) Hemoglobin 7.5g/dL (12.0-15.5) Hematocrit 23.0% (36.0-47.0) Mean Corpuscular Volume 88fL (79-100) Mean Corpuscular Hemoglobin 29pg (25-35) Mean Corpuscular Hemoglobin Concent 33g/dL (31-37) Red Cell Distribution Width 15.5% (11.5-14.5) Platelet Count 436x10^3/uL (140-400) Neutrophils (%) (Auto) 71% (31-73) Lymphocytes (%) (Auto) 21% (24-48) Monocytes (%) (Auto) 7% (0-9) Eosinophils (%) (Auto) 1% (0-3) Basophils (%) (Auto) 0% (0-3) Neutrophils # (Auto) 10.6x10^3uL (1.8-7.7) Lymphocytes # (Auto) 3.1x10^3/uL (1.0-4.8) Monocytes # (Auto) 1.1x10^3/uL (0.0-1.1) Eosinophils # (Auto) 0.1x10^3/uL (0.0-0.7) Basophils # (Auto) 0.1x10^3/uL (0.0-0.2) Segmented Neutrophils % 59% (35-66) Band Neutrophils % 1% (0-9) Lymphocytes % 33% (24-48) Atypical Lymphocytes % (Manual) 3% (0-0) Monocytes % 3% (0-10) Basophils % 1% (0-3) Platelet Estimate Adequate (ADEQUATE) Sodium Level 140mmol/L (136-145) Potassium Level 3.5mmol/L (3.5-5.1) Chloride Level 105mmol/L (98-107) Carbon Dioxide Level 26mmol/L (21-32) Anion Gap 9 (6-14) Blood Urea Nitrogen 7mg/dL (7-20) Creatinine 1.3mg/dL (0.6-1.0) Estimated GFR (Cockcroft-Gault) 45.4 Glucose Level 247mg/dL (70-99) Calcium Level 7.8mg/dL (8.5-10.1) Magnesium Level 1.8mg/dL (1.8-2.4) Test 12/09/16 11:45 Glucose (Fingerstick) 68mg/dL (70-99) Objective Assessment KATHLEEN - better Left diabetic foot infection. Group B strep/Staph MSSA -s/p I and D. 12/01. Intra-op MSSA & group B strep. + yeast on GS. s/p TM amp, 12/08. + wound vac DM Leukocytosis. stable Peripheral neuropathy Anemia Plan Plan of Care Cont Zosyn Probiotics Attending Co-Sign The patient was seen and interviewed as well as examined at the bedside. The chart was reviewed. The case was discussed. Agree with the plan of care. seen on 12/09 FABIOLA EATON APRN Dec 09, 2016 15:45 ANNE MARIE SPRINGER MD Dec 10, 2016 12:05
[2016-12-09] MEDS ORDERED: INSULIN DETEMIR 300 UNITS/3 ML INSULN.PEN. SQ SCH (21:00)
[2016-12-09] MEDS: OXYCODONE/APAP 5/325 TABLET. PO PRN (23:07)
[2016-12-10] VITALS (7 sets, daily range): BP systolic 89–100; BP diastolic 56–72
[2016-12-10] MEDS: PIPERACILLIN/TAZOBACTAM 3.375 GM in IV NORMAL SALINE 50ML 50 ML IV SCH ×4 (06:17→23:14)
[2016-12-10] MEDS: MORPHINE SULFATE 2 MG/ML DISP.SYRIN. IV PRN ×4 (07:30→21:42)
[2016-12-10] MEDS: INSULIN ASPART 300 UNITS/3 ML INSULN.PEN SQ SCH ×7 (07:30→21:47)
[2016-12-10] MEDS: PANTOPRAZOLE 40 MG TABLET. PO SCH (07:50)
[2016-12-10] MEDS: METOCLOPRAMIDE HCL 10 MG/10 ML SOLUTION. PO SCH ×4 (07:50→21:41)
[2016-12-10] MEDS: LACTOBACILLUS ACIDOPH & BULGAR 1 TABLET. PO SCH ×3 (07:54→16:21)
[2016-12-10] MEDS: POTASSIUM CHLORIDE 20 MEQ/15 ML ORAL LIQUID. PEG SCH (07:55)
--- NOTE | 2016-12-10 09:49 | PDOC ---
Infectious Disease Note Subjective Subjective Doing ok. No pain ROS ROS GEN: Denies fevers, chills, sweats CV: Denies chest pain RESP: Denies shortness of air, cough GI: Denies n/v/d Vital Sign Vital Signs Vital Signs Date Time Temp Pulse Resp B/P Pulse Ox O2 Delivery O2 Flow Rate FiO2 12/10/16 09:31 Room Air 12/10/16 09:12 90 94/58 99 12/10/16 07:21 97.0 18 97.0 Physical Exam PHYSICAL EXAM GENERAL: Lying down, NAD HEENT: Oral cavity clear LUNGS: Clear HEART: S1S2, no gallop, no murmur ABD: Soft, NT EXT: No edema, no cyanosis. Left foot bandaged, wound vac off. 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 Group B strep/Staph MSSA -s/p I and D. 12/01. Intra-op MSSA & group B strep. + yeast on GS. s/p TM amp, 12/08. + wound vac DM Leukocytosis. stable Peripheral neuropathy Anemia Plan Plan of Care Cont Zosyn Probiotics Attending Co-Sign The patient was seen and interviewed as well as examined at the bedside. The chart was reviewed. The case was discussed. Agree with the plan of care. FABIOLA EATON APRN Dec 10, 2016 09:49 ANNE MARIE SPRINGER MD Dec 10, 2016 12:06
--- NOTE | 2016-12-10 12:52 | PDOC ---
PROGRESS NOTES Chief Complaint Chief Complaint dka. improved Hgba1c 16.7 DM gastroparesis symptoms Left diabetic foot infection. Group B strep/Staph -s/p I and D. 12/01. 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 Peripheral neuropathy Anemia - Gastroparesis - Coffee ground emesis, remote now - HTN History of Present Illness History of Present Illness Accidentally wound vac off now happened last night TEnds to run hypoglycemic in AM THE rest of the day BS are on the normal to high side NO fevers, no whte ct HAs medicaid pending ON iV Antibiotics SO far no emesis nausea reports today PLAN MIght need to sec levemir qhs or give midnight snack Reapply wound vac SW for dc planning - wound vac, IV antibiotic no insurance PT/OT Dw family too at bedside Vitals Vitals Vital Signs Date Time Temp Pulse Resp B/P Pulse Ox O2 Delivery O2 Flow Rate FiO2 12/10/16 11:00 97.8 60 18 96/60 98 Room Air 97.8 Physical Exam General: Alert, Oriented X3, Cooperative, No acute distress Heart: Normal S1, Normal S2, Other (Mild tachycardia) Lungs: Clear Abdomen: Normal bowel sounds, Soft Extremities: No cyanosis, No edema, Other (Necrotizing fasciitis of L foot, wound vac in place; R toe amputation) Skin: Other (See extremities above) Labs LABS Laboratory Tests Test 12/09/16 16:20 12/09/16 21:29 12/10/16 07:25 12/10/16 10:59 Glucose (Fingerstick) 346mg/dL (70-99) 211mg/dL (70-99) 90mg/dL (70-99) 199mg/dL (70-99) Assessment and Plan Assessmemt and Plan Problems Medical Problems: (1) Back pain Status: Acute (2) Diabetic ketoacidosis Status: Acute Problems: Comment Review of Relevant I have reviewed the following items gem (where applicable) has been applied. Labs Laboratory Tests Test 12/08/16 13:58 12/08/16 16:53 12/08/16 20:44 12/09/16 04:39 Glucose (Fingerstick) 117mg/dL (70-99) 286mg/dL (70-99) 280mg/dL (70-99) White Blood Count 14.9x10^3/uL (4.0-11.0) Red Blood Count 2.63x10^6/uL (3.50-5.40) Hemoglobin 7.5g/dL (12.0-15.5) Hematocrit 23.0% (36.0-47.0) Mean Corpuscular Volume 88fL (79-100) Mean Corpuscular Hemoglobin 29pg (25-35) Mean Corpuscular Hemoglobin Concent 33g/dL (31-37) Red Cell Distribution Width 15.5% (11.5-14.5) Platelet Count 436x10^3/uL (140-400) Neutrophils (%) (Auto) 71% (31-73) Lymphocytes (%) (Auto) 21% (24-48) Monocytes (%) (Auto) 7% (0-9) Eosinophils (%) (Auto) 1% (0-3) Basophils (%) (Auto) 0% (0-3) Neutrophils # (Auto) 10.6x10^3uL (1.8-7.7) Lymphocytes # (Auto) 3.1x10^3/uL (1.0-4.8) Monocytes # (Auto) 1.1x10^3/uL (0.0-1.1) Eosinophils # (Auto) 0.1x10^3/uL (0.0-0.7) Basophils # (Auto) 0.1x10^3/uL (0.0-0.2) Segmented Neutrophils % 59% (35-66) Band Neutrophils % 1% (0-9) Lymphocytes % 33% (24-48) Atypical Lymphocytes % (Manual) 3% (0-0) Monocytes % 3% (0-10) Basophils % 1% (0-3) Platelet Estimate Adequate (ADEQUATE) Sodium Level 140mmol/L (136-145) Potassium Level 3.5mmol/L (3.5-5.1) Chloride Level 105mmol/L (98-107) Carbon Dioxide Level 26mmol/L (21-32) Anion Gap 9 (6-14) Blood Urea Nitrogen 7mg/dL (7-20) Creatinine 1.3mg/dL (0.6-1.0) Estimated GFR (Cockcroft-Gault) 45.4 Glucose Level 247mg/dL (70-99) Calcium Level 7.8mg/dL (8.5-10.1) Magnesium Level 1.8mg/dL (1.8-2.4) Test 12/09/16 07:50 12/09/16 11:45 12/09/16 16:20 12/09/16 21:29 Glucose (Fingerstick) 262mg/dL (70-99) 68mg/dL (70-99) 346mg/dL (70-99) 211mg/dL (70-99) Test 12/10/16 07:25 12/10/16 10:59 Glucose (Fingerstick) 90mg/dL (70-99) 199mg/dL (70-99) Laboratory Tests Test 12/09/16 16:20 12/09/16 21:29 12/10/16 07:25 12/10/16 10:59 Glucose (Fingerstick) 346mg/dL (70-99) 211mg/dL (70-99) 90mg/dL (70-99) 199mg/dL (70-99) Microbiology 12/01/16 Blood Culture - Final, Complete NO GROWTH AFTER 5 DAYS 12/01/16 Gram Stain - Final, Complete Medications Current Medications Sodium Chloride (Iv Sodium Chloride 0.9% 1000ml Bag) 1,000 ml @ 1,000 mls/hr Q1H IV Last administered on 11/30/16 19:42; Start 11/30/16 at 19:45; Stop at 20:44; Status DC Ondansetron HCl (Zofran) 4 mg 1X ONCE IV Last administered on 11/30/16 20:08 ; Start 11/30/16 at 19:45; Stop 11/30/16 at 19:46; Status DC Ketorolac Tromethamine 10 mg 10 mg 1X ONCE IV Last administered on 11/30/16 20:08; Start 11/30/16 at 19:45; Stop 11/30/16 at 19:46; Status DC Sodium Chloride 1,000 ml @ 1,000 mls/hr Q1H IV Last administered on 11/30/16 21:11; Start 11/30/16 at 21:00; Stop 11/30/16 at 21:01; Status DC Sodium Chloride 1,000 ml @ 250 mls/hr Q4H IV Last administered on 12/01/16 01 :23; Start 11/30/16 at 22:00; Stop 12/01/16 at 07:42; Status DC Dextrose/Sodium Chloride 1,000 ml @ 250 mls/hr Q4H IV Last administered on 21:15; Start 11/30/16 at 22:00; Stop 12/01/16 at 01:37; Status DC Insulin Human Regular 150 unit/ Sodium Chloride 151.5 ml @ 0 mls/hr CONT PRN PRN IV PER PROTOCOL Last administered on 11/30/16 21:36; Start 11/30/16 at 21: 00; Stop 12/04/16 at 09:45; Status DC Potassium Chloride 100 ml @ 100 mls/hr PRN Q1HR PRN IV SEE COMMENTS; Start at 21:00; Stop 12/04/16 at 09:45; Status DC Potassium Chloride 100 ml @ 100 mls/hr PRN Q1HR PRN IV SEE COMMENTS; Start at 21:00; Stop 12/04/16 at 09:45; Status DC Potassium Chloride (KCl Premix 10meq) 100 ml @ 100 mls/hr PRN Q1HR PRN IV SEE COMMENTS Last administered on 12/03/16 10:35; Start 11/30/16 at 21:00; Stop at 09:45; Status DC Ondansetron HCl (Zofran) 4 mg PRN Q8HRS PRN IV NAUSEA/VOMITING Last administered on 12/01/16 07:54; Start 11/30/16 at 21:00; Stop 12/01/16 at 20:59 ; Status DC Fentanyl Citrate (Fentanyl 2ml Vial) 50 mcg PRN Q2HR PRN IV SEVERE PAIN Last administered on 12/01/16 00:19; Start 11/30/16 at 21:00; Stop 12/01/16 at 20:59 ; Status DC Acetaminophen 650 mg 650 mg PRN Q4HRS PRN PO FEVER; Start 11/30/16 at 21:00; Stop 12/01/16 at 20:59; Status DC Dextrose/Sodium Chloride 1,000 ml @ 250 mls/hr Q4H IV Last administered on 01:40; Start 12/01/16 at 01:45; Stop 12/01/16 at 06:18; Status DC Dextrose/Sodium Chloride (Iv D5% - 1/2 NS) 1,000 ml @ 250 mls/hr Q4H IV Last administered on 12/01/16 14:15; Start 12/01/16 at 06:15; Stop 12/01/16 at 17:17 ; Status DC Dextrose 25 gm STK-MED ONCE IV ; Start 12/01/16 at 07:48; Stop 12/01/16 at 07:49 ; Status DC Dextrose 25 gm 25 gm 1X ONCE IV Last administered on 12/01/16 07:56; Start at 08:00; Stop 12/01/16 at 08:01; Status DC Potassium Chloride (KCl Premix 10meq) 100 ml @ 100 mls/hr Q1H IV Last administered on 12/01/16 17:20; Start 12/01/16 at 11:30; Stop 12/01/16 at 15:29 ; Status DC Insulin Aspart (Novolog) 0-7 UNITS TIDWMEALS SQ Last administered on 12/04/16 08:22; Start 12/01/16 at 12:00; Stop 12/04/16 at 09:45; Status DC Dextrose 12.5 gm PRN Q15MIN PRN IV SEE COMMENTS; Start 12/01/16 at 11:30; Stop 12/04/16 at 09:56; Status DC Sevoflurane (Ultane) 60 ml STK-MED ONCE IH ; Start 12/01/16 at 12:40; Stop 12/01 at 12:41; Status DC Fentanyl Citrate 100 mcg 100 mcg STK-MED ONCE .ROUTE ; Start 12/01/16 at 12:41; Stop 12/01/16 at 12:42; Status DC Propofol (Diprivan) 20 ml @ As Directed STK-MED ONCE IV ; Start 12/01/16 at 12: 41; Stop 12/01/16 at 12:42; Status DC Ondansetron HCl (Zofran) 4 mg STK-MED ONCE .ROUTE ; Start 12/01/16 at 12:41; Stop 12/01/16 at 12:42; Status DC Dexamethasone Sodium Phosphate (Decadron) 20 mg STK-MED ONCE .ROUTE ; Start at 12:41; Stop 12/01/16 at 12:42; Status DC Lidocaine HCl 100 mg STK-MED ONCE .ROUTE ; Start 12/01/16 at 12:41; Stop at 12:42; Status DC Butorphanol Tartrate 1 mg 1 mg PRN Q6HRS PRN IV MILD - MODERATE PAIN; Start at 13:00 Promethazine HCl/ Sodium Chloride (Phenergan/Iv Sodium Chloride 0.9% 50ml) 51 ml @ 150.75 mls/ hr PRN Q6HRS PRN IV NAUSEA/VOMITING Last administered on 12/02 20:10; Start 12/01/16 at 13:00 Ondansetron HCl (Zofran) 4 mg PRN Q6HRS PRN IV Nausea Last administered on 12/01 13:16; Start 12/01/16 at 13:00; Stop 12/02/16 at 12:59; Status DC Fentanyl Citrate (Fentanyl 2ml Vial) 25 mcg PRN Q5MIN PRN IV MILD PAIN; Start 12/01/16 at 13:00; Stop 12/02/16 at 12:59; Status DC Fentanyl Citrate (Fentanyl 2ml Vial) 50 mcg PRN Q5MIN PRN IV MODERATE PAIN; Start 12/01/16 at 13:00; Stop 12/02/16 at 12:59; Status DC Morphine Sulfate 1 mg 1 mg PRN Q10MIN PRN IV SEVERE PAIN Last administered on 10:30; Start 12/01/16 at 13:00; Stop 12/02/16 at 12:59; Status DC Lactated Ringer's (Iv Lactated Ringers) 1,000 ml @ 30 mls/hr Q24H IV ; Start at 13:00; Stop 12/02/16 at 00:59; Status DC Lidocaine HCl 2 ml 1X PRN PRN ID IV START; Start 12/01/16 at 13:00; Stop at 12:59; Status DC Hydromorphone HCl (Dilaudid) 0.5 mg PRN Q10MIN PRN IV SEV PAIN,Second choice; Start 12/01/16 at 13:00; Stop 12/02/16 at 12:59; Status DC Succinylcholine Chloride (Anectine) 200 mg STK-MED ONCE .ROUTE ; Start 12/01/16 at 13:05; Stop 12/01/16 at 13:06; Status DC Pantoprazole Sodium (Protonix Vial) 40 mg BIDAC IVP Last administered on 08:16; Start 12/01/16 at 14:00; Stop 12/04/16 at 09:45; Status DC Phenylephrine HCl 1 mg STK-MED ONCE IV ; Start 12/01/16 at 13:35; Stop 12/01/16 at 13:36; Status DC Metoclopramide HCl 10 mg 10 mg STK-MED ONCE .ROUTE ; Start 12/01/16 at 13:40; Stop 12/01/16 at 13:41; Status DC Propofol (Diprivan) 20 ml @ As Directed STK-MED ONCE IV ; Start 12/01/16 at 14: 06; Stop 12/01/16 at 14:07; Status DC Vancomycin HCl (Vanco Per Pharmacy) 1 each PRN DAILY PRN MC SEE COMMENTS Last administered on 12/04/16 16:10; Start 12/01/16 at 15:00; Stop 12/05/16 at 10:22 ; Status DC Piperacillin Sod/ Tazobactam Sod 1 each 1 each PRN DAILY PRN MC SEE COMMENTS; Start 12/01/16 at 15:00; Stop 12/06/16 at 14:25; Status DC Vancomycin HCl 250 mg/Sodium Chloride 100 ml @ 100 mls/hr 1X ONCE IV Last administered on 12/01/16 16:14; Start 12/01/16 at 15:30; Stop 12/01/16 at 16:29 ; Status DC Piperacillin Sod/ Tazobactam Sod 3.375 gm/Sodium Chloride 50 ml @ 100 mls/hr Q6HRS IV Last administered on 12/10/16 11:55; Start 12/01/16 at 17:00 Vancomycin HCl/ Sodium Chloride (Iv Sodium Chloride 0.9% 250ml) 250 ml @ 250 mls/hr Q24H IV Last administered on 12/02/16 16:31; Start 12/02/16 at 15:00; Stop 12/03/16 at 16:39; Status DC Vancomycin HCl 1 each 1X ONCE MC ; Start 12/03/16 at 14:30; Stop 12/03/16 at 14 :31; Status DC Metoclopramide HCl 10 mg 10 mg Q6HRS IV Last administered on 12/04/16 05:40; Start 12/01/16 at 17:00; Stop 12/04/16 at 16:04; Status DC Sodium Chloride (Iv Sodium Chloride 0.9% 1000ml Bag) 1,000 ml @ 75 mls/hr [id number] IV Last administered on 12/02/16 16:31; Start 12/01/16 at 17:15; Stop 12/03/16 at 05:03; Status DC Insulin Aspart (Novolog) 3 units 1X PRN SQ ; Start 12/01/16 at 18:45; Status Cancel Insulin Aspart (Novolog Vial) 20 unit 1X ONCE SQ ; Start 12/02/16 at 09:00; Stop 12/02/16 at 09:00; Status Cancel Insulin Aspart (Novolog) 20 units 1X ONCE SQ Last administered on 12/02/16 09 :07; Start 12/02/16 at 09:00; Stop 12/02/16 at 09:01; Status DC Insulin Aspart (Novolog) 20 units 1X ONCE SQ ; Start 12/02/16 at 09:00; Stop at 09:01; Status UNV Potassium Chloride (Klor-Con) 40 meq 1X ONCE PO Last administered on 11:39; Start 12/02/16 at 11:15; Stop 12/02/16 at 11:16; Status DC Morphine Sulfate 2 mg PRN Q2HR PRN IV PAIN SEVERE Last administered on 09:31; Start 12/02/16 at 19:00 Ondansetron HCl 4 mg 4 mg PRN Q8HRS PRN IV NAUSEA/VOMITING 1ST CHOICE; Start at 20:15; Stop 12/04/16 at 09:45; Status DC Micafungin Sodium/ Dextrose (Mycamine) 100 ml @ 100 mls/hr QHS IV Last administered on 12/06/16 22:11; Start 12/02/16 at 23:45; Stop 12/07/16 at 10:37 ; Status DC Insulin Aspart (Novolog) 30 units 1X ONCE SQ Last administered on 12/03/16 10 :37; Start 12/03/16 at 10:30; Stop 12/03/16 at 10:31; Status DC Potassium Chloride (Klor-Con) 40 meq 1X ONCE PO Last administered on 12:01; Start 12/03/16 at 11:45; Stop 12/03/16 at 11:46; Status DC Insulin Aspart 30 units 30 units 1X ONCE SQ Last administered on 12/03/16 13: 35; Start 12/03/16 at 13:15; Stop 12/03/16 at 13:16; Status DC Vancomycin HCl/ Sodium Chloride (Iv Sodium Chloride 0.9% 250ml) 250 ml @ 250 mls/hr Q12H IV Last administered on 12/05/16 05:36; Start 12/03/16 at 17:00; Stop 12/05/16 at 10:22; Status DC Metoclopramide HCl (Reglan) 5 mg QIDACHS PO Last administered on 12/10/16 11: 55; Start 12/04/16 at 11:30 Oxycodone/ Acetaminophen (Percocet 5/325) 1 tab PRN Q4HRS PRN PO MODERATE PAIN Last administered on 12/09/16 23:07; Start 12/04/16 at 09:45 Pantoprazole Sodium (Protonix) 40 mg DAILYAC PO Last administered on 12/10/16 07:50; Start 12/05/16 at 07:30 Insulin Aspart (Novolog) 10 units TIDACHC SQ Last administered on 12/04/16 11: 34; Start 12/04/16 at 16:30; Stop 12/04/16 at 16:30; Status DC Insulin Detemir (Levemir) 35 units QHS SQ Last administered on 12/06/16 22:24 ; Start 12/04/16 at 21:00; Stop 12/07/16 at 22:08; Status DC Insulin Aspart (Novolog) 0-9 UNITS TIDWMEALS SQ Last administered on 12/10/16 12:02; Start 12/04/16 at 12:00 Dextrose 12.5 gm PRN Q15MIN PRN IV SEE COMMENTS Last administered on 12/06/16 09:34; Start 12/04/16 at 09:45 Ondansetron HCl (Zofran) 4 mg PRN Q6HRS PRN IV NAUSEA/VOMITING 1ST CHOICE Last administered on 12/07/16 23:57; Start 12/04/16 at 20:15 Pantoprazole Sodium (Protonix) 40 mg DAILYAC PO ; Start 12/05/16 at 07:30; Status Cancel Insulin Aspart (Novolog) 15 units TIDACHC SQ Last administered on 12/10/16 12: 02; Start 12/04/16 at 16:30 Insulin Aspart (Novolog) 15 units 1X ONCE SQ Last administered on 12/04/16 21 :14; Start 12/04/16 at 21:00; Stop 12/04/16 at 21:01; Status DC Insulin Aspart (Novolog) 25 units 1X ONCE SQ Last administered on 12/04/16 22 :46; Start 12/04/16 at 23:00; Stop 12/04/16 at 23:01; Status DC Insulin Aspart (Novolog) 18 units 1X ONCE SQ Last administered on 12/06/16 22 :23; Start 12/06/16 at 21:45; Stop 12/06/16 at 21:46; Status DC Potassium Chloride 80 meq 80 meq 1X ONCE PO Last administered on 12/07/16 06: 27; Start 12/07/16 at 06:30; Stop 12/07/16 at 06:31; Status DC Sodium Chloride (Iv Sodium Chloride 0.9% 1000ml Bag) 1,000 ml @ 125 mls/hr 1X ONCE IV Last administered on 12/07/16 11:10; Start 12/07/16 at 10:45; Stop at 18:44; Status DC Ondansetron HCl (Zofran) 4 mg PRN Q6HRS PRN IV Nausea; Start 12/08/16 at 07:00 ; Stop 12/09/16 at 06:59; Status DC Fentanyl Citrate (Fentanyl 2ml Vial) 25 mcg PRN Q5MIN PRN IV MILD PAIN; Start 12/08/16 at 07:00; Stop 12/09/16 at 06:59; Status DC Fentanyl Citrate (Fentanyl 2ml Vial) 50 mcg PRN Q5MIN PRN IV MODERATE PAIN; Start 12/08/16 at 07:00; Stop 12/09/16 at 06:59; Status DC Morphine Sulfate 1 mg 1 mg PRN Q10MIN PRN IV SEVERE PAIN; Start 12/08/16 at 07: 00; Stop 12/09/16 at 06:59; Status DC Lactated Ringer's (Iv Lactated Ringers) 1,000 ml @ 30 mls/hr Q24H IV Last administered on 12/08/16 14:00; Start 12/08/16 at 07:00; Stop 12/08/16 at 18:59 ; Status DC Lidocaine HCl 2 ml 1X PRN PRN ID IV START; Start 12/08/16 at 07:00; Stop at 06:59; Status DC Hydromorphone HCl (Dilaudid) 0.5 mg PRN Q10MIN PRN IV SEVERE PAIN, Second choice; Start 12/08/16 at 07:00; Stop 12/09/16 at 06:59; Status DC Prochlorperazine Edisylate (Compazine) 5 mg PACU PRN PRN IV NAUSEA; Start 12/08 at 07:00; Stop 12/09/16 at 06:59; Status DC Insulin Detemir (Levemir) 15 units QHS SQ ; Start 12/08/16 at 21:00; Stop at 21:00; Status DC Insulin Detemir 15 units 15 units QHS SQ Last administered on 12/08/16 21:16; Start 12/07/16 at 22:15; Stop 12/09/16 at 14:57; Status DC Potassium Chloride (KCl Premix 10meq) 100 ml @ 100 mls/hr Q1H IV Last administered on 12/08/16 20:16; Start 12/08/16 at 06:30; Stop 12/08/16 at 14:29 ; Status DC Lactobacillus Acidophilus (Bacid, Vicky-Bid) 1 tab TIDWMEALS PO Last administered on 12/10/16 12:02; Start 12/08/16 at 09:00 Potassium Chloride 40 meq 40 meq BIDWMEALS PO ; Start 12/08/16 at 10:00; Stop at 19:12; Status DC Propofol (Diprivan) 20 ml @ As Directed STK-MED ONCE IV ; Start 12/08/16 at 11: 40; Stop 12/08/16 at 11:41; Status DC Lidocaine HCl 100 mg STK-MED ONCE .ROUTE ; Start 12/08/16 at 11:40; Stop at 11:41; Status DC Fentanyl Citrate (Fentanyl 2ml Vial) 100 mcg STK-MED ONCE .ROUTE ; Start at 11:40; Stop 12/08/16 at 11:41; Status DC Dexamethasone Sodium Phosphate (Decadron) 20 mg STK-MED ONCE .ROUTE ; Start at 12:20; Stop 12/08/16 at 12:21; Status DC Sevoflurane (Ultane) 60 ml STK-MED ONCE IH ; Start 12/08/16 at 12:20; Stop 12/08 at 12:21; Status DC Phenylephrine HCl 1 mg STK-MED ONCE IV ; Start 12/08/16 at 12:21; Stop 12/08/16 at 12:22; Status DC Ondansetron HCl (Zofran) 4 mg STK-MED ONCE .ROUTE ; Start 12/08/16 at 12:44; Stop 12/08/16 at 12:45; Status DC Phenylephrine HCl 1 mg STK-MED ONCE IV ; Start 12/08/16 at 13:33; Stop 12/08/16 at 13:34; Status DC Potassium Chloride (KCl Oral Soln) 40 meq BIDWMEALS PEG Last administered on 07:52; Start 12/09/16 at 08:00; Stop 12/09/16 at 14:58; Status DC Insulin Detemir (Levemir) 12 units QHS SQ Last administered on 12/09/16 21:54 ; Start 12/09/16 at 21:00 Potassium Chloride 40 meq 40 meq DAILY PEG Last administered on 12/10/16 07:55 ; Start 12/10/16 at 09:00 Magnesium Sulfate/ Dextrose (Magnesium Sulfate PREMIX 2GM) 50 ml @ 25 mls/hr 1X ONCE IV Last administered on 12/09/16 15:36; Start 12/09/16 at 15:30; Stop 12/09/16 at 17:29; Status DC Active Scripts Active Pantoprazole Sodium 40 Mg Tablet.dr 40 Mg PO DAILYAC Oxycodone-Acetaminophen 5-325 (Oxycodone Hcl/Acetaminophen) 1 Each Tablet 1 Tab PO PRN Q4HRS PRN Metoclopramide Hcl 10 Mg/10 Ml Solution 5 Mg PO QIDACHS Amox Tr-K Clv 875-125 Mg Tab (Amoxicillin/Potassium Clav) 1 Each Tablet 1 Tab PO BID Reported Levemir (Insulin Detemir) 100 Unit/1 Ml Vial 35 Unit SQ HS Novolog (Insulin Aspart) 100 Unit/1 Ml Cartridge 10 Unit SQ TIDAC Vitals/I & O Vital Sign - Last 24 Hours 12/09/16 12/09/16 12/09/16 12/09/16 15:00 16:25 19:00 19:55 Temp 97.8 97.5 97.8 97.5 Pulse 94 95 Resp 16 18 B/P 99/57 79/45 82/50 Pulse Ox 96 98 O2 Delivery Room Air Room Air Room Air 12/09/16 12/09/16 12/09/16 12/10/16 20:00 21:00 22:55 03:30 Temp 98.8 98.1 98.8 98.1 Pulse 87 94 81 Resp 20 18 B/P 87/54 91/56 96/60 Pulse Ox 99 99 O2 Delivery Room Air Room Air Room Air 12/10/16 12/10/16 12/10/16 12/10/16 07:21 07:40 09:12 09:31 Temp 97.0 97.0 Pulse 79 90 Resp 18 B/P 89/56 94/58 Pulse Ox 99 99 O2 Delivery Room Air Room Air Room Air Room Air 12/10/16 12/10/16 10:05 11:00 Temp 97.8 97.8 Pulse 60 Resp 18 B/P 96/60 Pulse Ox 98 O2 Delivery Room Air Room Air Intake and Output 12/09/16 12/09/16 12/10/16 15:00 23:00 07:00 Intake Total 250 ml Output Total 460 ml Balance -460 ml 250 ml AZEB ANDERSON MD Dec 10, 2016 12:52
[2016-12-10] MEDS: INSULIN DETEMIR 300 UNITS/3 ML INSULN.PEN. SQ SCH (21:48)
[2016-12-11] VITALS (10 sets, daily range): BP systolic 100–123; BP diastolic 63–79
[2016-12-11 05:26] LABS: HEMATOCRIT 20.3 % (36.0-47.0); HEMOGLOBIN 6.5 g/dL (12.0-15.5)
[2016-12-11 05:57] LABS: CALCIUM 8.2 mg/dL (8.5-10.1); CREATININE 1.7 mg/dL (0.6-1.0); GFR 33.3; POTASSIUM 3.8 mmol/L (3.5-5.1)
[2016-12-11] MEDS: MORPHINE SULFATE 2 MG/ML DISP.SYRIN. IV PRN ×3 (06:14→16:55)
[2016-12-11] MEDS: PIPERACILLIN/TAZOBACTAM 3.375 GM in IV NORMAL SALINE 50ML 50 ML IV SCH ×3 (06:14→17:22)
[2016-12-11] MEDS: LACTOBACILLUS ACIDOPH & BULGAR 1 TABLET. PO SCH ×3 (08:15→17:21)
[2016-12-11] MEDS: METOCLOPRAMIDE HCL 10 MG/10 ML SOLUTION. PO SCH ×4 (08:15→21:00)
[2016-12-11] MEDS: POTASSIUM CHLORIDE 20 MEQ/15 ML ORAL LIQUID. PEG SCH (08:16)
[2016-12-11] MEDS: PANTOPRAZOLE 40 MG TABLET. PO SCH (08:17)
[2016-12-11] MEDS: INSULIN ASPART 300 UNITS/3 ML INSULN.PEN SQ SCH ×7 (08:22→21:00)
--- NOTE | 2016-12-11 08:55 | PDOC ---
Infectious Disease Note Subjective Subjective Doing ok. No pain ROS ROS GEN: Denies fevers, chills, sweats HEENT: Denies blurred vision, sore throat CV: Denies chest pain RESP: Denies shortness of air, cough GI: Denies n/v/d NEURO: Denies confusion, dizziness MSK: Denies weakness, joint pain/swelling Vital Sign Vital Signs Vital Signs Date Time Temp Pulse Resp B/P Pulse Ox O2 Delivery O2 Flow Rate FiO2 12/11/16 08:13 Room Air 12/11/16 03:22 98.8 96 18 104/63 96 98.8 Physical Exam PHYSICAL EXAM GENERAL: NAD, Alert HEENT: PERRL, OC/OP NECK: Supple, no JVD, no LN LUNGS: Clear HEART: S1S2, no gallop, no murmur ABD: Soft, NT, no organomegaly, no rebound EXT: No edema, no cyanosis [employer]OR [employer]: Alert, oriented x 3, no focal neurologic deficit SKIN: No rash,, foot incision looks good, small plantar wound with foam in place IV: ok Labs Lab Laboratory Tests Test 12/10/16 10:59 12/10/16 16:15 12/10/16 21:21 12/11/16 03:25 Glucose (Fingerstick) 199mg/dL (70-99) 186mg/dL (70-99) 265mg/dL (70-99) Hemoglobin 6.5g/dL (12.0-15.5) Hematocrit 20.3% (36.0-47.0) Mean Corpuscular Hemoglobin Concent 32g/dL (31-37) Sodium Level 139mmol/L (136-145) Potassium Level 3.8mmol/L (3.5-5.1) Chloride Level 105mmol/L (98-107) Carbon Dioxide Level 25mmol/L (21-32) Anion Gap 9 (6-14) Blood Urea Nitrogen 9mg/dL (7-20) Creatinine 1.7mg/dL (0.6-1.0) Estimated GFR (Cockcroft-Gault) 33.3 Glucose Level 133mg/dL (70-99) Calcium Level 8.2mg/dL (8.5-10.1) Objective Assessment KATHLEEN - better Left diabetic foot infection. Group B strep/Staph MSSA -s/p I and D. 12/01. Intra-op MSSA & group B strep. + yeast on GS. s/p TM amp, 12/08. + wound vac DM Leukocytosis. stable Peripheral neuropathy Anemia Plan Plan of Care Cont Zosyn Probiotics will d/w dr [place] how deep this wound is ANNE MARIE SPRINGER MD Dec 11, 2016 08:55
--- NOTE | 2016-12-11 09:50 | PDOC ---
Subjective: Subjective: Per pt - no GI complaints, no bleeding. Objective: Objective: Per RN - transfusion planned, no signs of bleeding, no n/v, eating okay, BM yesterday. Vital Signs: Vital Signs Date Time Temp Pulse Resp B/P Pulse Ox O2 Delivery O2 Flow Rate FiO2 12/11/16 08:13 Room Air 12/11/16 07:00 97.9 99 16 116/79 97 97.9 Labs: Laboratory Tests Test 12/10/16 10:59 12/10/16 16:15 12/10/16 21:21 12/11/16 03:25 Glucose (Fingerstick) 199mg/dL 186mg/dL 265mg/dL Hemoglobin 6.5g/dL Hematocrit 20.3% Mean Corpuscular Hemoglobin Concent 32g/dL Sodium Level 139mmol/L Potassium Level 3.8mmol/L Chloride Level 105mmol/L Carbon Dioxide Level 25mmol/L Anion Gap 9 Blood Urea Nitrogen 9mg/dL Creatinine 1.7mg/dL Estimated GFR (Cockcroft-Gault) 33.3 Glucose Level 133mg/dL Calcium Level 8.2mg/dL Test 12/11/16 08:08 Glucose (Fingerstick) 198mg/dL PE: GEN: NAD LUNGS: CTAB HEART: RRR ABD: NABS, S/ND/NT EXTREMITY: left TMA NEURO/PSYCH: A & O 3 A/P: N/v - resolved -admitted in DKA -on Reglan susp and PPI Left foot infection s/p TMA Anemia -- Agree w/ transfusion. Continue Reglan, PPI. Will review w/ Dr. Hardin. ANTONETTE WALKER Dec 11, 2016 09:50
--- NOTE | 2016-12-11 12:57 | PDOC ---
PROGRESS NOTES Chief Complaint Chief Complaint dka. resolved Hgba1c 16.7 DM gastroparesis symptoms Left diabetic foot infection. wound cx is +Group B strep/Staph, -s/p I and D. 12/01. 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 fu with gi, ortho , ID 2. still on zosyn 3. slightly decrease insulin, now on levemir 10u qhs, 10u tid, SSI 4. ptot 5., may need wound vac back waiting for medicaid. 1u PRBC on 12/11 dvt ppx SW involved, hope to dc iv abx soon History of Present Illness History of Present Illness Accidentally wound vac off for 2 ds TEnds to run hypoglycemic in AM THE rest of the day BS are on the normal to high side NO fevers, no whte ct HAs medicaid pending ON iV Antibiotics SO far no emesis nausea reports today hb6.5 today Vitals Vitals Vital Signs Date Time Temp Pulse Resp B/P Pulse Ox O2 Delivery O2 Flow Rate FiO2 12/11/16 12:35 98.1 106 16 108/76 98.1 12/11/16 12:04 Room Air 12/11/16 11:00 98 Physical Exam General: Alert, Oriented X3, Cooperative, No acute distress Heart: Normal S1, Normal S2, Other (Mild tachycardia) Lungs: Clear Abdomen: Normal bowel sounds, Soft Extremities: No cyanosis, No edema, Other (Necrotizing fasciitis of L foot, wound vac in place; R toe amputation) Skin: Other (See extremities above) Labs LABS Laboratory Tests Test 12/10/16 16:15 12/10/16 21:21 12/11/16 03:25 12/11/16 08:08 Glucose (Fingerstick) 186mg/dL (70-99) 265mg/dL (70-99) 198mg/dL (70-99) Hemoglobin 6.5g/dL (12.0-15.5) Hematocrit 20.3% (36.0-47.0) Mean Corpuscular Hemoglobin Concent 32g/dL (31-37) Sodium Level 139mmol/L (136-145) Potassium Level 3.8mmol/L (3.5-5.1) Chloride Level 105mmol/L (98-107) Carbon Dioxide Level 25mmol/L (21-32) Anion Gap 9 (6-14) Blood Urea Nitrogen 9mg/dL (7-20) Creatinine 1.7mg/dL (0.6-1.0) Estimated GFR (Cockcroft-Gault) 33.3 Glucose Level 133mg/dL (70-99) Calcium Level 8.2mg/dL (8.5-10.1) Test 12/11/16 12:05 Glucose (Fingerstick) 80mg/dL (70-99) Review of Systems Review of Systems no fever, chills, sob or chest pain Assessment and Plan Assessmemt and Plan Problems Medical Problems: (1) Back pain Status: Acute (2) Diabetic ketoacidosis Status: Acute Problems: Comment Review of Relevant I have reviewed the following items gem (where applicable) has been applied. Labs Laboratory Tests Test 12/09/16 16:20 12/09/16 21:29 12/10/16 07:25 12/10/16 10:59 Glucose (Fingerstick) 346mg/dL (70-99) 211mg/dL (70-99) 90mg/dL (70-99) 199mg/dL (70-99) Test 12/10/16 16:15 12/10/16 21:21 12/11/16 03:25 12/11/16 08:08 Glucose (Fingerstick) 186mg/dL (70-99) 265mg/dL (70-99) 198mg/dL (70-99) Hemoglobin 6.5g/dL (12.0-15.5) Hematocrit 20.3% (36.0-47.0) Mean Corpuscular Hemoglobin Concent 32g/dL (31-37) Sodium Level 139mmol/L (136-145) Potassium Level 3.8mmol/L (3.5-5.1) Chloride Level 105mmol/L (98-107) Carbon Dioxide Level 25mmol/L (21-32) Anion Gap 9 (6-14) Blood Urea Nitrogen 9mg/dL (7-20) Creatinine 1.7mg/dL (0.6-1.0) Estimated GFR (Cockcroft-Gault) 33.3 Glucose Level 133mg/dL (70-99) Calcium Level 8.2mg/dL (8.5-10.1) Test 12/11/16 12:05 Glucose (Fingerstick) 80mg/dL (70-99) Laboratory Tests Test 12/10/16 16:15 12/10/16 21:21 12/11/16 03:25 12/11/16 08:08 Glucose (Fingerstick) 186mg/dL (70-99) 265mg/dL (70-99) 198mg/dL (70-99) Hemoglobin 6.5g/dL (12.0-15.5) Hematocrit 20.3% (36.0-47.0) Mean Corpuscular Hemoglobin Concent 32g/dL (31-37) Sodium Level 139mmol/L (136-145) Potassium Level 3.8mmol/L (3.5-5.1) Chloride Level 105mmol/L (98-107) Carbon Dioxide Level 25mmol/L (21-32) Anion Gap 9 (6-14) Blood Urea Nitrogen 9mg/dL (7-20) Creatinine 1.7mg/dL (0.6-1.0) Estimated GFR (Cockcroft-Gault) 33.3 Glucose Level 133mg/dL (70-99) Calcium Level 8.2mg/dL (8.5-10.1) Test 12/11/16 12:05 Glucose (Fingerstick) 80mg/dL (70-99) Microbiology 12/01/16 Blood Culture - Final, Complete NO GROWTH AFTER 5 DAYS 12/01/16 Gram Stain - Final, Complete Medications Current Medications Sodium Chloride (Iv Sodium Chloride 0.9% 1000ml Bag) 1,000 ml @ 1,000 mls/hr Q1H IV Last administered on 11/30/16 19:42; Start 11/30/16 at 19:45; Stop at 20:44; Status DC Ondansetron HCl (Zofran) 4 mg 1X ONCE IV Last administered on 11/30/16 20:08 ; Start 11/30/16 at 19:45; Stop 11/30/16 at 19:46; Status DC Ketorolac Tromethamine 10 mg 10 mg 1X ONCE IV Last administered on 11/30/16 20:08; Start 11/30/16 at 19:45; Stop 11/30/16 at 19:46; Status DC Sodium Chloride 1,000 ml @ 1,000 mls/hr Q1H IV Last administered on 11/30/16 21:11; Start 11/30/16 at 21:00; Stop 11/30/16 at 21:01; Status DC Sodium Chloride 1,000 ml @ 250 mls/hr Q4H IV Last administered on 12/01/16 01 :23; Start 11/30/16 at 22:00; Stop 12/01/16 at 07:42; Status DC Dextrose/Sodium Chloride 1,000 ml @ 250 mls/hr Q4H IV Last administered on 21:15; Start 11/30/16 at 22:00; Stop 12/01/16 at 01:37; Status DC Insulin Human Regular 150 unit/ Sodium Chloride 151.5 ml @ 0 mls/hr CONT PRN PRN IV PER PROTOCOL Last administered on 11/30/16 21:36; Start 11/30/16 at 21: 00; Stop 12/04/16 at 09:45; Status DC Potassium Chloride 100 ml @ 100 mls/hr PRN Q1HR PRN IV SEE COMMENTS; Start at 21:00; Stop 12/04/16 at 09:45; Status DC Potassium Chloride 100 ml @ 100 mls/hr PRN Q1HR PRN IV SEE COMMENTS; Start at 21:00; Stop 12/04/16 at 09:45; Status DC Potassium Chloride (KCl Premix 10meq) 100 ml @ 100 mls/hr PRN Q1HR PRN IV SEE COMMENTS Last administered on 12/03/16 10:35; Start 11/30/16 at 21:00; Stop at 09:45; Status DC Ondansetron HCl (Zofran) 4 mg PRN Q8HRS PRN IV NAUSEA/VOMITING Last administered on 12/01/16 07:54; Start 11/30/16 at 21:00; Stop 12/01/16 at 20:59 ; Status DC Fentanyl Citrate (Fentanyl 2ml Vial) 50 mcg PRN Q2HR PRN IV SEVERE PAIN Last administered on 12/01/16 00:19; Start 11/30/16 at 21:00; Stop 12/01/16 at 20:59 ; Status DC Acetaminophen 650 mg 650 mg PRN Q4HRS PRN PO FEVER; Start 11/30/16 at 21:00; Stop 12/01/16 at 20:59; Status DC Dextrose/Sodium Chloride 1,000 ml @ 250 mls/hr Q4H IV Last administered on 01:40; Start 12/01/16 at 01:45; Stop 12/01/16 at 06:18; Status DC Dextrose/Sodium Chloride (Iv D5% - 1/2 NS) 1,000 ml @ 250 mls/hr Q4H IV Last administered on 12/01/16 14:15; Start 12/01/16 at 06:15; Stop 12/01/16 at 17:17 ; Status DC Dextrose 25 gm STK-MED ONCE IV ; Start 12/01/16 at 07:48; Stop 12/01/16 at 07:49 ; Status DC Dextrose 25 gm 25 gm 1X ONCE IV Last administered on 12/01/16 07:56; Start at 08:00; Stop 12/01/16 at 08:01; Status DC Potassium Chloride (KCl Premix 10meq) 100 ml @ 100 mls/hr Q1H IV Last administered on 12/01/16 17:20; Start 12/01/16 at 11:30; Stop 12/01/16 at 15:29 ; Status DC Insulin Aspart (Novolog) 0-7 UNITS TIDWMEALS SQ Last administered on 12/04/16 08:22; Start 12/01/16 at 12:00; Stop 12/04/16 at 09:45; Status DC Dextrose 12.5 gm PRN Q15MIN PRN IV SEE COMMENTS; Start 12/01/16 at 11:30; Stop 12/04/16 at 09:56; Status DC Sevoflurane (Ultane) 60 ml STK-MED ONCE IH ; Start 12/01/16 at 12:40; Stop 12/01 at 12:41; Status DC Fentanyl Citrate 100 mcg 100 mcg STK-MED ONCE .ROUTE ; Start 12/01/16 at 12:41; Stop 12/01/16 at 12:42; Status DC Propofol (Diprivan) 20 ml @ As Directed STK-MED ONCE IV ; Start 12/01/16 at 12: 41; Stop 12/01/16 at 12:42; Status DC Ondansetron HCl (Zofran) 4 mg STK-MED ONCE .ROUTE ; Start 12/01/16 at 12:41; Stop 12/01/16 at 12:42; Status DC Dexamethasone Sodium Phosphate (Decadron) 20 mg STK-MED ONCE .ROUTE ; Start at 12:41; Stop 12/01/16 at 12:42; Status DC Lidocaine HCl 100 mg STK-MED ONCE .ROUTE ; Start 12/01/16 at 12:41; Stop at 12:42; Status DC Butorphanol Tartrate 1 mg 1 mg PRN Q6HRS PRN IV MILD - MODERATE PAIN; Start at 13:00 Promethazine HCl/ Sodium Chloride (Phenergan/Iv Sodium Chloride 0.9% 50ml) 51 ml @ 150.75 mls/ hr PRN Q6HRS PRN IV NAUSEA/VOMITING Last administered on 12/02t 20:10; Start 12/01/16 at 13:00 Ondansetron HCl (Zofran) 4 mg PRN Q6HRS PRN IV Nausea Last administered on 12/01 13:16; Start 12/01/16 at 13:00; Stop 12/02/16 at 12:59; Status DC Fentanyl Citrate (Fentanyl 2ml Vial) 25 mcg PRN Q5MIN PRN IV MILD PAIN; Start 12/01/16 at 13:00; Stop 12/02/16 at 12:59; Status DC Fentanyl Citrate (Fentanyl 2ml Vial) 50 mcg PRN Q5MIN PRN IV MODERATE PAIN; Start 12/01/16 at 13:00; Stop 12/02/16 at 12:59; Status DC Morphine Sulfate 1 mg 1 mg PRN Q10MIN PRN IV SEVERE PAIN Last administered on t 10:30; Start 12/01/16 at 13:00; Stop 12/02/16 at 12:59; Status DC Lactated Ringer's (Iv Lactated Ringers) 1,000 ml @ 30 mls/hr Q24H IV ; Start at 13:00; Stop 12/02/16 at 00:59; Status DC Lidocaine HCl 2 ml 1X PRN PRN ID IV START; Start 12/01/16 at 13:00; Stop at 12:59; Status DC Hydromorphone HCl (Dilaudid) 0.5 mg PRN Q10MIN PRN IV SEV PAIN,Second choice; Start 12/01/16 at 13:00; Stop 12/02/16 at 12:59; Status DC Succinylcholine Chloride (Anectine) 200 mg STK-MED ONCE .ROUTE ; Start 12/01/16 at 13:05; Stop 12/01/16 at 13:06; Status DC Pantoprazole Sodium (Protonix Vial) 40 mg BIDAC IVP Last administered on 08:16; Start 12/01/16 at 14:00; Stop 12/04/16 at 09:45; Status DC Phenylephrine HCl 1 mg STK-MED ONCE IV ; Start 12/01/16 at 13:35; Stop 12/01/16 at 13:36; Status DC Metoclopramide HCl 10 mg 10 mg STK-MED ONCE .ROUTE ; Start 12/01/16 at 13:40; Stop 12/01/16 at 13:41; Status DC Propofol (Diprivan) 20 ml @ As Directed STK-MED ONCE IV ; Start 12/01/16 at 14: 06; Stop 12/01/16 at 14:07; Status DC Vancomycin HCl (Vanco Per Pharmacy) 1 each PRN DAILY PRN MC SEE COMMENTS Last administered on 12/04/16 16:10; Start 12/01/16 at 15:00; Stop 12/05/16 at 10:22 ; Status DC Piperacillin Sod/ Tazobactam Sod 1 each 1 each PRN DAILY PRN MC SEE COMMENTS; Start 12/01/16 at 15:00; Stop 12/06/16 at 14:25; Status DC Vancomycin HCl 250 mg/Sodium Chloride 100 ml @ 100 mls/hr 1X ONCE IV Last administered on 12/01/16 16:14; Start 12/01/16 at 15:30; Stop 12/01/16 at 16:29 ; Status DC Piperacillin Sod/ Tazobactam Sod 3.375 gm/Sodium Chloride 50 ml @ 100 mls/hr Q6HRS IV Last administered on 12/11/16 12:11; Start 12/01/16 at 17:00 Vancomycin HCl/ Sodium Chloride (Iv Sodium Chloride 0.9% 250ml) 250 ml @ 250 mls/hr Q24H IV Last administered on 12/02/16 16:31; Start 12/02/16 at 15:00; Stop 12/03/16 at 16:39; Status DC Vancomycin HCl 1 each 1X ONCE MC ; Start 12/03/16 at 14:30; Stop 12/03/16 at 14 :31; Status DC Metoclopramide HCl 10 mg 10 mg Q6HRS IV Last administered on 12/04/16 05:40; Start 12/01/16 at 17:00; Stop 12/04/16 at 16:04; Status DC Sodium Chloride (Iv Sodium Chloride 0.9% 1000ml Bag) 1,000 ml @ 75 mls/hr [id number] IV Last administered on 12/02/16 16:31; Start 12/01/16 at 17:15; Stop 12/03/16 at 05:03; Status DC Insulin Aspart (Novolog) 3 units 1X PRN SQ ; Start 12/01/16 at 18:45; Status Cancel Insulin Aspart (Novolog Vial) 20 unit 1X ONCE SQ ; Start 12/02/16 at 09:00; Stop 12/02/16 at 09:00; Status Cancel Insulin Aspart (Novolog) 20 units 1X ONCE SQ Last administered on 12/02/16 09 :07; Start 12/02/16 at 09:00; Stop 12/02/16 at 09:01; Status DC Insulin Aspart (Novolog) 20 units 1X ONCE SQ ; Start 12/02/16 at 09:00; Stop at 09:01; Status UNV Potassium Chloride (Klor-Con) 40 meq 1X ONCE PO Last administered on 11:39; Start 12/02/16 at 11:15; Stop 12/02/16 at 11:16; Status DC Morphine Sulfate 2 mg PRN Q2HR PRN IV PAIN SEVERE Last administered on 11:11; Start 12/02/16 at 19:00 Ondansetron HCl 4 mg 4 mg PRN Q8HRS PRN IV NAUSEA/VOMITING 1ST CHOICE; Start at 20:15; Stop 12/04/16 at 09:45; Status DC Micafungin Sodium/ Dextrose (Mycamine) 100 ml @ 100 mls/hr QHS IV Last administered on 12/06/16 22:11; Start 12/02/16 at 23:45; Stop 12/07/16 at 10:37 ; Status DC Insulin Aspart (Novolog) 30 units 1X ONCE SQ Last administered on 12/03/16 10 :37; Start 12/03/16 at 10:30; Stop 12/03/16 at 10:31; Status DC Potassium Chloride (Klor-Con) 40 meq 1X ONCE PO Last administered on 12:01; Start 12/03/16 at 11:45; Stop 12/03/16 at 11:46; Status DC Insulin Aspart 30 units 30 units 1X ONCE SQ Last administered on 12/03/16 13: 35; Start 12/03/16 at 13:15; Stop 12/03/16 at 13:16; Status DC Vancomycin HCl/ Sodium Chloride (Iv Sodium Chloride 0.9% 250ml) 250 ml @ 250 mls/hr Q12H IV Last administered on 12/05/16 05:36; Start 12/03/16 at 17:00; Stop 12/05/16 at 10:22; Status DC Metoclopramide HCl (Reglan) 5 mg QIDACHS PO Last administered on 12/11/16 12: 10; Start 12/04/16 at 11:30 Oxycodone/ Acetaminophen (Percocet 5/325) 1 tab PRN Q4HRS PRN PO MODERATE PAIN Last administered on 12/09/16 23:07; Start 12/04/16 at 09:45 Pantoprazole Sodium (Protonix) 40 mg DAILYAC PO Last administered on 12/11/16 08:17; Start 12/05/16 at 07:30 Insulin Aspart (Novolog) 10 units TIDACHC SQ Last administered on 12/04/16 11: 34; Start 12/04/16 at 16:30; Stop 12/04/16 at 16:30; Status DC Insulin Detemir (Levemir) 35 units QHS SQ Last administered on 12/06/16 22:24 ; Start 12/04/16 at 21:00; Stop 12/07/16 at 22:08; Status DC Insulin Aspart (Novolog) 0-9 UNITS TIDWMEALS SQ Last administered on 12/11/16 08:22; Start 12/04/16 at 12:00 Dextrose 12.5 gm PRN Q15MIN PRN IV SEE COMMENTS Last administered on 12/06/16 09:34; Start 12/04/16 at 09:45 Ondansetron HCl (Zofran) 4 mg PRN Q6HRS PRN IV NAUSEA/VOMITING 1ST CHOICE Last administered on 12/07/16 23:57; Start 12/04/16 at 20:15 Pantoprazole Sodium (Protonix) 40 mg DAILYAC PO ; Start 12/05/16 at 07:30; Status Cancel Insulin Aspart (Novolog) 15 units TIDACHC SQ Last administered on 12/11/16 08: 23; Start 12/04/16 at 16:30 Insulin Aspart (Novolog) 15 units 1X ONCE SQ Last administered on 12/04/16 21 :14; Start 12/04/16 at 21:00; Stop 12/04/16 at 21:01; Status DC Insulin Aspart (Novolog) 25 units 1X ONCE SQ Last administered on 12/04/16 22 :46; Start 12/04/16 at 23:00; Stop 12/04/16 at 23:01; Status DC Insulin Aspart (Novolog) 18 units 1X ONCE SQ Last administered on 12/06/16 22 :23; Start 12/06/16 at 21:45; Stop 12/06/16 at 21:46; Status DC Potassium Chloride 80 meq 80 meq 1X ONCE PO Last administered on 12/07/16 06: 27; Start 12/07/16 at 06:30; Stop 12/07/16 at 06:31; Status DC Sodium Chloride (Iv Sodium Chloride 0.9% 1000ml Bag) 1,000 ml @ 125 mls/hr 1X ONCE IV Last administered on 12/07/16 11:10; Start 12/07/16 at 10:45; Stop at 18:44; Status DC Ondansetron HCl (Zofran) 4 mg PRN Q6HRS PRN IV Nausea; Start 12/08/16 at 07:00 ; Stop 12/09/16 at 06:59; Status DC Fentanyl Citrate (Fentanyl 2ml Vial) 25 mcg PRN Q5MIN PRN IV MILD PAIN; Start 12/08/16 at 07:00; Stop 12/09/16 at 06:59; Status DC Fentanyl Citrate (Fentanyl 2ml Vial) 50 mcg PRN Q5MIN PRN IV MODERATE PAIN; Start 12/08/16 at 07:00; Stop 12/09/16 at 06:59; Status DC Morphine Sulfate 1 mg 1 mg PRN Q10MIN PRN IV SEVERE PAIN; Start 12/08/16 at 07: 00; Stop 12/09/16 at 06:59; Status DC Lactated Ringer's (Iv Lactated Ringers) 1,000 ml @ 30 mls/hr Q24H IV Last administered on 12/08/16 14:00; Start 12/08/16 at 07:00; Stop 12/08/16 at 18:59 ; Status DC Lidocaine HCl 2 ml 1X PRN PRN ID IV START; Start 12/08/16 at 07:00; Stop at 06:59; Status DC Hydromorphone HCl (Dilaudid) 0.5 mg PRN Q10MIN PRN IV SEVERE PAIN, Second choice; Start 12/08/16 at 07:00; Stop 12/09/16 at 06:59; Status DC Prochlorperazine Edisylate (Compazine) 5 mg PACU PRN PRN IV NAUSEA; Start 12/08 at 07:00; Stop 12/09/16 at 06:59; Status DC Insulin Detemir (Levemir) 15 units QHS SQ ; Start 12/08/16 at 21:00; Stop at 21:00; Status DC Insulin Detemir 15 units 15 units QHS SQ Last administered on 12/08/16 21:16; Start 12/07/16 at 22:15; Stop 12/09/16 at 14:57; Status DC Potassium Chloride (KCl Premix 10meq) 100 ml @ 100 mls/hr Q1H IV Last administered on 12/08/16 20:16; Start 12/08/16 at 06:30; Stop 12/08/16 at 14:29 ; Status DC Lactobacillus Acidophilus (Bacid, Vicky-Bid) 1 tab TIDWMEALS PO Last administered on 12/11/16 12:10; Start 12/08/16 at 09:00 Potassium Chloride 40 meq 40 meq BIDWMEALS PO ; Start 12/08/16 at 10:00; Stop at 19:12; Status DC Propofol (Diprivan) 20 ml @ As Directed STK-MED ONCE IV ; Start 12/08/16 at 11: 40; Stop 12/08/16 at 11:41; Status DC Lidocaine HCl 100 mg STK-MED ONCE .ROUTE ; Start 12/08/16 at 11:40; Stop at 11:41; Status DC Fentanyl Citrate (Fentanyl 2ml Vial) 100 mcg STK-MED ONCE .ROUTE ; Start at 11:40; Stop 12/08/16 at 11:41; Status DC Dexamethasone Sodium Phosphate (Decadron) 20 mg STK-MED ONCE .ROUTE ; Start at 12:20; Stop 12/08/16 at 12:21; Status DC Sevoflurane (Ultane) 60 ml STK-MED ONCE IH ; Start 12/08/16 at 12:20; Stop 12/08 at 12:21; Status DC Phenylephrine HCl 1 mg STK-MED ONCE IV ; Start 12/08/16 at 12:21; Stop 12/08/16 at 12:22; Status DC Ondansetron HCl (Zofran) 4 mg STK-MED ONCE .ROUTE ; Start 12/08/16 at 12:44; Stop 12/08/16 at 12:45; Status DC Phenylephrine HCl 1 mg STK-MED ONCE IV ; Start 12/08/16 at 13:33; Stop 12/08/16 at 13:34; Status DC Potassium Chloride (KCl Oral Soln) 40 meq BIDWMEALS PEG Last administered on 07:52; Start 12/09/16 at 08:00; Stop 12/09/16 at 14:58; Status DC Insulin Detemir (Levemir) 12 units QHS SQ Last administered on 12/09/16 21:54 ; Start 12/09/16 at 21:00; Stop 12/10/16 at 12:54; Status DC Potassium Chloride 40 meq 40 meq DAILY PEG Last administered on 12/11/16 08:16 ; Start 12/10/16 at 09:00 Magnesium Sulfate/ Dextrose (Magnesium Sulfate PREMIX 2GM) 50 ml @ 25 mls/hr 1X ONCE IV Last administered on 12/09/16 15:36; Start 12/09/16 at 15:30; Stop 12/09/16 at 17:29; Status DC Insulin Detemir (Levemir) 10 units QHS SQ Last administered on 12/10/16 21:48 ; Start 12/10/16 at 21:00 Active Scripts Active Pantoprazole Sodium 40 Mg Tablet.dr 40 Mg PO DAILYAC Oxycodone-Acetaminophen 5-325 (Oxycodone Hcl/Acetaminophen) 1 Each Tablet 1 Tab PO PRN Q4HRS PRN Metoclopramide Hcl 10 Mg/10 Ml Solution 5 Mg PO QIDACHS Amox Tr-K Clv 875-125 Mg Tab (Amoxicillin/Potassium Clav) 1 Each Tablet 1 Tab PO BID Reported Levemir (Insulin Detemir) 100 Unit/1 Ml Vial 35 Unit SQ HS Novolog (Insulin Aspart) 100 Unit/1 Ml Cartridge 10 Unit SQ TIDAC Vitals/I & O Vital Sign - Last 24 Hours 12/10/16 12/10/16 12/10/16 12/10/16 14:49 16:32 19:30 20:30 Temp 99.0 99.1 99.0 99.1 Pulse 100 105 Resp 20 18 B/P 89/56 95/61 Pulse Ox 98 96 O2 Delivery Room Air Room Air Room Air Room Air 12/10/16 12/11/16 12/11/16 12/11/16 23:25 03:22 07:00 10:16 Temp 98.4 98.8 97.9 98.1 98.4 98.8 97.9 98.1 Pulse 100 96 99 99 Resp 18 18 16 16 B/P 100/72 104/63 116/79 102/72 Pulse Ox 96 96 97 O2 Delivery Room Air Room Air Room Air 12/11/16 12/11/16 12/11/16 12/11/16 10:32 11:00 11:11 11:33 Temp 97.9 98.0 98.6 97.9 98.0 98.6 Pulse 100 86 104 Resp 18 16 18 B/P 102/71 120/78 115/74 Pulse Ox 98 O2 Delivery Room Air Room Air 12/11/16 12/11/16 12:04 12:35 Temp 98.1 98.1 Pulse 106 Resp 16 B/P 108/76 O2 Delivery Room Air Intake and Output 12/10/16 12/10/16 12/11/16 15:00 23:00 07:00 Intake Total 600 ml 490 ml Output Total 1200 ml 650 ml Balance -1200 ml -50 ml 490 ml CLAUDE GASTON MD Dec 11, 2016 12:57
[2016-12-11] MEDS ORDERED: ACETAMINOPHEN 325 MG TABLET. PO PRN (13:00)
[2016-12-11] MEDS: OXYCODONE/APAP 5/325 TABLET. PO PRN ×2 (15:00→21:53)
[2016-12-11] MEDS: HEPARIN PF for SUB-Q USE 5,000 UNIT/0.5 ML VIAL. SQ SCH ×2 (15:05→21:53)
[2016-12-11] MEDS: INSULIN DETEMIR 300 UNITS/3 ML INSULN.PEN. SQ SCH (21:00)
[2016-12-12] MEDS: PIPERACILLIN/TAZOBACTAM 3.375 GM in IV NORMAL SALINE 50ML 50 ML IV SCH ×4 (00:24→17:33)
[2016-12-12 03:00] VITALS: BP 111/65
[2016-12-12 04:08] LABS: BASO # 0.1 x10^3/uL (0.0-0.2); BASO % 1 % (0-3); EOS % 3 % (0-3); HEMOGLOBIN 8.6 g/dL (12.0-15.5); LYMPH # 2.9 x10^3/uL (1.0-4.8); LYMPH % 28 % (24-48); MEAN CORPUSCULAR HEMOGLOBIN 29 pg (25-35); MEAN CORPUSCULAR HGB CONC 32 g/dL (31-37); MEAN CORPUSCULAR VOLUME 89 fL (79-100); MONO % 7 % (0-9); NEUT % 61 % (31-73); PLATELET COUNT 483 x10^3/uL (140-400); RED BLOOD COUNT 3.03 x10^6/uL (3.50-5.40); RED CELL DISTRIBUTION WIDTH 15.7 % (11.5-14.5); WHITE BLOOD COUNT 10.2 x10^3/uL (4.0-11.0)
[2016-12-12 04:17] LABS: CALCIUM 8.6 mg/dL (8.5-10.1); CREATININE 1.6 mg/dL (0.6-1.0); GFR 35.7; POTASSIUM 3.7 mmol/L (3.5-5.1)
[2016-12-12] MEDS: HEPARIN PF for SUB-Q USE 5,000 UNIT/0.5 ML VIAL. SQ SCH ×3 (06:22→21:41)
[2016-12-12 07:00] VITALS: BP 119/79
[2016-12-12] MEDS: POTASSIUM CHLORIDE 20 MEQ/15 ML ORAL LIQUID. PEG SCH (08:30)
[2016-12-12] MEDS: LACTOBACILLUS ACIDOPH & BULGAR 1 TABLET. PO SCH ×3 (08:30→17:33)
[2016-12-12] MEDS: PANTOPRAZOLE 40 MG TABLET. PO SCH (08:33)
[2016-12-12] MEDS: METOCLOPRAMIDE HCL 10 MG/10 ML SOLUTION. PO SCH ×4 (08:34→21:27)
[2016-12-12] MEDS: INSULIN ASPART 300 UNITS/3 ML INSULN.PEN SQ SCH ×8 (08:36→21:00)
--- NOTE | 2016-12-12 09:13 | PDOC ---
Infectious Disease Note Subjective Subjective Doing ok. No pain ROS ROS GEN: Denies fevers, chills, sweats HEENT: Denies blurred vision, sore throat CV: Denies chest pain RESP: Denies shortness of air, cough GI: Denies n/v/d NEURO: Denies confusion, dizziness MSK: Denies weakness, joint pain/swelling Vital Sign Vital Signs Vital Signs Date Time Temp Pulse Resp B/P Pulse Ox O2 Delivery O2 Flow Rate FiO2 12/12/16 03:00 97.7 86 18 111/65 100 Room Air 97.7 Physical Exam PHYSICAL EXAM GENERAL: NAD, Alert HEENT: PERRL, OC/OP NECK: Supple, no JVD, no LN LUNGS: Clear HEART: S1S2, no gallop, no murmur ABD: Soft, NT, no organomegaly, no rebound EXT: No edema, no cyanosis BRUSH MAKER: Alert, oriented x 3, no focal neurologic deficit SKIN: No rash IV: ok Labs Lab Laboratory Tests Test 12/11/16 12:05 12/11/16 17:20 12/11/16 20:47 12/12/16 03:18 Glucose (Fingerstick) 80mg/dL (70-99) 323mg/dL (70-99) 235mg/dL (70-99) White Blood Count 10.2x10^3/uL (4.0-11.0) Red Blood Count 3.03x10^6/uL (3.50-5.40) Hemoglobin 8.6g/dL (12.0-15.5) Hematocrit 27.0% (36.0-47.0) Mean Corpuscular Volume 89fL (79-100) Mean Corpuscular Hemoglobin 29pg (25-35) Mean Corpuscular Hemoglobin Concent 32g/dL (31-37) Red Cell Distribution Width 15.7% (11.5-14.5) Platelet Count 483x10^3/uL (140-400) Neutrophils (%) (Auto) 61% (31-73) Lymphocytes (%) (Auto) 28% (24-48) Monocytes (%) (Auto) 7% (0-9) Eosinophils (%) (Auto) 3% (0-3) Basophils (%) (Auto) 1% (0-3) Neutrophils # (Auto) 6.3x10^3uL (1.8-7.7) Lymphocytes # (Auto) 2.9x10^3/uL (1.0-4.8) Monocytes # (Auto) 0.7x10^3/uL (0.0-1.1) Eosinophils # (Auto) 0.3x10^3/uL (0.0-0.7) Basophils # (Auto) 0.1x10^3/uL (0.0-0.2) Sodium Level 137mmol/L (136-145) Potassium Level 3.7mmol/L (3.5-5.1) Chloride Level 103mmol/L (98-107) Carbon Dioxide Level 27mmol/L (21-32) Anion Gap 7 (6-14) Blood Urea Nitrogen 12mg/dL (7-20) Creatinine 1.6mg/dL (0.6-1.0) Estimated GFR (Cockcroft-Gault) 35.7 Glucose Level 198mg/dL (70-99) Calcium Level 8.6mg/dL (8.5-10.1) Test 12/12/16 07:44 Glucose (Fingerstick) 175mg/dL (70-99) Objective Assessment KATHLEEN - better Left diabetic foot infection. Group B strep/Staph MSSA -s/p I and D. 12/01. Intra-op MSSA & group B strep. + yeast on GS. s/p TM amp, 12/08. + wound vac DM Leukocytosis. stable Peripheral neuropathy Anemia Plan Plan of Care Cont Zosyn,, Probiotics d/w dr [place] , wound looks good, ok to d/c soon on po antibiotics ,, aleein ANNE MARIE SPRINGER MD Dec 12, 2016 09:13
--- NOTE | 2016-12-12 09:58 | PDOC ---
Subjective: Subjective: Feeling good. No n/v, pain, eating well. Objective: Objective: Per RN - no GI issues, will stay for a couple more days for wound vac, awaiting insurance. Vital Signs: Vital Signs Date Time Temp Pulse Resp B/P Pulse Ox O2 Delivery O2 Flow Rate FiO2 12/12/16 07:00 97.7 84 18 119/79 96 Room Air 97.7 Labs: Laboratory Tests Test 12/11/16 12:05 12/11/16 17:20 12/11/16 20:47 12/12/16 07:44 Glucose (Fingerstick) 80mg/dL (70-99) 323mg/dL (70-99) 235mg/dL (70-99) 175mg/dL (70-99) PE: GEN: NAD, sitting up in bed, breakfast tray nearly empty LUNGS: CTAB anteriorly HEART: RRR ABD: NABS, S/ND/NT NEURO/PSYCH: A & O 3 A/P: N/v - resolved -h/o DM, admitted in DKA -on Reglan susp and PPI Left foot infection s/p TMA -ID following Anemia -Hgb improved s/p transfusion -- Agree w/ transfusion. Continue Reglan, PPI. Will review w/ Dr. Hardin. ANTONETTE WALKER Dec 12, 2016 09:58
[2016-12-12] MEDS: OXYCODONE/APAP 5/325 TABLET. PO PRN ×2 (10:50→21:29)
--- NOTE | 2016-12-12 10:57 | PDOC ---
PROGRESS NOTES Chief Complaint Chief Complaint dka. resolved Hgba1c 16.7 DM gastroparesis symptoms Left diabetic foot infection. wound cx is +Group B strep/Staph, -s/p I and D. 12/01. 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 fu with gi, ortho , ID 2. still on zosyn 3. slightly decrease insulin, now on levemir 15u qhs, 10u tid, SSI 4. ptot 5.,cont wound vac waiting for medicaid. 1u PRBC on 12/11 dvt ppx SW involved, hope to dc iv abx soon talked to dr. Shah and dr. Callejas, cont wound vac for a few days and dc home with po abx. pt has no insurance History of Present Illness History of Present Illness Accidentally wound vac off for 2 ds, back on on 12/11 TEnds to run hypoglycemic in AM THE rest of the day BS are on the normal to high side NO fevers, no whte ct HAs medicaid pending ON iV Antibiotics SO far no emesis nausea reports today hb6.5 on 12/11, better after 1u PRBC on 12/11 Vitals Vitals Vital Signs Date Time Temp Pulse Resp B/P Pulse Ox O2 Delivery O2 Flow Rate FiO2 12/12/16 10:50 Room Air 12/12/16 07:00 97.7 84 18 119/79 96 97.7 Physical Exam General: Alert, Oriented X3, Cooperative, No acute distress Heart: Normal S1, Normal S2, Other (Mild tachycardia) Lungs: Clear Abdomen: Normal bowel sounds, Soft Extremities: No cyanosis, No edema, Other (Necrotizing fasciitis of L foot, wound vac in place; R toe amputation) Skin: Other (See extremities above) Labs LABS Laboratory Tests Test 12/11/16 12:05 12/11/16 17:20 12/11/16 20:47 12/12/16 03:18 Glucose (Fingerstick) 80mg/dL (70-99) 323mg/dL (70-99) 235mg/dL (70-99) White Blood Count 10.2x10^3/uL (4.0-11.0) Red Blood Count 3.03x10^6/uL (3.50-5.40) Hemoglobin 8.6g/dL (12.0-15.5) Hematocrit 27.0% (36.0-47.0) Mean Corpuscular Volume 89fL (79-100) Mean Corpuscular Hemoglobin 29pg (25-35) Mean Corpuscular Hemoglobin Concent 32g/dL (31-37) Red Cell Distribution Width 15.7% (11.5-14.5) Platelet Count 483x10^3/uL (140-400) Neutrophils (%) (Auto) 61% (31-73) Lymphocytes (%) (Auto) 28% (24-48) Monocytes (%) (Auto) 7% (0-9) Eosinophils (%) (Auto) 3% (0-3) Basophils (%) (Auto) 1% (0-3) Neutrophils # (Auto) 6.3x10^3uL (1.8-7.7) Lymphocytes # (Auto) 2.9x10^3/uL (1.0-4.8) Monocytes # (Auto) 0.7x10^3/uL (0.0-1.1) Eosinophils # (Auto) 0.3x10^3/uL (0.0-0.7) Basophils # (Auto) 0.1x10^3/uL (0.0-0.2) Sodium Level 137mmol/L (136-145) Potassium Level 3.7mmol/L (3.5-5.1) Chloride Level 103mmol/L (98-107) Carbon Dioxide Level 27mmol/L (21-32) Anion Gap 7 (6-14) Blood Urea Nitrogen 12mg/dL (7-20) Creatinine 1.6mg/dL (0.6-1.0) Estimated GFR (Cockcroft-Gault) 35.7 Glucose Level 198mg/dL (70-99) Calcium Level 8.6mg/dL (8.5-10.1) Test 12/12/16 07:44 Glucose (Fingerstick) 175mg/dL (70-99) Review of Systems Review of Systems no fever, chills, sob or chest pain Assessment and Plan Assessmemt and Plan Problems Medical Problems: (1) Back pain Status: Acute (2) Diabetic ketoacidosis Status: Acute Problems: Comment Review of Relevant I have reviewed the following items gem (where applicable) has been applied. Labs Laboratory Tests Test 12/10/16 10:59 12/10/16 16:15 12/10/16 21:21 12/11/16 03:25 Glucose (Fingerstick) 199mg/dL (70-99) 186mg/dL (70-99) 265mg/dL (70-99) Hemoglobin 6.5g/dL (12.0-15.5) Hematocrit 20.3% (36.0-47.0) Mean Corpuscular Hemoglobin Concent 32g/dL (31-37) Sodium Level 139mmol/L (136-145) Potassium Level 3.8mmol/L (3.5-5.1) Chloride Level 105mmol/L (98-107) Carbon Dioxide Level 25mmol/L (21-32) Anion Gap 9 (6-14) Blood Urea Nitrogen 9mg/dL (7-20) Creatinine 1.7mg/dL (0.6-1.0) Estimated GFR (Cockcroft-Gault) 33.3 Glucose Level 133mg/dL (70-99) Calcium Level 8.2mg/dL (8.5-10.1) Test 12/11/16 08:08 12/11/16 12:05 12/11/16 17:20 12/11/16 20:47 Glucose (Fingerstick) 198mg/dL (70-99) 80mg/dL (70-99) 323mg/dL (70-99) 235mg/dL (70-99) Test 12/12/16 03:18 12/12/16 07:44 White Blood Count 10.2x10^3/uL (4.0-11.0) Red Blood Count 3.03x10^6/uL (3.50-5.40) Hemoglobin 8.6g/dL (12.0-15.5) Hematocrit 27.0% (36.0-47.0) Mean Corpuscular Volume 89fL (79-100) Mean Corpuscular Hemoglobin 29pg (25-35) Mean Corpuscular Hemoglobin Concent 32g/dL (31-37) Red Cell Distribution Width 15.7% (11.5-14.5) Platelet Count 483x10^3/uL (140-400) Neutrophils (%) (Auto) 61% (31-73) Lymphocytes (%) (Auto) 28% (24-48) Monocytes (%) (Auto) 7% (0-9) Eosinophils (%) (Auto) 3% (0-3) Basophils (%) (Auto) 1% (0-3) Neutrophils # (Auto) 6.3x10^3uL (1.8-7.7) Lymphocytes # (Auto) 2.9x10^3/uL (1.0-4.8) Monocytes # (Auto) 0.7x10^3/uL (0.0-1.1) Eosinophils # (Auto) 0.3x10^3/uL (0.0-0.7) Basophils # (Auto) 0.1x10^3/uL (0.0-0.2) Sodium Level 137mmol/L (136-145) Potassium Level 3.7mmol/L (3.5-5.1) Chloride Level 103mmol/L (98-107) Carbon Dioxide Level 27mmol/L (21-32) Anion Gap 7 (6-14) Blood Urea Nitrogen 12mg/dL (7-20) Creatinine 1.6mg/dL (0.6-1.0) Estimated GFR (Cockcroft-Gault) 35.7 Glucose Level 198mg/dL (70-99) Calcium Level 8.6mg/dL (8.5-10.1) Glucose (Fingerstick) 175mg/dL (70-99) Laboratory Tests Test 12/11/16 12:05 12/11/16 17:20 12/11/16 20:47 12/12/16 03:18 Glucose (Fingerstick) 80mg/dL (70-99) 323mg/dL (70-99) 235mg/dL (70-99) White Blood Count 10.2x10^3/uL (4.0-11.0) Red Blood Count 3.03x10^6/uL (3.50-5.40) Hemoglobin 8.6g/dL (12.0-15.5) Hematocrit 27.0% (36.0-47.0) Mean Corpuscular Volume 89fL (79-100) Mean Corpuscular Hemoglobin 29pg (25-35) Mean Corpuscular Hemoglobin Concent 32g/dL (31-37) Red Cell Distribution Width 15.7% (11.5-14.5) Platelet Count 483x10^3/uL (140-400) Neutrophils (%) (Auto) 61% (31-73) Lymphocytes (%) (Auto) 28% (24-48) Monocytes (%) (Auto) 7% (0-9) Eosinophils (%) (Auto) 3% (0-3) Basophils (%) (Auto) 1% (0-3) Neutrophils # (Auto) 6.3x10^3uL (1.8-7.7) Lymphocytes # (Auto) 2.9x10^3/uL (1.0-4.8) Monocytes # (Auto) 0.7x10^3/uL (0.0-1.1) Eosinophils # (Auto) 0.3x10^3/uL (0.0-0.7) Basophils # (Auto) 0.1x10^3/uL (0.0-0.2) Sodium Level 137mmol/L (136-145) Potassium Level 3.7mmol/L (3.5-5.1) Chloride Level 103mmol/L (98-107) Carbon Dioxide Level 27mmol/L (21-32) Anion Gap 7 (6-14) Blood Urea Nitrogen 12mg/dL (7-20) Creatinine 1.6mg/dL (0.6-1.0) Estimated GFR (Cockcroft-Gault) 35.7 Glucose Level 198mg/dL (70-99) Calcium Level 8.6mg/dL (8.5-10.1) Test 12/12/16 07:44 Glucose (Fingerstick) 175mg/dL (70-99) Microbiology 12/01/16 Blood Culture - Final, Complete NO GROWTH AFTER 5 DAYS 12/01/16 Gram Stain - Final, Complete Medications Current Medications Sodium Chloride (Iv Sodium Chloride 0.9% 1000ml Bag) 1,000 ml @ 1,000 mls/hr Q1H IV Last administered on 11/30/16 19:42; Start 11/30/16 at 19:45; Stop at 20:44; Status DC Ondansetron HCl (Zofran) 4 mg 1X ONCE IV Last administered on 11/30/16 20:08 ; Start 11/30/16 at 19:45; Stop 11/30/16 at 19:46; Status DC Ketorolac Tromethamine 10 mg 10 mg 1X ONCE IV Last administered on 11/30/16 20:08; Start 11/30/16 at 19:45; Stop 11/30/16 at 19:46; Status DC Sodium Chloride 1,000 ml @ 1,000 mls/hr Q1H IV Last administered on 11/30/16 21:11; Start 11/30/16 at 21:00; Stop 11/30/16 at 21:01; Status DC Sodium Chloride 1,000 ml @ 250 mls/hr Q4H IV Last administered on 12/01/16 01 :23; Start 11/30/16 at 22:00; Stop 12/01/16 at 07:42; Status DC Dextrose/Sodium Chloride 1,000 ml @ 250 mls/hr Q4H IV Last administered on 21:15; Start 11/30/16 at 22:00; Stop 12/01/16 at 01:37; Status DC Insulin Human Regular 150 unit/ Sodium Chloride 151.5 ml @ 0 mls/hr CONT PRN PRN IV PER PROTOCOL Last administered on 11/30/16 21:36; Start 11/30/16 at 21: 00; Stop 12/04/16 at 09:45; Status DC Potassium Chloride 100 ml @ 100 mls/hr PRN Q1HR PRN IV SEE COMMENTS; Start at 21:00; Stop 12/04/16 at 09:45; Status DC Potassium Chloride 100 ml @ 100 mls/hr PRN Q1HR PRN IV SEE COMMENTS; Start at 21:00; Stop 12/04/16 at 09:45; Status DC Potassium Chloride (KCl Premix 10meq) 100 ml @ 100 mls/hr PRN Q1HR PRN IV SEE COMMENTS Last administered on 12/03/16 10:35; Start 11/30/16 at 21:00; Stop at 09:45; Status DC Ondansetron HCl (Zofran) 4 mg PRN Q8HRS PRN IV NAUSEA/VOMITING Last administered on 12/01/16 07:54; Start 11/30/16 at 21:00; Stop 12/01/16 at 20:59 ; Status DC Fentanyl Citrate (Fentanyl 2ml Vial) 50 mcg PRN Q2HR PRN IV SEVERE PAIN Last administered on 12/01/16 00:19; Start 11/30/16 at 21:00; Stop 12/01/16 at 20:59 ; Status DC Acetaminophen 650 mg 650 mg PRN Q4HRS PRN PO FEVER; Start 11/30/16 at 21:00; Stop 12/01/16 at 20:59; Status DC Dextrose/Sodium Chloride 1,000 ml @ 250 mls/hr Q4H IV Last administered on 01:40; Start 12/01/16 at 01:45; Stop 12/01/16 at 06:18; Status DC Dextrose/Sodium Chloride (Iv D5% - 1/2 NS) 1,000 ml @ 250 mls/hr Q4H IV Last administered on 12/01/16 14:15; Start 12/01/16 at 06:15; Stop 12/01/16 at 17:17 ; Status DC Dextrose 25 gm STK-MED ONCE IV ; Start 12/01/16 at 07:48; Stop 12/01/16 at 07:49 ; Status DC Dextrose 25 gm 25 gm 1X ONCE IV Last administered on 12/01/16 07:56; Start at 08:00; Stop 12/01/16 at 08:01; Status DC Potassium Chloride (KCl Premix 10meq) 100 ml @ 100 mls/hr Q1H IV Last administered on 12/01/16 17:20; Start 12/01/16 at 11:30; Stop 12/01/16 at 15:29 ; Status DC Insulin Aspart (Novolog) 0-7 UNITS TIDWMEALS SQ Last administered on 12/04/16 08:22; Start 12/01/16 at 12:00; Stop 12/04/16 at 09:45; Status DC Dextrose 12.5 gm PRN Q15MIN PRN IV SEE COMMENTS; Start 12/01/16 at 11:30; Stop 12/04/16 at 09:56; Status DC Sevoflurane (Ultane) 60 ml STK-MED ONCE IH ; Start 12/01/16 at 12:40; Stop 12/01 at 12:41; Status DC Fentanyl Citrate 100 mcg 100 mcg STK-MED ONCE .ROUTE ; Start 12/01/16 at 12:41; Stop 12/01/16 at 12:42; Status DC Propofol (Diprivan) 20 ml @ As Directed STK-MED ONCE IV ; Start 12/01/16 at 12: 41; Stop 12/01/16 at 12:42; Status DC Ondansetron HCl (Zofran) 4 mg STK-MED ONCE .ROUTE ; Start 12/01/16 at 12:41; Stop 12/01/16 at 12:42; Status DC Dexamethasone Sodium Phosphate (Decadron) 20 mg STK-MED ONCE .ROUTE ; Start at 12:41; Stop 12/01/16 at 12:42; Status DC Lidocaine HCl 100 mg STK-MED ONCE .ROUTE ; Start 12/01/16 at 12:41; Stop at 12:42; Status DC Butorphanol Tartrate 1 mg 1 mg PRN Q6HRS PRN IV MILD - MODERATE PAIN; Start at 13:00 Promethazine HCl/ Sodium Chloride (Phenergan/Iv Sodium Chloride 0.9% 50ml) 51 ml @ 150.75 mls/ hr PRN Q6HRS PRN IV NAUSEA/VOMITING Last administered on 12/02 20:10; Start 12/01/16 at 13:00 Ondansetron HCl (Zofran) 4 mg PRN Q6HRS PRN IV Nausea Last administered on 12/01 13:16; Start 12/01/16 at 13:00; Stop 12/02/16 at 12:59; Status DC Fentanyl Citrate (Fentanyl 2ml Vial) 25 mcg PRN Q5MIN PRN IV MILD PAIN; Start 12/01/16 at 13:00; Stop 12/02/16 at 12:59; Status DC Fentanyl Citrate (Fentanyl 2ml Vial) 50 mcg PRN Q5MIN PRN IV MODERATE PAIN; Start 12/01/16 at 13:00; Stop 12/02/16 at 12:59; Status DC Morphine Sulfate 1 mg 1 mg PRN Q10MIN PRN IV SEVERE PAIN Last administered on 10:30; Start 12/01/16 at 13:00; Stop 12/02/16 at 12:59; Status DC Lactated Ringer's (Iv Lactated Ringers) 1,000 ml @ 30 mls/hr Q24H IV ; Start at 13:00; Stop 12/02/16 at 00:59; Status DC Lidocaine HCl 2 ml 1X PRN PRN ID IV START; Start 12/01/16 at 13:00; Stop at 12:59; Status DC Hydromorphone HCl (Dilaudid) 0.5 mg PRN Q10MIN PRN IV SEV PAIN,Second choice; Start 12/01/16 at 13:00; Stop 12/02/16 at 12:59; Status DC Succinylcholine Chloride (Anectine) 200 mg STK-MED ONCE .ROUTE ; Start 12/01/16 at 13:05; Stop 12/01/16 at 13:06; Status DC Pantoprazole Sodium (Protonix Vial) 40 mg BIDAC IVP Last administered on 08:16; Start 12/01/16 at 14:00; Stop 12/04/16 at 09:45; Status DC Phenylephrine HCl 1 mg STK-MED ONCE IV ; Start 12/01/16 at 13:35; Stop 12/01/16 at 13:36; Status DC Metoclopramide HCl 10 mg 10 mg STK-MED ONCE .ROUTE ; Start 12/01/16 at 13:40; Stop 12/01/16 at 13:41; Status DC Propofol (Diprivan) 20 ml @ As Directed STK-MED ONCE IV ; Start 12/01/16 at 14: 06; Stop 12/01/16 at 14:07; Status DC Vancomycin HCl (Vanco Per Pharmacy) 1 each PRN DAILY PRN MC SEE COMMENTS Last administered on 12/04/16 16:10; Start 12/01/16 at 15:00; Stop 12/05/16 at 10:22 ; Status DC Piperacillin Sod/ Tazobactam Sod 1 each 1 each PRN DAILY PRN MC SEE COMMENTS; Start 12/01/16 at 15:00; Stop 12/06/16 at 14:25; Status DC Vancomycin HCl 250 mg/Sodium Chloride 100 ml @ 100 mls/hr 1X ONCE IV Last administered on 12/01/16 16:14; Start 12/01/16 at 15:30; Stop 12/01/16 at 16:29 ; Status DC Piperacillin Sod/ Tazobactam Sod 3.375 gm/Sodium Chloride 50 ml @ 100 mls/hr Q6HRS IV Last administered on 12/12/16 05:25; Start 12/01/16 at 17:00 Vancomycin HCl/ Sodium Chloride (Iv Sodium Chloride 0.9% 250ml) 250 ml @ 250 mls/hr Q24H IV Last administered on 12/02/16 16:31; Start 12/02/16 at 15:00; Stop 12/03/16 at 16:39; Status DC Vancomycin HCl 1 each 1X ONCE MC ; Start 12/03/16 at 14:30; Stop 12/03/16 at 14 :31; Status DC Metoclopramide HCl 10 mg 10 mg Q6HRS IV Last administered on 12/04/16 05:40; Start 12/01/16 at 17:00; Stop 12/04/16 at 16:04; Status DC Sodium Chloride (Iv Sodium Chloride 0.9% 1000ml Bag) 1,000 ml @ 75 mls/hr [id number] IV Last administered on 12/02/16 16:31; Start 12/01/16 at 17:15; Stop 12/03/16 at 05:03; Status DC Insulin Aspart (Novolog) 3 units 1X PRN SQ ; Start 12/01/16 at 18:45; Status Cancel Insulin Aspart (Novolog Vial) 20 unit 1X ONCE SQ ; Start 12/02/16 at 09:00; Stop 12/02/16 at 09:00; Status Cancel Insulin Aspart (Novolog) 20 units 1X ONCE SQ Last administered on 12/02/16 09 :07; Start 12/02/16 at 09:00; Stop 12/02/16 at 09:01; Status DC Insulin Aspart (Novolog) 20 units 1X ONCE SQ ; Start 12/02/16 at 09:00; Stop at 09:01; Status UNV Potassium Chloride (Klor-Con) 40 meq 1X ONCE PO Last administered on 11:39; Start 12/02/16 at 11:15; Stop 12/02/16 at 11:16; Status DC Morphine Sulfate 2 mg PRN Q2HR PRN IV PAIN SEVERE Last administered on 16:55; Start 12/02/16 at 19:00 Ondansetron HCl 4 mg 4 mg PRN Q8HRS PRN IV NAUSEA/VOMITING 1ST CHOICE; Start at 20:15; Stop 12/04/16 at 09:45; Status DC Micafungin Sodium/ Dextrose (Mycamine) 100 ml @ 100 mls/hr QHS IV Last administered on 12/06/16 22:11; Start 12/02/16 at 23:45; Stop 12/07/16 at 10:37 ; Status DC Insulin Aspart (Novolog) 30 units 1X ONCE SQ Last administered on 12/03/16 10 :37; Start 12/03/16 at 10:30; Stop 12/03/16 at 10:31; Status DC Potassium Chloride (Klor-Con) 40 meq 1X ONCE PO Last administered on 12:01; Start 12/03/16 at 11:45; Stop 12/03/16 at 11:46; Status DC Insulin Aspart 30 units 30 units 1X ONCE SQ Last administered on 12/03/16 13: 35; Start 12/03/16 at 13:15; Stop 12/03/16 at 13:16; Status DC Vancomycin HCl/ Sodium Chloride (Iv Sodium Chloride 0.9% 250ml) 250 ml @ 250 mls/hr Q12H IV Last administered on 12/05/16 05:36; Start 12/03/16 at 17:00; Stop 12/05/16 at 10:22; Status DC Metoclopramide HCl (Reglan) 5 mg QIDACHS PO Last administered on 12/12/16 08: 34; Start 12/04/16 at 11:30 Oxycodone/ Acetaminophen (Percocet 5/325) 1 tab PRN Q4HRS PRN PO MODERATE PAIN Last administered on 12/12/16 10:50; Start 12/04/16 at 09:45 Pantoprazole Sodium (Protonix) 40 mg DAILYAC PO Last administered on 12/12/16 08:33; Start 12/05/16 at 07:30 Insulin Aspart (Novolog) 10 units TIDACHC SQ Last administered on 12/04/16 11: 34; Start 12/04/16 at 16:30; Stop 12/04/16 at 16:30; Status DC Insulin Detemir (Levemir) 35 units QHS SQ Last administered on 12/06/16 22:24 ; Start 12/04/16 at 21:00; Stop 12/07/16 at 22:08; Status DC Insulin Aspart (Novolog) 0-9 UNITS TIDWMEALS SQ Last administered on 12/12/16 08:36; Start 12/04/16 at 12:00 Dextrose 12.5 gm PRN Q15MIN PRN IV SEE COMMENTS Last administered on 12/06/16 09:34; Start 12/04/16 at 09:45 Ondansetron HCl (Zofran) 4 mg PRN Q6HRS PRN IV NAUSEA/VOMITING 1ST CHOICE Last administered on 12/07/16 23:57; Start 12/04/16 at 20:15 Pantoprazole Sodium (Protonix) 40 mg DAILYAC PO ; Start 12/05/16 at 07:30; Status Cancel Insulin Aspart (Novolog) 15 units TIDACHC SQ Last administered on 12/11/16 08: 23; Start 12/04/16 at 16:30; Stop 12/11/16 at 12:55; Status DC Insulin Aspart (Novolog) 15 units 1X ONCE SQ Last administered on 12/04/16 21 :14; Start 12/04/16 at 21:00; Stop 12/04/16 at 21:01; Status DC Insulin Aspart (Novolog) 25 units 1X ONCE SQ Last administered on 12/04/16 22 :46; Start 12/04/16 at 23:00; Stop 12/04/16 at 23:01; Status DC Insulin Aspart (Novolog) 18 units 1X ONCE SQ Last administered on 12/06/16 22 :23; Start 12/06/16 at 21:45; Stop 12/06/16 at 21:46; Status DC Potassium Chloride 80 meq 80 meq 1X ONCE PO Last administered on 12/07/16 06: 27; Start 12/07/16 at 06:30; Stop 12/07/16 at 06:31; Status DC Sodium Chloride (Iv Sodium Chloride 0.9% 1000ml Bag) 1,000 ml @ 125 mls/hr 1X ONCE IV Last administered on 12/07/16 11:10; Start 12/07/16 at 10:45; Stop at 18:44; Status DC Ondansetron HCl (Zofran) 4 mg PRN Q6HRS PRN IV Nausea; Start 12/08/16 at 07:00 ; Stop 12/09/16 at 06:59; Status DC Fentanyl Citrate (Fentanyl 2ml Vial) 25 mcg PRN Q5MIN PRN IV MILD PAIN; Start 12/08/16 at 07:00; Stop 12/09/16 at 06:59; Status DC Fentanyl Citrate (Fentanyl 2ml Vial) 50 mcg PRN Q5MIN PRN IV MODERATE PAIN; Start 12/08/16 at 07:00; Stop 12/09/16 at 06:59; Status DC Morphine Sulfate 1 mg 1 mg PRN Q10MIN PRN IV SEVERE PAIN; Start 12/08/16 at 07: 00; Stop 12/09/16 at 06:59; Status DC Lactated Ringer's (Iv Lactated Ringers) 1,000 ml @ 30 mls/hr Q24H IV Last administered on 12/08/16 14:00; Start 12/08/16 at 07:00; Stop 12/08/16 at 18:59 ; Status DC Lidocaine HCl 2 ml 1X PRN PRN ID IV START; Start 12/08/16 at 07:00; Stop at 06:59; Status DC Hydromorphone HCl (Dilaudid) 0.5 mg PRN Q10MIN PRN IV SEVERE PAIN, Second choice; Start 12/08/16 at 07:00; Stop 12/09/16 at 06:59; Status DC Prochlorperazine Edisylate (Compazine) 5 mg PACU PRN PRN IV NAUSEA; Start 12/08 at 07:00; Stop 12/09/16 at 06:59; Status DC Insulin Detemir (Levemir) 15 units QHS SQ ; Start 12/08/16 at 21:00; Stop at 21:00; Status DC Insulin Detemir 15 units 15 units QHS SQ Last administered on 12/08/16t 21:16; Start 12/07/16 at 22:15; Stop 12/09/16 at 14:57; Status DC Potassium Chloride (KCl Premix 10meq) 100 ml @ 100 mls/hr Q1H IV Last administered on 12/08/16 20:16; Start 12/08/16 at 06:30; Stop 12/08/16 at 14:29 ; Status DC Lactobacillus Acidophilus (Bacid, Vicky-Bid) 1 tab TIDWMEALS PO Last administered on 12/12/16 08:30; Start 12/08/16 at 09:00 Potassium Chloride 40 meq 40 meq BIDWMEALS PO ; Start 12/08/16 at 10:00; Stop at 19:12; Status DC Propofol (Diprivan) 20 ml @ As Directed STK-MED ONCE IV ; Start 12/08/16 at 11: 40; Stop 12/08/16 at 11:41; Status DC Lidocaine HCl 100 mg STK-MED ONCE .ROUTE ; Start 12/08/16 at 11:40; Stop at 11:41; Status DC Fentanyl Citrate (Fentanyl 2ml Vial) 100 mcg STK-MED ONCE .ROUTE ; Start at 11:40; Stop 12/08/16 at 11:41; Status DC Dexamethasone Sodium Phosphate (Decadron) 20 mg STK-MED ONCE .ROUTE ; Start at 12:20; Stop 12/08/16 at 12:21; Status DC Sevoflurane (Ultane) 60 ml STK-MED ONCE IH ; Start 12/08/16 at 12:20; Stop 12/08 at 12:21; Status DC Phenylephrine HCl 1 mg STK-MED ONCE IV ; Start 12/08/16 at 12:21; Stop 12/08/16 at 12:22; Status DC Ondansetron HCl (Zofran) 4 mg STK-MED ONCE .ROUTE ; Start 12/08/16 at 12:44; Stop 12/08/16 at 12:45; Status DC Phenylephrine HCl 1 mg STK-MED ONCE IV ; Start 12/08/16 at 13:33; Stop 12/08/16 at 13:34; Status DC Potassium Chloride (KCl Oral Soln) 40 meq BIDWMEALS PEG Last administered on 07:52; Start 12/09/16 at 08:00; Stop 12/09/16 at 14:58; Status DC Insulin Detemir (Levemir) 12 units QHS SQ Last administered on 12/09/16 21:54 ; Start 12/09/16 at 21:00; Stop 12/10/16 at 12:54; Status DC Potassium Chloride 40 meq 40 meq DAILY PEG Last administered on 12/12/16 08:30 ; Start 12/10/16 at 09:00 Magnesium Sulfate/ Dextrose (Magnesium Sulfate PREMIX 2GM) 50 ml @ 25 mls/hr 1X ONCE IV Last administered on 12/09/16 15:36; Start 12/09/16 at 15:30; Stop 12/09/16 at 17:29; Status DC Insulin Detemir (Levemir) 10 units QHS SQ Last administered on 12/11/16 21:00 ; Start 12/10/16 at 21:00; Stop 12/12/16 at 08:02; Status DC Insulin Aspart (Novolog) 10 units TIDACHC SQ Last administered on 12/12/16 08: 37; Start 12/11/16 at 16:30 Acetaminophen (Tylenol) 650 mg PRN Q6HRS PRN PO MILD PAIN / TEMP Last administered on 12/12/16 05:24; Start 12/11/16 at 13:00 Heparin Sodium (Porcine) 5,000 unit Q8HRS SQ Last administered on 12/12/16 06: 22; Start 12/11/16 at 14:00 Insulin Detemir (Levemir) 15 units QHS SQ ; Start 12/12/16 at 21:00 Active Scripts Active Pantoprazole Sodium 40 Mg Tablet.dr 40 Mg PO DAILYAC Oxycodone-Acetaminophen 5-325 (Oxycodone Hcl/Acetaminophen) 1 Each Tablet 1 Tab PO PRN Q4HRS PRN Metoclopramide Hcl 10 Mg/10 Ml Solution 5 Mg PO QIDACHS Amox Tr-K Clv 875-125 Mg Tab (Amoxicillin/Potassium Clav) 1 Each Tablet 1 Tab PO BID Reported Levemir (Insulin Detemir) 100 Unit/1 Ml Vial 35 Unit SQ HS Novolog (Insulin Aspart) 100 Unit/1 Ml Cartridge 10 Unit SQ TIDAC Vitals/I & O Vital Sign - Last 24 Hours 12/11/16 12/11/16 12/11/16 12/11/16 11:00 11:11 11:33 12:35 Temp 98.0 98.6 98.1 98.0 98.6 98.1 Pulse 86 104 106 Resp 16 18 16 B/P 120/78 115/74 108/76 Pulse Ox 98 O2 Delivery Room Air Room Air 12/11/16 12/11/16 12/11/16 12/11/16 15:00 15:00 16:55 17:28 Temp 98.1 98.1 Pulse 97 Resp 16 B/P 123/78 Pulse Ox 97 O2 Delivery Room Air Room Air Room Air Room Air 12/11/16 12/11/16 12/11/16 12/11/16 19:00 20:00 21:53 22:17 Temp 96.6 96.6 Pulse 94 Resp 18 16 B/P 101/66 Pulse Ox 97 97 O2 Delivery Room Air Room Air Room Air Room Air 12/11/16 12/11/16 12/12/16 12/12/16 22:53 23:00 03:00 07:00 Temp 98.1 97.7 97.7 98.1 97.7 97.7 Pulse 89 86 84 Resp 16 18 18 18 B/P 100/66 111/65 119/79 Pulse Ox 97 97 100 96 O2 Delivery Room Air Room Air Room Air Room Air 12/12/16 10:50 O2 Delivery Room Air Intake and Output 12/11/16 12/11/16 12/12/16 15:00 23:00 07:00 Intake Total 290 ml 520 ml Output Total 800 ml Balance 290 ml -280 ml CLAUDE GASTON MD Dec 12, 2016 10:57
[2016-12-12 11:00] VITALS: BP 102/70
[2016-12-12 15:00] VITALS: BP 135/87
--- NOTE | 2016-12-12 16:27 | PATHOLOGY ---
PATHOLOGY REPORT * * * * * * * * FINAL DIAGNOSIS: Left foot transmetatarsal amputation: - Focal ulceration and necrosis of skin of toes with extensive underlying acute cellulitis and focal acute osteomyelitis. (JPM:all; d/t: 12/12/2016) REPORT ELECTRONICALLY SIGNED BY: Segun Guerrero M.D. DATE/TIME: 12/12/2016 16:27 * * * * * * * * GROSS PATHOLOGY: The specimen is received in formalin labeled "Parveen Beard, left foot transmetatarsal". Received is a segment of tissue displaying 5 amputated digits measuring 9.7 x 6.5 x 3.7 cm in greatest dimensions. All bone margins are smooth and concave in appearance, consistent with disarticulation. Each toe displays a pale monae to yellow-monae and slightly thickened nail. The skin is pale monae to dusky apodaca-monae in appearance with moderate skin slippage and a light brown, focally ulcerated ulcer present on the third toe measuring 1.5 x 1.4 cm, which is 1.6 cm from the closest skin margin. On the lateral aspect of the small toe, there is a poorly circumscribed, irregular in contour and apodaca-monae lesion measuring 1.2 x 0.8 cm, which is 0.4 cm from the closest skin margin. The bone margins are inked black. Also received within the specimen container are 5 additional segments of bone displaying one smooth convex margin, consistent with articular end. The opposite margins are blunt and inked black. A large amount of adherent white-monae, fibrous yellow-monae, lobulated tissue is present. The specimen is submitted representatively as follows: A1-A2 full-thickness longitudinal cross-section of third toe, divided in the proximal and distal aspects, following decalcification A3 product support sales representative section of fifth toe through aforementioned lesion, following decalcification A4-A5 full-thickness longitudinal cross-section of third metatarsal, divided into proximal and distal aspects, following decalcification A6 product support sales representative longitudinal cross-section of first metatarsal, following decalcification. (CAA; 12/11/2016) INITIAL CPT CODE(S): A; 44024, 66352 Professional services performed by [facility] at [facility] [address] [place] [id number] Technical services performed by [facility] at [address] [place] [address], [address] [address]. SPECIMEN(S) RECEIVED: A.Left foot transmetatarsal CLINICAL HISTORY: Diabetic ketoacidosis PATIENT: PARVEEN BEARD /AGE: 6 1975 (Age: 41) PATIENT #: [id number] ALT CASE #: SPECIMEN COLLECTION DATE: 12/08/2016 SPECIMEN RECEIVED DATE: 12/08/2016 [facility] - [address] [place] [address] - PHONE: [phone] * * * END OF REPORT * * *
[2016-12-12] MEDS ORDERED: INSULIN ASPART 300 UNITS/3 ML INSULN.PEN SQ ONE ×2 (17:15→21:30)
[2016-12-12 19:00] VITALS: BP 121/84
[2016-12-12] MEDS: INSULIN DETEMIR 300 UNITS/3 ML INSULN.PEN. SQ SCH (21:43)
[2016-12-12 23:00] VITALS: BP 79/28
[2016-12-13] VITALS (8 sets, daily range): BP systolic 86–116; BP diastolic 46–77
[2016-12-13] MEDS: PIPERACILLIN/TAZOBACTAM 3.375 GM in IV NORMAL SALINE 50ML 50 ML IV SCH ×5 (00:17→23:51)
[2016-12-13] MEDS: OXYCODONE/APAP 5/325 TABLET. PO PRN ×4 (05:30→23:51)
[2016-12-13] MEDS: HEPARIN PF for SUB-Q USE 5,000 UNIT/0.5 ML VIAL. SQ SCH ×3 (05:51→21:14)
[2016-12-13] MEDS: INSULIN ASPART 300 UNITS/3 ML INSULN.PEN SQ SCH ×8 (07:30→21:13)
--- NOTE | 2016-12-13 08:53 | PDOC ---
Infectious Disease Note Subjective Subjective Doing ok. No pain ROS ROS GEN: Denies fevers, chills, sweats HEENT: Denies blurred vision, sore throat CV: Denies chest pain RESP: Denies shortness of air, cough GI: Denies n/v/d NEURO: Denies confusion, dizziness MSK: Denies weakness, joint pain/swelling Vital Sign Vital Signs Vital Signs Date Time Temp Pulse Resp B/P Pulse Ox O2 Delivery O2 Flow Rate FiO2 12/13/16 07:00 98.1 83 18 116/77 97 Room Air 98.1 Physical Exam PHYSICAL EXAM GENERAL: NAD, Alert HEENT: PERRL, OC/OP NECK: Supple, no JVD, no LN LUNGS: Clear HEART: S1S2, no gallop, no murmur ABD: Soft, NT, no organomegaly, no rebound EXT: No edema, no cyanosis 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 Group B strep/Staph MSSA -s/p I and D. 12/01. Intra-op MSSA & group B strep. + yeast on GS. s/p TM amp, 12/08. + wound vac DM Leukocytosis. stable Peripheral neuropathy Anemia Plan Plan of Care Cont Zosyn,, Probiotics d/w dr [place] , wound looks good, ok to d/c soon on po antibiotics ,, augmentin ANNE MARIE SPRINGER MD Dec 13, 2016 08:53
--- NOTE | 2016-12-13 09:20 | PDOC ---
G I PROGRESS NOTE Subjective States eating well. No complaints of nausea or vomiting. Physical Exam Lungs clear. RRR Abdomen soft, not tender nor distended. Review of Relevant I have reviewed the following items gem (where applicable) has been applied. Labs Laboratory Tests Test 12/11/16 12:05 12/11/16 17:20 12/11/16 20:47 12/12/16 03:18 Glucose (Fingerstick) 80mg/dL (70-99) 323mg/dL (70-99) 235mg/dL (70-99) White Blood Count 10.2x10^3/uL (4.0-11.0) Red Blood Count 3.03x10^6/uL (3.50-5.40) Hemoglobin 8.6g/dL (12.0-15.5) Hematocrit 27.0% (36.0-47.0) Mean Corpuscular Volume 89fL (79-100) Mean Corpuscular Hemoglobin 29pg (25-35) Mean Corpuscular Hemoglobin Concent 32g/dL (31-37) Red Cell Distribution Width 15.7% (11.5-14.5) Platelet Count 483x10^3/uL (140-400) Neutrophils (%) (Auto) 61% (31-73) Lymphocytes (%) (Auto) 28% (24-48) Monocytes (%) (Auto) 7% (0-9) Eosinophils (%) (Auto) 3% (0-3) Basophils (%) (Auto) 1% (0-3) Neutrophils # (Auto) 6.3x10^3uL (1.8-7.7) Lymphocytes # (Auto) 2.9x10^3/uL (1.0-4.8) Monocytes # (Auto) 0.7x10^3/uL (0.0-1.1) Eosinophils # (Auto) 0.3x10^3/uL (0.0-0.7) Basophils # (Auto) 0.1x10^3/uL (0.0-0.2) Sodium Level 137mmol/L (136-145) Potassium Level 3.7mmol/L (3.5-5.1) Chloride Level 103mmol/L (98-107) Carbon Dioxide Level 27mmol/L (21-32) Anion Gap 7 (6-14) Blood Urea Nitrogen 12mg/dL (7-20) Creatinine 1.6mg/dL (0.6-1.0) Estimated GFR (Cockcroft-Gault) 35.7 Glucose Level 198mg/dL (70-99) Calcium Level 8.6mg/dL (8.5-10.1) Test 12/12/16 07:44 12/12/16 11:34 12/12/16 16:47 12/12/16 20:57 Glucose (Fingerstick) 175mg/dL (70-99) 149mg/dL (70-99) 408mg/dL (70-99) 415mg/dL (70-99) Test 12/12/16 23:45 12/13/16 07:48 Glucose (Fingerstick) 268mg/dL (70-99) 146mg/dL (70-99) Laboratory Tests Test 12/12/16 11:34 12/12/16 16:47 12/12/16 20:57 12/12/16 23:45 Glucose (Fingerstick) 149mg/dL (70-99) 408mg/dL (70-99) 415mg/dL (70-99) 268mg/dL (70-99) Test 12/13/16 07:48 Glucose (Fingerstick) 146mg/dL (70-99) Microbiology 12/01/16 Blood Culture - Final, Complete NO GROWTH AFTER 5 DAYS 12/01/16 Gram Stain - Final, Complete Medications Current Medications Sodium Chloride (Iv Sodium Chloride 0.9% 1000ml Bag) 1,000 ml @ 1,000 mls/hr Q1H IV Last administered on 11/30/16 19:42; Start 11/30/16 at 19:45; Stop at 20:44; Status DC Ondansetron HCl (Zofran) 4 mg 1X ONCE IV Last administered on 11/30/16 20:08 ; Start 11/30/16 at 19:45; Stop 11/30/16 at 19:46; Status DC Ketorolac Tromethamine 10 mg 10 mg 1X ONCE IV Last administered on 11/30/16 20:08; Start 11/30/16 at 19:45; Stop 11/30/16 at 19:46; Status DC Sodium Chloride 1,000 ml @ 1,000 mls/hr Q1H IV Last administered on 11/30/16 21:11; Start 11/30/16 at 21:00; Stop 11/30/16 at 21:01; Status DC Sodium Chloride 1,000 ml @ 250 mls/hr Q4H IV Last administered on 12/01/16 01 :23; Start 11/30/16 at 22:00; Stop 12/01/16 at 07:42; Status DC Dextrose/Sodium Chloride 1,000 ml @ 250 mls/hr Q4H IV Last administered on 21:15; Start 11/30/16 at 22:00; Stop 12/01/16 at 01:37; Status DC Insulin Human Regular 150 unit/ Sodium Chloride 151.5 ml @ 0 mls/hr CONT PRN PRN IV PER PROTOCOL Last administered on 11/30/16 21:36; Start 11/30/16 at 21: 00; Stop 12/04/16 at 09:45; Status DC Potassium Chloride 100 ml @ 100 mls/hr PRN Q1HR PRN IV SEE COMMENTS; Start at 21:00; Stop 12/04/16 at 09:45; Status DC Potassium Chloride 100 ml @ 100 mls/hr PRN Q1HR PRN IV SEE COMMENTS; Start at 21:00; Stop 12/04/16 at 09:45; Status DC Potassium Chloride (KCl Premix 10meq) 100 ml @ 100 mls/hr PRN Q1HR PRN IV SEE COMMENTS Last administered on 12/03/16 10:35; Start 11/30/16 at 21:00; Stop at 09:45; Status DC Ondansetron HCl (Zofran) 4 mg PRN Q8HRS PRN IV NAUSEA/VOMITING Last administered on 12/01/16 07:54; Start 11/30/16 at 21:00; Stop 12/01/16 at 20:59 ; Status DC Fentanyl Citrate (Fentanyl 2ml Vial) 50 mcg PRN Q2HR PRN IV SEVERE PAIN Last administered on 12/01/16 00:19; Start 11/30/16 at 21:00; Stop 12/01/16 at 20:59 ; Status DC Acetaminophen 650 mg 650 mg PRN Q4HRS PRN PO FEVER; Start 11/30/16 at 21:00; Stop 12/01/16 at 20:59; Status DC Dextrose/Sodium Chloride 1,000 ml @ 250 mls/hr Q4H IV Last administered on 01:40; Start 12/01/16 at 01:45; Stop 12/01/16 at 06:18; Status DC Dextrose/Sodium Chloride (Iv D5% - 1/2 NS) 1,000 ml @ 250 mls/hr Q4H IV Last administered on 12/01/16 14:15; Start 12/01/16 at 06:15; Stop 12/01/16 at 17:17 ; Status DC Dextrose 25 gm STK-MED ONCE IV ; Start 12/01/16 at 07:48; Stop 12/01/16 at 07:49 ; Status DC Dextrose 25 gm 25 gm 1X ONCE IV Last administered on 12/01/16 07:56; Start at 08:00; Stop 12/01/16 at 08:01; Status DC Potassium Chloride (KCl Premix 10meq) 100 ml @ 100 mls/hr Q1H IV Last administered on 12/01/16 17:20; Start 12/01/16 at 11:30; Stop 12/01/16 at 15:29 ; Status DC Insulin Aspart (Novolog) 0-7 UNITS TIDWMEALS SQ Last administered on 12/04/16 08:22; Start 12/01/16 at 12:00; Stop 12/04/16 at 09:45; Status DC Dextrose 12.5 gm PRN Q15MIN PRN IV SEE COMMENTS; Start 12/01/16 at 11:30; Stop 12/04/16 at 09:56; Status DC Sevoflurane (Ultane) 60 ml STK-MED ONCE IH ; Start 12/01/16 at 12:40; Stop 12/01 at 12:41; Status DC Fentanyl Citrate 100 mcg 100 mcg STK-MED ONCE .ROUTE ; Start 12/01/16 at 12:41; Stop 12/01/16 at 12:42; Status DC Propofol (Diprivan) 20 ml @ As Directed STK-MED ONCE IV ; Start 12/01/16 at 12: 41; Stop 12/01/16 at 12:42; Status DC Ondansetron HCl (Zofran) 4 mg STK-MED ONCE .ROUTE ; Start 12/01/16 at 12:41; Stop 12/01/16 at 12:42; Status DC Dexamethasone Sodium Phosphate (Decadron) 20 mg STK-MED ONCE .ROUTE ; Start at 12:41; Stop 12/01/16 at 12:42; Status DC Lidocaine HCl 100 mg STK-MED ONCE .ROUTE ; Start 12/01/16 at 12:41; Stop at 12:42; Status DC Butorphanol Tartrate 1 mg 1 mg PRN Q6HRS PRN IV MILD - MODERATE PAIN; Start at 13:00 Promethazine HCl/ Sodium Chloride (Phenergan/Iv Sodium Chloride 0.9% 50ml) 51 ml @ 150.75 mls/ hr PRN Q6HRS PRN IV NAUSEA/VOMITING Last administered on 12/02 20:10; Start 12/01/16 at 13:00 Ondansetron HCl (Zofran) 4 mg PRN Q6HRS PRN IV Nausea Last administered on 12/01 13:16; Start 12/01/16 at 13:00; Stop 12/02/16 at 12:59; Status DC Fentanyl Citrate (Fentanyl 2ml Vial) 25 mcg PRN Q5MIN PRN IV MILD PAIN; Start 12/01/16 at 13:00; Stop 12/02/16 at 12:59; Status DC Fentanyl Citrate (Fentanyl 2ml Vial) 50 mcg PRN Q5MIN PRN IV MODERATE PAIN; Start 12/01/16 at 13:00; Stop 12/02/16 at 12:59; Status DC Morphine Sulfate 1 mg 1 mg PRN Q10MIN PRN IV SEVERE PAIN Last administered on t 10:30; Start 12/01/16 at 13:00; Stop 12/02/16 at 12:59; Status DC Lactated Ringer's (Iv Lactated Ringers) 1,000 ml @ 30 mls/hr Q24H IV ; Start at 13:00; Stop 12/02/16 at 00:59; Status DC Lidocaine HCl 2 ml 1X PRN PRN ID IV START; Start 12/01/16 at 13:00; Stop at 12:59; Status DC Hydromorphone HCl (Dilaudid) 0.5 mg PRN Q10MIN PRN IV SEV PAIN,Second choice; Start 12/01/16 at 13:00; Stop 12/02/16 at 12:59; Status DC Succinylcholine Chloride (Anectine) 200 mg STK-MED ONCE .ROUTE ; Start 12/01/16 at 13:05; Stop 12/01/16 at 13:06; Status DC Pantoprazole Sodium (Protonix Vial) 40 mg BIDAC IVP Last administered on 08:16; Start 12/01/16 at 14:00; Stop 12/04/16 at 09:45; Status DC Phenylephrine HCl 1 mg STK-MED ONCE IV ; Start 12/01/16 at 13:35; Stop 12/01/16 at 13:36; Status DC Metoclopramide HCl 10 mg 10 mg STK-MED ONCE .ROUTE ; Start 12/01/16 at 13:40; Stop 12/01/16 at 13:41; Status DC Propofol (Diprivan) 20 ml @ As Directed STK-MED ONCE IV ; Start 12/01/16 at 14: 06; Stop 12/01/16 at 14:07; Status DC Vancomycin HCl (Vanco Per Pharmacy) 1 each PRN DAILY PRN MC SEE COMMENTS Last administered on 12/04/16 16:10; Start 12/01/16 at 15:00; Stop 12/05/16 at 10:22 ; Status DC Piperacillin Sod/ Tazobactam Sod 1 each 1 each PRN DAILY PRN MC SEE COMMENTS; Start 12/01/16 at 15:00; Stop 12/06/16 at 14:25; Status DC Vancomycin HCl 250 mg/Sodium Chloride 100 ml @ 100 mls/hr 1X ONCE IV Last administered on 12/01/16 16:14; Start 12/01/16 at 15:30; Stop 12/01/16 at 16:29 ; Status DC Piperacillin Sod/ Tazobactam Sod 3.375 gm/Sodium Chloride 50 ml @ 100 mls/hr Q6HRS IV Last administered on 12/13/16 05:31; Start 12/01/16 at 17:00 Vancomycin HCl/ Sodium Chloride (Iv Sodium Chloride 0.9% 250ml) 250 ml @ 250 mls/hr Q24H IV Last administered on 12/02/16 16:31; Start 12/02/16 at 15:00; Stop 12/03/16 at 16:39; Status DC Vancomycin HCl 1 each 1X ONCE MC ; Start 12/03/16 at 14:30; Stop 12/03/16 at 14 :31; Status DC Metoclopramide HCl 10 mg 10 mg Q6HRS IV Last administered on 12/04/16 05:40; Start 12/01/16 at 17:00; Stop 12/04/16 at 16:04; Status DC Sodium Chloride (Iv Sodium Chloride 0.9% 1000ml Bag) 1,000 ml @ 75 mls/hr [id number] IV Last administered on 12/02/16 16:31; Start 12/01/16 at 17:15; Stop 12/03/16 at 05:03; Status DC Insulin Aspart (Novolog) 3 units 1X PRN SQ ; Start 12/01/16 at 18:45; Status Cancel Insulin Aspart (Novolog Vial) 20 unit 1X ONCE SQ ; Start 12/02/16 at 09:00; Stop 12/02/16 at 09:00; Status Cancel Insulin Aspart (Novolog) 20 units 1X ONCE SQ Last administered on 12/02/16 09 :07; Start 12/02/16 at 09:00; Stop 12/02/16 at 09:01; Status DC Insulin Aspart (Novolog) 20 units 1X ONCE SQ ; Start 12/02/16 at 09:00; Stop at 09:01; Status UNV Potassium Chloride (Klor-Con) 40 meq 1X ONCE PO Last administered on 11:39; Start 12/02/16 at 11:15; Stop 12/02/16 at 11:16; Status DC Morphine Sulfate 2 mg PRN Q2HR PRN IV PAIN SEVERE Last administered on 16:55; Start 12/02/16 at 19:00 Ondansetron HCl 4 mg 4 mg PRN Q8HRS PRN IV NAUSEA/VOMITING 1ST CHOICE; Start at 20:15; Stop 12/04/16 at 09:45; Status DC Micafungin Sodium/ Dextrose (Mycamine) 100 ml @ 100 mls/hr QHS IV Last administered on 12/06/16 22:11; Start 12/02/16 at 23:45; Stop 12/07/16 at 10:37 ; Status DC Insulin Aspart (Novolog) 30 units 1X ONCE SQ Last administered on 12/03/16 10 :37; Start 12/03/16 at 10:30; Stop 12/03/16 at 10:31; Status DC Potassium Chloride (Klor-Con) 40 meq 1X ONCE PO Last administered on 12:01; Start 12/03/16 at 11:45; Stop 12/03/16 at 11:46; Status DC Insulin Aspart 30 units 30 units 1X ONCE SQ Last administered on 12/03/16 13: 35; Start 12/03/16 at 13:15; Stop 12/03/16 at 13:16; Status DC Vancomycin HCl/ Sodium Chloride (Iv Sodium Chloride 0.9% 250ml) 250 ml @ 250 mls/hr Q12H IV Last administered on 12/05/16 05:36; Start 12/03/16 at 17:00; Stop 12/05/16 at 10:22; Status DC Metoclopramide HCl (Reglan) 5 mg QIDACHS PO Last administered on 12/12/16 21: 27; Start 12/04/16 at 11:30 Oxycodone/ Acetaminophen (Percocet 5/325) 1 tab PRN Q4HRS PRN PO MODERATE PAIN Last administered on 12/13/16 05:30; Start 12/04/16 at 09:45 Pantoprazole Sodium (Protonix) 40 mg DAILYAC PO Last administered on 12/12/16 08:33; Start 12/05/16 at 07:30 Insulin Aspart (Novolog) 10 units TIDACHC SQ Last administered on 12/04/16 11: 34; Start 12/04/16 at 16:30; Stop 12/04/16 at 16:30; Status DC Insulin Detemir (Levemir) 35 units QHS SQ Last administered on 12/06/16 22:24 ; Start 12/04/16 at 21:00; Stop 12/07/16 at 22:08; Status DC Insulin Aspart (Novolog) 0-9 UNITS TIDWMEALS SQ Last administered on 12/12/16 08:36; Start 12/04/16 at 12:00; Stop 12/12/16 at 17:40; Status DC Dextrose 12.5 gm PRN Q15MIN PRN IV SEE COMMENTS Last administered on 12/06/16 09:34; Start 12/04/16 at 09:45 Ondansetron HCl (Zofran) 4 mg PRN Q6HRS PRN IV NAUSEA/VOMITING 1ST CHOICE Last administered on 12/07/16 23:57; Start 12/04/16 at 20:15 Pantoprazole Sodium (Protonix) 40 mg DAILYAC PO ; Start 12/05/16 at 07:30; Status Cancel Insulin Aspart (Novolog) 15 units TIDACHC SQ Last administered on 12/11/16 08: 23; Start 12/04/16 at 16:30; Stop 12/11/16 at 12:55; Status DC Insulin Aspart (Novolog) 15 units 1X ONCE SQ Last administered on 12/04/16 21 :14; Start 12/04/16 at 21:00; Stop 12/04/16 at 21:01; Status DC Insulin Aspart (Novolog) 25 units 1X ONCE SQ Last administered on 12/04/16 22 :46; Start 12/04/16 at 23:00; Stop 12/04/16 at 23:01; Status DC Insulin Aspart (Novolog) 18 units 1X ONCE SQ Last administered on 12/06/16 22 :23; Start 12/06/16 at 21:45; Stop 12/06/16 at 21:46; Status DC Potassium Chloride 80 meq 80 meq 1X ONCE PO Last administered on 12/07/16 06: 27; Start 12/07/16 at 06:30; Stop 12/07/16 at 06:31; Status DC Sodium Chloride (Iv Sodium Chloride 0.9% 1000ml Bag) 1,000 ml @ 125 mls/hr 1X ONCE IV Last administered on 12/07/16 11:10; Start 12/07/16 at 10:45; Stop at 18:44; Status DC Ondansetron HCl (Zofran) 4 mg PRN Q6HRS PRN IV Nausea; Start 12/08/16 at 07:00 ; Stop 12/09/16 at 06:59; Status DC Fentanyl Citrate (Fentanyl 2ml Vial) 25 mcg PRN Q5MIN PRN IV MILD PAIN; Start 12/08/16 at 07:00; Stop 12/09/16 at 06:59; Status DC Fentanyl Citrate (Fentanyl 2ml Vial) 50 mcg PRN Q5MIN PRN IV MODERATE PAIN; Start 12/08/16 at 07:00; Stop 12/09/16 at 06:59; Status DC Morphine Sulfate 1 mg 1 mg PRN Q10MIN PRN IV SEVERE PAIN; Start 12/08/16 at 07: 00; Stop 12/09/16 at 06:59; Status DC Lactated Ringer's (Iv Lactated Ringers) 1,000 ml @ 30 mls/hr Q24H IV Last administered on 12/08/16 14:00; Start 12/08/16 at 07:00; Stop 12/08/16 at 18:59 ; Status DC Lidocaine HCl 2 ml 1X PRN PRN ID IV START; Start 12/08/16 at 07:00; Stop at 06:59; Status DC Hydromorphone HCl (Dilaudid) 0.5 mg PRN Q10MIN PRN IV SEVERE PAIN, Second choice; Start 12/08/16 at 07:00; Stop 12/09/16 at 06:59; Status DC Prochlorperazine Edisylate (Compazine) 5 mg PACU PRN PRN IV NAUSEA; Start 12/08 at 07:00; Stop 12/09/16 at 06:59; Status DC Insulin Detemir (Levemir) 15 units QHS SQ ; Start 12/08/16 at 21:00; Stop at 21:00; Status DC Insulin Detemir 15 units 15 units QHS SQ Last administered on 12/08/16 21:16; Start 12/07/16 at 22:15; Stop 12/09/16 at 14:57; Status DC Potassium Chloride (KCl Premix 10meq) 100 ml @ 100 mls/hr Q1H IV Last administered on 12/08/16 20:16; Start 12/08/16 at 06:30; Stop 12/08/16 at 14:29 ; Status DC Lactobacillus Acidophilus (Bacid, Vicky-Bid) 1 tab TIDWMEALS PO Last administered on 1/31/17at 17:33; Start 12/08/16 at 09:00 Potassium Chloride 40 meq 40 meq BIDWMEALS PO ; Start 12/08/16 at 10:00; Stop at 19:12; Status DC Propofol (Diprivan) 20 ml @ As Directed STK-MED ONCE IV ; Start 12/08/16 at 11: 40; Stop 12/08/16 at 11:41; Status DC Lidocaine HCl 100 mg STK-MED ONCE .ROUTE ; Start 12/08/16 at 11:40; Stop at 11:41; Status DC Fentanyl Citrate (Fentanyl 2ml Vial) 100 mcg STK-MED ONCE .ROUTE ; Start at 11:40; Stop 12/08/16 at 11:41; Status DC Dexamethasone Sodium Phosphate (Decadron) 20 mg STK-MED ONCE .ROUTE ; Start at 12:20; Stop 12/08/16 at 12:21; Status DC Sevoflurane (Ultane) 60 ml STK-MED ONCE IH ; Start 12/08/16 at 12:20; Stop 12/08 at 12:21; Status DC Phenylephrine HCl 1 mg STK-MED ONCE IV ; Start 12/08/16 at 12:21; Stop 12/08/16 at 12:22; Status DC Ondansetron HCl (Zofran) 4 mg STK-MED ONCE .ROUTE ; Start 12/08/16 at 12:44; Stop 12/08/16 at 12:45; Status DC Phenylephrine HCl 1 mg STK-MED ONCE IV ; Start 12/08/16 at 13:33; Stop 12/08/16 at 13:34; Status DC Potassium Chloride (KCl Oral Soln) 40 meq BIDWMEALS PEG Last administered on 07:52; Start 12/09/16 at 08:00; Stop 12/09/16 at 14:58; Status DC Insulin Detemir (Levemir) 12 units QHS SQ Last administered on 12/09/16 21:54 ; Start 12/09/16 at 21:00; Stop 12/10/16 at 12:54; Status DC Potassium Chloride 40 meq 40 meq DAILY PEG Last administered on 12/12/16 08:30 ; Start 12/10/16 at 09:00 Magnesium Sulfate/ Dextrose (Magnesium Sulfate PREMIX 2GM) 50 ml @ 25 mls/hr 1X ONCE IV Last administered on 12/09/16 15:36; Start 12/09/16 at 15:30; Stop 12/09/16 at 17:29; Status DC Insulin Detemir (Levemir) 10 units QHS SQ Last administered on 12/11/16 21:00 ; Start 12/10/16 at 21:00; Stop 12/12/16 at 08:02; Status DC Insulin Aspart (Novolog) 10 units TIDACHC SQ Last administered on 12/12/16 17: 43; Start 12/11/16 at 16:30 Acetaminophen (Tylenol) 650 mg PRN Q6HRS PRN PO MILD PAIN / TEMP Last administered on 12/12/16 05:24; Start 12/11/16 at 13:00 Heparin Sodium (Porcine) 5,000 unit Q8HRS SQ Last administered on 12/13/16 05: 51; Start 12/11/16 at 14:00 Insulin Detemir (Levemir) 15 units QHS SQ Last administered on 12/12/16 21:43 ; Start 12/12/16 at 21:00 Insulin Aspart (Novolog) 10 units 1X ONCE SQ Last administered on 12/12/16 17 :43; Start 12/12/16 at 17:15; Stop 12/12/16 at 17:16; Status DC Insulin Aspart (Novolog) 0-9 UNITS QIDACHS SQ ; Start 12/12/16 at 21:00 Insulin Aspart (Novolog) 20 units 1X ONCE SQ Last administered on 12/12/16 21 :42; Start 12/12/16 at 21:30; Stop 12/12/16 at 21:31; Status DC Active Scripts Active Pantoprazole Sodium 40 Mg Tablet.dr 40 Mg PO DAILYAC Oxycodone-Acetaminophen 5-325 (Oxycodone Hcl/Acetaminophen) 1 Each Tablet 1 Tab PO PRN Q4HRS PRN Metoclopramide Hcl 10 Mg/10 Ml Solution 5 Mg PO QIDACHS Amox Tr-K Clv 875-125 Mg Tab (Amoxicillin/Potassium Clav) 1 Each Tablet 1 Tab PO BID Reported Levemir (Insulin Detemir) 100 Unit/1 Ml Vial 35 Unit SQ HS Novolog (Insulin Aspart) 100 Unit/1 Ml Cartridge 10 Unit SQ TIDAC Vitals/I & O Vital Sign - Last 24 Hours 12/12/16 12/12/16 12/12/16 12/12/16 10:50 11:00 15:00 19:00 Temp 97.5 97.4 98.1 97.5 97.4 98.1 Pulse 91 94 100 Resp 18 18 18 B/P 102/70 135/87 121/84 Pulse Ox 98 92 97 O2 Delivery Room Air Room Air Room Air Room Air 12/12/16 12/12/16 12/12/16 12/13/16 20:00 21:29 23:00 00:32 Temp 98.1 98.1 Pulse 107 Resp 16 18 B/P 79/28 98/56 Pulse Ox 97 96 O2 Delivery Room Air Room Air Room Air 12/13/16 12/13/16 12/13/16 12/13/16 03:00 05:30 06:30 07:00 Temp 97.9 98.1 97.9 98.1 Pulse 87 83 Resp 18 16 16 18 B/P 107/61 116/77 Pulse Ox 98 98 98 97 O2 Delivery Room Air Room Air Room Air Room Air Intake and Output 12/12/16 12/12/16 12/13/16 15:00 23:00 07:00 Intake Total 120 ml 0 ml Balance 120 ml 0 ml Problem List Problems Medical Problems: (1) Back pain Status: Acute (2) Diabetic ketoacidosis Status: Acute Assessment Probable gastroparesis, stable on prokinetic, PPI. Plan of Care: Continue current Tx, Mgmt ORIANA DOS SANTOS MD Dec 13, 2016 09:20
[2016-12-13] MEDS: PANTOPRAZOLE 40 MG TABLET. PO SCH (09:28)
[2016-12-13] MEDS: POTASSIUM CHLORIDE 20 MEQ/15 ML ORAL LIQUID. PEG SCH (09:28)
[2016-12-13] MEDS: LACTOBACILLUS ACIDOPH & BULGAR 1 TABLET. PO SCH ×3 (09:28→17:31)
[2016-12-13] MEDS: METOCLOPRAMIDE HCL 10 MG/10 ML SOLUTION. PO SCH ×4 (09:28→21:12)
--- NOTE | 2016-12-13 11:13 | PDOC ---
PROGRESS NOTES Chief Complaint Chief Complaint dka. resolved Hgba1c 16.7 DM gastroparesis symptoms Left diabetic foot infection. wound cx is +Group B strep/Staph, -s/p I and D. 12/01. 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 fu with gi, ortho , ID 2. still on zosyn, may dc with augmentin as per ID 3. slightly decrease insulin, now on levemir 15u qhs, 10u tid, SSI 4. ptot 5.,cont wound vac waiting for medicaid. 1u PRBC on 12/11 dvt ppx SW involved, hope to dc iv abx soon talked to dr. Shah and dr. Callejas, cont wound vac for a few days and dc home with po abx. pt has no insurance History of Present Illness History of Present Illness Accidentally wound vac off for 2 ds, back on on 12/11 TEnds to run hypoglycemic in AM THE rest of the day BS are on the normal to high side NO fevers, no whte ct HAs medicaid pending ON iV Antibiotics SO far no emesis nausea reports today hb6.5 on 12/11, better after 1u PRBC on 12/11 hyperglycemia with snacks Vitals Vitals Vital Signs Date Time Temp Pulse Resp B/P Pulse Ox O2 Delivery O2 Flow Rate FiO2 12/13/16 09:28 16 98 Room Air 12/13/16 07:00 98.1 83 116/77 98.1 Physical Exam General: Alert, Oriented X3, Cooperative, No acute distress Heart: Normal S1, Normal S2, Other (Mild tachycardia) Lungs: Clear Abdomen: Normal bowel sounds, Soft Extremities: No cyanosis, No edema, Other (Necrotizing fasciitis of L foot, wound vac in place; R toe amputation) Skin: Other (See extremities above) Labs LABS Laboratory Tests Test 12/12/16 11:34 12/12/16 16:47 12/12/16 20:57 12/12/16 23:45 Glucose (Fingerstick) 149mg/dL (70-99) 408mg/dL (70-99) 415mg/dL (70-99) 268mg/dL (70-99) Test 12/13/16 07:48 12/13/16 10:53 Glucose (Fingerstick) 146mg/dL (70-99) 165mg/dL (70-99) Review of Systems Review of Systems no fever, chills, sob or chest pain Assessment and Plan Assessmemt and Plan Problems Medical Problems: (1) Back pain Status: Acute (2) Diabetic ketoacidosis Status: Acute Problems: Comment Review of Relevant I have reviewed the following items gem (where applicable) has been applied. Labs Laboratory Tests Test 12/11/16 12:05 12/11/16 17:20 12/11/16 20:47 12/12/16 03:18 Glucose (Fingerstick) 80mg/dL (70-99) 323mg/dL (70-99) 235mg/dL (70-99) White Blood Count 10.2x10^3/uL (4.0-11.0) Red Blood Count 3.03x10^6/uL (3.50-5.40) Hemoglobin 8.6g/dL (12.0-15.5) Hematocrit 27.0% (36.0-47.0) Mean Corpuscular Volume 89fL (79-100) Mean Corpuscular Hemoglobin 29pg (25-35) Mean Corpuscular Hemoglobin Concent 32g/dL (31-37) Red Cell Distribution Width 15.7% (11.5-14.5) Platelet Count 483x10^3/uL (140-400) Neutrophils (%) (Auto) 61% (31-73) Lymphocytes (%) (Auto) 28% (24-48) Monocytes (%) (Auto) 7% (0-9) Eosinophils (%) (Auto) 3% (0-3) Basophils (%) (Auto) 1% (0-3) Neutrophils # (Auto) 6.3x10^3uL (1.8-7.7) Lymphocytes # (Auto) 2.9x10^3/uL (1.0-4.8) Monocytes # (Auto) 0.7x10^3/uL (0.0-1.1) Eosinophils # (Auto) 0.3x10^3/uL (0.0-0.7) Basophils # (Auto) 0.1x10^3/uL (0.0-0.2) Sodium Level 137mmol/L (136-145) Potassium Level 3.7mmol/L (3.5-5.1) Chloride Level 103mmol/L (98-107) Carbon Dioxide Level 27mmol/L (21-32) Anion Gap 7 (6-14) Blood Urea Nitrogen 12mg/dL (7-20) Creatinine 1.6mg/dL (0.6-1.0) Estimated GFR (Cockcroft-Gault) 35.7 Glucose Level 198mg/dL (70-99) Calcium Level 8.6mg/dL (8.5-10.1) Test 12/12/16 07:44 12/12/16 11:34 12/12/16 16:47 12/12/16 20:57 Glucose (Fingerstick) 175mg/dL (70-99) 149mg/dL (70-99) 408mg/dL (70-99) 415mg/dL (70-99) Test 12/12/16 23:45 12/13/16 07:48 12/13/16 10:53 Glucose (Fingerstick) 268mg/dL (70-99) 146mg/dL (70-99) 165mg/dL (70-99) Laboratory Tests Test 12/12/16 11:34 12/12/16 16:47 12/12/16 20:57 12/12/16 23:45 Glucose (Fingerstick) 149mg/dL (70-99) 408mg/dL (70-99) 415mg/dL (70-99) 268mg/dL (70-99) Test 12/13/16 07:48 12/13/16 10:53 Glucose (Fingerstick) 146mg/dL (70-99) 165mg/dL (70-99) Microbiology 12/01/16 Blood Culture - Final, Complete NO GROWTH AFTER 5 DAYS 12/01/16 Gram Stain - Final, Complete Medications Current Medications Sodium Chloride (Iv Sodium Chloride 0.9% 1000ml Bag) 1,000 ml @ 1,000 mls/hr Q1H IV Last administered on 11/30/16 19:42; Start 11/30/16 at 19:45; Stop at 20:44; Status DC Ondansetron HCl (Zofran) 4 mg 1X ONCE IV Last administered on 11/30/16 20:08 ; Start 11/30/16 at 19:45; Stop 11/30/16 at 19:46; Status DC Ketorolac Tromethamine 10 mg 10 mg 1X ONCE IV Last administered on 11/30/16 20:08; Start 11/30/16 at 19:45; Stop 11/30/16 at 19:46; Status DC Sodium Chloride 1,000 ml @ 1,000 mls/hr Q1H IV Last administered on 11/30/16 21:11; Start 11/30/16 at 21:00; Stop 11/30/16 at 21:01; Status DC Sodium Chloride 1,000 ml @ 250 mls/hr Q4H IV Last administered on 12/01/16 01 :23; Start 11/30/16 at 22:00; Stop 12/01/16 at 07:42; Status DC Dextrose/Sodium Chloride 1,000 ml @ 250 mls/hr Q4H IV Last administered on 21:15; Start 11/30/16 at 22:00; Stop 12/01/16 at 01:37; Status DC Insulin Human Regular 150 unit/ Sodium Chloride 151.5 ml @ 0 mls/hr CONT PRN PRN IV PER PROTOCOL Last administered on 11/30/16 21:36; Start 11/30/16 at 21: 00; Stop 12/04/16 at 09:45; Status DC Potassium Chloride 100 ml @ 100 mls/hr PRN Q1HR PRN IV SEE COMMENTS; Start at 21:00; Stop 12/04/16 at 09:45; Status DC Potassium Chloride 100 ml @ 100 mls/hr PRN Q1HR PRN IV SEE COMMENTS; Start at 21:00; Stop 12/04/16 at 09:45; Status DC Potassium Chloride (KCl Premix 10meq) 100 ml @ 100 mls/hr PRN Q1HR PRN IV SEE COMMENTS Last administered on 12/03/16 10:35; Start 11/30/16 at 21:00; Stop at 09:45; Status DC Ondansetron HCl (Zofran) 4 mg PRN Q8HRS PRN IV NAUSEA/VOMITING Last administered on 12/01/16 07:54; Start 11/30/16 at 21:00; Stop 12/01/16 at 20:59 ; Status DC Fentanyl Citrate (Fentanyl 2ml Vial) 50 mcg PRN Q2HR PRN IV SEVERE PAIN Last administered on 12/01/16 00:19; Start 11/30/16 at 21:00; Stop 12/01/16 at 20:59 ; Status DC Acetaminophen 650 mg 650 mg PRN Q4HRS PRN PO FEVER; Start 11/30/16 at 21:00; Stop 12/01/16 at 20:59; Status DC Dextrose/Sodium Chloride 1,000 ml @ 250 mls/hr Q4H IV Last administered on 01:40; Start 12/01/16 at 01:45; Stop 12/01/16 at 06:18; Status DC Dextrose/Sodium Chloride (Iv D5% - 1/2 NS) 1,000 ml @ 250 mls/hr Q4H IV Last administered on 12/01/16 14:15; Start 12/01/16 at 06:15; Stop 12/01/16 at 17:17 ; Status DC Dextrose 25 gm STK-MED ONCE IV ; Start 12/01/16 at 07:48; Stop 12/01/16 at 07:49 ; Status DC Dextrose 25 gm 25 gm 1X ONCE IV Last administered on 12/01/16 07:56; Start at 08:00; Stop 12/01/16 at 08:01; Status DC Potassium Chloride (KCl Premix 10meq) 100 ml @ 100 mls/hr Q1H IV Last administered on 12/01/16 17:20; Start 12/01/16 at 11:30; Stop 12/01/16 at 15:29 ; Status DC Insulin Aspart (Novolog) 0-7 UNITS TIDWMEALS SQ Last administered on 12/04/16 08:22; Start 12/01/16 at 12:00; Stop 12/04/16 at 09:45; Status DC Dextrose 12.5 gm PRN Q15MIN PRN IV SEE COMMENTS; Start 12/01/16 at 11:30; Stop 12/04/16 at 09:56; Status DC Sevoflurane (Ultane) 60 ml STK-MED ONCE IH ; Start 12/01/16 at 12:40; Stop 12/01 at 12:41; Status DC Fentanyl Citrate 100 mcg 100 mcg STK-MED ONCE .ROUTE ; Start 12/01/16 at 12:41; Stop 12/01/16 at 12:42; Status DC Propofol (Diprivan) 20 ml @ As Directed STK-MED ONCE IV ; Start 12/01/16 at 12: 41; Stop 12/01/16 at 12:42; Status DC Ondansetron HCl (Zofran) 4 mg STK-MED ONCE .ROUTE ; Start 12/01/16 at 12:41; Stop 12/01/16 at 12:42; Status DC Dexamethasone Sodium Phosphate (Decadron) 20 mg STK-MED ONCE .ROUTE ; Start at 12:41; Stop 12/01/16 at 12:42; Status DC Lidocaine HCl 100 mg STK-MED ONCE .ROUTE ; Start 12/01/16 at 12:41; Stop at 12:42; Status DC Butorphanol Tartrate 1 mg 1 mg PRN Q6HRS PRN IV MILD - MODERATE PAIN; Start at 13:00 Promethazine HCl/ Sodium Chloride (Phenergan/Iv Sodium Chloride 0.9% 50ml) 51 ml @ 150.75 mls/ hr PRN Q6HRS PRN IV NAUSEA/VOMITING Last administered on 12/02 20:10; Start 12/01/16 at 13:00 Ondansetron HCl (Zofran) 4 mg PRN Q6HRS PRN IV Nausea Last administered on 12/01 13:16; Start 12/01/16 at 13:00; Stop 12/02/16 at 12:59; Status DC Fentanyl Citrate (Fentanyl 2ml Vial) 25 mcg PRN Q5MIN PRN IV MILD PAIN; Start 12/01/16 at 13:00; Stop 12/02/16 at 12:59; Status DC Fentanyl Citrate (Fentanyl 2ml Vial) 50 mcg PRN Q5MIN PRN IV MODERATE PAIN; Start 12/01/16 at 13:00; Stop 12/02/16 at 12:59; Status DC Morphine Sulfate 1 mg 1 mg PRN Q10MIN PRN IV SEVERE PAIN Last administered on 10:30; Start 12/01/16 at 13:00; Stop 12/02/16 at 12:59; Status DC Lactated Ringer's (Iv Lactated Ringers) 1,000 ml @ 30 mls/hr Q24H IV ; Start at 13:00; Stop 12/02/16 at 00:59; Status DC Lidocaine HCl 2 ml 1X PRN PRN ID IV START; Start 12/01/16 at 13:00; Stop at 12:59; Status DC Hydromorphone HCl (Dilaudid) 0.5 mg PRN Q10MIN PRN IV SEV PAIN,Second choice; Start 12/01/16 at 13:00; Stop 12/02/16 at 12:59; Status DC Succinylcholine Chloride (Anectine) 200 mg STK-MED ONCE .ROUTE ; Start 12/01/16 at 13:05; Stop 12/01/16 at 13:06; Status DC Pantoprazole Sodium (Protonix Vial) 40 mg BIDAC IVP Last administered on 08:16; Start 12/01/16 at 14:00; Stop 12/04/16 at 09:45; Status DC Phenylephrine HCl 1 mg STK-MED ONCE IV ; Start 12/01/16 at 13:35; Stop 12/01/16 at 13:36; Status DC Metoclopramide HCl 10 mg 10 mg STK-MED ONCE .ROUTE ; Start 12/01/16 at 13:40; Stop 12/01/16 at 13:41; Status DC Propofol (Diprivan) 20 ml @ As Directed STK-MED ONCE IV ; Start 12/01/16 at 14: 06; Stop 12/01/16 at 14:07; Status DC Vancomycin HCl (Vanco Per Pharmacy) 1 each PRN DAILY PRN MC SEE COMMENTS Last administered on 12/04/16 16:10; Start 12/01/16 at 15:00; Stop 12/05/16 at 10:22 ; Status DC Piperacillin Sod/ Tazobactam Sod 1 each 1 each PRN DAILY PRN MC SEE COMMENTS; Start 12/01/16 at 15:00; Stop 12/06/16 at 14:25; Status DC Vancomycin HCl 250 mg/Sodium Chloride 100 ml @ 100 mls/hr 1X ONCE IV Last administered on 12/01/16 16:14; Start 12/01/16 at 15:30; Stop 12/01/16 at 16:29 ; Status DC Piperacillin Sod/ Tazobactam Sod 3.375 gm/Sodium Chloride 50 ml @ 100 mls/hr Q6HRS IV Last administered on 12/13/16 05:31; Start 12/01/16 at 17:00 Vancomycin HCl/ Sodium Chloride (Iv Sodium Chloride 0.9% 250ml) 250 ml @ 250 mls/hr Q24H IV Last administered on 12/02/16 16:31; Start 12/02/16 at 15:00; Stop 12/03/16 at 16:39; Status DC Vancomycin HCl 1 each 1X ONCE MC ; Start 12/03/16 at 14:30; Stop 12/03/16 at 14 :31; Status DC Metoclopramide HCl 10 mg 10 mg Q6HRS IV Last administered on 12/04/16 05:40; Start 12/01/16 at 17:00; Stop 12/04/16 at 16:04; Status DC Sodium Chloride (Iv Sodium Chloride 0.9% 1000ml Bag) 1,000 ml @ 75 mls/hr [id number] IV Last administered on 12/02/16 16:31; Start 12/01/16 at 17:15; Stop 12/03/16 at 05:03; Status DC Insulin Aspart (Novolog) 3 units 1X PRN SQ ; Start 12/01/16 at 18:45; Status Cancel Insulin Aspart (Novolog Vial) 20 unit 1X ONCE SQ ; Start 12/02/16 at 09:00; Stop 12/02/16 at 09:00; Status Cancel Insulin Aspart (Novolog) 20 units 1X ONCE SQ Last administered on 12/02/16 09 :07; Start 12/02/16 at 09:00; Stop 12/02/16 at 09:01; Status DC Insulin Aspart (Novolog) 20 units 1X ONCE SQ ; Start 12/02/16 at 09:00; Stop at 09:01; Status UNV Potassium Chloride (Klor-Con) 40 meq 1X ONCE PO Last administered on 11:39; Start 12/02/16 at 11:15; Stop 12/02/16 at 11:16; Status DC Morphine Sulfate 2 mg PRN Q2HR PRN IV PAIN SEVERE Last administered on 16:55; Start 12/02/16 at 19:00 Ondansetron HCl 4 mg 4 mg PRN Q8HRS PRN IV NAUSEA/VOMITING 1ST CHOICE; Start at 20:15; Stop 12/04/16 at 09:45; Status DC Micafungin Sodium/ Dextrose (Mycamine) 100 ml @ 100 mls/hr QHS IV Last administered on 12/06/16 22:11; Start 12/02/16 at 23:45; Stop 12/07/16 at 10:37 ; Status DC Insulin Aspart (Novolog) 30 units 1X ONCE SQ Last administered on 12/03/16 10 :37; Start 12/03/16 at 10:30; Stop 12/03/16 at 10:31; Status DC Potassium Chloride (Klor-Con) 40 meq 1X ONCE PO Last administered on 12:01; Start 12/03/16 at 11:45; Stop 12/03/16 at 11:46; Status DC Insulin Aspart 30 units 30 units 1X ONCE SQ Last administered on 12/03/16 13: 35; Start 12/03/16 at 13:15; Stop 12/03/16 at 13:16; Status DC Vancomycin HCl/ Sodium Chloride (Iv Sodium Chloride 0.9% 250ml) 250 ml @ 250 mls/hr Q12H IV Last administered on 12/05/16 05:36; Start 12/03/16 at 17:00; Stop 12/05/16 at 10:22; Status DC Metoclopramide HCl (Reglan) 5 mg QIDACHS PO Last administered on 12/13/16 09:28 ; Start 12/04/16 at 11:30 Oxycodone/ Acetaminophen (Percocet 5/325) 1 tab PRN Q4HRS PRN PO MODERATE PAIN Last administered on 12/13/16 09:28; Start 12/04/16 at 09:45 Pantoprazole Sodium (Protonix) 40 mg DAILYAC PO Last administered on 12/13/16 09:28; Start 12/05/16 at 07:30 Insulin Aspart (Novolog) 10 units TIDACHC SQ Last administered on 12/04/16 11: 34; Start 12/04/16 at 16:30; Stop 12/04/16 at 16:30; Status DC Insulin Detemir (Levemir) 35 units QHS SQ Last administered on 12/06/16 22:24 ; Start 12/04/16 at 21:00; Stop 12/07/16 at 22:08; Status DC Insulin Aspart (Novolog) 0-9 UNITS TIDWMEALS SQ Last administered on 12/12/16 08:36; Start 12/04/16 at 12:00; Stop 12/12/16 at 17:40; Status DC Dextrose 12.5 gm PRN Q15MIN PRN IV SEE COMMENTS Last administered on 12/06/16 09:34; Start 12/04/16 at 09:45 Ondansetron HCl (Zofran) 4 mg PRN Q6HRS PRN IV NAUSEA/VOMITING 1ST CHOICE Last administered on 12/07/16 23:57; Start 12/04/16 at 20:15 Pantoprazole Sodium (Protonix) 40 mg DAILYAC PO ; Start 12/05/16 at 07:30; Status Cancel Insulin Aspart (Novolog) 15 units TIDACHC SQ Last administered on 12/11/16 08: 23; Start 12/04/16 at 16:30; Stop 12/11/16 at 12:55; Status DC Insulin Aspart (Novolog) 15 units 1X ONCE SQ Last administered on 12/04/16 21 :14; Start 12/04/16 at 21:00; Stop 12/04/16 at 21:01; Status DC Insulin Aspart (Novolog) 25 units 1X ONCE SQ Last administered on 12/04/16 22 :46; Start 12/04/16 at 23:00; Stop 12/04/16 at 23:01; Status DC Insulin Aspart (Novolog) 18 units 1X ONCE SQ Last administered on 12/06/16 22 :23; Start 12/06/16 at 21:45; Stop 12/06/16 at 21:46; Status DC Potassium Chloride 80 meq 80 meq 1X ONCE PO Last administered on 12/07/16 06: 27; Start 12/07/16 at 06:30; Stop 12/07/16 at 06:31; Status DC Sodium Chloride (Iv Sodium Chloride 0.9% 1000ml Bag) 1,000 ml @ 125 mls/hr 1X ONCE IV Last administered on 12/07/16 11:10; Start 12/07/16 at 10:45; Stop at 18:44; Status DC Ondansetron HCl (Zofran) 4 mg PRN Q6HRS PRN IV Nausea; Start 12/08/16 at 07:00 ; Stop 12/09/16 at 06:59; Status DC Fentanyl Citrate (Fentanyl 2ml Vial) 25 mcg PRN Q5MIN PRN IV MILD PAIN; Start 12/08/16 at 07:00; Stop 12/09/16 at 06:59; Status DC Fentanyl Citrate (Fentanyl 2ml Vial) 50 mcg PRN Q5MIN PRN IV MODERATE PAIN; Start 12/08/16 at 07:00; Stop 12/09/16 at 06:59; Status DC Morphine Sulfate 1 mg 1 mg PRN Q10MIN PRN IV SEVERE PAIN; Start 12/08/16 at 07: 00; Stop 12/09/16 at 06:59; Status DC Lactated Ringer's (Iv Lactated Ringers) 1,000 ml @ 30 mls/hr Q24H IV Last administered on 12/08/16t 14:00; Start 12/08/16 at 07:00; Stop 12/08/16 at 18:59 ; Status DC Lidocaine HCl 2 ml 1X PRN PRN ID IV START; Start 12/08/16 at 07:00; Stop at 06:59; Status DC Hydromorphone HCl (Dilaudid) 0.5 mg PRN Q10MIN PRN IV SEVERE PAIN, Second choice; Start 12/08/16 at 07:00; Stop 12/09/16 at 06:59; Status DC Prochlorperazine Edisylate (Compazine) 5 mg PACU PRN PRN IV NAUSEA; Start 12/08 at 07:00; Stop 12/09/16 at 06:59; Status DC Insulin Detemir (Levemir) 15 units QHS SQ ; Start 12/08/16 at 21:00; Stop at 21:00; Status DC Insulin Detemir 15 units 15 units QHS SQ Last administered on 12/08/16t 21:16; Start 12/07/16 at 22:15; Stop 12/09/16 at 14:57; Status DC Potassium Chloride (KCl Premix 10meq) 100 ml @ 100 mls/hr Q1H IV Last administered on 12/08/16 20:16; Start 12/08/16 at 06:30; Stop 12/08/16 at 14:29 ; Status DC Lactobacillus Acidophilus (Bacid, Vicky-Bid) 1 tab TIDWMEALS PO Last administered on 12/13/16 09:28; Start 12/08/16 at 09:00 Potassium Chloride 40 meq 40 meq BIDWMEALS PO ; Start 12/08/16 at 10:00; Stop at 19:12; Status DC Propofol (Diprivan) 20 ml @ As Directed STK-MED ONCE IV ; Start 12/08/16 at 11: 40; Stop 12/08/16 at 11:41; Status DC Lidocaine HCl 100 mg STK-MED ONCE .ROUTE ; Start 12/08/16 at 11:40; Stop at 11:41; Status DC Fentanyl Citrate (Fentanyl 2ml Vial) 100 mcg STK-MED ONCE .ROUTE ; Start at 11:40; Stop 12/08/16 at 11:41; Status DC Dexamethasone Sodium Phosphate (Decadron) 20 mg STK-MED ONCE .ROUTE ; Start at 12:20; Stop 12/08/16 at 12:21; Status DC Sevoflurane (Ultane) 60 ml STK-MED ONCE IH ; Start 12/08/16 at 12:20; Stop 12/08 at 12:21; Status DC Phenylephrine HCl 1 mg STK-MED ONCE IV ; Start 12/08/16 at 12:21; Stop 12/08/16 at 12:22; Status DC Ondansetron HCl (Zofran) 4 mg STK-MED ONCE .ROUTE ; Start 12/08/16 at 12:44; Stop 12/08/16 at 12:45; Status DC Phenylephrine HCl 1 mg STK-MED ONCE IV ; Start 12/08/16 at 13:33; Stop 12/08/16 at 13:34; Status DC Potassium Chloride (KCl Oral Soln) 40 meq BIDWMEALS PEG Last administered on 07:52; Start 12/09/16 at 08:00; Stop 12/09/16 at 14:58; Status DC Insulin Detemir (Levemir) 12 units QHS SQ Last administered on 12/09/16 21:54 ; Start 12/09/16 at 21:00; Stop 12/10/16 at 12:54; Status DC Potassium Chloride 40 meq 40 meq DAILY PEG Last administered on 12/13/16 09:28 ; Start 12/10/16 at 09:00 Magnesium Sulfate/ Dextrose (Magnesium Sulfate PREMIX 2GM) 50 ml @ 25 mls/hr 1X ONCE IV Last administered on 12/09/16 15:36; Start 12/09/16 at 15:30; Stop 12/09/16 at 17:29; Status DC Insulin Detemir (Levemir) 10 units QHS SQ Last administered on 12/11/16 21:00 ; Start 12/10/16 at 21:00; Stop 12/12/16 at 08:02; Status DC Insulin Aspart (Novolog) 10 units TIDACHC SQ Last administered on 12/13/16 09: 35; Start 12/11/16 at 16:30 Acetaminophen (Tylenol) 650 mg PRN Q6HRS PRN PO MILD PAIN / TEMP Last administered on 12/12/16 05:24; Start 12/11/16 at 13:00 Heparin Sodium (Porcine) 5,000 unit Q8HRS SQ Last administered on 12/13/16 05: 51; Start 12/11/16 at 14:00 Insulin Detemir (Levemir) 15 units QHS SQ Last administered on 12/12/16 21:43 ; Start 12/12/16 at 21:00 Insulin Aspart (Novolog) 10 units 1X ONCE SQ Last administered on 12/12/16 17 :43; Start 12/12/16 at 17:15; Stop 12/12/16 at 17:16; Status DC Insulin Aspart (Novolog) 0-9 UNITS QIDACHS SQ ; Start 12/12/16 at 21:00 Insulin Aspart (Novolog) 20 units 1X ONCE SQ Last administered on 12/12/16 21 :42; Start 12/12/16 at 21:30; Stop 12/12/16 at 21:31; Status DC Active Scripts Active Pantoprazole Sodium 40 Mg Tablet.dr 40 Mg PO DAILYAC Oxycodone-Acetaminophen 5-325 (Oxycodone Hcl/Acetaminophen) 1 Each Tablet 1 Tab PO PRN Q4HRS PRN Metoclopramide Hcl 10 Mg/10 Ml Solution 5 Mg PO QIDACHS Amox Tr-K Clv 875-125 Mg Tab (Amoxicillin/Potassium Clav) 1 Each Tablet 1 Tab PO BID Reported Levemir (Insulin Detemir) 100 Unit/1 Ml Vial 35 Unit SQ HS Novolog (Insulin Aspart) 100 Unit/1 Ml Cartridge 10 Unit SQ TIDAC Vitals/I & O Vital Sign - Last 24 Hours 12/12/16 12/12/16 12/12/16 12/12/16 15:00 19:00 20:00 21:29 Temp 97.4 98.1 97.4 98.1 Pulse 94 100 Resp 18 18 16 B/P 135/87 121/84 Pulse Ox 92 97 97 O2 Delivery Room Air Room Air Room Air Room Air 12/12/16 12/13/16 12/13/16 12/13/16 23:00 00:32 03:00 05:30 Temp 98.1 97.9 98.1 97.9 Pulse 107 87 Resp 18 16 B/P 79/28 98/56 107/61 Pulse Ox 96 98 98 O2 Delivery Room Air Room Air Room Air 12/13/16 12/13/16 12/13/16 06:30 07:00 09:28 Temp 98.1 98.1 Pulse 83 Resp 16 B/P 116/77 Pulse Ox 98 97 98 O2 Delivery Room Air Room Air Room Air Intake and Output 12/12/16 12/12/16 12/13/16 15:00 23:00 07:00 Intake Total 120 ml 0 ml Balance 120 ml 0 ml CLAUDE GASTON MD Dec 13, 2016 11:13
[2016-12-13] MEDS: MORPHINE SULFATE 2 MG/ML DISP.SYRIN. IV PRN (15:01)
[2016-12-13] MEDS: INSULIN DETEMIR 300 UNITS/3 ML INSULN.PEN. SQ SCH (21:12)
[2016-12-14] MEDS: OXYCODONE/APAP 5/325 TABLET. PO PRN ×3 (00:55→19:47)
[2016-12-14] MEDS: PIPERACILLIN/TAZOBACTAM 3.375 GM in IV NORMAL SALINE 50ML 50 ML IV SCH ×3 (05:41→23:43)
[2016-12-14] MEDS: HEPARIN PF for SUB-Q USE 5,000 UNIT/0.5 ML VIAL. SQ SCH ×3 (05:48→23:50)
[2016-12-14 06:23] LABS: BASO # 0.1 x10^3/uL (0.0-0.2); BASO % 1 % (0-3); EOS % 4 % (0-3); HEMATOCRIT 26.4 % (36.0-47.0); HEMOGLOBIN 8.5 g/dL (12.0-15.5); LYMPH % 31 % (24-48); MEAN CORPUSCULAR HEMOGLOBIN 29 pg (25-35); MEAN CORPUSCULAR HGB CONC 32 g/dL (31-37); MEAN CORPUSCULAR VOLUME 90 fL (79-100); MONO % 7 % (0-9); NEUT % 57 % (31-73); PLATELET COUNT 482 x10^3/uL (140-400); RED BLOOD COUNT 2.94 x10^6/uL (3.50-5.40); WHITE BLOOD COUNT 9.7 x10^3/uL (4.0-11.0)
[2016-12-14 06:40] LABS: CALCIUM 8.8 mg/dL (8.5-10.1); CREATININE 1.8 mg/dL (0.6-1.0); GFR 31.2; POTASSIUM 3.8 mmol/L (3.5-5.1)
[2016-12-14 07:00] VITALS: BP 91/59
--- NOTE | 2016-12-14 08:04 | PDOC ---
Infectious Disease Note Subjective Subjective Doing ok. No pain ROS ROS GEN: Denies fevers, chills, sweats HEENT: Denies blurred vision, sore throat CV: Denies chest pain RESP: Denies shortness of air, cough GI: Denies n/v/d NEURO: Denies confusion, dizziness MSK: Denies weakness, joint pain/swelling Vital Sign Vital Signs Vital Signs Date Time Temp Pulse Resp B/P Pulse Ox O2 Delivery O2 Flow Rate FiO2 12/14/16 07:00 97.8 86 18 91/59 97 Room Air 97.8 Physical Exam PHYSICAL EXAM GENERAL: NAD, Alert HEENT: PERRL, OC/OP NECK: Supple, no JVD, no LN LUNGS: Clear HEART: S1S2, no gallop, no murmur ABD: Soft, NT, no organomegaly, no rebound EXT: No edema, no cyanosis.. 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: Alert, oriented x 3, no focal neurologic deficit SKIN: No rash IV: ok Labs Lab Laboratory Tests Test 12/13/16 10:53 12/13/16 16:35 12/13/16 20:34 12/14/16 05:20 Glucose (Fingerstick) 165mg/dL (70-99) 114mg/dL (70-99) 241mg/dL (70-99) White Blood Count 9.7x10^3/uL (4.0-11.0) Red Blood Count 2.94x10^6/uL (3.50-5.40) Hemoglobin 8.5g/dL (12.0-15.5) Hematocrit 26.4% (36.0-47.0) Mean Corpuscular Volume 90fL (79-100) Mean Corpuscular Hemoglobin 29pg (25-35) Mean Corpuscular Hemoglobin Concent 32g/dL (31-37) Red Cell Distribution Width 16.0% (11.5-14.5) Platelet Count 482x10^3/uL (140-400) Neutrophils (%) (Auto) 57% (31-73) Lymphocytes (%) (Auto) 31% (24-48) Monocytes (%) (Auto) 7% (0-9) Eosinophils (%) (Auto) 4% (0-3) Basophils (%) (Auto) 1% (0-3) Neutrophils # (Auto) 5.5x10^3uL (1.8-7.7) Lymphocytes # (Auto) 3.0x10^3/uL (1.0-4.8) Monocytes # (Auto) 0.7x10^3/uL (0.0-1.1) Eosinophils # (Auto) 0.4x10^3/uL (0.0-0.7) Basophils # (Auto) 0.1x10^3/uL (0.0-0.2) Sodium Level 139mmol/L (136-145) Potassium Level 3.8mmol/L (3.5-5.1) Chloride Level 103mmol/L (98-107) Carbon Dioxide Level 27mmol/L (21-32) Anion Gap 9 (6-14) Blood Urea Nitrogen 13mg/dL (7-20) Creatinine 1.8mg/dL (0.6-1.0) Estimated GFR (Cockcroft-Gault) 31.2 Glucose Level 149mg/dL (70-99) Calcium Level 8.8mg/dL (8.5-10.1) Test 12/14/16 07:20 Glucose (Fingerstick) 170mg/dL (70-99) Objective Assessment KATHLEEN - better Left diabetic foot infection. Group B strep/Staph MSSA -s/p I and D. 12/01. Intra-op MSSA & group B strep. + yeast on GS. s/p TM amp, 12/08. + wound vac DM Leukocytosis. stable Peripheral neuropathy Anemia Plan Plan of Care Cont Zosyn,, Probiotics d/w dr [place] , wound looks good, ok to d/c soon on po antibiotics ,, augmentin ANNE MARIE SPRINGER MD Dec 14, 2016 08:04
[2016-12-14] MEDS: POTASSIUM CHLORIDE 20 MEQ/15 ML ORAL LIQUID. PEG SCH (08:55)
[2016-12-14] MEDS: METOCLOPRAMIDE HCL 10 MG/10 ML SOLUTION. PO SCH ×4 (08:56→23:42)
[2016-12-14] MEDS: LACTOBACILLUS ACIDOPH & BULGAR 1 TABLET. PO SCH ×3 (08:56→16:44)
[2016-12-14] MEDS: PANTOPRAZOLE 40 MG TABLET. PO SCH (08:56)
[2016-12-14] MEDS: INSULIN ASPART 300 UNITS/3 ML INSULN.PEN SQ SCH ×8 (09:02→23:51)
[2016-12-14] MEDS ORDERED: IV NORMAL SALINE 1000ML BAG 1,000 ML IV ONE (10:00)
[2016-12-14 11:00] VITALS: BP 100/72
--- NOTE | 2016-12-14 11:04 | PDOC ---
Subjective: Subjective: No GI complaints. Has been up walking. Objective: Vital Signs: Vital Signs Date Time Temp Pulse Resp B/P Pulse Ox O2 Delivery O2 Flow Rate FiO2 12/14/16 07:00 97.8 86 18 91/59 97 Room Air 97.8 Labs: Laboratory Tests Test 12/13/16 16:35 12/13/16 20:34 12/14/16 07:20 Glucose (Fingerstick) 114mg/dL (70-99) 241mg/dL (70-99) 170mg/dL (70-99) PE: GEN: NAD LUNGS: CTAB anteriorly HEART: RRR ABD: NABS, S/ND/NT NEURO/PSYCH: A & O 3 A/P: N/v - resolved -admitted in DKA (HgbA1c > 16), like gastroparesis -improved on Reglan susp and PPI Left foot infection s/p I&D, TMA Anemia -Hgb stable -- Continue same per GI. ANTONETTE WALKER Dec 14, 2016 11:04
--- NOTE | 2016-12-14 11:27 | PDOC ---
PROGRESS NOTES Chief Complaint Chief Complaint dka. resolved Hgba1c 16.7 DM gastroparesis symptoms Left diabetic foot infection. wound cx is +Group B strep/Staph, -s/p I and D. 12/01. 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 fu with gi, ortho , ID 2. still on zosyn, may dc with augmentin as per ID 3. slightly decrease insulin, now on levemir 15u qhs, 10u tid, SSI 4. ptot 5.,cont wound vac waiting for medicaid. 1u PRBC on 12/11 dvt ppx SW involved, hope to dc iv abx soon talked to dr. Shah and dr. Callejas, cont wound vac for a few days and dc home with po abx. pt has no insurance History of Present Illness History of Present Illness Accidentally wound vac off for 2 ds, back on on 12/11 TEnds to run hypoglycemic in AM THE rest of the day BS are on the normal to high side NO fevers, no whte ct HAs medicaid pending ON iV Antibiotics SO far no emesis nausea reports today hb6.5 on 12/11, better after 1u PRBC on 12/11 hyperglycemia with snacks Vitals Vitals Vital Signs Date Time Temp Pulse Resp B/P Pulse Ox O2 Delivery O2 Flow Rate FiO2 12/14/16 07:00 97.8 86 18 91/59 97 Room Air 97.8 Physical Exam General: Alert, Oriented X3, Cooperative, No acute distress Heart: Normal S1, Normal S2, Other (Mild tachycardia) Lungs: Clear Abdomen: Normal bowel sounds, Soft Extremities: No cyanosis, No edema, Other (Necrotizing fasciitis of L foot, wound vac in place; R toe amputation) Skin: Other (See extremities above) Labs LABS Laboratory Tests Test 12/13/16 16:35 12/13/16 20:34 12/14/16 05:20 12/14/16 07:20 Glucose (Fingerstick) 114mg/dL (70-99) 241mg/dL (70-99) 170mg/dL (70-99) White Blood Count 9.7x10^3/uL (4.0-11.0) Red Blood Count 2.94x10^6/uL (3.50-5.40) Hemoglobin 8.5g/dL (12.0-15.5) Hematocrit 26.4% (36.0-47.0) Mean Corpuscular Volume 90fL (79-100) Mean Corpuscular Hemoglobin 29pg (25-35) Mean Corpuscular Hemoglobin Concent 32g/dL (31-37) Red Cell Distribution Width 16.0% (11.5-14.5) Platelet Count 482x10^3/uL (140-400) Neutrophils (%) (Auto) 57% (31-73) Lymphocytes (%) (Auto) 31% (24-48) Monocytes (%) (Auto) 7% (0-9) Eosinophils (%) (Auto) 4% (0-3) Basophils (%) (Auto) 1% (0-3) Neutrophils # (Auto) 5.5x10^3uL (1.8-7.7) Lymphocytes # (Auto) 3.0x10^3/uL (1.0-4.8) Monocytes # (Auto) 0.7x10^3/uL (0.0-1.1) Eosinophils # (Auto) 0.4x10^3/uL (0.0-0.7) Basophils # (Auto) 0.1x10^3/uL (0.0-0.2) Sodium Level 139mmol/L (136-145) Potassium Level 3.8mmol/L (3.5-5.1) Chloride Level 103mmol/L (98-107) Carbon Dioxide Level 27mmol/L (21-32) Anion Gap 9 (6-14) Blood Urea Nitrogen 13mg/dL (7-20) Creatinine 1.8mg/dL (0.6-1.0) Estimated GFR (Cockcroft-Gault) 31.2 Glucose Level 149mg/dL (70-99) Calcium Level 8.8mg/dL (8.5-10.1) Review of Systems Review of Systems no fever, chills, sob or chest pain Assessment and Plan Assessmemt and Plan Problems Medical Problems: (1) Back pain Status: Acute (2) Diabetic ketoacidosis Status: Acute Problems: Comment Review of Relevant I have reviewed the following items gem (where applicable) has been applied. Labs Laboratory Tests Test 12/12/16 11:34 12/12/16 16:47 12/12/16 20:57 12/12/16 23:45 Glucose (Fingerstick) 149mg/dL (70-99) 408mg/dL (70-99) 415mg/dL (70-99) 268mg/dL (70-99) Test 12/13/16 07:48 12/13/16 10:53 12/13/16 16:35 12/13/16 20:34 Glucose (Fingerstick) 146mg/dL (70-99) 165mg/dL (70-99) 114mg/dL (70-99) 241mg/dL (70-99) Test 12/14/16 05:20 12/14/16 07:20 White Blood Count 9.7x10^3/uL (4.0-11.0) Red Blood Count 2.94x10^6/uL (3.50-5.40) Hemoglobin 8.5g/dL (12.0-15.5) Hematocrit 26.4% (36.0-47.0) Mean Corpuscular Volume 90fL (79-100) Mean Corpuscular Hemoglobin 29pg (25-35) Mean Corpuscular Hemoglobin Concent 32g/dL (31-37) Red Cell Distribution Width 16.0% (11.5-14.5) Platelet Count 482x10^3/uL (140-400) Neutrophils (%) (Auto) 57% (31-73) Lymphocytes (%) (Auto) 31% (24-48) Monocytes (%) (Auto) 7% (0-9) Eosinophils (%) (Auto) 4% (0-3) Basophils (%) (Auto) 1% (0-3) Neutrophils # (Auto) 5.5x10^3uL (1.8-7.7) Lymphocytes # (Auto) 3.0x10^3/uL (1.0-4.8) Monocytes # (Auto) 0.7x10^3/uL (0.0-1.1) Eosinophils # (Auto) 0.4x10^3/uL (0.0-0.7) Basophils # (Auto) 0.1x10^3/uL (0.0-0.2) Sodium Level 139mmol/L (136-145) Potassium Level 3.8mmol/L (3.5-5.1) Chloride Level 103mmol/L (98-107) Carbon Dioxide Level 27mmol/L (21-32) Anion Gap 9 (6-14) Blood Urea Nitrogen 13mg/dL (7-20) Creatinine 1.8mg/dL (0.6-1.0) Estimated GFR (Cockcroft-Gault) 31.2 Glucose Level 149mg/dL (70-99) Calcium Level 8.8mg/dL (8.5-10.1) Glucose (Fingerstick) 170mg/dL (70-99) Laboratory Tests Test 12/13/16 16:35 12/13/16 20:34 12/14/16 05:20 12/14/16 07:20 Glucose (Fingerstick) 114mg/dL (70-99) 241mg/dL (70-99) 170mg/dL (70-99) White Blood Count 9.7x10^3/uL (4.0-11.0) Red Blood Count 2.94x10^6/uL (3.50-5.40) Hemoglobin 8.5g/dL (12.0-15.5) Hematocrit 26.4% (36.0-47.0) Mean Corpuscular Volume 90fL (79-100) Mean Corpuscular Hemoglobin 29pg (25-35) Mean Corpuscular Hemoglobin Concent 32g/dL (31-37) Red Cell Distribution Width 16.0% (11.5-14.5) Platelet Count 482x10^3/uL (140-400) Neutrophils (%) (Auto) 57% (31-73) Lymphocytes (%) (Auto) 31% (24-48) Monocytes (%) (Auto) 7% (0-9) Eosinophils (%) (Auto) 4% (0-3) Basophils (%) (Auto) 1% (0-3) Neutrophils # (Auto) 5.5x10^3uL (1.8-7.7) Lymphocytes # (Auto) 3.0x10^3/uL (1.0-4.8) Monocytes # (Auto) 0.7x10^3/uL (0.0-1.1) Eosinophils # (Auto) 0.4x10^3/uL (0.0-0.7) Basophils # (Auto) 0.1x10^3/uL (0.0-0.2) Sodium Level 139mmol/L (136-145) Potassium Level 3.8mmol/L (3.5-5.1) Chloride Level 103mmol/L (98-107) Carbon Dioxide Level 27mmol/L (21-32) Anion Gap 9 (6-14) Blood Urea Nitrogen 13mg/dL (7-20) Creatinine 1.8mg/dL (0.6-1.0) Estimated GFR (Cockcroft-Gault) 31.2 Glucose Level 149mg/dL (70-99) Calcium Level 8.8mg/dL (8.5-10.1) Microbiology 12/01/16 Blood Culture - Final, Complete NO GROWTH AFTER 5 DAYS 12/01/16 Gram Stain - Final, Complete Medications Current Medications Sodium Chloride (Iv Sodium Chloride 0.9% 1000ml Bag) 1,000 ml @ 1,000 mls/hr Q1H IV Last administered on 11/30/16 19:42; Start 11/30/16 at 19:45; Stop at 20:44; Status DC Ondansetron HCl (Zofran) 4 mg 1X ONCE IV Last administered on 11/30/16 20:08 ; Start 11/30/16 at 19:45; Stop 11/30/16 at 19:46; Status DC Ketorolac Tromethamine 10 mg 10 mg 1X ONCE IV Last administered on 11/30/16 20:08; Start 11/30/16 at 19:45; Stop 11/30/16 at 19:46; Status DC Sodium Chloride 1,000 ml @ 1,000 mls/hr Q1H IV Last administered on 11/30/16 21:11; Start 11/30/16 at 21:00; Stop 11/30/16 at 21:01; Status DC Sodium Chloride 1,000 ml @ 250 mls/hr Q4H IV Last administered on 12/01/16 01 :23; Start 11/30/16 at 22:00; Stop 12/01/16 at 07:42; Status DC Dextrose/Sodium Chloride 1,000 ml @ 250 mls/hr Q4H IV Last administered on 21:15; Start 11/30/16 at 22:00; Stop 12/01/16 at 01:37; Status DC Insulin Human Regular 150 unit/ Sodium Chloride 151.5 ml @ 0 mls/hr CONT PRN PRN IV PER PROTOCOL Last administered on 11/30/16 21:36; Start 11/30/16 at 21: 00; Stop 12/04/16 at 09:45; Status DC Potassium Chloride 100 ml @ 100 mls/hr PRN Q1HR PRN IV SEE COMMENTS; Start at 21:00; Stop 12/04/16 at 09:45; Status DC Potassium Chloride 100 ml @ 100 mls/hr PRN Q1HR PRN IV SEE COMMENTS; Start at 21:00; Stop 12/04/16 at 09:45; Status DC Potassium Chloride (KCl Premix 10meq) 100 ml @ 100 mls/hr PRN Q1HR PRN IV SEE COMMENTS Last administered on 12/03/16 10:35; Start 11/30/16 at 21:00; Stop at 09:45; Status DC Ondansetron HCl (Zofran) 4 mg PRN Q8HRS PRN IV NAUSEA/VOMITING Last administered on 12/01/16 07:54; Start 11/30/16 at 21:00; Stop 12/01/16 at 20:59 ; Status DC Fentanyl Citrate (Fentanyl 2ml Vial) 50 mcg PRN Q2HR PRN IV SEVERE PAIN Last administered on 12/01/16 00:19; Start 11/30/16 at 21:00; Stop 12/01/16 at 20:59 ; Status DC Acetaminophen 650 mg 650 mg PRN Q4HRS PRN PO FEVER; Start 11/30/16 at 21:00; Stop 12/01/16 at 20:59; Status DC Dextrose/Sodium Chloride 1,000 ml @ 250 mls/hr Q4H IV Last administered on 01:40; Start 12/01/16 at 01:45; Stop 12/01/16 at 06:18; Status DC Dextrose/Sodium Chloride (Iv D5% - 1/2 NS) 1,000 ml @ 250 mls/hr Q4H IV Last administered on 12/01/16 14:15; Start 12/01/16 at 06:15; Stop 12/01/16 at 17:17 ; Status DC Dextrose 25 gm STK-MED ONCE IV ; Start 12/01/16 at 07:48; Stop 12/01/16 at 07:49 ; Status DC Dextrose 25 gm 25 gm 1X ONCE IV Last administered on 12/01/16 07:56; Start at 08:00; Stop 12/01/16 at 08:01; Status DC Potassium Chloride (KCl Premix 10meq) 100 ml @ 100 mls/hr Q1H IV Last administered on 12/01/16 17:20; Start 12/01/16 at 11:30; Stop 12/01/16 at 15:29 ; Status DC Insulin Aspart (Novolog) 0-7 UNITS TIDWMEALS SQ Last administered on 12/04/16 08:22; Start 12/01/16 at 12:00; Stop 12/04/16 at 09:45; Status DC Dextrose 12.5 gm PRN Q15MIN PRN IV SEE COMMENTS; Start 12/01/16 at 11:30; Stop 12/04/16 at 09:56; Status DC Sevoflurane (Ultane) 60 ml STK-MED ONCE IH ; Start 12/01/16 at 12:40; Stop 12/01 at 12:41; Status DC Fentanyl Citrate 100 mcg 100 mcg STK-MED ONCE .ROUTE ; Start 12/01/16 at 12:41; Stop 12/01/16 at 12:42; Status DC Propofol (Diprivan) 20 ml @ As Directed STK-MED ONCE IV ; Start 12/01/16 at 12: 41; Stop 12/01/16 at 12:42; Status DC Ondansetron HCl (Zofran) 4 mg STK-MED ONCE .ROUTE ; Start 12/01/16 at 12:41; Stop 12/01/16 at 12:42; Status DC Dexamethasone Sodium Phosphate (Decadron) 20 mg STK-MED ONCE .ROUTE ; Start at 12:41; Stop 12/01/16 at 12:42; Status DC Lidocaine HCl 100 mg STK-MED ONCE .ROUTE ; Start 12/01/16 at 12:41; Stop at 12:42; Status DC Butorphanol Tartrate 1 mg 1 mg PRN Q6HRS PRN IV MILD - MODERATE PAIN; Start at 13:00 Promethazine HCl/ Sodium Chloride (Phenergan/Iv Sodium Chloride 0.9% 50ml) 51 ml @ 150.75 mls/ hr PRN Q6HRS PRN IV NAUSEA/VOMITING Last administered on 12/02 20:10; Start 12/01/16 at 13:00 Ondansetron HCl (Zofran) 4 mg PRN Q6HRS PRN IV Nausea Last administered on 12/01 13:16; Start 12/01/16 at 13:00; Stop 12/02/16 at 12:59; Status DC Fentanyl Citrate (Fentanyl 2ml Vial) 25 mcg PRN Q5MIN PRN IV MILD PAIN; Start 12/01/16 at 13:00; Stop 12/02/16 at 12:59; Status DC Fentanyl Citrate (Fentanyl 2ml Vial) 50 mcg PRN Q5MIN PRN IV MODERATE PAIN; Start 12/01/16 at 13:00; Stop 12/02/16 at 12:59; Status DC Morphine Sulfate 1 mg 1 mg PRN Q10MIN PRN IV SEVERE PAIN Last administered on 10:30; Start 12/01/16 at 13:00; Stop 12/02/16 at 12:59; Status DC Lactated Ringer's (Iv Lactated Ringers) 1,000 ml @ 30 mls/hr Q24H IV ; Start at 13:00; Stop 12/02/16 at 00:59; Status DC Lidocaine HCl 2 ml 1X PRN PRN ID IV START; Start 12/01/16 at 13:00; Stop at 12:59; Status DC Hydromorphone HCl (Dilaudid) 0.5 mg PRN Q10MIN PRN IV SEV PAIN,Second choice; Start 12/01/16 at 13:00; Stop 12/02/16 at 12:59; Status DC Succinylcholine Chloride (Anectine) 200 mg STK-MED ONCE .ROUTE ; Start 12/01/16 at 13:05; Stop 12/01/16 at 13:06; Status DC Pantoprazole Sodium (Protonix Vial) 40 mg BIDAC IVP Last administered on 08:16; Start 12/01/16 at 14:00; Stop 12/04/16 at 09:45; Status DC Phenylephrine HCl 1 mg STK-MED ONCE IV ; Start 12/01/16 at 13:35; Stop 12/01/16 at 13:36; Status DC Metoclopramide HCl 10 mg 10 mg STK-MED ONCE .ROUTE ; Start 12/01/16 at 13:40; Stop 12/01/16 at 13:41; Status DC Propofol (Diprivan) 20 ml @ As Directed STK-MED ONCE IV ; Start 12/01/16 at 14: 06; Stop 12/01/16 at 14:07; Status DC Vancomycin HCl (Vanco Per Pharmacy) 1 each PRN DAILY PRN MC SEE COMMENTS Last administered on 12/04/16 16:10; Start 12/01/16 at 15:00; Stop 12/05/16 at 10:22 ; Status DC Piperacillin Sod/ Tazobactam Sod 1 each 1 each PRN DAILY PRN MC SEE COMMENTS; Start 12/01/16 at 15:00; Stop 12/06/16 at 14:25; Status DC Vancomycin HCl 250 mg/Sodium Chloride 100 ml @ 100 mls/hr 1X ONCE IV Last administered on 12/01/16 16:14; Start 12/01/16 at 15:30; Stop 12/01/16 at 16:29 ; Status DC Piperacillin Sod/ Tazobactam Sod 3.375 gm/Sodium Chloride 50 ml @ 100 mls/hr Q6HRS IV Last administered on 12/14/16 05:41; Start 12/01/16 at 17:00 Vancomycin HCl/ Sodium Chloride (Iv Sodium Chloride 0.9% 250ml) 250 ml @ 250 mls/hr Q24H IV Last administered on 12/02/16 16:31; Start 12/02/16 at 15:00; Stop 12/03/16 at 16:39; Status DC Vancomycin HCl 1 each 1X ONCE MC ; Start 12/03/16 at 14:30; Stop 12/03/16 at 14 :31; Status DC Metoclopramide HCl 10 mg 10 mg Q6HRS IV Last administered on 12/04/16 05:40; Start 12/01/16 at 17:00; Stop 12/04/16 at 16:04; Status DC Sodium Chloride (Iv Sodium Chloride 0.9% 1000ml Bag) 1,000 ml @ 75 mls/hr [id number] IV Last administered on 12/02/16 16:31; Start 12/01/16 at 17:15; Stop 12/03/16 at 05:03; Status DC Insulin Aspart (Novolog) 3 units 1X PRN SQ ; Start 12/01/16 at 18:45; Status Cancel Insulin Aspart (Novolog Vial) 20 unit 1X ONCE SQ ; Start 12/02/16 at 09:00; Stop 12/02/16 at 09:00; Status Cancel Insulin Aspart (Novolog) 20 units 1X ONCE SQ Last administered on 12/02/16 09 :07; Start 12/02/16 at 09:00; Stop 12/02/16 at 09:01; Status DC Insulin Aspart (Novolog) 20 units 1X ONCE SQ ; Start 12/02/16 at 09:00; Stop at 09:01; Status UNV Potassium Chloride (Klor-Con) 40 meq 1X ONCE PO Last administered on 11:39; Start 12/02/16 at 11:15; Stop 12/02/16 at 11:16; Status DC Morphine Sulfate 2 mg PRN Q2HR PRN IV PAIN SEVERE Last administered on 15:01; Start 12/02/16 at 19:00 Ondansetron HCl 4 mg 4 mg PRN Q8HRS PRN IV NAUSEA/VOMITING 1ST CHOICE; Start at 20:15; Stop 12/04/16 at 09:45; Status DC Micafungin Sodium/ Dextrose (Mycamine) 100 ml @ 100 mls/hr QHS IV Last administered on 12/06/16 22:11; Start 12/02/16 at 23:45; Stop 12/07/16 at 10:37 ; Status DC Insulin Aspart (Novolog) 30 units 1X ONCE SQ Last administered on 12/03/16 10 :37; Start 12/03/16 at 10:30; Stop 12/03/16 at 10:31; Status DC Potassium Chloride (Klor-Con) 40 meq 1X ONCE PO Last administered on 12:01; Start 12/03/16 at 11:45; Stop 12/03/16 at 11:46; Status DC Insulin Aspart 30 units 30 units 1X ONCE SQ Last administered on 12/03/16 13: 35; Start 12/03/16 at 13:15; Stop 12/03/16 at 13:16; Status DC Vancomycin HCl/ Sodium Chloride (Iv Sodium Chloride 0.9% 250ml) 250 ml @ 250 mls/hr Q12H IV Last administered on 12/05/16 05:36; Start 12/03/16 at 17:00; Stop 12/05/16 at 10:22; Status DC Metoclopramide HCl (Reglan) 5 mg QIDACHS PO Last administered on 12/14/16 08:56 ; Start 12/04/16 at 11:30 Oxycodone/ Acetaminophen (Percocet 5/325) 1 tab PRN Q4HRS PRN PO MODERATE PAIN Last administered on 12/14/16 05:41; Start 12/04/16 at 09:45 Pantoprazole Sodium (Protonix) 40 mg DAILYAC PO Last administered on 12/14/16 08:56; Start 12/05/16 at 07:30 Insulin Aspart (Novolog) 10 units TIDACHC SQ Last administered on 12/04/16 11: 34; Start 12/04/16 at 16:30; Stop 12/04/16 at 16:30; Status DC Insulin Detemir (Levemir) 35 units QHS SQ Last administered on 12/06/16 22:24 ; Start 12/04/16 at 21:00; Stop 12/07/16 at 22:08; Status DC Insulin Aspart (Novolog) 0-9 UNITS TIDWMEALS SQ Last administered on 12/12/16 08:36; Start 12/04/16 at 12:00; Stop 12/12/16 at 17:40; Status DC Dextrose 12.5 gm PRN Q15MIN PRN IV SEE COMMENTS Last administered on 12/06/16 09:34; Start 12/04/16 at 09:45 Ondansetron HCl (Zofran) 4 mg PRN Q6HRS PRN IV NAUSEA/VOMITING 1ST CHOICE Last administered on 12/07/16 23:57; Start 12/04/16 at 20:15 Pantoprazole Sodium (Protonix) 40 mg DAILYAC PO ; Start 12/05/16 at 07:30; Status Cancel Insulin Aspart (Novolog) 15 units TIDACHC SQ Last administered on 12/11/16 08: 23; Start 12/04/16 at 16:30; Stop 12/11/16 at 12:55; Status DC Insulin Aspart (Novolog) 15 units 1X ONCE SQ Last administered on 12/04/16 21 :14; Start 12/04/16 at 21:00; Stop 12/04/16 at 21:01; Status DC Insulin Aspart (Novolog) 25 units 1X ONCE SQ Last administered on 12/04/16 22 :46; Start 12/04/16 at 23:00; Stop 12/04/16 at 23:01; Status DC Insulin Aspart (Novolog) 18 units 1X ONCE SQ Last administered on 12/06/16 22 :23; Start 12/06/16 at 21:45; Stop 12/06/16 at 21:46; Status DC Potassium Chloride 80 meq 80 meq 1X ONCE PO Last administered on 12/07/16 06: 27; Start 12/07/16 at 06:30; Stop 12/07/16 at 06:31; Status DC Sodium Chloride (Iv Sodium Chloride 0.9% 1000ml Bag) 1,000 ml @ 125 mls/hr 1X ONCE IV Last administered on 12/07/16 11:10; Start 12/07/16 at 10:45; Stop at 18:44; Status DC Ondansetron HCl (Zofran) 4 mg PRN Q6HRS PRN IV Nausea; Start 12/08/16 at 07:00 ; Stop 12/09/16 at 06:59; Status DC Fentanyl Citrate (Fentanyl 2ml Vial) 25 mcg PRN Q5MIN PRN IV MILD PAIN; Start 12/08/16 at 07:00; Stop 12/09/16 at 06:59; Status DC Fentanyl Citrate (Fentanyl 2ml Vial) 50 mcg PRN Q5MIN PRN IV MODERATE PAIN; Start 12/08/16 at 07:00; Stop 12/09/16 at 06:59; Status DC Morphine Sulfate 1 mg 1 mg PRN Q10MIN PRN IV SEVERE PAIN; Start 12/08/16 at 07: 00; Stop 12/09/16 at 06:59; Status DC Lactated Ringer's (Iv Lactated Ringers) 1,000 ml @ 30 mls/hr Q24H IV Last administered on 12/08/16 14:00; Start 12/08/16 at 07:00; Stop 12/08/16 at 18:59 ; Status DC Lidocaine HCl 2 ml 1X PRN PRN ID IV START; Start 12/08/16 at 07:00; Stop at 06:59; Status DC Hydromorphone HCl (Dilaudid) 0.5 mg PRN Q10MIN PRN IV SEVERE PAIN, Second choice; Start 12/08/16 at 07:00; Stop 12/09/16 at 06:59; Status DC Prochlorperazine Edisylate (Compazine) 5 mg PACU PRN PRN IV NAUSEA; Start 12/08 at 07:00; Stop 12/09/16 at 06:59; Status DC Insulin Detemir (Levemir) 15 units QHS SQ ; Start 12/08/16 at 21:00; Stop at 21:00; Status DC Insulin Detemir 15 units 15 units QHS SQ Last administered on 12/08/16 21:16; Start 12/07/16 at 22:15; Stop 12/09/16 at 14:57; Status DC Potassium Chloride (KCl Premix 10meq) 100 ml @ 100 mls/hr Q1H IV Last administered on 12/08/16 20:16; Start 12/08/16 at 06:30; Stop 12/08/16 at 14:29 ; Status DC Lactobacillus Acidophilus (Bacid, Vicky-Bid) 1 tab TIDWMEALS PO Last administered on 12/14/16 08:56; Start 12/08/16 at 09:00 Potassium Chloride 40 meq 40 meq BIDWMEALS PO ; Start 12/08/16 at 10:00; Stop at 19:12; Status DC Propofol (Diprivan) 20 ml @ As Directed STK-MED ONCE IV ; Start 12/08/16 at 11: 40; Stop 12/08/16 at 11:41; Status DC Lidocaine HCl 100 mg STK-MED ONCE .ROUTE ; Start 12/08/16 at 11:40; Stop at 11:41; Status DC Fentanyl Citrate (Fentanyl 2ml Vial) 100 mcg STK-MED ONCE .ROUTE ; Start at 11:40; Stop 12/08/16 at 11:41; Status DC Dexamethasone Sodium Phosphate (Decadron) 20 mg STK-MED ONCE .ROUTE ; Start at 12:20; Stop 12/08/16 at 12:21; Status DC Sevoflurane (Ultane) 60 ml STK-MED ONCE IH ; Start 12/08/16 at 12:20; Stop 12/08 at 12:21; Status DC Phenylephrine HCl 1 mg STK-MED ONCE IV ; Start 12/08/16 at 12:21; Stop 12/08/16 at 12:22; Status DC Ondansetron HCl (Zofran) 4 mg STK-MED ONCE .ROUTE ; Start 12/08/16 at 12:44; Stop 12/08/16 at 12:45; Status DC Phenylephrine HCl 1 mg STK-MED ONCE IV ; Start 12/08/16 at 13:33; Stop 12/08/16 at 13:34; Status DC Potassium Chloride (KCl Oral Soln) 40 meq BIDWMEALS PEG Last administered on 07:52; Start 12/09/16 at 08:00; Stop 12/09/16 at 14:58; Status DC Insulin Detemir (Levemir) 12 units QHS SQ Last administered on 12/09/16 21:54 ; Start 12/09/16 at 21:00; Stop 12/10/16 at 12:54; Status DC Potassium Chloride 40 meq 40 meq DAILY PEG Last administered on 12/14/16 08:55 ; Start 12/10/16 at 09:00 Magnesium Sulfate/ Dextrose (Magnesium Sulfate PREMIX 2GM) 50 ml @ 25 mls/hr 1X ONCE IV Last administered on 12/09/16 15:36; Start 12/09/16 at 15:30; Stop 12/09/16 at 17:29; Status DC Insulin Detemir (Levemir) 10 units QHS SQ Last administered on 12/11/16 21:00 ; Start 12/10/16 at 21:00; Stop 12/12/16 at 08:02; Status DC Insulin Aspart (Novolog) 10 units TIDACHC SQ Last administered on 12/14/16 09: 02; Start 12/11/16 at 16:30 Acetaminophen (Tylenol) 650 mg PRN Q6HRS PRN PO MILD PAIN / TEMP Last administered on 12/12/16 05:24; Start 12/11/16 at 13:00 Heparin Sodium (Porcine) 5,000 unit Q8HRS SQ Last administered on 12/14/16 05: 48; Start 12/11/16 at 14:00 Insulin Detemir (Levemir) 15 units QHS SQ Last administered on 12/13/16 21:12; Start 12/12/16 at 21:00 Insulin Aspart (Novolog) 10 units 1X ONCE SQ Last administered on 12/12/16 17 :43; Start 12/12/16 at 17:15; Stop 12/12/16 at 17:16; Status DC Insulin Aspart (Novolog) 0-9 UNITS QIDACHS SQ Last administered on 12/14/16 09: 02; Start 12/12/16 at 21:00 Insulin Aspart 20 units 20 units 1X ONCE SQ Last administered on 12/12/16 21: 42; Start 12/12/16 at 21:30; Stop 12/12/16 at 21:31; Status DC Sodium Chloride (Iv Sodium Chloride 0.9% 1000ml Bag) 1,000 ml @ 100 mls/hr 1X ONCE IV ; Start 12/14/16 at 10:00; Stop 12/14/16 at 19:59 Active Scripts Active Pantoprazole Sodium 40 Mg Tablet.dr 40 Mg PO DAILYAC Oxycodone-Acetaminophen 5-325 (Oxycodone Hcl/Acetaminophen) 1 Each Tablet 1 Tab PO PRN Q4HRS PRN Metoclopramide Hcl 10 Mg/10 Ml Solution 5 Mg PO QIDACHS Amox Tr-K Clv 875-125 Mg Tab (Amoxicillin/Potassium Clav) 1 Each Tablet 1 Tab PO BID Reported Levemir (Insulin Detemir) 100 Unit/1 Ml Vial 35 Unit SQ HS Novolog (Insulin Aspart) 100 Unit/1 Ml Cartridge 10 Unit SQ TIDAC Vitals/I & O Vital Sign - Last 24 Hours 12/13/16 12/13/16 12/13/16 12/13/16 14:34 15:00 15:01 15:31 Temp 97.8 97.8 Pulse 87 Resp 16 18 18 18 B/P 104/73 Pulse Ox 97 O2 Delivery Room Air Room Air Room Air Room Air 12/13/16 12/13/16 12/13/16 12/13/16 19:00 20:00 23:00 23:45 Temp 98.5 97.3 98.5 97.3 Pulse 86 85 Resp 20 18 B/P 100/66 86/46 92/67 Pulse Ox 97 94 O2 Delivery Room Air Room Air Room Air 12/13/16 12/14/16 12/14/16 12/14/16 23:51 03:30 06:41 07:00 Temp 97.8 97.8 Pulse 86 Resp 18 18 B/P 91/59 Pulse Ox 97 O2 Delivery Room Air Room Air Room Air Intake and Output 12/13/16 12/13/16 12/14/16 15:00 23:00 07:00 Intake Total 50 ml Balance 50 ml CLAUDE GASTON MD Dec 14, 2016 11:27
[2016-12-14 15:00] VITALS: BP 97/59
--- NOTE | 2016-12-14 16:04 | PDOC ---
ORTHO PROGRESS NOTES Subjective Patient states she is doing well and anticipates going home today or tomorrow. No pain. No fever Vitals Vital Signs Date Time Temp Pulse Resp B/P Pulse Ox O2 Delivery O2 Flow Rate FiO2 12/14/16 15:00 97.6 90 18 97/59 95 Room Air 97.6 Labs Laboratory Tests Test 12/12/16 16:47 12/12/16 20:57 12/12/16 23:45 12/13/16 07:48 Glucose (Fingerstick) 408mg/dL (70-99) 415mg/dL (70-99) 268mg/dL (70-99) 146mg/dL (70-99) Test 12/13/16 10:53 12/13/16 16:35 12/13/16 20:34 12/14/16 05:20 Glucose (Fingerstick) 165mg/dL (70-99) 114mg/dL (70-99) 241mg/dL (70-99) White Blood Count 9.7x10^3/uL (4.0-11.0) Red Blood Count 2.94x10^6/uL (3.50-5.40) Hemoglobin 8.5g/dL (12.0-15.5) Hematocrit 26.4% (36.0-47.0) Mean Corpuscular Volume 90fL (79-100) Mean Corpuscular Hemoglobin 29pg (25-35) Mean Corpuscular Hemoglobin Concent 32g/dL (31-37) Red Cell Distribution Width 16.0% (11.5-14.5) Platelet Count 482x10^3/uL (140-400) Neutrophils (%) (Auto) 57% (31-73) Lymphocytes (%) (Auto) 31% (24-48) Monocytes (%) (Auto) 7% (0-9) Eosinophils (%) (Auto) 4% (0-3) Basophils (%) (Auto) 1% (0-3) Neutrophils # (Auto) 5.5x10^3uL (1.8-7.7) Lymphocytes # (Auto) 3.0x10^3/uL (1.0-4.8) Monocytes # (Auto) 0.7x10^3/uL (0.0-1.1) Eosinophils # (Auto) 0.4x10^3/uL (0.0-0.7) Basophils # (Auto) 0.1x10^3/uL (0.0-0.2) Sodium Level 139mmol/L (136-145) Potassium Level 3.8mmol/L (3.5-5.1) Chloride Level 103mmol/L (98-107) Carbon Dioxide Level 27mmol/L (21-32) Anion Gap 9 (6-14) Blood Urea Nitrogen 13mg/dL (7-20) Creatinine 1.8mg/dL (0.6-1.0) Estimated GFR (Cockcroft-Gault) 31.2 Glucose Level 149mg/dL (70-99) Calcium Level 8.8mg/dL (8.5-10.1) Test 12/14/16 07:20 12/14/16 11:39 12/14/16 15:55 Glucose (Fingerstick) 170mg/dL (70-99) 65mg/dL (70-99) 370mg/dL (70-99) Laboratory Tests Test 12/13/16 16:35 12/13/16 20:34 12/14/16 05:20 12/14/16 07:20 Glucose (Fingerstick) 114mg/dL (70-99) 241mg/dL (70-99) 170mg/dL (70-99) White Blood Count 9.7x10^3/uL (4.0-11.0) Red Blood Count 2.94x10^6/uL (3.50-5.40) Hemoglobin 8.5g/dL (12.0-15.5) Hematocrit 26.4% (36.0-47.0) Mean Corpuscular Volume 90fL (79-100) Mean Corpuscular Hemoglobin 29pg (25-35) Mean Corpuscular Hemoglobin Concent 32g/dL (31-37) Red Cell Distribution Width 16.0% (11.5-14.5) Platelet Count 482x10^3/uL (140-400) Neutrophils (%) (Auto) 57% (31-73) Lymphocytes (%) (Auto) 31% (24-48) Monocytes (%) (Auto) 7% (0-9) Eosinophils (%) (Auto) 4% (0-3) Basophils (%) (Auto) 1% (0-3) Neutrophils # (Auto) 5.5x10^3uL (1.8-7.7) Lymphocytes # (Auto) 3.0x10^3/uL (1.0-4.8) Monocytes # (Auto) 0.7x10^3/uL (0.0-1.1) Eosinophils # (Auto) 0.4x10^3/uL (0.0-0.7) Basophils # (Auto) 0.1x10^3/uL (0.0-0.2) Sodium Level 139mmol/L (136-145) Potassium Level 3.8mmol/L (3.5-5.1) Chloride Level 103mmol/L (98-107) Carbon Dioxide Level 27mmol/L (21-32) Anion Gap 9 (6-14) Blood Urea Nitrogen 13mg/dL (7-20) Creatinine 1.8mg/dL (0.6-1.0) Estimated GFR (Cockcroft-Gault) 31.2 Glucose Level 149mg/dL (70-99) Calcium Level 8.8mg/dL (8.5-10.1) Test 12/14/16 11:39 12/14/16 15:55 Glucose (Fingerstick) 65mg/dL (70-99) 370mg/dL (70-99) Notes Wound vac in place. Able to feel me touching her foot. serous drainage. Problems: (1) Necrotizing soft tissue infection Assessment and Plan Ok to DC from ortho standpoint. Follow up in office with Dr. Sanches in one week SUJEY ONEIL APRN Dec 14, 2016 16:04
[2016-12-14 19:30] VITALS: BP 85/50
[2016-12-14 23:20] VITALS: BP 133/78
[2016-12-14] MEDS: INSULIN DETEMIR 300 UNITS/3 ML INSULN.PEN. SQ SCH (23:50)
[2016-12-15 03:00] VITALS: BP 93/66
[2016-12-15 05:36] LABS: CALCIUM 8.9 mg/dL (8.5-10.1); CREATININE 1.9 mg/dL (0.6-1.0); GFR 29.3; POTASSIUM 3.7 mmol/L (3.5-5.1)
[2016-12-15] MEDS: PIPERACILLIN/TAZOBACTAM 3.375 GM in IV NORMAL SALINE 50ML 50 ML IV SCH ×3 (05:49)
[2016-12-15] MEDS: OXYCODONE/APAP 5/325 TABLET. PO PRN ×2 (05:49→11:52)
[2016-12-15] MEDS: HEPARIN PF for SUB-Q USE 5,000 UNIT/0.5 ML VIAL. SQ SCH (05:59)
[2016-12-15 07:00] VITALS: BP 86/48
[2016-12-15] MEDS: LACTOBACILLUS ACIDOPH & BULGAR 1 TABLET. PO SCH ×2 (08:19→11:52)
[2016-12-15] MEDS: PANTOPRAZOLE 40 MG TABLET. PO SCH (08:19)
[2016-12-15] MEDS: POTASSIUM CHLORIDE 20 MEQ/15 ML ORAL LIQUID. PEG SCH (08:19)
[2016-12-15] MEDS: METOCLOPRAMIDE HCL 10 MG/10 ML SOLUTION. PO SCH ×2 (08:19→11:52)
[2016-12-15] MEDS: INSULIN ASPART 300 UNITS/3 ML INSULN.PEN SQ SCH ×4 (08:26→12:05)
--- NOTE | 2016-12-15 08:38 | PDOC ---
Infectious Disease Note Subjective Subjective Doing ok. No pain ROS ROS GEN: Denies fevers, chills, sweats HEENT: Denies blurred vision, sore throat CV: Denies chest pain RESP: Denies shortness of air, cough GI: Denies n/v/d NEURO: Denies confusion, dizziness MSK: Denies weakness, joint pain/swelling Vital Sign Vital Signs Vital Signs Date Time Temp Pulse Resp B/P Pulse Ox O2 Delivery O2 Flow Rate FiO2 12/15/16 07:54 Room Air 12/15/16 07:00 97.9 86 16 86/48 97 97.9 Physical Exam PHYSICAL EXAM GENERAL: NAD, Alert HEENT: PERRL, OC/OP NECK: Supple, no JVD, no LN LUNGS: Clear HEART: S1S2, no gallop, no murmur ABD: Soft, NT, no organomegaly, no rebound EXT: No edema, no cyanosis,, TMA site looks good, small opening on plantar surface HANDLE MAKER: Alert, oriented x 3, no focal neurologic deficit SKIN: No rash IV: ok Labs Lab Laboratory Tests Test 12/14/16 11:39 12/14/16 15:55 12/14/16 18:38 12/14/16 20:22 Glucose (Fingerstick) 65mg/dL (70-99) 370mg/dL (70-99) 244mg/dL (70-99) 144mg/dL (70-99) Test 12/15/16 03:30 12/15/16 07:39 Sodium Level 140mmol/L (136-145) Potassium Level 3.7mmol/L (3.5-5.1) Chloride Level 104mmol/L (98-107) Carbon Dioxide Level 28mmol/L (21-32) Anion Gap 8 (6-14) Blood Urea Nitrogen 15mg/dL (7-20) Creatinine 1.9mg/dL (0.6-1.0) Estimated GFR (Cockcroft-Gault) 29.3 Glucose Level 145mg/dL (70-99) Calcium Level 8.9mg/dL (8.5-10.1) Glucose (Fingerstick) 166mg/dL (70-99) Objective Assessment KATHLEEN - better Left diabetic foot infection. Group B strep/Staph MSSA -s/p I and D. 12/01. Intra-op MSSA & group B strep. + yeast on GS. s/p TM amp, 12/08. + wound vac DM Leukocytosis. stable Peripheral neuropathy Anemia Plan Plan of Care Probiotics po antibiotics ,, augmentin f/u with me in 1-2 wks ANNE MARIE SPRINGER MD Dec 15, 2016 08:38
[2016-12-15] MEDS ORDERED: AMOXICILLIN/K CLAV 875/125MG TABLET. PO SCH (09:00)
[2016-12-15] MEDS ORDERED: INSU100V13 SQ (09:28)
[2016-12-15] MEDS ORDERED: INSU100C4 SQ (09:28)
[2016-12-15] MEDS ORDERED: OXYC1TAB7 PO (09:28)
[2016-12-15] MEDS ORDERED: AMOX1TAB11 PO (09:28)
[2016-12-15] MEDS ORDERED: ACID1TAB14 PO (09:28)
--- NOTE | 2016-12-15 09:52 | PDOC ---
Subjective: Subjective: Says she's going home today. No GI complaints. Objective: Vital Signs: Vital Signs Date Time Temp Pulse Resp B/P Pulse Ox O2 Delivery O2 Flow Rate FiO2 12/15/16 07:54 Room Air 12/15/16 07:00 97.9 86 16 86/48 97 97.9 Labs: Laboratory Tests Test 12/14/16 11:39 12/14/16 15:55 12/14/16 18:38 12/14/16 20:22 Glucose (Fingerstick) 65mg/dL 370mg/dL 244mg/dL 144mg/dL Test 12/15/16 03:30 12/15/16 07:39 Sodium Level 140mmol/L Potassium Level 3.7mmol/L Chloride Level 104mmol/L Carbon Dioxide Level 28mmol/L Anion Gap 8 Blood Urea Nitrogen 15mg/dL Creatinine 1.9mg/dL Estimated GFR (Cockcroft-Gault) 29.3 Glucose Level 145mg/dL Calcium Level 8.9mg/dL Glucose (Fingerstick) 166mg/dL PE: GEN: NAD LUNGS: clear anteriorly HEART: RRR ABD: NABS, S/ND/NT NEURO/PSYCH: A & O 3 A/P: N/v w/ likely diabetic gastroparesis - resolved -improved on Reglan susp and PPI Left foot infection s/p TMA -- DC okay per GI. Continue prokinetic, PPI, and optimal control of DM. ANTONETTE WALKER Dec 15, 2016 09:52
[2016-12-15 10:50] VITALS: BP 95/63
--- NOTE | 2016-12-15 11:15 | PDOC3 ---
Discharge Summary [facility] Date of Admission: Nov 30, 2016 Discharge Date: Dec 15, 2016 Admitting Diagnosis dka. resolved Hgba1c 16.7 DM gastroparesis symptoms Left diabetic foot cellulitis/osteo. wound cx is +Group B strep/Staph, -s/p I and D. 12/01. 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 Peripheral neuropathy Anemia - Gastroparesis - Coffee ground emesis, remote now - HTN Problems: Final Diagnosis Problems Medical Problems: (1) Back pain Status: Acute (2) Diabetic ketoacidosis Status: Acute (3) Necrotizing soft tissue infection Status: Acute CONSULTS dr. Mikael arreaga gi Brief Hospital Course Ms. Galo is a 41 old F, dm2 on insulin, non compliance , comes for hyperglycemia, was treated for DKA with insulin drip. later her glucose still liable, now better. She was underwent left foot TMA for cellulitis, path showed some acute osteo, wound cx + group b strep and staph, on zosyn till now, also on wound vac for about 1 week. pt has no insurance, go home wo wound vac, cont augmentin for 1week levemir 15u qhs, and aspart 10u tid for now fu with pcp and ortho next week to remove the stiches. dc time 40min General: Alert, Oriented X3, Cooperative, No acute distress Heart: Normal S1, Normal S2, Other (Mild tachycardia) Lungs: Clear Abdomen: Normal bowel sounds, Soft Extremities: No cyanosis, No edema, Other (Necrotizing fasciitis of L foot, wound vac in place; R toe amputation) Skin: Other (See extremities above) Patient History: FHx: diabetes mellitus G8 BROTHER, Onset:Unknown G8 BROTHER, Onset:Unknown 33 FATHER, Onset:Unknown 32 MOTHER, , Age:50's - 60, Onset:Unknown G8 SISTER, Onset:Unknown Problems: Disposition home CONDITION AT DISCHARGE: Improved Diet regular Scheduled Acidoph/L.bulg/Bif.b/S.thermop (Vicky-Bid Caplet) 1 TAB PO TIDWMEALS Amoxicillin/Potassium Clav (Amox Tr-K Clv 875-125 Mg Tab) 1 TAB PO BID Insulin Aspart (Novolog) 10 UNIT SQ TIDAC Insulin Detemir (Levemir) 15 UNIT SQ HS Metoclopramide Hcl (Metoclopramide Hcl) 5 MG PO QIDACHS Pantoprazole Sodium (Pantoprazole Sodium) 40 MG PO DAILYAC Scheduled PRN Oxycodone Hcl/Acetaminophen (Oxycodone-Acetaminophen 5-325) 1 TAB PO PRN Q4HRS PRN PRN MODERATE PAIN Discontinued Medications Amoxicillin/Potassium Clav (Amox Tr-K Clv 875-125 Mg Tab) 1 TAB PO BID Follow Up pcp and ortho next week CLAUDE GASTON MD Dec 15, 2016 11:15
--- NOTE | 2016-12-15 19:42 | OP ---
DATE OF SURGERY: 12/01/2016 DR. SANCHES DICTATING MISSING OPERATIVE NOTE. PREOPERATIVE DIAGNOSIS: Left foot infection. POSTOPERATIVE DIAGNOSIS: Severe infection with extensive tissue necrosis and purulence of the dorsal foot distally. PROCEDURE: Irrigation and debridement of left foot skin, fascia, muscle, tendon, not including bone. SURGEON: Neri Sanches M.D. ANESTHESIA: General. ESTIMATED BLOOD LOSS: 75 mL. Cultures were obtained intra-operatively. FINDINGS: Include extensive purulence of the dorsal foot distally. COMPLICATIONS: None. OPERATIVE INDICATIONS: The patient was previously seen in emergently for a necrotizing fasciitis infection and underwent multiple debridement procedures and was home with performing wound care, but had come in to the hospital in diabetic ketoacidosis, very sick with some healing tissue in the plantar aspect of the wound bed, but some worsening of her wound dorsally with purulence and some skin breakdown and developed ____ of superficial necrosis on her third toe among other issues and therefore, I had gone over with her daughter who interprets for German the necessity of taking her back to the operating room, getting any devitalized tissue out of her wound, evacuate the purulent drainage and overall explore it. I did indicate that based on her previous severe infection that additional procedures may be indicated. She may face the loss of her foot, but in any case this is a severe infection requiring prompt attention and later appropriate treatment. All of her questions were answered. Consent was obtained and she agrees to proceed with operative evaluation and treatment. OPERATIVE TECHNIQUE: The patient was identified, procedure verified, patient placed in the supine position on the operating table. After adequate amounts of general endotracheal anesthesia were administered, the left lower extremity was prepped and draped in standard sterile fashion and tourniquet was not initially inflated, although was placed on the thigh. Regarding the plantar wound, she had some good granulation tissue present, but really in the distal foot had extensive necrosis, particularly between the metatarsals and the metatarsophalangeal joints. She also had extensive dorsal purulence that communicated some necrosis noted early on the third toe and some skin compromise both lateral on the foot over the fifth metatarsophalangeal joint and palpable purulence underneath the dorsal aspect of the foot as well. The plantar incision was opened up widely and dorsally an incision made on the foot between the second and third webspace about 4 cm long. There was extensive necrotic tissue underneath that area, which was debrided sharply. The skin, subcutaneous tissue, fascia and muscle not including bone, but also tendon tissue that was explored both through the dorsal and plantar wounds. Unfortunately, the necrotic tissue extended across the pad of the foot just distal to the metatarsals dorsally and plantarly with ____involvement of the metatarsophalangeal joints throughout and certainly the tendon sheaths. However, no proximal tracking was noted at the tendon sheath at present. After extensive debridement was carried out and thorough irrigation by a normal saline solution and pulse lavage, bleeding points were controlled by electrocautery and a wound VAC was placed both dorsally and plantarly on the foot and sealed appropriately. She was returned to recovery room in stable condition having tolerated the procedure well. I had a discussion with the patient and family, postoperatively about the operative findings and the fact that I think that ultimately ____ miraculous turn around that she may require a mid foot amputation, but we would do some additional studies to attempt to confirm that and she can get some wound VAC and wound care in the interim before that decision is more definitively made. All her questions were answered at this time. NERI SANCHES MD DR: NIMCO/irais JOB#: [id number] / [id number]
== END 2016-12-15 14:03 | disposition home or self-care (01) | DRG 853 ==
LOC: ER 18:55 → 6 SOUTH 20:45 → 1 WEST ICU 22:55 → 4 NORTH 12-02 12:00
PROVIDERS: ADMIT Internal Medicine Hematology & Oncology; ATTEND Internal Medicine Hematology & Oncology
PROC: 0KBW0ZZ Excision of Left Foot Muscle, Open Approach (ICD-10-PCS; 2016-12-01)
PROC: 0Y6Y0Z0 Detachment at Left 5th Toe, Complete, Open Approach (ICD-10-PCS; 2016-12-08)
PROC: 0Y6W0Z0 Detachment at Left 4th Toe, Complete, Open Approach (ICD-10-PCS; 2016-12-08)
PROC: 0Y6U0Z0 Detachment at Left 3rd Toe, Complete, Open Approach (ICD-10-PCS; 2016-12-08)
PROC: 0Y6S0Z0 Detachment at Left 2nd Toe, Complete, Open Approach (ICD-10-PCS; 2016-12-08)
PROC: 0Y6Q0Z0 Detachment at Left 1st Toe, Complete, Open Approach (ICD-10-PCS; principal; 2016-12-08 11:30)
PROC: 30233N1 Transfusion of Nonautologous Red Blood Cells into Peripheral Vein, Percutaneous Approach (ICD-10-PCS; 2016-12-11)
DX: A41.9 Sepsis, unspecified organism (principal); M72.6 Necrotizing fasciitis; E13.10 Other specified diabetes mellitus with ketoacidosis without coma; L03.119 Cellulitis of unspecified part of limb; N17.9 Acute kidney failure, unspecified; Z91.14 Patient's other noncompliance with medication regimen; Z82.49 Family history of ischemic heart disease and other diseases of the circulatory system; Z79.4 Long term (current) use of insulin; D50.0 Iron deficiency anemia secondary to blood loss (chronic); E11.22 Type 2 diabetes mellitus with diabetic chronic kidney disease; E11.43 Type 2 diabetes mellitus with diabetic autonomic (poly)neuropathy; E11.628 Type 2 diabetes mellitus with other skin complications; E11.649 Type 2 diabetes mellitus with hypoglycemia without coma; E87.6 Hypokalemia; G62.9 Polyneuropathy, unspecified; I12.9 Hypertensive chronic kidney disease with stage 1 through stage 4 chronic kidney disease, or unspecified chronic kidney disease; K21.9 Gastro-esophageal reflux disease without esophagitis; K31.84 Gastroparesis; N18.3 Chronic kidney disease, stage 3 (moderate); W18.39XA Other fall on same level, initial encounter; Y93.89 Activity, other specified; Y92.89 Other specified places as the place of occurrence of the external cause; Y99.8 Other external cause status; Z83.3 Family history of diabetes mellitus; Z89.421 Acquired absence of other right toe(s); Z91.19 Patient's noncompliance with other medical treatment and regimen; Z79.899 Other long term (current) drug therapy; Z98.890 Other specified postprocedural states
CPT/HCPCS: 36415; 72128; 72131; 80048; 80053; 80202; 81001; 81025; 82947; 83735; 84100; 84132; 85007; 85014; 85018; 85027; 85610; 86850; 86900; 86901; 86920; 87040; 87071; 87075; 87186; 87205; 87641; 88307; 88311; 93005; 96361; 96365; 96366; 96368; 96375; 97004; C9113; J0330; J1100; J1815; J1885; J2248; J2270; J2370; J2405; J2543; J2550; J2704; J2765; J3010; J3370; J3480; J7030; J7042; J7050; J7060; J7120; J8597; P9016; 97116; 97530; 97535; 97605; 99285-25

== ENCOUNTER → 2017-01-25 | Outpatient (CLI) | payer MEDICAID ==
[2017-01-22 12:56] VITALS: BP 121/84
[~2017-01-25] MED LIST changes: +ACID1TAB14 PO; +INSU100V5 IJ; +INSU100V8 SQ; +PROM25TA10 PO
== END | disposition home or self-care (01) ==
LOC: PMGWOUND 13:31
PROVIDERS: ATTEND Preventive Medicine Undersea and Hyperbaric Medicine
DX: E11.621 Type 2 diabetes mellitus with foot ulcer (principal); L97.521 Non-pressure chronic ulcer of other part of left foot limited to breakdown of skin; Z89.421 Acquired absence of other right toe(s); Z87.01 Personal history of pneumonia (recurrent)
CPT/HCPCS: 99213

== ENCOUNTER → 2017-01-30 | Outpatient (CLI) | payer MEDICAID ==
[2017-01-22 12:56] VITALS: BP 121/84
== END | disposition home or self-care (01) ==
LOC: PMGWOUND 09:15
PROVIDERS: ATTEND Emergency Medicine Undersea and Hyperbaric Medicine
DX: E11.621 Type 2 diabetes mellitus with foot ulcer (principal); L97.521 Non-pressure chronic ulcer of other part of left foot limited to breakdown of skin; L97.421 Non-pressure chronic ulcer of left heel and midfoot limited to breakdown of skin; Z89.421 Acquired absence of other right toe(s)
CPT/HCPCS: 99214

== ENCOUNTER → 2017-02-06 | Outpatient (CLI) | payer MEDICAID ==
[2017-01-22 12:56] VITALS: BP 121/84
== END | disposition home or self-care (01) ==
LOC: PMGWOUND 09:04
PROVIDERS: ATTEND Emergency Medicine Undersea and Hyperbaric Medicine
DX: E11.621 Type 2 diabetes mellitus with foot ulcer (principal); L97.424 Non-pressure chronic ulcer of left heel and midfoot with necrosis of bone; Z87.01 Personal history of pneumonia (recurrent); Z89.421 Acquired absence of other right toe(s)
CPT/HCPCS: 99214

== ENCOUNTER → 2017-02-13 | Outpatient (CLI) | payer MEDICAID ==
[2017-01-22 12:56] VITALS: BP 121/84
[2017-02-13 09:45] LABS: BASO # 0.1 x10^3/uL (0.0-0.2); BASO % 1 % (0-3); EOS % 3 % (0-3); HEMATOCRIT 36.5 % (36.0-47.0); HEMOGLOBIN 12.3 g/dL (12.0-15.5); LYMPH # 2.5 x10^3/uL (1.0-4.8); LYMPH % 27 % (24-48); MEAN CORPUSCULAR HEMOGLOBIN 30 pg (25-35); MEAN CORPUSCULAR HGB CONC 34 g/dL (31-37); MEAN CORPUSCULAR VOLUME 88 fL (79-100); MONO % 5 % (0-9); NEUT % 64 % (31-73); PLATELET COUNT 373 x10^3/uL (140-400); RED BLOOD COUNT 4.16 x10^6/uL (3.50-5.40)
[2017-02-13 10:09] LABS: C-REACTIVE PROTEIN 1.3 mg/L (0-3.3); CREATININE 1.6 mg/dL (0.6-1.0); GFR 35.7
== END | disposition home or self-care (01) ==
LOC: PMGWOUND 08:40
PROVIDERS: ATTEND Emergency Medicine Undersea and Hyperbaric Medicine
DX: E11.621 Type 2 diabetes mellitus with foot ulcer (principal); L97.521 Non-pressure chronic ulcer of other part of left foot limited to breakdown of skin; L03.116 Cellulitis of left lower limb; Z89.421 Acquired absence of other right toe(s); E11.22 Type 2 diabetes mellitus with diabetic chronic kidney disease; I12.9 Hypertensive chronic kidney disease with stage 1 through stage 4 chronic kidney disease, or unspecified chronic kidney disease; N18.3 Chronic kidney disease, stage 3 (moderate); Z79.4 Long term (current) use of insulin; E11.69 Type 2 diabetes mellitus with other specified complication; M86.68 Other chronic osteomyelitis, other site; E11.40 Type 2 diabetes mellitus with diabetic neuropathy, unspecified; E11.43 Type 2 diabetes mellitus with diabetic autonomic (poly)neuropathy
CPT/HCPCS: 36415; 82565; 84520; 85027; 85651; 86140; 99213

== ENCOUNTER → 2017-02-16 | Outpatient (CLI) | payer MEDICAID ==
[2017-01-22 12:56] VITALS: BP 121/84
== END | disposition home or self-care (01) ==
LOC: PMGWOUND 10:12
PROVIDERS: ATTEND Preventive Medicine Undersea and Hyperbaric Medicine
DX: T87.89 Other complications of amputation stump (principal); E11.621 Type 2 diabetes mellitus with foot ulcer; L97.521 Non-pressure chronic ulcer of other part of left foot limited to breakdown of skin; L03.116 Cellulitis of left lower limb; E11.22 Type 2 diabetes mellitus with diabetic chronic kidney disease; I12.9 Hypertensive chronic kidney disease with stage 1 through stage 4 chronic kidney disease, or unspecified chronic kidney disease; N18.3 Chronic kidney disease, stage 3 (moderate); Z79.4 Long term (current) use of insulin; E11.42 Type 2 diabetes mellitus with diabetic polyneuropathy; E11.69 Type 2 diabetes mellitus with other specified complication; M86.8X8 Other osteomyelitis, other site; Y83.5 Amputation of limb(s) as the cause of abnormal reaction of the patient, or of later complication, without mention of misadventure at the time of the procedure
CPT/HCPCS: 99214

== ENCOUNTER → 2017-02-20 | Outpatient (CLI) | payer MEDICAID ==
[2017-01-22 12:56] VITALS: BP 121/84
[~2017-02-20] MED LIST changes: +GADOBUTROL 7.5 MMOL/7.5 ML VIAL IV ONE
--- NOTE | 2017-02-20 12:04 | RAD ---
PROCEDURE MRI left foot with and without contrast dated 02/20/2017. HISTORY Recent amputation now with newly formed wound at the amputation site. TECHNIQUE T1 and T2 weighted imaging performed in 3 planes to include the mid and forefoot region. Postcontrast fat saturated T1 weighted sequences acquired after the intravenous administration of 5 cc Gadavist. COMPARISON 10/23/2016. FINDINGS There has been interval transmetatarsal amputation. Mild edema and enhancement along the cut edge is of the metatarsal shafts, likely postoperative or reactive. No definite cortical destruction. There is mild patchy increased signal within the marrow of the talus, distal tibia, calcaneus and bones of the midfoot, nonspecific. No discrete fracture line. On the axial sequences, there is a linear hypointense line through the calcaneal tuberosity with fluid bright T2 signal, suggesting ununited fracture. This was not included on the sagittal or coronal images. Diffuse edema and enhancement throughout the visualized soft tissues. There is a focal area of skin ulceration at the distal amputation site near the level of the 2nd and 3rd metatarsal shafts. Linear nonenhancing pocket of fluid bright signal within the soft tissues deep to the ulcer that could be related to small fistulous tract. This communicates with a rounded area of heterogeneous T2 signal and nonenhancement just anterior to the 3rd metatarsal shaft, measures about 10 millimeters maximum dimension. No additional fluid collections are seen. Diffuse edema and enhancement throughout the plantar foot musculature. IMPRESSION - Status post transmetatarsal amputation. There is a focal skin ulcer at the distal amputation site that could represent a post surgical defect or recurrent skin ulcer. There is fluid bright T2 signal tracking into the distal soft tissues that may represent fistulous tract and/or early abscess. - Mild edema and enhancement along the cut edge of the metatarsal shafts, nonspecific. This may be reactive and/or related to prior surgery. Early recurrent osteomyelitis cannot be excluded. Follow up imaging may be warranted to ensure stability, particularly of the ulcer defect persists. - Patchy edema throughout the visualized bone marrow more proximally, nonspecific. - Abnormal signal at the calcaneal tuberosity, seen only on the axial sequences, suspicious for fracture or stress fracture. Recommend clinical correlation. Recommend plain film correlation. - Diffuse edema and enhancement throughout the soft tissues, nonspecific. This could represent generalized cellulitis/myositis. Diabetic neurovascular edema is also possible. Electronically signed by: Ramses Hurst (Feb 20, 2017 12:03:35)
== END | disposition home or self-care (01) ==
LOC: PMGWOUND 09:10
PROVIDERS: ATTEND Emergency Medicine Undersea and Hyperbaric Medicine
DX: T87.89 Other complications of amputation stump (principal); E10.621 Type 1 diabetes mellitus with foot ulcer; L97.424 Non-pressure chronic ulcer of left heel and midfoot with necrosis of bone; Z89.421 Acquired absence of other right toe(s); Z87.01 Personal history of pneumonia (recurrent); Y83.5 Amputation of limb(s) as the cause of abnormal reaction of the patient, or of later complication, without mention of misadventure at the time of the procedure
CPT/HCPCS: 73720; 99214; A9585

== ENCOUNTER → 2017-02-23 | Outpatient (CLI) | payer MEDICAID ==
[2017-01-22 12:56] VITALS: BP 121/84
[~2017-02-23] MED LIST changes: -GADOBUTROL 7.5 MMOL/7.5 ML VIAL IV ONE
== END | disposition home or self-care (01) ==
LOC: PMGWOUND 10:11
PROVIDERS: ATTEND Preventive Medicine Undersea and Hyperbaric Medicine
DX: T87.89 Other complications of amputation stump (principal); E10.621 Type 1 diabetes mellitus with foot ulcer; L97.424 Non-pressure chronic ulcer of left heel and midfoot with necrosis of bone; Z89.421 Acquired absence of other right toe(s); Y83.5 Amputation of limb(s) as the cause of abnormal reaction of the patient, or of later complication, without mention of misadventure at the time of the procedure
CPT/HCPCS: 99214

== ENCOUNTER → 2017-02-27 | Outpatient (CLI) | payer MEDICAID ==
[2017-01-22 12:56] VITALS: BP 121/84
== END | disposition home or self-care (01) ==
LOC: PMGWOUND 09:44
PROVIDERS: ATTEND Emergency Medicine Undersea and Hyperbaric Medicine
DX: T87.89 Other complications of amputation stump (principal); E11.621 Type 2 diabetes mellitus with foot ulcer; L97.421 Non-pressure chronic ulcer of left heel and midfoot limited to breakdown of skin; E11.22 Type 2 diabetes mellitus with diabetic chronic kidney disease; I12.9 Hypertensive chronic kidney disease with stage 1 through stage 4 chronic kidney disease, or unspecified chronic kidney disease; N18.3 Chronic kidney disease, stage 3 (moderate); E11.69 Type 2 diabetes mellitus with other specified complication; M86.8X8 Other osteomyelitis, other site; E11.40 Type 2 diabetes mellitus with diabetic neuropathy, unspecified; E11.43 Type 2 diabetes mellitus with diabetic autonomic (poly)neuropathy; Z79.4 Long term (current) use of insulin; Y83.5 Amputation of limb(s) as the cause of abnormal reaction of the patient, or of later complication, without mention of misadventure at the time of the procedure
CPT/HCPCS: 99214

== ENCOUNTER → 2017-03-02 | Outpatient (CLI) | payer MEDICAID, OTHER ==
[2017-01-22 12:56] VITALS: BP 121/84
== END | disposition home or self-care (01) ==
LOC: PMGWOUND 10:27
PROVIDERS: ATTEND Emergency Medicine Undersea and Hyperbaric Medicine
DX: E11.621 Type 2 diabetes mellitus with foot ulcer (principal); L97.421 Non-pressure chronic ulcer of left heel and midfoot limited to breakdown of skin; Z89.421 Acquired absence of other right toe(s); E11.22 Type 2 diabetes mellitus with diabetic chronic kidney disease; I12.9 Hypertensive chronic kidney disease with stage 1 through stage 4 chronic kidney disease, or unspecified chronic kidney disease; N18.3 Chronic kidney disease, stage 3 (moderate); E11.69 Type 2 diabetes mellitus with other specified complication; M86.8X7 Other osteomyelitis, ankle and foot; E11.40 Type 2 diabetes mellitus with diabetic neuropathy, unspecified; E11.43 Type 2 diabetes mellitus with diabetic autonomic (poly)neuropathy; J18.9 Pneumonia, unspecified organism; Z79.4 Long term (current) use of insulin
CPT/HCPCS: 99214

== ENCOUNTER → 2017-03-06 | Outpatient (CLI) | payer MEDICAID ==
[2017-01-22 12:56] VITALS: BP 121/84
== END | disposition home or self-care (01) ==
LOC: PMGWOUND 08:51
PROVIDERS: ATTEND Emergency Medicine Undersea and Hyperbaric Medicine
DX: T87.89 Other complications of amputation stump (principal); E11.621 Type 2 diabetes mellitus with foot ulcer; L97.421 Non-pressure chronic ulcer of left heel and midfoot limited to breakdown of skin; E11.22 Type 2 diabetes mellitus with diabetic chronic kidney disease; I12.9 Hypertensive chronic kidney disease with stage 1 through stage 4 chronic kidney disease, or unspecified chronic kidney disease; N18.3 Chronic kidney disease, stage 3 (moderate); E11.69 Type 2 diabetes mellitus with other specified complication; M86.8X8 Other osteomyelitis, other site; E11.40 Type 2 diabetes mellitus with diabetic neuropathy, unspecified; E11.43 Type 2 diabetes mellitus with diabetic autonomic (poly)neuropathy; Z79.4 Long term (current) use of insulin; Y83.5 Amputation of limb(s) as the cause of abnormal reaction of the patient, or of later complication, without mention of misadventure at the time of the procedure
CPT/HCPCS: 99214

== ENCOUNTER → 2017-03-09 | Outpatient (CLI) | payer MEDICAID ==
[2017-01-22 12:56] VITALS: BP 121/84
== END | disposition home or self-care (01) ==
LOC: PMGWOUND 12:26
PROVIDERS: ATTEND Preventive Medicine Undersea and Hyperbaric Medicine
DX: T87.89 Other complications of amputation stump (principal); E11.621 Type 2 diabetes mellitus with foot ulcer; L97.421 Non-pressure chronic ulcer of left heel and midfoot limited to breakdown of skin; E11.22 Type 2 diabetes mellitus with diabetic chronic kidney disease; I12.9 Hypertensive chronic kidney disease with stage 1 through stage 4 chronic kidney disease, or unspecified chronic kidney disease; N18.3 Chronic kidney disease, stage 3 (moderate); E11.69 Type 2 diabetes mellitus with other specified complication; M86.68 Other chronic osteomyelitis, other site; E11.40 Type 2 diabetes mellitus with diabetic neuropathy, unspecified; E11.43 Type 2 diabetes mellitus with diabetic autonomic (poly)neuropathy; Z79.4 Long term (current) use of insulin; Y83.5 Amputation of limb(s) as the cause of abnormal reaction of the patient, or of later complication, without mention of misadventure at the time of the procedure
CPT/HCPCS: 99213

== ENCOUNTER → 2017-03-13 | Outpatient (CLI) | payer MEDICAID ==
[2017-01-22 12:56] VITALS: BP 121/84
== END | disposition home or self-care (01) ==
LOC: PMGWOUND 08:59
PROVIDERS: ATTEND Emergency Medicine Undersea and Hyperbaric Medicine
DX: T87.89 Other complications of amputation stump (principal); E11.621 Type 2 diabetes mellitus with foot ulcer; L97.421 Non-pressure chronic ulcer of left heel and midfoot limited to breakdown of skin; E11.22 Type 2 diabetes mellitus with diabetic chronic kidney disease; I12.9 Hypertensive chronic kidney disease with stage 1 through stage 4 chronic kidney disease, or unspecified chronic kidney disease; N18.3 Chronic kidney disease, stage 3 (moderate); E11.69 Type 2 diabetes mellitus with other specified complication; M86.68 Other chronic osteomyelitis, other site; Z79.4 Long term (current) use of insulin; Y83.5 Amputation of limb(s) as the cause of abnormal reaction of the patient, or of later complication, without mention of misadventure at the time of the procedure
CPT/HCPCS: 99214

== ENCOUNTER → 2017-07-19 | Outpatient (CLI) | payer MEDICAID ==
[2017-01-22 12:56] VITALS: BP 121/84
== END | disposition home or self-care (01) ==
LOC: PMGWOUND 14:15
PROVIDERS: ATTEND Emergency Medicine Undersea and Hyperbaric Medicine
DX: E11.621 Type 2 diabetes mellitus with foot ulcer (principal); L97.522 Non-pressure chronic ulcer of other part of left foot with fat layer exposed; Z89.421 Acquired absence of other right toe(s)
CPT/HCPCS: 11042

== ENCOUNTER → 2017-07-23 | Outpatient (CLI) | payer MEDICAID ==
[2017-01-22 12:56] VITALS: BP 121/84
== END | disposition home or self-care (01) ==
LOC: PMGWOUND 08:25
PROVIDERS: ATTEND Emergency Medicine Undersea and Hyperbaric Medicine
DX: E11.621 Type 2 diabetes mellitus with foot ulcer (principal); L97.522 Non-pressure chronic ulcer of other part of left foot with fat layer exposed; Z89.421 Acquired absence of other right toe(s); Z87.01 Personal history of pneumonia (recurrent)
CPT/HCPCS: 99214

== ENCOUNTER → 2017-07-30 | Outpatient (CLI) | payer MEDICAID ==
[2017-01-22 12:56] VITALS: BP 121/84
== END | disposition home or self-care (01) ==
LOC: PMGWOUND 08:25
PROVIDERS: ATTEND Emergency Medicine Undersea and Hyperbaric Medicine
DX: E11.621 Type 2 diabetes mellitus with foot ulcer (principal); L97.522 Non-pressure chronic ulcer of other part of left foot with fat layer exposed; Z89.421 Acquired absence of other right toe(s)
CPT/HCPCS: 99214

== ENCOUNTER → 2017-08-06 | Outpatient (CLI) | payer MEDICAID ==
[2017-01-22 12:56] VITALS: BP 121/84
== END | disposition home or self-care (01) ==
LOC: PMGWOUND 08:25
PROVIDERS: ATTEND Emergency Medicine Undersea and Hyperbaric Medicine
DX: E11.621 Type 2 diabetes mellitus with foot ulcer (principal); L97.522 Non-pressure chronic ulcer of other part of left foot with fat layer exposed; Z89.421 Acquired absence of other right toe(s); Z87.01 Personal history of pneumonia (recurrent)
CPT/HCPCS: 99214

== ENCOUNTER → 2017-08-13 | Outpatient (CLI) | payer MEDICAID ==
[2017-01-22 12:56] VITALS: BP 121/84
[~2017-08-13] MED LIST changes: +GADOBUTROL 7.5 MMOL/7.5 ML VIAL IV ONE
--- NOTE | 2017-08-13 11:57 | KCIC ---
MR of the left foot without contrast HISTORY: Prior amputation. Wound at the anterior stump. Infection in the last 2 weeks ago. Nonhealing wound. TECHNIQUE: The routine multiplanar sequences are obtained. No intravenous contrast due to renal function. COMPARISON: February 20, 2017. FINDINGS: Moderate to severe motion degradation despite repeating sequences. There has been an amputation at the level of the metatarsal shafts. There is mild marrow edema within the distal shaft remnant of the fourth metatarsal without corresponding aggressive bone replacement or destruction. This is likely just reactive. Mild patchy marrow edema is identified within the tarsal bones. No convincing evidence of acute osteomyelitis. No evidence of an acute fracture. There is diffuse soft tissue edema around the foot. This becomes greater at the ankle and the dorsum of the foot. There is no evidence of a large joint effusion. There is mild soft tissue defect at the plantar aspect of the foot, plantar to the first metatarsal remnant, may represent the patient's known ulcer. There is a small fluid pocket extending from this into the soft tissues at the distal stump, distal to the first through third metatarsals. This fluid pocket is poorly defined but measures 25 mm x 15 mm x 10 mm diameter. Mild soft tissue edema within the plantar musculature of the foot. IMPRESSION: 1. No evidence of acute osteomyelitis. 2. Skin ulcer or wound at the distal plantar foot. This communicates with a small irregular fluid pocket, located distal to the first through third metatarsal stumps, suspicious for a small abscess. 3. Generalized cellulitis and myositis. Electronically signed by: Ramses Rodriguez MD (08/13/2017 11:53 AM) [facility]
== END | disposition home or self-care (01) ==
LOC: KCIC MRI 09:13
PROVIDERS: ATTEND Emergency Medicine Undersea and Hyperbaric Medicine
DX: M60.872 Other myositis, left ankle and foot (principal); Z89.432 Acquired absence of left foot
CPT/HCPCS: 73718; 82565

== ENCOUNTER → 2017-08-13 | Outpatient (CLI) | payer MEDICAID, OTHER ==
[2017-01-22 12:56] VITALS: BP 121/84
[~2017-08-13] MED LIST changes: -GADOBUTROL 7.5 MMOL/7.5 ML VIAL IV ONE
== END | disposition home or self-care (01) ==
LOC: PMGWOUND 08:16
PROVIDERS: ATTEND Emergency Medicine Undersea and Hyperbaric Medicine
DX: E11.621 Type 2 diabetes mellitus with foot ulcer (principal); L97.522 Non-pressure chronic ulcer of other part of left foot with fat layer exposed; Z89.421 Acquired absence of other right toe(s)
CPT/HCPCS: 99214

== ENCOUNTER → 2017-08-20 | Outpatient (CLI) | payer MEDICAID ==
[2017-01-22 12:56] VITALS: BP 121/84
== END | disposition home or self-care (01) ==
LOC: PMGWOUND 08:33
PROVIDERS: ATTEND Emergency Medicine Undersea and Hyperbaric Medicine
DX: E11.621 Type 2 diabetes mellitus with foot ulcer (principal); L97.522 Non-pressure chronic ulcer of other part of left foot with fat layer exposed; Z89.421 Acquired absence of other right toe(s)
CPT/HCPCS: 99213

== ENCOUNTER → 2017-08-27 | Outpatient (CLI) | payer MEDICAID ==
[2017-01-22 12:56] VITALS: BP 121/84
== END | disposition home or self-care (01) ==
LOC: PMGWOUND 08:23
PROVIDERS: ATTEND Emergency Medicine Undersea and Hyperbaric Medicine
DX: E11.621 Type 2 diabetes mellitus with foot ulcer (principal); L97.522 Non-pressure chronic ulcer of other part of left foot with fat layer exposed; Z89.421 Acquired absence of other right toe(s)
CPT/HCPCS: 99214

== ENCOUNTER → 2017-09-03 | Outpatient (CLI) | payer MEDICAID ==
[2017-01-22 12:56] VITALS: BP 121/84
== END | disposition home or self-care (01) ==
LOC: PMGWOUND 08:15
PROVIDERS: ATTEND Emergency Medicine Undersea and Hyperbaric Medicine
DX: E11.621 Type 2 diabetes mellitus with foot ulcer (principal); L97.522 Non-pressure chronic ulcer of other part of left foot with fat layer exposed; Z89.421 Acquired absence of other right toe(s)
CPT/HCPCS: 11042

== ENCOUNTER → 2017-09-24 | Outpatient (CLI) | payer MEDICAID ==
[2017-01-22 12:56] VITALS: BP 121/84
== END | disposition home or self-care (01) ==
LOC: PMGWOUND 08:29
PROVIDERS: ATTEND Emergency Medicine Undersea and Hyperbaric Medicine
DX: E11.621 Type 2 diabetes mellitus with foot ulcer (principal); L97.522 Non-pressure chronic ulcer of other part of left foot with fat layer exposed; Z89.421 Acquired absence of other right toe(s)
CPT/HCPCS: 99214

== ENCOUNTER 2017-12-21 15:15 | Inpatient (IN) | payer OTHER, MEDICAID ==
[2017-12-21 15:57] LABS: POC GLUCOSE 558 mg/dL (70-99)
[2017-12-21 15:57] LABS: URINE HCG POC HCG NEGATIVE (Negative)
[2017-12-21 15:59] LABS: BILIRUBIN,URINE NEGATIVE (NEG); CLARITY,URINE CLEAR; COLOR,URINE YELLOW; GLUCOSE,URINE >=1000 mg/dL (NEG); NITRITE,URINE NEGATIVE (NEG); PH,URINE 6.5; PROTEIN,URINE >=300 mg/dL (NEG-TRACE); UROBILINOGEN,URINE 0.2 mg/dL (0.2 mg/dL)
[2017-12-21] MEDS: IOHEXOL 300 MG/ML 100ML VIAL. IV (16:00)
[2017-12-21] MEDS ORDERED: KETOROLAC 30 MG/ML INJ. IV (16:00)
[2017-12-21] MEDS: IV NORMAL SALINE 1000ML BAG 1,000 ML IV ×4 (16:05→17:17)
[2017-12-21 16:15] LABS: ADD MAN DIFF? NO; AGAP ISTAT 17 mmol/L (6-14); BUN ISTAT 20 mg/dL (8-26); CHLORIDE ISTAT 92 mmol/L (98-110); GLUCOSE ISTAT 565 mg/dL (70-99); HEMATOCRIT ISTAT 41 % (36-40); HEMOGLOBIN ISTAT 13.9 g/dL (12-15); ION CA ISTAT 1.09 mmol/L (1.13-1.32); POTASSIUM ISTAT 3.6 mmol/L (3.5-5.0); SODIUM ISTAT 127 mmol/L (135-145); TOT CO2 ISTAT 22 mmol/L (23-32)
[2017-12-21] MEDS ORDERED: CONTRAST GIVEN MC (16:15)
[2017-12-21 16:17] LABS: BASO # 0.1 x10^3/uL (0.0-0.2); BASO % 1 % (0-3); EOS % 0 % (0-3); HEMATOCRIT 39.3 % (36.0-47.0); LYMPH # 1.8 x10^3/uL (1.0-4.8); LYMPH % 15 % (24-48); MEAN CORPUSCULAR HEMOGLOBIN 28 pg (25-35); MEAN CORPUSCULAR HGB CONC 33 g/dL (31-37); MEAN CORPUSCULAR VOLUME 84 fL (79-100); MONO # 0.4 x10^3/uL (0.0-1.1); MONO % 3 % (0-9); NEUT # 9.6 x10^3uL (1.8-7.7); NEUT % 81 % (31-73); PLATELET COUNT 453 x10^3/uL (140-400); RED BLOOD COUNT 4.69 x10^6/uL (3.50-5.40); RED CELL DISTRIBUTION WIDTH 14.5 % (11.5-14.5); WHITE BLOOD COUNT 11.9 x10^3/uL (4.0-11.0)
[2017-12-21 16:21] LABS: BACTERIA,URINE 0 /HPF (0-FEW); SQUAMOUS EPITHELIAL CELL,UR MOD /LPF; YEAST,URINE PRESENT /HPF
[2017-12-21 16:30] LABS: ALBUMIN 2.5 g/dL (3.4-5.0); ALBUMIN/GLOBULIN RATIO 0.4 (1.0-1.7); ALK PHOS 140 U/L (46-116); ANION GAP 15 (6-14); AST (SGOT) 19 U/L (15-37); BLOOD UREA NITROGEN 21 mg/dL (7-20); BUN/CREATININE RATIO 10 (6-20); CALCIUM 9.7 mg/dL (8.5-10.1); CARBON DIOXIDE 22 mmol/L (21-32); CHLORIDE 88 mmol/L (98-107); CREATININE 2.2 mg/dL (0.6-1.0); GFR 24.6; LIPASE 232 U/L (73-393); POTASSIUM 3.6 mmol/L (3.5-5.1); SODIUM 125 mmol/L (136-145); TOTAL BILIRUBIN 0.3 mg/dL (0.2-1.0); TOTAL PROTEIN 8.3 g/dL (6.4-8.2)
[2017-12-21 16:38] LABS: GLUCOSE 569 mg/dL (70-99)
[2017-12-21 16:39] LABS: ALT (SGPT) < 6 U/L (14-59)
[2017-12-21] MEDS: INSULIN,REGULAR 150 UNIT DRIP 150 ML IV (16:52)
[2017-12-21 17:20] LABS: POC GLUCOSE 321 mg/dL (70-99)
[2017-12-21] MEDS: MORPHINE SULFATE 2 MG/ML DISP.SYRIN. IV ×2 (17:41→21:57)
[2017-12-21] MEDS: ONDANSETRON PF 4 MG/2 ML VIAL. IV (17:41)
[2017-12-21] MEDS: POTASSIUM CHLORIDE 20 MEQ TABLET.ER. PO (17:43)
[2017-12-21] MEDS: NORMAL SALINE IV (17:43)
[2017-12-21] MEDS: POTASSIUM CHLORIDE IV (17:43)
[2017-12-21 18:32] LABS: POC GLUCOSE 207 mg/dL (70-99)
[2017-12-21 19:43] LABS: POC GLUCOSE 119 mg/dL (70-99)
[2017-12-21 20:44] LABS: POC GLUCOSE 154 mg/dL (70-99)
[2017-12-21] MEDS ORDERED: PROMETHAZINE 12.5 MG TABLET. PO (20:45)
[2017-12-21] MEDS ORDERED: INSULIN DETEMIR 300 UNITS/3 ML INSULN.PEN. SQ (21:00)
[2017-12-21] MEDS: LACTOBACILLUS RHAMNOSUS GG 1 CAPSULE. PO (21:46)
[2017-12-21] MEDS: METOCLOPRAMIDE ORAL SOLN 10 MG/10 ML SOLUTION. PO (21:47)
[2017-12-21 21:48] LABS: POC GLUCOSE 142 mg/dL (70-99)
[2017-12-21] MEDS: INSULIN DETEMIR 300 UNITS/3 ML INSULN.PEN. SQ (21:50)
[2017-12-21] MEDS ORDERED: PNEUMOCOCCAL VAX SCREEN BY RX. MC (22:30)
[2017-12-21] MEDS: oxyCODONE/APAP 5/325 1 TAB TABLET PO (22:33)
[2017-12-21 22:48] LABS: POC GLUCOSE 148 mg/dL (70-99)
[2017-12-21 23:47] LABS: POC GLUCOSE 183 mg/dL (70-99)
[2017-12-22] MEDS: IV NORMAL SALINE 1000ML BAG 1,000 ML IV ×2 (01:31→08:54)
[2017-12-22 03:18] LABS: POC GLUCOSE 135 mg/dL (70-99)
[2017-12-22 07:19] LABS: ADD MAN DIFF? NO
[2017-12-22 07:23] LABS: BASO % 0 % (0-3); EOS # 0.2 x10^3/uL (0.0-0.7); EOS % 2 % (0-3); HEMATOCRIT 29.3 % (36.0-47.0); LYMPH # 4.5 x10^3/uL (1.0-4.8); LYMPH % 50 % (24-48); MEAN CORPUSCULAR HEMOGLOBIN 28 pg (25-35); MEAN CORPUSCULAR HGB CONC 33 g/dL (31-37); MEAN CORPUSCULAR VOLUME 85 fL (79-100); MONO # 0.6 x10^3/uL (0.0-1.1); MONO % 7 % (0-9); NEUT # 3.8 x10^3uL (1.8-7.7); NEUT % 41 % (31-73); PLATELET COUNT 341 x10^3/uL (140-400); RED BLOOD COUNT 3.43 x10^6/uL (3.50-5.40); RED CELL DISTRIBUTION WIDTH 14.5 % (11.5-14.5); WHITE BLOOD COUNT 9.2 x10^3/uL (4.0-11.0)
[2017-12-22 07:30] LABS: HEMOGLOBIN 9.6 g/dL (12.0-15.5)
[2017-12-22] MEDS: INSULIN ASPART 300 UNITS/3 ML INSULN.PEN SQ ×2 (07:30→12:01)
[2017-12-22 07:31] LABS: POC GLUCOSE 77 mg/dL (70-99)
[2017-12-22] MEDS: PANTOPRAZOLE 40 MG TABLET.DR. PO (07:43)
[2017-12-22] MEDS: METOCLOPRAMIDE ORAL SOLN 10 MG/10 ML SOLUTION. PO ×2 (07:43→11:58)
[2017-12-22 07:47] LABS: ALBUMIN 1.7 g/dL (3.4-5.0); ALBUMIN/GLOBULIN RATIO 0.4 (1.0-1.7); ALK PHOS 88 U/L (46-116); ALT (SGPT) 9 U/L (14-59); ANION GAP 10 (6-14); AST (SGOT) 11 U/L (15-37); BLOOD UREA NITROGEN 11 mg/dL (7-20); BUN/CREATININE RATIO 8 (6-20); CALCIUM 8.1 mg/dL (8.5-10.1); CARBON DIOXIDE 22 mmol/L (21-32); CHLORIDE 108 mmol/L (98-107); CREATININE 1.4 mg/dL (0.6-1.0); GFR 41.4; GLUCOSE 77 mg/dL (70-99); POTASSIUM 3.4 mmol/L (3.5-5.1); SODIUM 140 mmol/L (136-145); TOTAL BILIRUBIN 0.2 mg/dL (0.2-1.0); TOTAL PROTEIN 5.5 g/dL (6.4-8.2)
[2017-12-22] MEDS: oxyCODONE/APAP 5/325 1 TAB TABLET PO (07:48)
[2017-12-22] MEDS: LACTOBACILLUS RHAMNOSUS GG 1 CAPSULE. PO (08:52)
[2017-12-22] MEDS: ENOXAPARIN 30 MG/0.3 ML SYRINGE. SQ (08:53)
[2017-12-22] MEDS: INSULIN DETEMIR 300 UNITS/3 ML INSULN.PEN. SQ (08:53)
[2017-12-22] MEDS: PNEUMOC CONJ VACC 23-VALENT 0.5 ML VIAL. VAX IM (08:55)
[2017-12-22] MEDS ORDERED: PNEUMOCOCCAL VAX SCREEN BY RX. MC (09:00)
[2017-12-22] MEDS: POTASSIUM CHLORIDE 20 MEQ TABLET.ER. PO (10:24)
[2017-12-22] MEDS: MAGNESIUM SULFATE 2GM 50 ML IV (10:25)
[2017-12-22 11:04] LABS: POC GLUCOSE 293 mg/dL (70-99)
[2017-12-22 20:10] LABS: HEMOGLOBIN A1C 12.2 % (4.8-5.6)
[2017-12-23 07:57] LABS: BARBITURATES NEG (NEG); BENZODIAZEPINES NEG (NEG); CANNABINOIDS NEG (NEG); COCAINE NEG (NEG); METHADONE NEG (NEG); OPIATES NEG (NEG); PHENCYCLIDINE NEG (NEG)
[2017-12-23 08:00] LABS: AMPHETAMINE/METHAMPHETAMINE NEG (NEG); ETHANOL, URINE NEG (NEG)
[2017-12-23] MEDS ORDERED: ENOXAPARIN 40 MG/0.4 ML SYRINGE. SQ (09:00)
== END 2017-12-22 14:59 | disposition home or self-care (01) | DRG 682 ==
LOC: ER 15:15 → 5 NORTH 16:53
DX: N17.0 Acute kidney failure with tubular necrosis (principal); E11.00 Type 2 diabetes mellitus with hyperosmolarity without nonketotic hyperglycemic-hyperosmolar coma (NKHHC); E44.0 Moderate protein-calorie malnutrition; E87.2 Acidosis; E87.1 Hypo-osmolality and hyponatremia; A08.4 Viral intestinal infection, unspecified; E86.0 Dehydration; I10 Essential (primary) hypertension; Z79.4 Long term (current) use of insulin; Z83.3 Family history of diabetes mellitus; Z89.421 Acquired absence of other right toe(s); Z91.19 Patient's noncompliance with other medical treatment and regimen; Z68.29 Body mass index [BMI] 29.0-29.9, adult; Z89.439 Acquired absence of unspecified foot
CPT/HCPCS: 36415; 74176; 80047; 80053; 80307; 81001; 81025; 82962; 83036; 83690; 85025; 90732; 93005; 96361; 96365; 96367; 99285-25; J1650; J1815; J2270; J2405; J7030; J7060; J8597

== ENCOUNTER → 2018-09-04 | Outpatient (CLI) | payer OTHER ==
[2017-12-22 11:00] VITALS: BP 130/73
--- NOTE | 2018-09-04 08:31 | RAD ---
Abdominal ultrasound, 09/04/2018: HISTORY: Generalized abdominal pain The gallbladder is within normal limits in size. There is no sonographic evidence of cholelithiasis. The gallbladder wall is not thickened. The common hepatic duct is of normal caliber. There is no evidence of a hepatic mass. The pancreas was obscured by overlying bowel. The spleen is of normal size. The kidneys are unremarkable. The abdominal aorta and inferior vena cava show no significant abnormality. No free fluid is evident in the abdomen. IMPRESSION: No significant abnormality is detected. Electronically signed by: Ziyad Davies MD (09/04/2018 8:28 AM) [facility]
== END | disposition home or self-care (01) ==
LOC: US 07:10
PROVIDERS: ATTEND Family Medicine
DX: R10.84 Generalized abdominal pain (principal)
CPT/HCPCS: 76700